=== PATIENT | male | born 1955 | race Caucasian/White ===

== ENCOUNTER → 2018-11-30 08:43 | Outpatient (CLI) | payer OTHER, SELFPAY ==
[2018-11-30 10:47] LABS: Microalbumin,Random Urine 15.8 mg/L (NO RANGE EST.); Microalbumin:Creatinine Ratio 7.7 mg/g CRE (<30 mg/g CRE)
[2018-11-30 10:59] LABS: AST(SGOT) 17 U/L (15-37); Alanine Aminotransfer ALT/SGPT 34 U/L (16-61); Albumin, Serum 3.9 g/dL (3.2-5.0); Alkaline Phosphatase 23 U/L (45-117); Anion Gap 11 (5-15); BUN 18 mg/dL (7-18); BUN/Creat Ratio 20.9 RATIO (10-20); Bilirubin, Direct 0.13 mg/dL (0.00-0.30); Calcium,Total 8.4 mg/dL (8.5-10.1); Chloride 104 mmol/L (98-107); Cholesterol 115 mg/dL (200); Creatinine, Serum 0.86 mg/dL (0.70-1.30); EST Glomerular Filtration Rate 96 mL/min (>60); Est Glom Filt Rate - Afr Amer 116 mL/min (>60); Globulin 3.3 g/dL (2.2-4.2); Glucose 136 mg/dL (74-106); High Density Lipoprotein 29 mg/dL; Potassium 3.9 mmol/L (3.5-5.1); Protein, Total 7.2 g/dL (6.4-8.2); Sodium Level 139 mmol/L (136-145); Triglycerides 150 mg/dL; Very Low Density Lipoprotein 30 mg/dL (5-40)
== END ==
PROVIDERS: Family Provider Family Medicine; PCP Family Medicine; Visit Provider Family Medicine
DX: E11.9 Type 2 diabetes mellitus without complications (principal)
CPT/HCPCS: 36415; 80048; 80061; 80076; 82043; 82570

== ENCOUNTER → 2018-12-28 09:17 | Outpatient (CLI) | payer OTHER, SELFPAY ==
--- NOTE | 2018-12-28 09:22 | RAD_ITS ---
STUDY: X-RAY - LEFT KNEE REASON FOR EXAM: Male, 63 years old. Pain TECHNIQUE: 4 view(s) of the knee. COMPARISON: None. FINDINGS: Normal visualized distal femur. Normal visualized proximal tibia and fibula. Normal proximal tibiofibular articulation. There is mild degenerative arthrosis of the medial femorotibial compartment. Normal lateral femorotibial compartment. Normal patellofemoral articulation. Arterial calcifications. RAD/Knee 4 or More Views IMPRESSION: Mild medial compartment osteoarthritis. Electronically Signed: Javon Reyes MD at 13:59 EDT Tel , Service support ,
--- NOTE | 2018-12-28 09:22 | RAD_ITS ---
STUDY: X-RAY - RIGHT KNEE REASON FOR EXAM: Male, 63 years old. Pain TECHNIQUE: 4 view(s) of the knee. COMPARISON: None. FINDINGS: An osteochondral defect is present along the articular aspect of the medial femoral condyle measuring 15 x 8 mm. Suprapatellar effusion. Arterial calcifications. Joint spaces are intact. RAD/Knee 4 or More Views IMPRESSION: An osteochondral defect is present along the articular aspect of the medial femoral condyle measuring 15 x 8 mm. Electronically Signed: Javon Reyes MD at 11:42 EDT Tel , Service support ,
== END ==
PROVIDERS: Family Provider Family Medicine; PCP Family Medicine; Referring Provider Nurse Practitioner Family; Visit Provider Nurse Practitioner Family
DX: M17.0 Bilateral primary osteoarthritis of knee (principal)
CPT/HCPCS: 73564

== ENCOUNTER → 2019-09-25 15:32 | Outpatient (CLI) | payer OTHER, SELFPAY ==
--- NOTE | 2019-09-25 15:45 | RAD_ITS ---
STUDY: X-RAY - LUMBAR SPINE REASON FOR EXAM: Male, 64 years old. Back pain. TECHNIQUE: 5 view(s) of the lumbar spine were obtained. COMPARISON: None FINDINGS: Normal lumbar lordosis. There is no substantial scoliosis. There is a normal alignment of the vertebrae. There is multilevel endplate spondylosis of the lumbar vertebrae. There is multi-level degenerative disc disease with multi-level disc space narrowing. This is more significant at L4-L5 and L5-S1. There is no demonstrated fracture. There is no demonstrated spondylolysis of the pars interarticulares. There is multilevel bilateral facet hypertrophy, more significant at L4-L5 and L5-S1. There is atherosclerotic calcification of the abdominal aorta without a demonstrated aneurysm. RAD/L/S Spine Min 4 Views IMPRESSION: Multilevel spondylosis/degenerative disease with no acute fracture, spondylolisthesis or pars defect. Electronically Signed: Vicky Parr MD at 21:29 EST , Service support ,
== END ==
PROVIDERS: Family Provider Family Medicine; PCP Family Medicine; Referring Provider Family Medicine; Visit Provider Family Medicine
DX: M47.816 Spondylosis without myelopathy or radiculopathy, lumbar region (principal); M51.37 Other intervertebral disc degeneration, lumbosacral region; M48.07 Spinal stenosis, lumbosacral region
CPT/HCPCS: 72110

== ENCOUNTER 2019-10-04 11:00 | Outpatient (RCR) | payer OTHER, SELFPAY ==
--- NOTE | 2019-09-27 13:18 | HP.PTEVAL ---
Patient's Visit Information LINDA SWAN is a 64 year old M referred to Physical Therapy by Thomas Shin MD with a diagnosis of back pain. Date of Evaluation: 09/27/19 Physical Therapist: CASSIA Baumann - Visit Plan Frequency: 2-3x /Week Duration: 4-6 Weeks Plan: 2-3X/ week for 4-6 weeks for slow centralization of symptoms, modalities for pain control, postural exercises and if able core stability exercises with HEP - Subjective Findings: Pt reports that a short time ago he started to have pain in his back and then in his R knee and down to his foot. He also has numbness in his R leg. He had to stop working cause he could not feel if his foot was on the brake or the gas pedel. He reports that he can sleep maybe and hour and then he wakes up with pain. He reports that he can not stand for a long time either and only has one particular chair that he can sit in. He is taking some meds from the Dr and they help some. He got an x-ray but has not heard the results. He has a R knee problems with something there but no one mentioned any kind of surgery. - Pain R back pain Pain Intensity (Out of 10): 8 R knee pain Pain Intensity (Out of 10): 6 - Objective Gait: walks with flexed trunk with WBOS with his R leg out to the side due to pain. Trunk AROM: flexion 75%, Ext 10% (increase pain), SB B 75% (with increase pain). Pt is able to walk on heels and toes. LE MMT: R hip flexion 3+/5 and L hip flexion 4/5, R knee ext 4-/5 and L 4+/5, R knee flex 4-/5 and L knee flex 4+/5, R hip abd 4-/5 and L hip abd 4/5. Attempted to have pt lay prone and he had severe pain in his back and down his R leg. Tried up to 3 pillows under his abdomin and he still had the pain in his leg. Go the pt into L sidelying and he could not get comfortable until he R hip flexion with greater than 90 degrees ( this is how he tries to sleep at night). - Goals Goal 1:: I HEP Goal Time Frame: 4-6 Weeks Goal 2:: Be able to centralize symotoms so that he is able to walk with his back in a neutral psostion Goal Time Frame: 4-6 Weeks Goal 3:: Decrease back and leg pain to 3/10 with ADL's, walking and sitting Goal Time Frame: 4-6 Weeks - Rehabilitation Potential Rehabilitation Potential: Fair - Anticipated Interventions Patient/Client Instruction: Educate patient on: Condition, Plan of Care For the Purpose of:: To decrease pain, To decrease swelling/inflammation, To increase ROM, To improve nutrient delivery to tissue, To improve muscle performance and motor function, To improve ability to perform ADL's, To increase tolerance to activity/condition/position, To improve performance and independence with ADL's, To decrease level of supervision to perform tasks, To decrease soft tissue restriction, To increase flexibility/ROM Therapeutic Exercise to Include: Strength training, Body mechanics, Postural training, Flexibilty training, Gait and locomotor training, Passive ROM, Active ROM, Dynamic Lumbar Stabilization, Scapular Strength/Stabilization For the Purpose of:: To decrease pain, To decrease swelling/inflammation, To increase ROM, To improve nutrient delivery to tissue, To improve ability to perform ADL's, To increase tolerance to activity/condition/position, To improve performance and independence with ADL's, To improve health of tissue, To decrease soft tissue restriction, To increase flexibility/ROM Manual Therapy Techniques to Include: Mobilization, Soft tissue mobilization For the Purpose of:: To decrease pain, To decrease swelling/inflammation, To increase ROM, To improve nutrient delivery to tissue IF ES: Yes Cryotherapy (ice pack, ice massage): Yes Thermo therapy (hot pack): Yes Ultrasound (thermal/non thermal): Yes For the Purpose of:: To decrease pain, To decrease swelling/inflammation, To increase ROM, To improve nutrient delivery to tissue Thank you for the opportunity to evaluate your patient. For Medicare and Medicare HMO plans, please review the plan of care and approve it. It will need to be FAXED BACK to us at [phone] for Medicare purposes. For Medicare only, by signing this I certify the plan of care. Please let me know if there are questions or concerns regarding this plan of care. Physician Signature: Date:
--- NOTE | 2020-01-08 16:09 | HP.PT.NRP ---
LINDA SWAN was seen in my office for initial evaluation on 09/27/19. The following Plan of Care was established for this patient: Initial Frequency: 2-3x /Week Initial Duration: 4-6 Weeks Patient/Client Instruction: Educate patient on: Condition, Plan of Care For the Purpose of:: To decrease pain, To decrease swelling/inflammation, To increase ROM, To improve nutrient delivery to tissue, To improve muscle performance and motor function, To improve ability to perform ADL's, To increase tolerance to activity/condition/position, To improve performance and independence with ADL's, To decrease level of supervision to perform tasks, To decrease soft tissue restriction, To increase flexibility/ROM Therapeutic Exercise to Include: Strength training, Body mechanics, Postural training, Flexibilty training, Gait and locomotor training, Passive ROM, Active ROM, Dynamic Lumbar Stabilization, Scapular Strength/Stabilization For the Purpose of:: To decrease pain, To decrease swelling/inflammation, To increase ROM, To improve nutrient delivery to tissue, To improve ability to perform ADL's, To increase tolerance to activity/condition/position, To improve performance and independence with ADL's, To improve health of tissue, To decrease soft tissue restriction, To increase flexibility/ROM Manual Therapy Techniques to Include: Mobilization, Soft tissue mobilization For the Purpose of:: To decrease pain, To decrease swelling/inflammation, To increase ROM, To improve nutrient delivery to tissue IF ES: Yes Cryotherapy (ice pack, ice massage): Yes Thermo therapy (hot pack): Yes Ultrasound (thermal/non thermal): Yes For the Purpose of:: To decrease pain, To decrease swelling/inflammation, To increase ROM, To improve nutrient delivery to tissue This patient was last seen in our office 10/04/19. Pertinent comments regarding their Physical therapy will appear below: [facility] PT At this point I will be discontinuing this patient from physical therapy. I would be happy to see this patient again in the future if found appropriate by the physician. Thank you! Ester Roman, MPT
== END 2019-10-04 19:00 | disposition home or self-care (01) ==
LOC: PT 11:00
PROVIDERS: Family Provider Family Medicine; PCP Family Medicine; Referring Provider Family Medicine; Visit Provider Family Medicine
DX: M54.9 Dorsalgia, unspecified (principal)
CPT/HCPCS: 97014; 97035; 97162; G0283

== ENCOUNTER → 2019-10-09 10:01 | Outpatient (CLI) | payer OTHER, SELFPAY ==
[2019-10-09 13:04] LABS: Absolute Lymphocyte Count 1.91 X10^3/uL (0.83-4.51); Absolute Neutrophil Count 5.9 X10^3/uL (2.0-7.7); Basophil# 0.07 X10^3/uL; Basophil% 0.8 % (0-1); Eosinophil# 0.25 X10^3/uL; Eosinophils% 2.9 % (0-5); Hematocrit 44.6 % (40-54); Hemoglobin 14.4 g/dL (13.0-16.5); Lymphocyte # 1.91 X10^3/ul (4.0); Mean Corp Hgb Conc 32.3 g/dL (32-36); Mean Corpuscular Hgb 29.9 pg (27.0-32.0); Mean Corpuscular Volume 92.5 fL (80-94); Mean Platelet Vol. 9.7 fl (6.2-12.0); Monocyte# 0.47 X10^3/uL; Monocyte% 5.4 % (0-10); NRBC Flagged by Analyzer 0 % (0-5); Neutrophil # 5.94 X10^3/uL (2.7-7.7); Neutrophil % 68.6 % (47-70); Platelet Count 254 K/mm3 (150-450); RBC Distribution Width CV 12.6 % (11.6-14.6); Red Blood Count 4.82 M/mm3 (4.6-6.2); White Blood Count 8.7 K/mm3 (4.4-11.0)
[2019-10-09 13:17] LABS: Anion Gap 7 (5-15); BUN 24 mg/dL (7-18); BUN/Creat Ratio 23.8 RATIO (10-20); Chloride 108 mmol/L (98-107); Creatinine, Serum 1.01 mg/dL (0.70-1.30); EST Glomerular Filtration Rate 79 mL/min (>60); Est Glom Filt Rate - Afr Amer 96 mL/min (>60); Glucose 178 mg/dL (74-106); Sodium Level 140 mmol/L (136-145)
== END ==
LOC: MFPLAB 10:02
PROVIDERS: Family Provider Family Medicine; PCP Family Medicine; Referring Provider Family Medicine; Visit Provider Family Medicine
DX: Z01.818 Encounter for other preprocedural examination (principal)
CPT/HCPCS: 36415; 80048; 85025

== ENCOUNTER → 2019-11-07 07:16 | Outpatient (CLI) | payer OTHER, SELFPAY ==
--- NOTE | 2019-11-07 07:23 | MRI_ITS ---
STUDY: MRI LUMBAR SPINE WITHOUT CONTRAST REASON FOR EXAM: Male, 64 years old. back pain, rt leg numbness TECHNIQUE: Standardized fat and water weighted pulse sequences were obtained in the sagittal and axial planes. COMPARISON: X-ray 09/25/2019 FINDINGS: T12-L1: Normal endplates. Normal disc height, hydration and morphology. Normal bilateral facet joints. Normal central canal and bilateral lateral recesses. Normal bilateral intervertebral neural foramina. Normal lumbar lordosis. There is no substantial scoliosis. Normal conus medullaris that terminates at the L1/L2. L1-2: Normal endplates. Normal disc height, hydration and morphology. Normal bilateral facet joints. Normal central canal and bilateral lateral recesses. Normal bilateral intervertebral neural foramina. L2-3: Normal endplates. Normal disc height, hydration and morphology. Normal bilateral facet joints. Normal central canal and bilateral lateral recesses. Normal bilateral intervertebral neural foramina. L3-4: Mild bilateral facet hypertrophy and ligament flavum hypertrophy. Mild broad disc protrusion produces mild spinal stenosis with a moderate sized right foraminal extrusion produces severe right neural foraminal stenosis with effacement of the right L3 nerve root in the neural yañez. L4-5: Mild bilateral facet hypertrophy and moderate ligament flavum hypertrophy. Moderate broad disc protrusion produces moderate spinal stenosis with moderate bilateral lateral recess stenosis with abutment of the L5 nerve roots bilaterally and moderate bilateral neural foraminal stenosis with abutment of the exiting L4 nerve roots bilaterally. L5-S1: Mild broad disc protrusion produces mild spinal stenosis with mild bilateral lateral recess stenosis and mild bilateral neural foraminal stenosis. Normal visualized sacral ala. Normal visualized paraspinous soft tissue structures. MRI/Spine Lumbar (Routine) IMPRESSION: Multilevel degenerative changes, as described above. Electronically Signed: Dustin Hickman MD at 8:06 EST Tel , Service support ,
== END ==
LOC: MRI 07:19
PROVIDERS: Family Provider Family Medicine; PCP Family Medicine; Referring Provider Family Medicine; Visit Provider Family Medicine
DX: M54.9 Dorsalgia, unspecified (principal)
CPT/HCPCS: 72148

== ENCOUNTER 2020-05-17 15:07 | Inpatient (IN) | payer OTHER, SELFPAY ==
[2020-05-17] VITALS (9 sets, daily range): BP systolic 118–138; BP diastolic 74–87; PULSE 62–74; RESP 12–19; TEMP 36.6–37.1; O2SAT 97–99; BMI 30.4; BMI 34.7; BMI 35.2; BMI 35.3
--- NOTE | 2020-05-17 15:21 | NURSING ---
NO OLD EKGS
--- NOTE | 2020-05-17 15:23 | CT_ITS ---
STUDY: CT BRAIN WITHOUT CONTRAST REASON FOR EXAM: Male, 65 years old. FALL, TRAUMA RADIATION DOSAGE (If Supplied By Facility): CTDIvol = ( 44.99 ) mGy, DLP = ( 863.60 ) mGycm TECHNIQUE: Transaxial CT imaging of the brain was performed without administration of intravenous contrast material. Individualized dose optimization techniques were used for this CT. COMPARISON: No relevant priors. FINDINGS: Normal soft tissue structures. Normal calvarium. Normal size ventricles and extra-axial spaces for the patient''s age. Normal white matter tracts of the cerebral hemispheres. Normal basal ganglia and thalami. Normal brainstem. Normal cerebellum. There is no intracranial hemorrhage. There are no findings of an acute ischemic infarction. Normal visualized paranasal sinuses. CT/Brain/Head without Contrast IMPRESSION: Normal unenhanced CT scan of the brain. Electronically Signed: Dustin Hickman MD at 16:09 EDT Tel , Service support ,
--- NOTE | 2020-05-17 15:24 | CT_ITS ---
STUDY: CTA HEAD AND NECK WITH CONTRAST REASON FOR EXAM: Male, 65 years old. SLURRED SPEECH, FALL RADIATION DOSAGE (If Supplied By Facility): CTDIvol = ( 19.98 ) mGy, DLP = ( 737.73 ) mGycm TECHNIQUE: CT angiography was performed with a multi-detector CT scanner. Data acquisition was obtained from the skull base through the vertex following intravenous administration of IV 100mL [id number]-[id number]. MIP images were reconstructed from the axial data set. Post-processing of the angiographic images was performed, with multiplanar reformation and 3D reconstruction. Individualized dose optimization techniques were used for this CT. COMPARISON: No relevant priors. FINDINGS: Normal bilateral petrous carotid arteries. There is calcified plaque formation of the right cavernous carotid artery, with a mild stenosis (less than 50%). There is calcified plaque formation of the left cavernous carotid artery, with a moderate stenosis (50-75%). Normal right A1 segments of the anterior cerebral artery. Normal left A1 segments of the anterior cerebral artery. Normal intact anterior communicating artery (ACOM). Normal bilateral A2 segments of the anterior cerebral arteries. Normal right M1 and M2 segments of the middle cerebral arteries, with a normal M1 bifurcation. Normal left M1 and M2 segments of the middle cerebral arteries, with a normal M1 bifurcation. Normal right posterior communicating artery (PCOM). Normal left posterior communicating artery (PCOM). Normal bilateral vertebral arteries. Normal basilar artery with a normal basilar bifurcation. The visualized bilateral superior cerebellar (SCA) arteries are normal. Normal bilateral P1, P2 and visualized P3 segments of the posterior cerebral arteries. There is no demonstrated aneurysm of the [place]. There is no demonstrated abnormality of the visualized brain. AORTIC ARCH: Normal visualized aortic arch. Normal origins of the brachiocephalic, left common carotid, and left subclavian arteries. RIGHT CAROTID ARTERIES: Normal right common carotid artery (CCA). There is extensive calcified atherosclerotic plaque formation with moderate narrowing of the right carotid bulb with a hemodynamically significant stenosis. There is severe atherosclerotic plaque formation of the origin of the right internal carotid artery with an estimated stenosis of 50-69% stenosis. There is atherosclerotic tortuous elongation of the cervical portion of the right internal carotid artery. Normal origin of the right external carotid artery (ECA). LEFT CAROTID ARTERIES: Normal left common carotid artery (CCA). There is moderate to severe atherosclerotic plaque formation with moderate narrowing of the carotid bulb. There is moderate atherosclerotic plaque formation of the origin of the left internal carotid artery with an estimated stenosis of 50-69% stenosis. There is atherosclerotic tortuous elongation of the cervical portion of the left internal carotid artery. Normal origin of the left external carotid artery (ECA). VERTEBRAL ARTERIES: Normal bilateral vertebral arteries. CT/CTA Head AND Neck W/ Contrast IMPRESSION: Moderate to severe bilateral calcified plaque of the carotid bulbs. Moderate grade, up to 69%, stenosis of the origins of both ICAs. Electronically Signed: Higinio Lauren MD at 16:54 EDT , Service support ,
--- NOTE | 2020-05-17 15:24 | RAD_ITS ---
STUDY: X-RAY CHEST REASON FOR EXAM: Male, 65 years old. SLURRED SPEECH, DIFFICULTY FINDING WORDS SINCE FALL 3 DAYS AGO TECHNIQUE: Single AP portable view of the chest. COMPARISON: None. FINDINGS: The lungs are clear and expanded. There is no demonstrated pleural abnormality. Normal size heart. Normal mediastinum and page. Normal visualized pulmonary arteries. Normal visualized aortic arch and descending thoracic aorta. Normal visualized thoracic spine. Normal visualized ribs, clavicles, and shoulders. There is no demonstrated abnormality of the visualized soft tissue structures of the upper abdomen. RAD/Chest 1 View (Portable) IMPRESSION: Normal x-ray examination of the chest. Electronically Signed: Dustin Hickman MD at 15:53 EDT Tel , Service support ,
--- NOTE | 2020-05-17 15:24 | EKG12_ITS ---
Test Reason : NEURO Blood Pressure : / mmHG Vent. Rate : 068 BPM Atrial Rate : 068 BPM P-R Int : 182 ms QRS Dur : 096 ms QT Int : 392 ms P-R-T Axes : 023 -24 013 degrees QTc Int : 416 ms Normal sinus rhythm Normal ECG Confirmed by DURAN MARTI MD ([id number]), communications editor DOMINIQUE MAGALLANES ([id number]) on 05/21/2020 9:28:55 AM Referred By: LEONA Confirmed By:DURAN MARTI MD
--- NOTE | 2020-05-17 15:26 | ED.VIS.GEN ---
History of Present Illness Chief Complaint: Neuro S/Sx Informant: Patient, Family Narrative: Patient is a 65-year-old male with a past medical history of diabetes, hypertension who presents to the emergency department for slurred speech. This has been present over the past 3 days. He states that he did fall and strike his head at that time. He is denying any headache, vision changes. No weakness or loss of sensation in extremity. He feels like his balance has been very off since then. He has been having frequent falls since then. He is not on any anticoagulation medications. He has never had this happen before in the past. No history of strokes. He denies any recent illnesses including any cough, cold, congestion. No fevers or chills. No neck pain. No back pain. No injury to extremities. He has not had any chest pain, shortness of breath or heart palpitations. Denies smoking, drinking or drug use. He does take a full-strength aspirin, the last time he took this was yesterday. Past Medical History - Allergies and Home Meds Allergies/Adverse Reactions: Allergies No Known Allergies Allergy (Verified 05/17/20 15:09) Prior records reviewed: Yes Past Medical History: - - Type 2 diabetes mellitus, hypertension Smoking Status: Never smoker Alcohol: None Drugs: None - Family History Maternal Family History: Reports: Cancer, Heart Disease, Hypertension, Stroke, - - Patient notes a maternal family history of hypertension and stroke as well as breast cancer. Paternal Family History: Reports: Heart Disease, Hypertension, Stroke, - - Patient notes paternal family history of hypertension and stroke. Review of Systems All systems negative except as indicated General: Denies: Chills, Fever Eyes: Denies: Visual changes - bilaterally ENT: Denies: Bilateral ear pain Cardiovascular: Denies: Chest pain, Palpitations Respiratory: Denies: Dyspnea, Cough Gastrointestinal: Denies: Abdominal pain, Nausea, Vomiting, Diarrhea, Constipation Genitourinary: Denies: Dysuria, Hematuria, Frequency Musculoskeletal: Denies: Neck pain, Back pain, Swelling, Extremity Pain Skin: Denies: Wounds Neurological: Reports: - - Speech issues, discoordination. Denies: Headache, Weakness, Parasthesia, Numbness Physical Exam Vital Signs/Narrative: Vital Signs Temp Pulse Resp BP Pulse Ox 05/17/20 15:19 74 19 H 138/79 H 98 05/17/20 15:09 98.5 F 73 16 125/80 H 97 Inital Vital Signs reviewed: Yes General: Well nourished, Well developed, No Acute Distress Head: Normocephalic, - - Old superficial abrasion to right sided forehead Eyes: Perrl, EOMI ENT: Moist mucous membranes Neck: Supple, Nontender Cardiovascular: Regular rate, Regular rhythm Respiratory: No distress, CTA bilaterally Abdomen: Soft, Nontender Neurological: Alert, Oriented x3, Normal Strength, Normal Sensation - Patient does have dysarthria. Mild aphasia. Normal [id number], normal [id number]., -. Negative for: Left side facial droop, Right side facial droop Diagnostic/Tx/Re-eval - EKG Initial EKG Interpretation: - - Rate of 60 bpm and normal sinus rhythm. Normal intervals. Normal axis. No ST elevations or depressions appreciated. No T wave abnormalities. - Medical Decision Making Patient presents to the emergency department for slurred speech. This did all start after striking his head after a fall. He has been off balance since and having issues with his speech. Upon arrival to emerge department vital signs within normal limits. Patient not a candidate for TPA given the fact that this has been going on for 3 days. Will obtain imaging and basic lab work. Lab work did not show any significant acute abnormality except for hyperglycemia. No evidence of DKA. EKG did not show any signs of ischemia or arrhythmia. CT scan of his head did not show any evidence of acute intracranial hemorrhage. Will bring into the hospital for stroke evaluation and management. Otherwise has been stable throughout ED stay. Will bring into the hospital for further evaluation and management. Patient has an NIH score of 2 given the aphasia and dysarthria. No other focal deficits. Patient given a dose of aspirin here in the emergency department. ED Disposition - Plan for ED Patient: Disposition: Acute Care Hospital [facility] Diagnosis: Dysarthria, Aphasia, Imbalance, Hyperglycemia
[2020-05-17 15:30] LABS: Bedside Glucose 293 mg/dL (70-110)
[2020-05-17 15:45] LABS: Absolute Lymphocyte Count 1.58 X10^3/uL (0.83-4.51); Absolute Neutrophil Count 3.9 X10^3/uL (2.0-7.7); Basophil# 0.04 X10^3/uL; Basophil% 0.6 % (0-1); Eosinophil# 0.15 X10^3/uL; Eosinophils% 2.4 % (0-5); Hematocrit 41.7 % (40-54); Hemoglobin 13.5 g/dL (13.0-16.5); Lymphocyte # 1.58 X10^3/ul (4.0); Lymphocyte % 25.4 % (19-41); Mean Corp Hgb Conc 32.4 g/dL (32-36); Mean Corpuscular Hgb 29.8 pg (27.0-32.0); Mean Corpuscular Volume 92.1 fL (80-94); Mean Platelet Vol. 9.9 fl (6.2-12.0); Monocyte# 0.54 X10^3/uL; Monocyte% 8.7 % (0-10); NRBC Flagged by Analyzer 0 % (0-5); Neutrophil # 3.89 X10^3/uL (2.7-7.7); Neutrophil % 62.4 % (47-70); Platelet Count 201 K/mm3 (150-450); RBC Distribution Width CV 13.2 % (11.6-14.6); RBC Distribution Width SD 44.6 fl (35.1-43.9); Red Blood Count 4.53 M/mm3 (4.6-6.2); White Blood Count 6.2 K/mm3 (4.4-11.0)
[2020-05-17 16:04] LABS: ALB/GLOB Ratio 0.9 RATIO (0.9-2.4); AST(SGOT) 13 U/L (15-37); Alanine Aminotransfer ALT/SGPT 35 U/L (16-61); Albumin, Serum 3.7 g/dL (3.2-5.0); Alkaline Phosphatase 30 U/L (45-117); Anion Gap 5 (5-15); BUN 16 mg/dL (7-18); BUN/Creat Ratio 16.4 RATIO (10-20); Calcium,Total 8.7 mg/dL (8.5-10.1); Chloride 104 mmol/L (98-107); Creatinine, Serum 0.98 mg/dL (0.70-1.30); EST Glomerular Filtration Rate 82 mL/min (>60); Est Glom Filt Rate - Afr Amer 100 mL/min (>60); Estimated Creatinine Clearance 74.64 ml/min; Globulin 4.1 g/dL (2.2-4.2); Glucose 291 mg/dL (74-106); Magnesium 1.9 mg/dL (1.6-2.6); Potassium 3.8 mmol/L (3.5-5.1); Protein, Total 7.8 g/dL (6.4-8.2); Sodium Level 139 mmol/L (136-145)
--- NOTE | 2020-05-17 16:40 | HP.PCM_ITS ---
History of Present Illness Date of Admission: 05/17/20 Chief Complaint: Fall, Slurred speech, aphasia Admission Diagnoses: 1. Recent frequent falls, slurred speech, aphasia, dysarthria secondary to Acute CVA 2. Diabetes mellitus type II 3. Hypertension 4. Hyperlipidemia 5. Obesity 6. Anxiety The patient is a 65 y/o M w/ PMHx: Obesity, Anxiety, Diabetes mellitus type II, HTN, HLD who presents to the [facility] ED on 05/17/20 with history of aphasia and slurred speech, dysarthria noted to have fallen 3 days prior and since having ongoing symptoms with increased falls, noted to have been off balance, noted to have hit his head with no LOC nor any ongoing headaches nor any neck pain resulting. Patient daughter present and she agrees that he has been very slow to respond having difficulty finding words as well as difficulty following any commands. Patient denies any specific fall to one side but notes even falls backwards. Work-up in the ED included T 98.5, rate 73, BP 125/80, respiratory rate 16, 97% on room air, CBC with WBC 6.2, hemoglobin 13.5, platelet 201 without market shift, CMP unremarkable aside glucose 291, magnesium 1.9, troponin less than 0.015, ethyl alcohol 3.0, CT brain with no acute intracranial findings, chest x- ray with no acute cardiopulmonary findings, CTA head and neck pending upon evaluation of patient, EKG with sinus rhythm with no acute evidence of ischemia. The ED patient administered aspirin 81 mg p.o. x1. Past Medical History Allergies No Known Allergies Allergy (Verified 05/17/20 15:09) Home Medications: Ambulatory Orders Medication Instructions Recorded Aspirin [Ecotrin] 325 mg PO DAILY 05/17/20 Atorvastatin Calcium 40 mg PO DAILY 05/17/20 Clonazepam [Klonopin] 0.5 mg PO DAILY PRN PRN 05/17/20 Glyburide 5 mg PO DAILY 05/17/20 Linagliptin/Metformin HCl 1 ea PO BID 05/17/20 [Jentadueto 2.5 mg-1000 mg Tab] Liraglutide [Victoza 3-Joselo] 1.8 mg SQ DAILY 05/17/20 Lisinopril [Zestril] 5 mg PO DAILY 05/17/20 Sildenafil Citrate [Viagra] 100 mg PO DAILY PRN PRN 05/17/20 Psychiatric History: Anxiety Lives: Alone Smoking Status: Never smoker Tobacco Use: Non-smoker Alcohol: Occasional Drugs: None - *Family History Maternal History Items: Cancer, Heart Disease, Hypertension, Stroke, - - Patient notes a maternal family history of hypertension and stroke as well as breast cancer. Paternal History Items: Heart Disease, Hypertension, Stroke, - - Patient notes paternal family history of hypertension and stroke. Review of Systems Constitutional: Reports: Malaise, Weakness, Fatigue. Denies: Anorexia, Chills, Fever, Weight Change HEENT: Denies: Head Aches, Nasal Congestion, Sinus Congestion, Sinus Drainage, Sore Throat, Visual Changes Cardiovascular: Denies: Chest Pain, Chest Pressure, Chest Tightness, Light Headedness, Orthopnea, Palpitations, Syncope Respiratory: Denies: Cough, Shortness of Breath, Shortness of breath at rest, Shortness of breath upon exertion, Sputum production Gastrointestinal: Denies: Abdominal Pain, Nausea, Vomiting Genitourinary: Denies: Dysuria Musculoskeletal: Reports: Back Pain, Joint Pain. Denies: Joint Tenderness Skin: Denies: Rash, Wounds Neurological: Reports: Balance problems, Change in Speech, Confusion, Incoordination. Denies: Focal weakness, Numbness, Tingling Psychiatric: Reports: Anxiety. Denies: Depression, Homicidal Ideations, Suicidal Ideations Hematologic/ Lymphatic: Reports: Easy Bruising, Easy Bleeding VTE Information - Inpt Only VTE Present on Admission: No VTE Mechan Device Prophylaxis: SCD's VTE Pharm Prophylaxis ordered?: Yes Patient Problems: Active and Suspected Problems Dysarthria (Acute) Aphasia (Acute) Imbalance (Acute) Hyperglycemia (Acute) Subjective: Seated upright in the ED bed, ongoing neurological symptoms, unchanged, aphasic, dysarthria, difficulty following commands. Objective: Physical Examination: General: awake, alert, oriented x 3/4, gave wrong month but currently it is 05/17/2020 and patient did state May, remains cooperative however having significant issues following commands, seated upright in the ED bed, no acute distress. Skin: normal color, turgor, no icterus, cyanosis except occasional healed abrasion. HEENT: AT/NC, EOMI, PERRLA, dry MM, + carotid bruits, no JVD noted. Lungs: CTA bilaterally, moderate effort, moderate decrease BL bases, no rales, ronchi or wheezing. Heart: Regular rate and rhythm; no gallop, rub audible. Abdomen: soft, obese, NTTP, ND, normal BS, no HSM. Extremities: no cyanosis, clubbing, or edema. Neurological: patient awake, alert, oriented as noted, decreased from his baseline but not market; cognitive function decreased from baseline intact per discussion with family and patient; pupils equally reactive to light and accomodation; cranial nerves II-XII grossly normal, moving all 4 extremities, no focal deficits, extremely slow to follow commands, remains dysarthric and aphasic, no obvious slurred speech but extremely slow and halting, strength preserved, difficulty following commands for [id number] and [id number] but primarily appears intact, equivocal Babinski bilaterally, denies any sensation alteration. Psychiatric: affect appears flat, no acute evidence of depressive or anxiety feelings. - Physical Exam Vitals/I&O's: Vital Signs Temp Pulse Resp BP Pulse Ox 98.5 F 64 12 138/79 H 98 05/17/20 15:09 05/17/20 16:12 05/17/20 16:12 05/17/20 15:19 05/17/20 16:12 Oxygen Delivery Method Room Air Weight: 228 lb 9.91 oz Body Mass Index (BMI) 34.7 Finger Stick Blood Glucose 293 Laboratory Results 05/17/20 15:25: WBC 6.2, RBC 4.53 L, Hgb 13.5, Hct 41.7, MCV 92.1, MCH 29.8, MCHC 32.4, RDW Std Deviation 44.6 H, RDW Coeff of [place] 13.2, Plt Count 201, MPV 9.9, Immature Gran % (Auto) 0.500, Neut % (Auto) 62.4, Lymph % (Auto) 25.4, Mckinley % (Auto) 8.7, Eos % (Auto) 2.4, Baso % (Auto) 0.6, Absolute Neuts (auto) 3.9, Absolute Lymphs (auto) 1.58, Nucleated RBC % 0 05/17/20 15:25: Sodium 139, Potassium 3.8, Chloride 104, Carbon Dioxide 30.0, Anion Gap 5, BUN 16, Creatinine 0.98, Estim Creat Clear Calc 74.64, Est GFR (MDRD) Af Amer 100, Est GFR (MDRD) Non-Af 82, BUN/Creatinine Ratio 16.4, Glucose 291 H, Calcium 8.7, Magnesium 1.9, Total Bilirubin 0.20, AST 13 L, ALT 35, Alkaline Phosphatase 30 L, Troponin I < 0.015, Total Protein 7.8, Albumin 3.7, Globulin 4.1, Albumin/Globulin Ratio 0.9 05/17/20 15:25: Ethyl Alcohol 3.0 05/17/20 15:25: POC Glucose 293 H Current Medications Iopamidol (Contrast Allergy Check) 0 ml IV X1 GERARDO Assessment/Plan All Active Problems Dysarthria (Acute) Aphasia (Acute) Imbalance (Acute) Hyperglycemia (Acute) The patient is a 65 y/o M w/ PMHx: Obesity, Anxiety, Diabetes mellitus type II, HTN, HLD who presents to the [facility] ED on 05/17/20 with history of aphasia and slurred speech, dysarthria noted to have fallen 3 days prior and since having ongoing symptoms with increased falls, noted to have been off balance, noted to have hit his head with no LOC nor any ongoing headaches nor any neck pain resulting. 1. Recent frequent falls, slurred speech, aphasia, dysarthria secondary to Acute CVA: Will admit to PCU, will obtain MRI Brain, awaiting CTA Head and Neck, will obtain ECHO, PT/OT/Speech/Nutrition evaluation per protocol. Will allow permissive HTN, maintain on asa, change to high dose statin w/ AM FLP, fall precautions. Magnesium level normal. Will obtain hemoglobin A1c, FLP, TSH. Following MRI brain would plan consultation with neurology if appropriate. Patient will likely need acute rehab following inpatient evaluation and treatment. 2. Diabetes mellitus type II: Hold oral home regimen, continue Victoza regimen, hemoglobin A1c requested, allow ADA diet if passes speech evaluation, accu checks w/ ISS, nutrition consulted for education and teaching. 3. Hypertension: Allowing permissive hypertension, temporarily holding oral regimen, resume once appropriate, PRN agents if needed. 4. Hyperlipidemia: We will change to high-dose statin from current moderate dose, plan FLP in AM. 5. Obesity: Weight loss and lifestyle changes encouraged. 6. Anxiety: We will continue patient home low-dose Klonopin as needed regimen. 7. DVT prophylaxis: SCDs, Lovenox. 8. CODE status: Patient HCPDYLAN is his daughter who is present in the room and living will is currently in place. Recommended they assure these have been updated and reviewed on a routine basis. Discussed CODE status at length including difference between FULL code, DNR-CCA and DNR-CC status. Following discussions about the differences in these status, requested full CODE STATUS. Advanced Care Planning Face to Face Time: 16 minutes. Inpatient E&M: 20191 Init Hosp L3 Procedures: 09550 Advncd Care Plan 30 Min
--- NOTE | 2020-05-17 16:52 | NURSING ---
PCU STROKE WHITE
[2020-05-17] MEDS: Aspirin 81 MG TAB.CHEW PO (16:53)
--- NOTE | 2020-05-17 18:40 | CDU_ITS ---
Reason For Study: CVA Rt. Velocities/BP Lt. Velocities/BP Prox CCA 96/24 cm/sec. Prox CCA 80/19 cm/sec. Mid CCA 73/20 cm/sec. Mid CCA 75/22 cm/sec. Dist CCA 58/18 cm/sec. Dist CCA 93/26 cm/sec. Prox ICA 45/14 cm/sec. Prox ICA 92/24 cm/sec. Mid ICA 81/23 cm/sec. Mid ICA 66/18 cm/sec. Dist ICA 79/33 cm/sec. Dist ICA 75/28 cm/sec. Rt. ICA/CCA = 1.1. Lt. ICA/CCA = 1.2. Prox ECA 86/13 cm/sec. Prox ECA 89/11 cm/sec. Rt. Vert. 33/11 cm/sec. Lt. Vert. 54/20 cm/sec. Right Extracranial There is heterogeneous, smooth atherosclerotic plaque noted in the right common carotid artery. There is heterogeneous, irregular atherosclerotic plaque noted in the right internal carotid artery. There is heterogeneous, irregular atherosclerotic plaque noted in the right external carotid artery. Antegrade flow is noted in the right vertebral artery. Left Extracranial There is heterogeneous, irregular atherosclerotic plaque noted in the left common carotid artery. There is heterogeneous, irregular atherosclerotic plaque noted in the left internal carotid artery. There is heterogeneous, smooth atherosclerotic plaque noted in the left external carotid artery. Antegrade flow is noted in the left vertebral artery. Interpretation Summary Irregular heterogenous plaque right internal carotid artery with less than 50% stenosis. <50% stenosis right external carotid Irregular calcific plaque within the left internal carotid artery with less than 50% stenosis <50% stenosis left external carotid Patent and antegrade vertebrals bilaterally Ordering Physician: Saba Albright Referring Physician: Thomas Shin Performed By: Mari Webster, EVELYN, RVT
--- NOTE | 2020-05-17 18:40 | MRI_ITS ---
STUDY: MRI BRAIN WITHOUT CONTRAST REASON FOR EXAM: Male, 65 years old. CVA TECHNIQUE: Standardized multiplanar fat and water weighted pulse sequences were obtained. COMPARISON: CT head without contrast 05/17/2020. FINDINGS: No restricted diffusion to suspect acute or subacute ischemic infarct. Normal size of the ventricles and extra-axial spaces for the patient''s age. Normal white matter tracts of the supratentorial brain. Normal bilateral basal ganglia. Normal thalami. There is no extra-axial fluid accumulation. Normal flow voids within the major intracranial circulation suggesting patency by spin echo criteria. Normal sella turcica, pituitary gland, infundibular stalk, optic chiasm and hypothalamus. Normal tectal plate and pineal gland. Normal midbrain, lauren and medulla. Normal cerebellum. Normal basal cisterns. Mucosal edema in the right temporal mastoid bone. Normal left temporal mastoid bone. Normal bilateral internal auditory canals. No demonstrated orbital abnormality, within the constraints of a routine brain study. Normal visualized paranasal sinuses. Normal calvarium and skull base. Normal visualized soft tissue structures. Normal visualized upper cervical spine. MRI/Brain without Contrast IMPRESSION: 1. Normal unenhanced MRI of the brain. 2. Mild mucosal edema of the right temporal mastoid bone. Electronically Signed: Addy Regalado MD at 12:30 EDT , Service support ,
--- NOTE | 2020-05-17 18:40 | ECHOD_ITS ---
Reason For Study: Arrhythmia Procedure This was a 2D Doppler, Color Flow transthoracic echocardiogram. Contrast injection was performed. Exam performed portable in patient room. Left Ventricle Normal LV size. The estimated ejection fraction is 60 %. No evidence for diastolic dysfunction. No regional wall motion abnormalities noted. Right Ventricle Normal RV size. Normal systolic function. Atria Normal left atrium. Normal right atrium. No doppler evidence for ASD. Mitral Valve There is no mitral valve stenosis. There is no mitral regurgitation noted. Tricuspid Valve There is no tricuspid stenosis. No tricuspid valve insufficiency. Unable to estimate RV systolic pressure due to inadequate jet, pulmonary artery pressure probably normal. Aortic Valve Trisinus/trileaflet aortic valve. Aortic sclerosis, no stenosis. There is no aortic stenosis. Trivial aortic valve insufficiency. Pulmonic Valve There is no pulmonic valvular stenosis. No pulmonic valve insufficiency. Great Vessels Normal aortic root. Pericardium/Pleural No pericardial effusion. Medication Performed a rapid injection of agitated mix of 9 cc saline and 1cc air to assess for atrial septal defect. MMode/2D Measurements & Calculations LVIDd: 4.5 cm IVSd: 1.2 cm Ao root diam: 3.5 cm LVIDs: 2.8 cm LVPWd: 1.1 cm LA dimension: 3.5 cm FS: 37.2 % LAV(MOD-sp4): 46.5 ml LA A4 area: 16.3 cm2 Time Measurements MV dec time: 0.27 sec Doppler Measurements & Calculations MV E max eyal: 81.2 cm/sec Lat Peak E' Eyal: 9.1 cm/sec Med Peak E' Eyal: 6.3 cm/sec MV A max eyal: 91.3 cm/sec E/E' lat: 8.9 E/E' med: 13.0 MV E/A: 0.89 MV V2 max: 89.6 cm/sec MV P1/2t max eyal: 89.6 cm/sec Ao V2 max: 168.5 cm/sec MV max P.2 mmHg MV P1/2t: 114.3 msec Ao max P.4 mmHg MV V2 mean: 56.8 cm/sec MV dec slope: 229.4 cm/sec2 Ao V2 mean: 119.0 cm/sec MV mean P.4 mmHg Ao mean P.3 mmHg MV V2 VTI: 34.5 cm MVA(P1/2t): 1.9 cm2 Ao V2 VTI: 39.7 cm AI max eyal: 328.7 cm/sec LV V1 max: 110.0 cm/sec PA V2 max: 79.0 cm/sec AI max P.2 mmHg LV V1 max P.8 mmHg AI dec slope: 85.7 cm/sec2 LV V1 mean P.5 mmHg AI P1/2t: 1124 msec LV V1 mean: 73.9 cm/sec LV V1 VTI: 26.7 cm Interpretation Summary The estimated ejection fraction is 60 %. No evidence for diastolic dysfunction. Trivial aortic valve insufficiency. Ordering Physician: Saba Albrihgt Referring Physician: Thomas Shin Performed By: Brodwolf, Jose, RCS
[2020-05-17 19:11] LABS: T4 Free Direct 0.72 ng/dL (0.76-1.46); Thyroid Stim Hormone (TSH) 2.82 uIU/mL (0.358-3.74)
[2020-05-17 19:14] LABS: Hemoglobin A1c 7.9 % (3.8-5.6)
[2020-05-17] MEDS: 0.9% Normal Saline 1,000 ML 100 ML IV (20:27)
[2020-05-17] MEDS: 0.9% Saline Lock 10 ML Syringe IV (20:27)
[2020-05-17] MEDS: Famotidine 20 MG Tablet PO (21:48)
[2020-05-17] MEDS: Atorvastatin Calcium 80 MG Tablet PO (21:48)
[2020-05-17] MEDS: MELATONIN 3 MG TABLET PO (21:52)
[2020-05-17] MEDS: Contrast Allergy Safety Check IV (22:08)
[2020-05-17 22:16] LABS: Bedside Glucose 331 mg/dL (70-110)
--- NOTE | 2020-05-17 22:43 | NURSING ---
Dr. Schuster notified of patient's blood glucose level and that there are no orders for sliding scale insulin. Dr. Schuster stated that she will enter orders.
[2020-05-17] MEDS: Insulin Lispro 100 UNIT/ML INSULN.PEN SC (23:36)
[2020-05-18] VITALS (13 sets, daily range): BP systolic 102–144; BP diastolic 62–92; PULSE 54–66; RESP 14–20; TEMP 36.7–37.1; O2SAT 94–99; BMI 35.2
--- NOTE | 2020-05-18 05:55 | EKG12_ITS ---
Test Reason : AM EKG Blood Pressure : / mmHG Vent. Rate : 055 BPM Atrial Rate : 055 BPM P-R Int : 190 ms QRS Dur : 092 ms QT Int : 434 ms P-R-T Axes : 034 -15 000 degrees QTc Int : 415 ms Sinus bradycardia Inferior infarct , age undetermined , cannot be excluded Abnormal ECG Confirmed by CHER CONTRERAS, JAKUB ([id number]), editor in chief newspaper CARLOS REMY ([id number]) on 05/23/2020 3:41:58 PM Referred By: DR MEDELLIN Confirmed By:JAKUB KWON MD
[2020-05-18 05:58] LABS: Absolute Lymphocyte Count 1.57 X10^3/uL (0.83-4.51); Absolute Neutrophil Count 2.3 X10^3/uL (2.0-7.7); Basophil# 0.05 X10^3/uL; Basophil% 1.1 % (0-1); Eosinophil# 0.19 X10^3/uL; Eosinophils% 4.2 % (0-5); Hemoglobin 12.1 g/dL (13.0-16.5); Lymphocyte # 1.57 X10^3/ul (4.0); Lymphocyte % 34.5 % (19-41); Mean Corp Hgb Conc 32.7 g/dL (32-36); Mean Corpuscular Volume 91.8 fL (80-94); Mean Platelet Vol. 9.7 fl (6.2-12.0); Monocyte# 0.43 X10^3/uL; Monocyte% 9.5 % (0-10); NRBC Flagged by Analyzer 0 % (0-5); Neutrophil % 50.5 % (47-70); Platelet Count 193 K/mm3 (150-450); RBC Distribution Width CV 13.2 % (11.6-14.6); RBC Distribution Width SD 44.8 fl (35.1-43.9); Red Blood Count 4.03 M/mm3 (4.6-6.2); White Blood Count 4.6 K/mm3 (4.4-11.0)
[2020-05-18] MEDS: Insulin Lispro 100 UNIT/ML INSULN.PEN SC ×4 (06:33→21:57)
[2020-05-18] MEDS: 0.9% Normal Saline 1,000 ML 100 ML IV ×2 (06:34→17:22)
[2020-05-18 06:38] LABS: ALB/GLOB Ratio 0.8 RATIO (0.9-2.4); AST(SGOT) 13 U/L (15-37); Alanine Aminotransfer ALT/SGPT 28 U/L (16-61); Alkaline Phosphatase 25 U/L (45-117); Anion Gap 5 (5-15); BUN 13 mg/dL (7-18); BUN/Creat Ratio 17.9 RATIO (10-20); Calcium,Total 7.8 mg/dL (8.5-10.1); Chloride 105 mmol/L (98-107); Cholesterol 232 mg/dL (200); Creatinine, Serum 0.72 mg/dL (0.70-1.30); EST Glomerular Filtration Rate 116 mL/min (>60); Est Glom Filt Rate - Afr Amer 141 mL/min (>60); Estimated Creatinine Clearance 98.18 ml/min; Globulin 3.6 g/dL (2.2-4.2); Glucose 198 mg/dL (74-106); High Density Lipoprotein 36 mg/dL; Potassium 3.6 mmol/L (3.5-5.1); Protein, Total 6.6 g/dL (6.4-8.2); Sodium Level 138 mmol/L (136-145); Triglycerides 480 mg/dL
[2020-05-18 06:45] LABS: Bedside Glucose 217 mg/dL (70-110)
[2020-05-18] MEDS: Famotidine 20 MG Tablet PO ×2 (10:27→21:57)
[2020-05-18] MEDS: Enoxaparin 40 MG/0.4 ML Syringe SC (10:27)
[2020-05-18] MEDS: Aspirin 81 MG TAB.CHEW PO (10:28)
[2020-05-18 12:41] LABS: Bedside Glucose 286 mg/dL (70-110)
--- NOTE | 2020-05-18 13:38 | TELEMED_ITS ---
[facility] has confirmed receipt of a request for visit. This document confirms receipt of the order initiating the consult. To find the results of the consultation, please view the patient's reports for the scanned Telemed Consult.
--- NOTE | 2020-05-18 13:41 | CASEMGMT ---
ERICK SIMS assessment: Face to Face with patient for initial transition planning/care coordination assessment. RN LEVI introduced self and role at [facility], pt voices understanding and consents to assessment at this time. Pt's daughter is at bedside during assessment. Pt is sitting up in bed in no distress at this time. Pt is A/Ox4 at this time and answers questions appropriately at this time but does have trouble finding words at times. Care providers, pharmacy, and demographics verified at this time. Presentation: Fall 3 days ago-per sister, pt fell after developed slurred speech and difficulty finding words. Admitting dx: Acute CVA PCP: [facility] Specialists: Pt states no current specialists. Preferred Pharmacy: [facility] [place]-daughter concerned about getting meds for pt at discharge d/t no coverage now. Insurance: Per daughter, pt's insurance was terminated 05/17/2020 at 12midnight, so pt currently has no coverage. 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 Prescription Benefit: Self pay Living Will/HPOA: Pt states has LW/HPOA and is aware that they are not on file at [facility] at this time. Pt states that his daughter, Romina Cardenas, is HPOA. LNOK: Romina Cardenas, daughter/HPOA; Anne Pierre, sister Living Arrangements: Pt states lives alone in a 1 story home with laundry in basement and states no concerns at home at this time. Pt states is normally independent with ADL's. Transportation: Pt states normally drives self and states no transportation concerns at this time. DME/HHC: Pt states no current DME at this time. CM to follow for any further needed DME. Daughter aware that it will be out of pocket for DME at this time. Pt states no hx of HHC or SNF in the past. Pt unsure of plan for discharge at this time d/t recent falls at home, PT/OT evals pending. Pt is currently unemployed. Pt states does not smoke cigarettes but does drink ETOH occasionally. Pt states no further concerns/needs at this time. CM to follow PT/OT/ST evals and for any further discharge planning/needs. Advised pt to ask for CM if any further questions/concerns/needs arise, voices understanding. Pt Goal: Home Plan: TBD, pending PT/OT evals/recommendations. Stas SUAREZ CM
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
[2020-05-18] MEDS: Clopidogrel Bisulfate 75 MG Tablet PO (16:30)
[2020-05-18 17:31] LABS: Bedside Glucose 334 mg/dL (70-110)
[2020-05-18] MEDS: Contrast Allergy Safety Check IV (17:44)
[2020-05-18] MEDS: Thiamine Hydrochloride 100 MG Tablet PO (18:47)
[2020-05-18 19:10] LABS: CRP 3.27 mg/L (0.0-3.0); GGTP 61 U/L (15-85)
[2020-05-18 19:16] LABS: Vista UDS pH Range 6
[2020-05-18 19:30] LABS: Amphetamine Urine VISTA NEGATIVE (<1000 ng/mL); Barbiturate Urine VISTA POSITIVE (< 200 ng/mL); Benzodiazepine Urine VISTA NEGATIVE (< 200 ng/mL); Cocaine Urine VISTA NEGATIVE (< 300 ng/mL); Ecstacy Urine VISTA NEGATIVE (< 500 ng/mL); Methadone Urine VISTA NEGATIVE (< 300 ng/mL); PCP Urine VISTA NEGATIVE (< 25 ng/mL); THC Urine VISTA NEGATIVE (< 50 ng/mL)
[2020-05-18] MEDS: Lactulose 20 GM/30 ML UDC PO (21:57)
[2020-05-18] MEDS: Atorvastatin Calcium 80 MG Tablet PO (21:57)
[2020-05-18 23:36] LABS: Bedside Glucose 180 mg/dL (70-110)
[2020-05-19] VITALS (10 sets, daily range): BP systolic 110–124; BP diastolic 65–75; PULSE 54–67; RESP 13–18; TEMP 36.7–36.9; O2SAT 96–97; BMI 35.2
[2020-05-19] MEDS: 0.9% Normal Saline 1,000 ML 100 ML IV ×2 (04:04→13:16)
[2020-05-19] MEDS: Insulin Lispro 100 UNIT/ML INSULN.PEN SC ×4 (07:00→22:00)
[2020-05-19 07:10] LABS: Bedside Glucose 215 mg/dL (70-110)
[2020-05-19 09:48] LABS: Bacteria 0 SEEN /hpf (None Seen); Mucous, Urine 0 SEEN /hpf (<or=2+); Red Blood Cells-Urine 0 SEEN /hpf (0-5); Squamous Epithelial Cells - UA 0 SEEN /hpf (0-5); White Blood Cells 0 SEEN /hpf (0-5)
[2020-05-19 09:59] LABS: Color, Urine Yellow (Yellow); Glucose, Dipstick 100 mg/dl (Normal); Ketone-Dipstick Negative (Negative); Leukocyte Esterase-Dipstick Negative /ul (Negative); Nitrite-Dipstick Negative (Negative); Occult Blood-Urine Negative /ul (Negative); Protein-Dipstick Negative (Negative); Specific Gravity, Urine 1.005 (1.002-1.030); Urine Bilirubin Dipstick Negative (Negative); Urine Clarity Clear (Clear); Urine Urobilinogen Normal (Normal)
[2020-05-19] MEDS: Clopidogrel Bisulfate 75 MG Tablet PO (10:49)
[2020-05-19] MEDS: Lactulose 20 GM/30 ML UDC PO ×2 (10:50→21:59)
[2020-05-19] MEDS: Famotidine 20 MG Tablet PO ×2 (10:50→21:59)
[2020-05-19] MEDS: Aspirin 81 MG TAB.CHEW PO (10:50)
[2020-05-19] MEDS: Thiamine Hydrochloride 100 MG Tablet PO (10:50)
[2020-05-19] MEDS: Enoxaparin 40 MG/0.4 ML Syringe SC (10:50)
[2020-05-19 12:16] LABS: Bedside Glucose 229 mg/dL (70-110)
--- NOTE | 2020-05-19 13:28 | PCM.PN.HOSP ---
Patient Problems: Active and Suspected Problems Dysarthria (Acute) Aphasia (Acute) Imbalance (Acute) Hyperglycemia (Acute) Reason for Visit: Follow-up for language deficit, exact etiology unclear Objective: Seen and examined. Patient has improvement on the speech although still slow. Blood pressure is controlled. PT, OT and speech to follow CRP elevated, ammonia 57 and started on lactulose yesterday. Patient also has chronic constipation moves bowels once in 3 days. Physical exam General: Alert, Oriented x3, Cooperative HEENT: Atraumatic, PERRLA, EOMI, Normocephalic Oral: No Gingival or Mucosal Lesions/ Ulcerations Neck: Supple, No JVD, Negative Carotid Bruits Lungs: Air entry diminished in bilateral lung bases. No crepitation/rhonchi Cardiovascular: Regular rate, Regular Rhythm, Normal S1, Normal S2, No murmurs Abdomen: Bowel Sounds Present, Soft, Non Tender, Non-Distended : No renal angle tenderness. No suprapubic tenderness. Extremities: No edema, Capillary Refill Less than 3 Seconds Skin: No rashes, No breakdown Musculoskeletal: No Tenderness to Palpation of Joints or Extremities Neurological: Left facial droop is improved. Mild language deficit, dysarthria and decreased fluency. Deep Tendon Reflexes 2+/4 and Symmetrical, Neuro grossly intact Psych/Mental Status: Normal Affect, Appropriate. Vitals/I&O's: Vital Signs Temp Pulse Resp BP Pulse Ox 98.0 F 60 16 110/65 96 05/19/20 08:48 05/19/20 08:48 05/19/20 08:48 05/19/20 08:48 05/19/20 08:48 Oxygen Delivery Method Room Air Weight: 225 lb 1.471 oz Body Mass Index (BMI) 35.2 Finger Stick Blood Glucose 293 Intake and Output for Last 24 Hours 05/17/20 05/18/20 05/19/20 23:59 23:59 23:59 Intake Total 2720 / 2720 2120 / 2120 Output Total 650 / 650 950 / 950 Balance 2069 / 2069 1170 / 1170 Laboratory Results 05/18/20 17:20: POC Glucose 334 H 05/18/20 18:30: GGT 61, C-React Prot Ext Range 3.27 H, Folate 18.30 05/18/20 18:30: Vitamin B12 Pending 05/18/20 18:30: Ammonia 57.0 H 05/18/20 18:54: Urine Opiates Screen NEGATIVE, Urine Methadone Screen NEGATIVE, Ur Barbiturates Screen POSITIVE H, Ur Phencyclidine Scrn NEGATIVE, Ur Amphetamines Screen NEGATIVE, U Methamphetamin-MDMA NEGATIVE, U Benzodiazepines Scrn NEGATIVE, Urine Cocaine Screen NEGATIVE, U Cannabinoids Screen NEGATIVE, Ur Drug Screen Comment 05/18/20 21:53: POC Glucose 180 H 05/19/20 06:58: POC Glucose 215 H 05/19/20 09:45: Urine Color Yellow, Urine Clarity Clear, Urine pH 7.0, Ur Specific [place] 1.005, Urine Protein Negative, Urine Glucose (UA) 100 H, Urine Ketones Negative, Urine Occult Blood Negative, Urine Nitrite Negative, Urine Bilirubin Negative, Urine Urobilinogen Normal, Ur Leukocyte Esterase Negative, Urine RBC 0 SEEN, Urine WBC 0 SEEN, Ur Squamous Epith Cells 0 SEEN, Urine Bacteria 0 SEEN, Urine Mucus 0 SEEN 05/19/20 10:52: POC Glucose 229 H Current Medications Acetaminophen (Tylenol) 650 mg PO Q6H PRN PRN PRN Reason: Pain Score 1-10/Temp > 100.7 F Al Hydroxide/Mg Hydroxide (Mylanta Ii) 30 ml PO Q6H PRN PRN PRN Reason: Gastric Burning Albuterol Sulfate (Ventolin Aerosols) 2.5 mg INHALATION Q2H PRN PRN PRN Reason: Dyspnea, wheezing Aspirin (Aspirin, Baby) 81 mg PO DAILY@0800 [facility] Last Admin: 05/19/20 10:50 Dose: 81 mg Documented by: Atorvastatin Calcium (Lipitor) 80 mg PO QHS [facility] Last Admin: 05/18/20 21:57 Dose: 80 mg Documented by: Clonazepam (Klonopin) 0.5 mg PO DAILY PRN PRN PRN Reason: ANXIETY Clopidogrel Bisulfate (Plavix) 75 mg PO DAILY [facility] Last Admin: 05/19/20 10:49 Dose: 75 mg Documented by: Dextrose (D50w Syringe) 0 gm IV X1 PRN; Protocol PRN Reason: Hypoglycemia Enoxaparin Sodium (Lovenox) 40 mg SC DAILY [facility] Last Admin: 05/19/20 10:50 Dose: 40 mg Documented by: Famotidine (Pepcid) 20 mg PO BID [facility] Last Admin: 05/19/20 10:50 Dose: 20 mg Documented by: Glucagon () 1 mg IM .X1 PRN PRN Reason: Hypoglycemia Guaifenesin (Robitussin) 20 ml PO Q4H PRN PRN PRN Reason: COUGH Hydralazine HCl (Apresoline Iv) 5 mg IV Q30M PRN PRN Reason: to maintain BP goals Sodium Chloride () 1,000 mls @ 100 mls/hr IV .Q10H [facility] Last Admin: 05/19/20 13:16 Dose: 100 mls/hr Documented by: Insulin Glargine (Lantus (Bk)) 10 units SC BID [facility] Last Admin: 05/19/20 10:54 Dose: 10 u Documented by: Insulin Human Lispro (Humalog Kwikpen ([facility])) 0 unit SC ACHS [facility]; Protocol Last Admin: 05/19/20 10:55 Dose: 4 u Documented by: Iopamidol (Contrast Allergy Check) 0 ml IV X1 [facility] Last Admin: 05/19/20 12:21 Dose: Not Given Documented by: Labetalol HCl (Trandate) 10 - 20 mg IV Q10M PRN PRN PRN Reason: to maintain BP goals Lactulose (Chronulac, Cephulac) 20 gm PO BID [facility] Last Admin: 05/19/20 10:50 Dose: 20 gm Documented by: Melatonin (Melatonin) 3 mg PO QHS PRN PRN PRN Reason: INSOMNIA Last Admin: 05/17/20 21:52 Dose: 3 mg Documented by: Morphine Sulfate () 2 mg IV Q3H PRN PRN PRN Reason: Pain Score 6-10/10 Nitroglycerin (Nitrostat) 0.4 mg SUBLINGUAL Q5M PRN PRN Reason: CARDIAC/CHEST PAIN Ondansetron HCl (Zofran) 4 mg IV Q8H PRN PRN PRN Reason: NAUSEA/VOMITING Oxycodone HCl (Oxyir) 5 mg PO Q4H PRN PRN PRN Reason: Pain Score 4-5/10 Prochlorperazine Edisylate (Compazine Iv) 5 mg IV Q4H PRN PRN PRN Reason: Breakthrough Nausea/Vomiting Psyllium Hydrophilic Mucilloid (Metamucil) 1 packet PO DAILY PRN PRN PRN Reason: Constipation Senna/Docusate Sodium (Senokot-S, Kady-Colace) 2 tablet PO BID PRN PRN PRN Reason: Constipation Sodium Chloride () 10 - 40 ml IV UD PRN PRN Reason: SALINE FLUSH Last Admin: 05/17/20 20:27 Dose: 10 ml Documented by: Thiamine HCl (Vitamin B1) 100 mg PO DAILYCM [facility] Last Admin: 05/19/20 10:50 Dose: 100 mg Documented by: Throat Lozenges (Cepacol Sore Throat Lozenge) 1 lozenge MUCOUS MEM Q2H PRN PRN PRN Reason: SORE THROAT Medical Necessity - Tobacco Use Smoking Status: Never smoker Tobacco Use: Non-smoker Assessment/Plan All Active Problems Dysarthria (Acute) Aphasia (Acute) Imbalance (Acute) Hyperglycemia (Acute) This 62-year-old patient with history of diabetes mellitus type 2, hypertension, dyslipidemia came to ED with language deficit, slurred speech, dysarthria, recurrent fall, gait incoordination/off balance without loss of consciousness 1. Language deficit/dysarthria, aphasia, exact etiology unclear possible concern of neurodegenerative disorder: MRI brain reported normal. Head and neck CTA shows moderate to severe bilateral calcified plaque of carotid bulbs up to 69% at origin of bilateral ICAs. Carotid Doppler ordered. Echo shows EF 60% with normal left atrium, no Doppler evidence for ASD. Fasting profile shows total cholesterol 232, triglyceride 480. Currently on aspirin and high intensity statin. BP and glucose control as per stroke protocol. A1c 7.9. Glucose 198. TSH 2.82. MRI brain does not show acute infarct and reported normal. Discussed with the neurologist. Plavix was added. MRI C-spine ordered as per recommendation. Recommended to add Plavix. MRI C-spine as patient gets sudden fall. MRI brain is normal. CRP 3.27, ammonia 57, GGT normal. Folate normal. U tox positive for barbiturates. UA is negative. Empirically on thiamine 100 mg daily. Patient denies chronic alcohol use and drinks about 4 times a year. Every time, he drinks 3-4 glasses of vodka. In absence of a stroke, possibility of neurodegenerative disorder is a consideration. Patient did not have history of fever, and I do not suspect meningitis or infectious cause. EEG ordered for tomorrow a.m. avoid unnecessary psychoactive medication. On lactulose. 2. Diabetes mellitus type II: Started on Lantus 10 units subcutaneous twice daily. A1c high 7.9 9. Accu-Chek before meals and cover with Humalog sliding scale. 3. Hypertension: Permissive hypertension range. 4. Hyperlipidemia: Atorvastatin 80 mg daily 5. Obesity: Weight loss and lifestyle changes encouraged. 6. Anxiety: on home low-dose Klonopin as needed regimen. 7. DVT prophylaxis: SCDs, Lovenox. 8. CODE status: Full code. Discharge plan: Follow-up EEG, ordered for tomorrow a.m. anticipate discharge in 1 to 2 days. Clinical Impression(s) from Imaging Studies Brain CT 05/17/20 15:23 IMPRESSION: Normal unenhanced CT scan of the brain. Chest X-Ray 05/17/20 15:24 IMPRESSION: Normal x-ray examination of the chest. Head/Neck CTA 05/17/20 15:24 IMPRESSION: Moderate to severe bilateral calcified plaque of the carotid bulbs. Moderate grade, up to 69%, stenosis of the origins of both ICAs. Brain MRI 05/17/20 18:40 IMPRESSION: 1. Normal unenhanced MRI of the brain. 2. Mild mucosal edema of the right temporal mastoid bone. Inpatient E&M: [id number] Subs Hosp L2
[2020-05-19 17:11] LABS: Bedside Glucose 215 mg/dL (70-110)
--- NOTE | 2020-05-19 20:16 | NURSING ---
This RN asked pt if he wants to shower; pt declines at this time. Pt offered hair wash shower caps at this time pt declines.
[2020-05-19] MEDS: Atorvastatin Calcium 80 MG Tablet PO (21:59)
[2020-05-19 22:26] LABS: Bedside Glucose 164 mg/dL (70-110)
[2020-05-20] VITALS (9 sets, daily range): BP systolic 95–117; BP diastolic 56–74; PULSE 50–65; RESP 9–16; TEMP 36.5–36.9; O2SAT 96–98
--- NOTE | 2020-05-20 06:00 | NURSING ---
Shampoo cap used on pt at this time in preparation for EEG.
[2020-05-20] MEDS: Insulin Lispro 100 UNIT/ML INSULN.PEN SC ×4 (06:47→21:11)
[2020-05-20 08:19] LABS: Vitamin B12 479 pg/mL (211-911)
--- NOTE | 2020-05-20 09:00 | MRI_ITS ---
STUDY: MRI CERVICAL SPINE WITHOUT CONTRAST REASON FOR EXAM: Male, 65 years old. fall, sudden speech problem TECHNIQUE: Standardized fat and water weighted pulse sequences were obtained in the sagittal and axial planes. COMPARISON: None FINDINGS: Please see dedicated brain MRI findings. Patient motion. Cervical straightening. No significant scoliosis. No acute fracture. No acute dislocation. No acute bone destruction. No abnormal cord signal. Symmetric vascular flow voids given technique. Mild paraspinal/ligamentous strain at the C5-6 levels posteriorly (sagittal image 8 series 4). Mild multilevel facet arthrosis. No spondylolisthesis. Normal foramen magnum. Normal craniovertebral junction. Normal anterior atlantoaxial articulation. Normal odontoid process. C2-3: Normal endplates. Mild disc desiccation. Normal central canal and intervertebral neural foramina. C3-4: Normal endplates. Disc/osteophyte complex. No significant central canal narrowing. Mild/moderate left and mild right neural foraminal narrowing. C4-5: Mild endplate spondylosis. Disc bulge/osteophyte complex. Mild central canal narrowing. Moderate left and mild right neural foraminal narrowing. C5-6: Mild/moderate endplate spondylosis. Disc/osteophyte complex. Mild/moderate central canal narrowing. Severe right and moderate/severe left neural foraminal narrowing. C6-7: Mild/moderate endplate spondylosis. Disc/osteophyte complex. No significant central canal narrowing. Mild/moderate bilateral neural foraminal narrowing. C7-T1: Normal endplates. Normal disc height, signal and morphology. Normal central canal and intervertebral neural foramina. Additional visualized shallow thoracic disc bulges (sagittal image 7 series 2). MRI/Spine Cervical (Routine) IMPRESSION: No abnormal cord signal Multilevel intervertebral disc disease with central canal narrowing most severe at the C5-6 level Multilevel neural foraminal narrowing most severe at the C4-5 and C5-6 levels Cervical straightening with osseous degenerative changes most severe at the C5-6 and C6-7 levels Mild acute paraspinal/ligamentous strain Electronically Signed: Pablo Doe DO at 11:26 EDT Tel , Service support ,
[2020-05-20 09:30] LABS: Bedside Glucose 164 mg/dL (70-110)
[2020-05-20] MEDS: Lactulose 20 GM/30 ML UDC PO ×2 (09:32→21:12)
[2020-05-20] MEDS: Famotidine 20 MG Tablet PO ×2 (09:32→21:10)
[2020-05-20] MEDS: Thiamine Hydrochloride 100 MG Tablet PO (09:32)
[2020-05-20] MEDS: Aspirin 81 MG TAB.CHEW PO (09:32)
[2020-05-20] MEDS: Clopidogrel Bisulfate 75 MG Tablet PO (09:32)
[2020-05-20] MEDS: Enoxaparin 40 MG/0.4 ML Syringe SC (09:33)
[2020-05-20 09:41] LABS: Bedside Glucose 116 mg/dL (70-110)
--- NOTE | 2020-05-20 09:54 | PCM.PROGNOTE ---
Patient Problems: Active and Suspected Problems Dysarthria (Acute) Aphasia (Acute) Imbalance (Acute) Subjective: Chief complaint: Follow-up after admission for aphasia/dysarthria/slurred speech/frequent falls. Patient seen and examined. No acute events overnight. Today, he is talking fluently and coherently but slow. He denied any focal weakness. He is alert and oriented x3. His vital signs are stable. - Physical Exam Vitals/I&O's: Vital Signs Temp Pulse Resp BP Pulse Ox 97.8 F 62 16 95/62 98 05/20/20 09:25 05/20/20 09:25 05/20/20 09:25 05/20/20 09:25 05/20/20 09:25 Oxygen Delivery Method Room Air Weight: 225 lb 1.471 oz Body Mass Index (BMI) 35.2 Finger Stick Blood Glucose 293 Intake and Output for Last 24 Hours 05/18/20 05/19/20 05/20/20 23:59 23:59 23:59 Intake Total 2720 / 2720 2870 / 2870 0 / 0 Output Total 650 / 650 950 / 950 225 / 225 Balance 2069 / 2069 1920 / 192 -225 / -225 General: Alert, Oriented x3, Cooperative, No apparent distress HEENT: Atraumatic, PERRLA, EOMI, Normocephalic Oral: Moist Mucosa, No Gingival or Mucosal Lesions/ Ulcerations Neck: Supple, No JVD, Negative Carotid Bruits, Trachea Midline, Thyroid Normal Size and Texture Lungs: Clear to auscultation, Normal air movement, No rhonchi, No wheeze, No rales Cardiovascular: Regular rate, Regular Rhythm, Normal S1, Normal S2, PMI Normal Abdomen: Bowel Sounds Present, Soft, Non Tender, Non-Distended, No Hepato-splenomegaly Extremities: No clubbing, No cyanosis, No edema Skin: No rashes, No breakdown Lymphatic: No Cervical, Supraclavicular, or Inguinal Adenopathy Neurological: Cranial nerves II-XII grossly intact, Motor Exam 5/5 strength throughout Psych/Mental Status: Normal Affect, Appropriate, Alert and oriented to time, place, person, mood and affect Laboratory Results 05/18/20 18:30: Vitamin B12 479 05/18/20 18:30: RPR Pending 05/19/20 09:45: Urine Color Yellow, Urine Clarity Clear, Urine pH 7.0, Ur Specific [place] 1.005, Urine Protein Negative, Urine Glucose (UA) 100 H, Urine Ketones Negative, Urine Occult Blood Negative, Urine Nitrite Negative, Urine Bilirubin Negative, Urine Urobilinogen Normal, Ur Leukocyte Esterase Negative, Urine RBC 0 SEEN, Urine WBC 0 SEEN, Ur Squamous Epith Cells 0 SEEN, Urine Bacteria 0 SEEN, Urine Mucus 0 SEEN 05/19/20 10:52: POC Glucose 229 H 05/19/20 16:57: POC Glucose 215 H 05/19/20 21:58: POC Glucose 164 H 05/20/20 06:42: POC Glucose 164 H 05/20/20 09:30: POC Glucose 116 H Clinical Impression(s) from Imaging Studies Brain CT 05/17/20 15:23 IMPRESSION: Normal unenhanced CT scan of the brain. Electronically Signed: Dustin Hickman MD at 16:09 EDT Tel , Service support , Chest X-Ray 05/17/20 15:24 IMPRESSION: Normal x-ray examination of the chest. Electronically Signed: Dustin Hickman MD at 15:53 EDT Tel , Service support , Head/Neck CTA 05/17/20 15:24 IMPRESSION: Moderate to severe bilateral calcified plaque of the carotid bulbs. Moderate grade, up to 69%, stenosis of the origins of both ICAs. Electronically Signed: Higinio Lauren MD at 16:54 EDT , Service support , Brain MRI 05/17/20 18:40 IMPRESSION: 1. Normal unenhanced MRI of the brain. 2. Mild mucosal edema of the right temporal mastoid bone. Electronically Signed: Addy Regalado MD at 12:30 EDT , Service support , Current Medications Acetaminophen (Tylenol) 650 mg PO Q6H PRN PRN PRN Reason: Pain Score 1-10/Temp > 100.7 F Al Hydroxide/Mg Hydroxide (Mylanta Ii) 30 ml PO Q6H PRN PRN PRN Reason: Gastric Burning Albuterol Sulfate (Ventolin Aerosols) 2.5 mg INHALATION Q2H PRN PRN PRN Reason: Dyspnea, wheezing Aspirin (Aspirin, Baby) 81 mg PO DAILY@0800 [facility] Last Admin: 05/20/20 09:32 Dose: 81 mg Documented by: Atorvastatin Calcium (Lipitor) 80 mg PO QHS [facility] Last Admin: 05/19/20 21:59 Dose: 80 mg Documented by: Clonazepam (Klonopin) 0.5 mg PO DAILY PRN PRN PRN Reason: ANXIETY Clopidogrel Bisulfate (Plavix) 75 mg PO DAILY [facility] Last Admin: 05/20/20 09:32 Dose: 75 mg Documented by: Dextrose (D50w Syringe) 0 gm IV X1 PRN; Protocol PRN Reason: Hypoglycemia Enoxaparin Sodium (Lovenox) 40 mg SC DAILY [facility] Last Admin: 05/20/20 09:33 Dose: 40 mg Documented by: Famotidine (Pepcid) 20 mg PO BID [facility] Last Admin: 05/20/20 09:32 Dose: 20 mg Documented by: Glucagon () 1 mg IM .X1 PRN PRN Reason: Hypoglycemia Guaifenesin (Robitussin) 20 ml PO Q4H PRN PRN PRN Reason: COUGH Hydralazine HCl (Apresoline Iv) 5 mg IV Q30M PRN PRN Reason: to maintain BP goals Insulin Glargine (Lantus (Bkc)) 10 units SC BID [facility] Last Admin: 05/20/20 09:32 Dose: 10 u Documented by: Insulin Human Lispro (Humalog Kwikpen (Bkc)) 0 unit SC ACHS [facility]; Protocol Last Admin: 05/20/20 06:47 Dose: 2 u Documented by: Labetalol HCl (Trandate) 10 - 20 mg IV Q10M PRN PRN PRN Reason: to maintain BP goals Lactulose (Chronulac, Cephulac) 20 gm PO BID [facility] Last Admin: 05/20/20 09:32 Dose: 20 gm Documented by: Melatonin (Melatonin) 3 mg PO QHS PRN PRN PRN Reason: INSOMNIA Last Admin: 05/17/20 21:52 Dose: 3 mg Documented by: Morphine Sulfate () 2 mg IV Q3H PRN PRN PRN Reason: Pain Score 6-10/10 Nitroglycerin (Nitrostat) 0.4 mg SUBLINGUAL Q5M PRN PRN Reason: CARDIAC/CHEST PAIN Ondansetron HCl (Zofran) 4 mg IV Q8H PRN PRN PRN Reason: NAUSEA/VOMITING Oxycodone HCl (Oxyir) 5 mg PO Q4H PRN PRN PRN Reason: Pain Score 4-5/10 Prochlorperazine Edisylate (Compazine Iv) 5 mg IV Q4H PRN PRN PRN Reason: Breakthrough Nausea/Vomiting Psyllium Hydrophilic Mucilloid (Metamucil) 1 packet PO DAILY PRN PRN PRN Reason: Constipation Senna/Docusate Sodium (Senokot-S, Kady-Colace) 2 tablet PO BID PRN PRN PRN Reason: Constipation Sodium Chloride () 10 - 40 ml IV UD PRN PRN Reason: SALINE FLUSH Last Admin: 05/17/20 20:27 Dose: 10 ml Documented by: Thiamine HCl (Vitamin B1) 100 mg PO DAILYCM GERARDO Last Admin: 05/20/20 09:32 Dose: 100 mg Documented by: Throat Lozenges (Cepacol Sore Throat Lozenge) 1 lozenge MUCOUS MEM Q2H PRN PRN PRN Reason: SORE THROAT Medical Necessity - Tobacco Use Smoking Status: Never smoker Tobacco Use: Non-smoker Assessment/Plan All Active Problems Dysarthria (Acute) Aphasia (Acute) Imbalance (Acute) This is a 65 years old male patient presented to the emergency room because of frequent falls, dysarthria, aphasia and slurred speech and was admitted for evaluation. #1 aphasia/dysarthria/frequent falls: Unclear etiology. MRI brain showed no acute infarct or hemorrhage. CTA of the head and neck revealed moderate 69% stenosis of the origins of the both internal carotid arteries. 2D echocardiogram revealed ejection fraction of 60%, no other significant findings. Patient is on aspirin, Plavix and statins. Vital signs are stable, blood pressure under control. Speech still slow but coherent and fluent. No other focal deficit. Urine drug screen was positive for barbiturates, otherwise negative. Blood alcohol level was 3. SOC tele-neurology recommendations reviewed. EEG done this morning, awaiting the report. Plan for MRI of cervical spine today. Patient will either need placement to prison facility or to be discharged home with home health. Will await for PT OT evaluation and treatment. #2 hypertension: Blood pressure stable, lisinopril on hold. #3 type 2 diabetes mellitus: He is on Lantus and insulin sliding scale. Hemoglobin A1c was 7.9%. Blood glucose has been in the range of 200s. #4 hyperlipidemia: Continue statins. #5 anxiety: Continue Klonopin. #6 DVT prophylaxis: Subcu Lovenox. This note was generated with [employer] dictation software. It may contain incorrect words, spelling, and punctuation that were not noted in checking the note before signing. Inpatient E&M: 44899 Subs Hosp L2
--- NOTE | 2020-05-20 11:30 | CASEMGMT ---
Addendum entered by Kenzie Mcclelland 05/20/20 15:13: Per Dr. Hernandez, [facility] denied transfer of pt at this time. José Miguel, PCU charge, is to update pt/family. This RN CM to follow for further discharge planning/needs. Estefania RN CM Addendum entered by Kenzie Mcclelland 05/20/20 14:48: Per Dr. Hernandez, pt/family would like pt to transfer to [facility] at this time. Pt/family made aware that [facility] may not accept d/t self-pay and pt request to transfer by Dr. Hernandez, voices understanding. Dr. Hernandez asks this RN CM to go to room to speak with pt/family. This RN CM to room to speak with pt, daughter, and pt sister(via speaker phone) at this time. This RN CM advised pt/family that [facility] can help with meds but unless pt can get Cobra started or qualifies for PABLO then any further therapy/DME will have to be paid out of pocket. Pt sister states 'then you will just send him home with nothing'? Advised sister that this RN CM can set up HHC or OP therapy or pt can go to rehab but at this point, it will all have to be paid out of pocket unless they can get COBRA set up. Pt/sister are insisting that pt needs to be transferred to a facility with neuro as per daughter 'Everything here has been negative and something is obviously wrong.' Dr. Hernandez is attempting to contact [facility] at this time per pt/family request. Pt states 'I just want to know what's wrong with me.' Dr. Hernandez updated at this time, voices understanding. Dr. Hernandez is awaiting call back from [facility] at this time. Estefania RN CM Original Note: Pt's daughter to desk and asking to speak with this RN CM at this time. Daughter states that they are unable to find pt's LW/HPOA at his home at this time and they have a call out to his seo associate but they would like to complete them at this time. Lew MUNOZ aware, voices understanding and into room to speak with pt. This RN CM also brought up that pt will need to pay out of pocket for any therapy at discharge as he is currrently self pay, daughter voices understanding. Daughter also states that they(daughter and pt sister) were considering transferring pt to a facility with in-person neuro. Estefania SUAREZ CM
--- NOTE | 2020-05-20 12:17 | CASEMGMT ---
SW completed a Healthcare Power of Product Trainer and a Healthcare Living Will with patient. Copies were made and given to patient along with originals. A copy of each was also placed in patient's chart. Rosana CHASE
[2020-05-20 12:20] LABS: Bedside Glucose 331 mg/dL (70-110)
[2020-05-20 17:10] LABS: Bedside Glucose 245 mg/dL (70-110)
[2020-05-20] MEDS: Atorvastatin Calcium 80 MG Tablet PO (21:10)
[2020-05-20 21:46] LABS: Bedside Glucose 204 mg/dL (70-110)
[2020-05-21 03:00] VITALS: PULSE 54
[2020-05-21 03:02] VITALS: BP 98/58; PULSE 59; RESP 16; TEMP 36.7; O2SAT 97
[2020-05-21] MEDS: Insulin Lispro 100 UNIT/ML INSULN.PEN SC (06:32)
[2020-05-21 06:40] LABS: Bedside Glucose 175 mg/dL (70-110)
[2020-05-21 06:55] VITALS: PULSE 53
[2020-05-21 08:36] VITALS: BP 106/88; PULSE 54; RESP 16; TEMP 36.6; O2SAT 97
[2020-05-21] MEDS: Aspirin 81 MG TAB.CHEW PO (08:39)
[2020-05-21] MEDS: Thiamine Hydrochloride 100 MG Tablet PO (08:39)
[2020-05-21] MEDS: Lactulose 20 GM/30 ML UDC PO (08:39)
[2020-05-21] MEDS: Enoxaparin 40 MG/0.4 ML Syringe SC (08:40)
[2020-05-21] MEDS: Clopidogrel Bisulfate 75 MG Tablet PO (08:40)
[2020-05-21] MEDS: Famotidine 20 MG Tablet PO (08:40)
--- NOTE | 2020-05-21 10:45 | CASEMGMT ---
Pt's daughter here and this RN CM to room to discuss discharge planning. Pt/daughter are aware that pt to be discharged home today. This RN CM had called [facility] and OP therapy to check on self-pay prices which are $249.09 and $125/95 respectively. Pt/daughter updated on this at this time, voice understanding. Pt states that he does have a friend that can come over and help him with therapy. This RN CM encouraged pt/daughter to call employer/insurance to try and get COBRA started, voice understanding. Pt/daughter aware to keep track of all receipts for DME/therapy as COBRA should reimburse pt once COBRA kicks in, voice understanding. Pt's new meds to be sent to [facility] retail pharmacy to see if [facility] Rx assist needs to be utilized. Pt states will not be homebound and agreeable for this RN CM to fax script for OP therapy at [facility]. Original to pt and copy faxed for OP therapy at this time. Pt does not feel that he needs a WW at this time but daughter does and states she will have pt's sister pick one up for pt to have at home. Pt plans to f/u with Dr. Kip CHACKO and get his opinion on neurologist to f/u with at that time. Pt was referred to Dr. Davenport at discharge at this time also. Pt/daughter voice no further questions/concerns/needs at this time. Estefania SUAREZ CM
--- NOTE | 2020-05-21 10:55 | DCINST_ITS ---
- Discharge Diagnoses Current Active Problems: Current Active and Chronic Problems Dysarthria (Acute) Aphasia (Acute) Imbalance (Acute) You will use the following diet at home:: Calorie/Carbohydrate Controlled (specify 1200, 1400, etc) - 2000 mohan., Cardiac Your food should be the consistency of: Regular Discharge Activity: Return to Normal Activity Weight Bearing Status: Weight bearing as tolerated Call your doctor if you observe: Fever of 101 or Higher, Numbness or Tingling, Shortness of breath, Dizziness, Fainting spells, Chest pain, Increased palpitations (irregular heartbeat), Uncontrolled pain Additional Instructions: 1- Take aspirin 81 mg daily Plavix for 3 weeks then just take Plavix and stop taking aspirin. 2-follow-up with neurology in 2 weeks. Allergies/Adverse Reactions: Allergies No Known Allergies Allergy (Verified 05/17/20 15:09) Medications to take at Discharge Clonazepam [Klonopin] 0.5 mg PO DAILY PRN PRN 05/17/20 Glyburide 5 mg PO DAILY 05/17/20 Linagliptin/Metformin HCl [Jentadueto 2.5 mg-1000 mg Tab] 1 ea PO BID 05/17/20 Liraglutide [Victoza 3-Joselo] 1.8 mg SQ DAILY 05/17/20 Lisinopril [Zestril] 5 mg PO DAILY 05/17/20 Sildenafil Citrate [Viagra] 100 mg PO DAILY PRN PRN 05/17/20 Aspirin [Aspirin, Baby] 81 mg PO DAILY@0800 #30 tab.chew 05/21/20 Atorvastatin Calcium [Lipitor] 80 mg PO QHS #90 tab 05/21/20 Clopidogrel Bisulfate [Plavix] 75 mg PO DAILY #90 tab 05/21/20 The following prescriptions were given: Aspirin [Aspirin, Baby] 81 mg PO DAILY@0800 #30 tab.chew Transmission Status: Pending to [facility] Atorvastatin Calcium [Lipitor] 80 mg PO QHS #90 tab Transmission Status: Pending to [facility] Clopidogrel Bisulfate [Plavix] 75 mg PO DAILY #90 tab Transmission Status: Pending to [facility] Primary Care Physician: Thomas Shin MD [Primary Care Provider] - Please follow up with your Primary Care Physician in: 1 week. Test Results: Test results from this visit will be discussed in further detail at your follow- up appointment, if applicable. Please Follow Up With: Thomas Castaneda Please Follow Up With: Tam Davenport MD When: 2 weeks.
--- NOTE | 2020-05-21 11:18 | CASEMGMT ---
ALEXANDER called [facility] and patient's prescriptions will come to $39.75 for a 90 day supply. Patient and his daughter said this is manageable. ALEXANDER called [facility] and let them know patient will be paying for his prescriptions. Rosana ROBISON MSW
--- NOTE | 2020-05-21 11:49 | PHA.DC.MC ---
Pharmacy Service has performed discharge medication reconciliation and counseling for this patient. 1. CLOPIDOGREL 75MG PO DAILY The patient's discharge medication list was reviewed for discrepancies and discrepancies were resolved. Home Medications Clonazepam [Klonopin] 0.5 mg PO DAILY PRN PRN 05/17/20 Glyburide 5 mg PO DAILY 05/17/20 Linagliptin/Metformin HCl [Jentadueto 2.5 mg-1000 mg Tab] 1 ea PO BID 05/17/20 Liraglutide [Victoza 3-Joselo] 1.8 mg SQ DAILY 05/17/20 Lisinopril [Zestril] 5 mg PO DAILY 05/17/20 Sildenafil Citrate [Viagra] 100 mg PO DAILY PRN PRN 05/17/20 Aspirin [Aspirin, Baby] 81 mg PO DAILY@0800 #30 tab.chew 05/21/20 Atorvastatin Calcium [Lipitor] 80 mg PO QHS #90 tab 05/21/20 Clopidogrel Bisulfate [Plavix] 75 mg PO DAILY #90 tab 05/21/20 The patient was counseled on the following discharge medications and changes in medications for homegoing were reviewed. The Reason for Use, instructions for use, and potential side effects were reviewed for all new medications. The patient's questions regarding all of their medications were answered. The patient was able to verbally demonstrate an understanding of their discharge medications.
--- NOTE | 2020-05-21 12:31 | PCM.DC.SUM ---
Discharge Date and Diagnosis - Problem List Patient Problems: Active and Suspected Problems Dysarthria (Acute) Aphasia (Acute) Imbalance (Acute) Date of Admission: 05/17/20 Date of Discharge: 05/21/20 - Primary Discharge Diagnosis Acute Problems: Active Problems #1 language deficit/dysarthria/aphasia, improved, acute stroke ruled out, unclear etiology. - Secondary Discharge Diagnosis Chronic Problems: Chronic Problems Anxiety (Chronic) Hyperlipidemia (Chronic) Type 2 diabetes mellitus (Chronic) Hypertension (Chronic) Hospital Course and Treatment Imaging Results: Clinical Impression(s) from Imaging Studies Brain CT 05/17/20 15:23 IMPRESSION: Normal unenhanced CT scan of the brain. Electronically Signed: Dustin Hickman MD at 16:09 EDT Tel , Service support , Chest X-Ray 05/17/20 15:24 IMPRESSION: Normal x-ray examination of the chest. Electronically Signed: Dustin Hickman MD at 15:53 EDT Tel , Service support , Head/Neck CTA 05/17/20 15:24 IMPRESSION: Moderate to severe bilateral calcified plaque of the carotid bulbs. Moderate grade, up to 69%, stenosis of the origins of both ICAs. Electronically Signed: Higinio Lauren MD at 16:54 EDT , Service support , Brain MRI 05/17/20 18:40 IMPRESSION: 1. Normal unenhanced MRI of the brain. 2. Mild mucosal edema of the right temporal mastoid bone. Electronically Signed: Addy Regalado MD at 12:30 EDT , Service support , Cervical Spine MRI 05/20/20 09:00 IMPRESSION: No abnormal cord signal Multilevel intervertebral disc disease with central canal narrowing most severe at the C5-6 level Multilevel neural foraminal narrowing most severe at the C4-5 and C5-6 levels Cervical straightening with osseous degenerative changes most severe at the C5-6 and C6-7 levels Mild acute paraspinal/ligamentous strain Electronically Signed: Pablo Doe DO at 11:26 EDT Tel , Service support , SOC tele-neurology consult. Procedures: 2-D Echocardiogram, Electroencephalogram, EKG Summary of Care Provided: Patient seen and examined on the day of discharge and appeared to be stable to be discharged home. Speech is getting better every day. Denied other complaints. He is feeling better overall. His vital signs are stable. The patient is a 65 year old M presented to the emergency room because of slurred speech, aphasia with sometimes dysarthria along with frequent falls and he was admitted for possible stroke. He had extensive work-up and acute stroke ruled out. Initial CT scan brain without contrast showed no evidence of acute infarct or hemorrhage. CTA of the head and neck revealed moderate bilateral calcified plaques with up to 69% stenosis of the origins of the both internal carotid arteries. Bilateral carotid duplex ultrasound performed and revealed less than 50% stenosis of the right and left external carotid arteries. MRI brain also done and showed no evidence of acute infarct or hemorrhage. His EKG revealed normal sinus rhythm without evidence of cardiac arrhythmias. SOC tele-neurology consulted and recommended to start patient on aspirin and Plavix as well as statins, recommended EEG and MRI cervical spine. MRI cervical spine revealed multilevel intervertebral disc disease most severe at C5-C6, C4-C5, C6-C7 and there was mild paraspinal/ligamentous strain. There was no evidence of acute spinal cord compression. EEG was done and demonstrated awake and drowsy state possibly due to chronic pain, there was no epileptiform discharges, seizure patterns or lateralizing signs. Patient was treated with aspirin, Plavix according to your recommendations as well as a statins. His routine blood work was unremarkable. LFT was unremarkable. Ammonia was elevated which is attributed to constipation. Lipid profile revealed triglycerides of 480, cholesterol of 232, HDL cholesterol was 36. Patient family requested transfer to [facility] to be evaluated by neurology in person not by telemedicine. I made a call to the transfer center of the [facility] and patient was declined for transfer because they stated that the appropriate work-up was done and patient can be seen by neurology as outpatient. Patient discharged home in a stable medical condition, discharged on Plavix and aspirin for 3 weeks and then instructed to keep taking Plavix and to stop aspirin after 3 weeks, discharged on Lipitor 80 mg p.o. daily, continue on his other previous home medications without any changes, highly recommended follow-up with neurology in 2 weeks, recommended follow-up with PCP in 1 week. Order for PT OT as outpatient was done. Patient Problems: Active and Suspected Problems Dysarthria (Acute) Aphasia (Acute) Imbalance (Acute) - Physical Exam Vitals/I&O's: Vital Signs Temp Pulse Resp BP Pulse Ox 97.9 F 54 L 16 106/88 H 97 05/21/20 08:36 05/21/20 08:36 05/21/20 08:36 05/21/20 08:36 05/21/20 08:36 Oxygen Delivery Method Room Air Weight: 225 lb 1.471 oz Body Mass Index (BMI) 35.2 Finger Stick Blood Glucose 293 Intake and Output for Last 24 Hours 05/19/20 05/20/20 05/21/20 23:59 23:59 23:59 Intake Total 2870 / 2870 880 / 880 240 / 240 Output Total 950 / 950 525 / 525 Balance 1920 / 1920 355 / 355 240 / 240 General: Alert, Oriented x3, Cooperative, No apparent distress HEENT: Atraumatic, PERRLA, EOMI, Normocephalic Oral: Moist Mucosa, No Gingival or Mucosal Lesions/ Ulcerations Neck: Supple, No JVD, Negative Carotid Bruits, Trachea Midline, Thyroid Normal Size and Texture Lungs: Clear to auscultation, Normal air movement, No rhonchi, No wheeze, No rales Cardiovascular: Regular rate, Regular Rhythm, Normal S1, Normal S2, PMI Normal Abdomen: Bowel Sounds Present, Soft, Non Tender, Non-Distended, No Hepato-splenomegaly Extremities: No clubbing, No cyanosis, No edema Skin: No rashes, No breakdown Lymphatic: No Cervical, Supraclavicular, or Inguinal Adenopathy Neurological: Cranial nerves II-XII grossly intact, Motor Exam 5/5 strength throughout Psych/Mental Status: Normal Affect, Appropriate Microbiology Past 72 Hours 05/19/20 09:45 Urine, Clean Catch Urine Culture - Final Culture exhibits no growth. Laboratory Results 05/20/20 17:00: POC Glucose 245 H 05/20/20 21:05: POC Glucose 204 H 05/21/20 06:31: POC Glucose 175 H Current Medications Acetaminophen (Tylenol) 650 mg PO Q6H PRN PRN PRN Reason: Pain Score 1-10/Temp > 100.7 F Al Hydroxide/Mg Hydroxide (Mylanta Ii) 30 ml PO Q6H PRN PRN PRN Reason: Gastric Burning Albuterol Sulfate (Ventolin Aerosols) 2.5 mg INHALATION Q2H PRN PRN PRN Reason: Dyspnea, wheezing Aspirin (Aspirin, Baby) 81 mg PO DAILY@0800 [facility] Last Admin: 05/21/20 08:39 Dose: 81 mg Documented by: Atorvastatin Calcium (Lipitor) 80 mg PO QHS [facility] Last Admin: 05/20/20 21:10 Dose: 80 mg Documented by: Clonazepam (Klonopin) 0.5 mg PO DAILY PRN PRN PRN Reason: ANXIETY Clopidogrel Bisulfate (Plavix) 75 mg PO DAILY [facility] Last Admin: 05/21/20 08:40 Dose: 75 mg Documented by: Dextrose (D50w Syringe) 0 gm IV X1 PRN; Protocol PRN Reason: Hypoglycemia Enoxaparin Sodium (Lovenox) 40 mg SC DAILY [facility] Last Admin: 05/21/20 08:40 Dose: 40 mg Documented by: Famotidine (Pepcid) 20 mg PO BID [facility] Last Admin: 05/21/20 08:40 Dose: 20 mg Documented by: Glucagon () 1 mg IM .X1 PRN PRN Reason: Hypoglycemia Guaifenesin (Robitussin) 20 ml PO Q4H PRN PRN PRN Reason: COUGH Insulin Glargine (Lantus (Bkc)) 10 units SC BID [facility] Last Admin: 05/21/20 08:39 Dose: 10 u Documented by: Insulin Human Lispro (Humalog Kwikpen (Bkc)) 0 unit SC ACHS [facility]; Protocol Last Admin: 05/21/20 06:32 Dose: 2 u Documented by: Labetalol HCl (Trandate) 10 - 20 mg IV Q10M PRN PRN PRN Reason: to maintain BP goals Lactulose (Chronulac, Cephulac) 20 gm PO BID [facility] Last Admin: 05/21/20 08:39 Dose: 20 gm Documented by: Melatonin (Melatonin) 3 mg PO QHS PRN PRN PRN Reason: INSOMNIA Last Admin: 05/17/20 21:52 Dose: 3 mg Documented by: Morphine Sulfate () 2 mg IV Q3H PRN PRN PRN Reason: Pain Score 6-10/10 Nitroglycerin (Nitrostat) 0.4 mg SUBLINGUAL Q5M PRN PRN Reason: CARDIAC/CHEST PAIN Ondansetron HCl (Zofran) 4 mg IV Q8H PRN PRN PRN Reason: NAUSEA/VOMITING Oxycodone HCl (Oxyir) 5 mg PO Q4H PRN PRN PRN Reason: Pain Score 4-5/10 Prochlorperazine Edisylate (Compazine Iv) 5 mg IV Q4H PRN PRN PRN Reason: Breakthrough Nausea/Vomiting Psyllium Hydrophilic Mucilloid (Metamucil) 1 packet PO DAILY PRN PRN PRN Reason: Constipation Senna/Docusate Sodium (Senokot-S, Kady-Colace) 2 tablet PO BID PRN PRN PRN Reason: Constipation Sodium Chloride () 10 - 40 ml IV UD PRN PRN Reason: SALINE FLUSH Last Admin: 05/17/20 20:27 Dose: 10 ml Documented by: Thiamine HCl (Vitamin B1) 100 mg PO DAILYCM [facility]ERARD[facility] Last Admin: 05/21/20 08:39 Dose: 100 mg Documented by: Throat Lozenges (Cepacol Sore Throat Lozenge) 1 lozenge MUCOUS MEM Q2H PRN PRN PRN Reason: SORE THROAT Discharge Activity: Return to Normal Activity Weight Bearing Status: Weight bearing as tolerated Call your doctor if you observe: Fever of 101 or Higher, Numbness or Tingling, Shortness of breath, Dizziness, Fainting spells, Chest pain, Increased palpitations (irregular heartbeat), Uncontrolled pain Home Medications: Medications to take at Discharge Clonazepam [Klonopin] 0.5 mg PO DAILY PRN PRN 05/17/20 Glyburide 5 mg PO DAILY 05/17/20 Linagliptin/Metformin HCl [Jentadueto 2.5 mg-1000 mg Tab] 1 ea PO BID 05/17/20 Liraglutide [Victoza 3-Joselo] 1.8 mg SQ DAILY 05/17/20 Lisinopril [Zestril] 5 mg PO DAILY 05/17/20 Sildenafil Citrate [Viagra] 100 mg PO DAILY PRN PRN 05/17/20 Aspirin [Aspirin, Baby] 81 mg PO DAILY@0800 #30 tab.chew 05/21/20 Atorvastatin Calcium [Lipitor] 80 mg PO QHS #90 tab 05/21/20 Clopidogrel Bisulfate [Plavix] 75 mg PO DAILY #90 tab 05/21/20 Following Prescriptions Were Given to Patient: Aspirin [Aspirin, Baby] 81 mg PO DAILY@0800 #30 tab.chew Transmission Status: Received by [facility] Atorvastatin Calcium [Lipitor] 80 mg PO QHS #90 tab Transmission Status: Received by [facility] Clopidogrel Bisulfate [Plavix] 75 mg PO DAILY #90 tab Transmission Status: Received by [facility] Primary Care Physician: Thomas Shin MD [Primary Care Provider] - Please follow up with your Primary Care Physician in: 1 week. Please Follow Up With: Thomas Castaneda Please Follow Up With: Tam Davenport MD When: 2 weeks. Disposition: Home Minutes spent on discharge:: 32 Medical Necessity - Tobacco Use Smoking Status: Never smoker Tobacco Use: Non-smoker Meaningful Use Info Meaningful Use Diagnoses (Choose all that apply): None applicable Inpatient E&M: 19867 Disch Hosp
--- NOTE | 2020-05-22 15:53 | CASEMGMT ---
ERICK SIMS Discharge Follow-up Phone Call: BERENICESonja: Hien Strata: 3 Call Date: 05/22/20 Discharge Date: 05/21/20 Time of Call: 1553 Duration: 3 min Admitting Diagnosis: acute CVA ERICK SIMS completed follow-up phone call after recent hospitalization. Patient states that he is sore but that is understandable. Patient had no questions regarding discharge instruction. Patient was able to fill meds without any issues. Patient called and scheduled follow-up appt with PCP for Wednesday. Patient also states he called his employer regarding [employer]. Patient had no further concerns at this time.
[2020-05-23 02:04] LABS: Rapid Plasmin Reagin (RPR) NONREACTIVE (NONREACTIVE)
== END 2020-05-21 12:43 | disposition home or self-care (01) | DRG 93 ==
LOC: ED 16:16 → PCU 17:10
PROVIDERS: Internal Medicine; Admitting Provider Family Medicine; Emergency Provider Emergency Medicine; PCP Family Medicine; Visit Provider Hospitalist
DX: R47.01 Aphasia (principal); R47.1 Dysarthria and anarthria; R47.81 Slurred speech; R26.89 Other abnormalities of gait and mobility; I65.23 Occlusion and stenosis of bilateral carotid arteries; I10 Essential (primary) hypertension; E78.5 Hyperlipidemia, unspecified; F41.9 Anxiety disorder, unspecified; R29.6 Repeated falls; E11.65 Type 2 diabetes mellitus with hyperglycemia; E66.9 Obesity, unspecified; Z68.35 Body mass index [BMI] 35.0-35.9, adult; Z79.84 Long term (current) use of oral hypoglycemic drugs; Z79.899 Other long term (current) drug therapy; Z82.3 Family history of stroke
CPT/HCPCS: 36415; 70450; 70496; 70498; 70551; 71045; 72141; 80053; 80061; 80307; 80320; 81001; 82140; 82607; 82746; 82962; 82977; 83036; 83735; 84439; 84443; 84484; 85025; 86140; 86592; 87086; 92507; 92523; 92526; 92610; 93005; 93306; 93880; 94762; 95819; 97116; 97161; 97166; 97530; 97535; 97802; 99251; 99284; J7030; Q9957; Q9967; A4216; G0463; G0480

== ENCOUNTER → 2020-05-24 11:49 | Outpatient (CLI) | payer OTHER, SELFPAY ==
[2020-05-19 00:28] VITALS: BMI 35.2
[2020-05-24 15:23] LABS: BUN 16 mg/dL (7-18); Creatinine, Serum 0.82 mg/dL (0.70-1.30); EST Glomerular Filtration Rate 101 mL/min (>60); Glucose 207 mg/dL (74-106)
[2020-05-24 15:24] LABS: ALB/GLOB Ratio 0.9 RATIO (0.9-2.4); AST(SGOT) 33 U/L (15-37); Alanine Aminotransfer ALT/SGPT 51 U/L (16-61); Albumin, Serum 3.8 g/dL (3.2-5.0); Alkaline Phosphatase 36 U/L (45-117); Anion Gap 7 (5-15); BUN/Creat Ratio 19.5 RATIO (10-20); Calcium,Total 8.9 mg/dL (8.5-10.1); Chloride 106 mmol/L (98-107); Est Glom Filt Rate - Afr Amer 122 mL/min (>60); Globulin 4.1 g/dL (2.2-4.2); Potassium 3.9 mmol/L (3.5-5.1); Protein, Total 7.9 g/dL (6.4-8.2); Sodium Level 139 mmol/L (136-145)
[2020-05-26 16:07] LABS: HEPATITIS B SURFACE AG Negative (Negative); Hepatitis A AB, Total Negative (Negative); Hepatitis A IgM Antibody Negative (Negative); Hepatitis B Core AB IgM Negative (Negative); Hepatitis B Core Ab Total Negative (Negative); Hepatitis C Ab <0.1 s/co ratio (0.0-0.9)
[2020-05-26 17:21] LABS: Hep B Surface Antibodies Non Reactive (.)
== END ==
PROVIDERS: PCP Family Medicine; Referring Provider Family Medicine; Visit Provider Family Medicine
DX: E72.20 Disorder of urea cycle metabolism, unspecified (principal)
CPT/HCPCS: 36415; 80053; 82140; 86704; 86705; 86706; 86708; 86709; 86803; 87340

== ENCOUNTER → 2020-07-03 15:13 | Outpatient (CLI) | payer OTHER, SELFPAY ==
[2020-05-19 00:28] VITALS: BMI 35.2
[2020-07-03 18:08] LABS: Prothrombin Time (Protime)PT. 12.2 SECONDS (11.7-14.9)
[2020-07-03 18:09] LABS: Partial Thromboplast Time 27.1 Seconds (24.1-36.2)
[2020-07-03 18:22] LABS: AST(SGOT) 15 U/L (15-37); Alanine Aminotransfer ALT/SGPT 36 U/L (16-61); Albumin, Serum 3.9 g/dL (3.2-5.0); Alkaline Phosphatase 25 U/L (45-117); Bilirubin, Direct 0.07 mg/dL (0.00-0.30); Globulin 3.7 g/dL (2.2-4.2); Protein, Total 7.6 g/dL (6.4-8.2)
[2020-07-03 18:34] LABS: Hemoglobin A1c 7.6 % (3.8-5.6)
[2020-07-04 10:20] LABS: Hepatitis B Surface Antigen Non-Reactive (Nonreactive); Hepatitis C Antibody Non-Reactive (Nonreactive)
== END ==
PROVIDERS: PCP Family Medicine; Referring Provider Internal Medicine Gastroenterology; Visit Provider Internal Medicine Gastroenterology
DX: K76.0 Fatty (change of) liver, not elsewhere classified (principal); E11.9 Type 2 diabetes mellitus without complications
CPT/HCPCS: 36415; 80076; 82140; 83036; 85610; 85730; 86803; 87340

== ENCOUNTER → 2020-07-12 07:36 | Outpatient (CLI) | payer OTHER, SELFPAY ==
[2020-05-19 00:28] VITALS: BMI 35.2
--- NOTE | 2020-07-12 07:38 | US_ITS ---
STUDY: ABDOMINAL ULTRASOUND - RIGHT UPPER QUADRANT REASON FOR VISIT: Male, 65 years old FATTY LIVER TECHNIQUE: Ultrasound evaluation of the right upper quadrant was performed with real-time and static ji-scale imaging. TECHNICAL QUALITY: Adequate. COMPARISON: None. FINDINGS: Liver: The liver measures 14.8 cm. There is increased echogenicity consistent with fatty infiltration. The bile ducts are within normal limits. There is hepatic color flow. The direction of portal flow is hepatopetal. There is no demonstrated mass lesion. Gallbladder: Normal distended gallbladder. The gallbladder wall measures 1.0 mm. There is a negative sonographic Lazo''s sign. There is no pericholecystic fluid. There are no gallstones. Common Bile Duct (C.B.D.): The common bile duct measures 3.0 mm. Pancreas: There is nonvisualization of the pancreas. Right Kidney: Normal size of the right kidney. The right kidney measures 11.6 cm x 6 cm x 7 cm. Normal renal cortex. The right cortex measures 1.8 cm. There is no demonstrated renal mass or cyst. There is no right hydronephrosis. US/Liver IMPRESSION: Fatty infiltration of the liver. Electronically Signed: Edinson Chambers, at 11:04 EDT , Service support ,
== END ==
PROVIDERS: PCP Family Medicine; Referring Provider Internal Medicine Gastroenterology; Visit Provider Internal Medicine Gastroenterology
DX: K76.0 Fatty (change of) liver, not elsewhere classified (principal)
CPT/HCPCS: 76705

== ENCOUNTER 2020-08-02 08:30 | Outpatient (RCR) | payer OTHER, SELFPAY ==
[2020-05-19 00:28] VITALS: BMI 35.2
--- NOTE | 2020-07-29 15:40 | HP.PTEVAL_ITS ---
Patient's Visit Information LINDA SWAN is a 65 year old M referred to Physical Therapy by Dr. Shelbi Hernandez MD with a diagnosis of Frequent Falls. Date of Evaluation: 07/29/20 Physical Therapist: Lashonda Mathis DPT - Visit Plan Frequency: 2-3x /Week Duration: 3 Weeks Plan: Focus on LE and core strength/stabilization and functional mobility and proprioception - Subjective Was passing out in April- sister took him to ED- he has been in/out of the hospital for tests- thinks it coming from his carotid arteries. He is going to see Dr. Elliott for his artery- and thinks that he will probably have surgery. He feels that he has lost a lot of his muscle mass- he still has dizzy spells the last one was this week but prior to that it had been awhile. He wants to get back into shape. He has cortisone injections in his knees so he can't get up/down and he has had injections in his back. Not currently working due to the spells. No lifting over #15 but really no other restrictions. Very active. No pain at this time. Last time he fell was in April. 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 - Objective Posture: FH, RS can correct but does not maintain. Gait: no deviation noted. Stairs:asc/desc8 recip with 1 HR. Balance: SLS: 10 sec each LE, Tandem stance: 30 sec without LOB, Tandem walkin feet no LOB but does have increased sway. Eyes closed narrow MICHAELA: no LOB for 30 sec. Head turns with ambulation makes him dizzy. ROM:WFL in all planes. Sit to Stand: no UE A required but reports discomfort in his knees. Strength: Core: fair, hip: 4+/5 Knee: 5/5 Ankle:5/5. Flex: HS: moderate, Gastroc: moderate - Goals Goal 1:: Patient will be I with HEP and progression Goal Time Frame: 4-6 Weeks Goal 2:: Patient will demo 5/5 strength in LE Goal Time Frame: 4-6 Weeks Goal 3:: Patient will maintain proper posture t/o tx session to demo increased core s/s. Goal Time Frame: 4-6 Weeks - Rehabilitation Potential Physical Therapy Diagnosis: Patient presents with hypmobility- he has decreased strength, flex and muscular endurance leading to decreased ability to perform ADL's. Rehabilitation Potential: Good - Anticipated Interventions Patient/Client Instruction: Educate patient on: Benefits of Fitness Program Therapeutic Exercise to Include: Strength training, Endurance training, Balance training, Agility training, Body mechanics, Postural training, Flexibilty training, Gait and locomotor training, Neuromotor development, Passive ROM, Active ROM, Dynamic Lumbar Stabilization, Scapular Strength/Stabilization For the Purpose of:: To improve muscle performance and motor function Thank you for the opportunity to evaluate your patient. For Medicare and Medicare HMO plans, please review the plan of care and approve it. It will need to be FAXED BACK to us at [phone] for Medicare purposes. For Medicare only, by signing this I certify the plan of care. Please let me know if there are questions or concerns regarding this plan of care. Physician Signature: Date:
--- NOTE | 2020-08-02 09:24 | HP.OTEVAL ---
Patient's Visit Information LINDA SWAN is a 65 year old M, referred to Occupational Therapy by Dr. Shelbi Hernandez MD, with a diagnosis of CVA, frequent falls, imbalance. Date of Evaluation: 08/02/20 Occupational Therapist: Adrianne Rowan, MELISSAR/Raffi, CHT - Subjective Was passing out in April- sister took him to ED- he has been in/out of the hospital for tests- thinks it coming from his carotid arteries. He is going to see Dr. Elliott for his artery- and thinks that he will probably have surgery. He feels that he has lost a lot of his muscle mass- he still has dizzy spells the last one was this week but prior to that it had been awhile. He wants to get back into shape feels he get tired and has no endurance to what he had prior to this change in medical status. He has cortisone injections in his knees so he can't get up/down and he has had injections in his back. Not currently working due to the spells. No lifting over #15 but really no other restrictions. 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 No pain at this time. Last time he fell was in April. 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 - ADLs Comments: Pt states he lives alone in a ranch home, laundry is in the basement. pt states he is IND. with bathing/ dressing. pt states no difficulty with cooking. 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 - ROM ROM Comments: pt demo BUE ROM WNL - Strength Shoulder: right 4/5 left 4+/5 Elbow: right 4/5 left 4+/5 Disability Liaison Officer: right 60# left 80# Lateral Pinch: right 28# left 24# Tripod Pinch: right 18# left 22# Strength Comments: pt demo with a decrease in right centrifuge separator tender/and UB strength - Sensation Sensation Comments: denies - Quick DASH-Disab of Arm,Shoulder& Hand Quick DASH Score: 36.6650 - Goals Goal:: pt will demo a increase in right centrifuge separator tender strength to 65# or greate to increase pt ind. with ADLs and IADLs. pt will demo a increase in right UB MMT to 4+/5 to increase pts ind. with ADls and IADLs by d/c - Rehabilitation General Assessment: pt demo with a decline in BUE MMT and a weak right centrifuge separator tender- this limits pt with ADLs and IADls. pt would benefit from skilled OT services 2-3x week for 6 weeks to return pt to PLOF. Today therapist ed. pt on PRE for HEP- pt demo understanding. Rehabilitation Potential: Good - Anticipated Interventions Strengthening, Ergonomic Education, Sensory Stimulation, Education re Diagnosis - Visit Plan Frequency: 2-3x /Week Duration: 6 Weeks TEXT: Thank you for the opportunity to evaluate your patient. For Medicare and Medicare HMO plans, please review the plan of care and approve it. It will need to be FAXED BACK to us at [phone] for Medicare purposes. Please let me know if there are questions or concerns regarding this plan of care. Physician Signature: Date:
--- NOTE | 2020-09-18 08:28 | HP.OT.NRP ---
LINDA SWAN was seen in my office for initial evaluation on 08/02/20. The following Plan of Care was established for this patient: Initial Frequency: 2-3x /Week Initial Duration: 6 Weeks Anticipated Interventions: Strengthening, Ergonomic Education, Sensory Stimulation, Education re Diagnosis This patient was last seen in our office 08/02/20. Pertinent comments regarding their Occupational therapy will appear below: pt attended OT eval only- cancelled two scheduled apts and no further apts scheduled. Due to time lapse in services pt d/c. At this point I will be discontinuing this patient from occupational therapy. I would be happy to see this patient again in the future if found appropriate by the physician. Thank you! Adrianne Rowan, OTR/L, CHT
--- NOTE | 2020-09-18 16:30 | HP.PT.NRP ---
LINDA SWAN was seen in my office for initial evaluation on 07/29/20. The following Plan of Care was established for this patient: Initial Frequency: 2-3x /Week Initial Duration: 3 Weeks Patient/Client Instruction: Educate patient on: Benefits of Fitness Program Therapeutic Exercise to Include: Strength training, Endurance training, Balance training, Agility training, Body mechanics, Postural training, Flexibilty training, Gait and locomotor training, Neuromotor development, Passive ROM, Active ROM, Dynamic Lumbar Stabilization, Scapular Strength/Stabilization For the Purpose of:: To improve muscle performance and motor function This patient was last seen in our office . Pertinent comments regarding their Physical therapy will appear below: Patient did not return after initial evauation- d/c at this time and return to MD for further evaluation At this point I will be discontinuing this patient from physical therapy. I would be happy to see this patient again in the future if found appropriate by the physician. Thank you! Lashonda Mathis DPT
== END 2020-08-02 19:00 | disposition home or self-care (01) ==
LOC: OT 08:30
PROVIDERS: PCP Family Medicine; Referring Provider Family Medicine; Visit Provider Family Medicine
DX: R26.89 Other abnormalities of gait and mobility (principal); R29.6 Repeated falls
CPT/HCPCS: 97110; 97161; 97166

== ENCOUNTER → 2020-08-26 12:25 | Outpatient (CLI) | payer OTHER, SELFPAY ==
[2020-08-22 10:07] VITALS: BMI 34.4
[2020-08-26 12:53] LABS: Hematocrit 37.8 % (40-54); Hemoglobin 12.1 g/dL (13.0-16.5); Mean Corpuscular Hgb 29.5 pg (27.0-32.0); Mean Corpuscular Volume 92.2 fL (80-94); Mean Platelet Vol. 9.6 fl (6.2-12.0); Platelet Count 283 K/mm3 (150-450); RBC Distribution Width CV 12.8 % (11.6-14.6); RBC Distribution Width SD 43.3 fl (35.1-43.9); White Blood Count 4.5 K/mm3 (4.4-11.0)
[2020-08-26 13:23] LABS: Vitamin B12 378 pg/mL (211-911)
[2020-08-26 14:05] LABS: ALB/GLOB Ratio 0.9 RATIO (0.9-2.4); AST(SGOT) 8 U/L (15-37); Alanine Aminotransfer ALT/SGPT 23 U/L (16-61); Albumin, Serum 3.6 g/dL (3.2-5.0); Alkaline Phosphatase 27 U/L (45-117); Anion Gap 6 (5-15); BUN 18 mg/dL (7-18); BUN/Creat Ratio 22.6 RATIO (10-20); Calcium,Total 9.2 mg/dL (8.5-10.1); Chloride 105 mmol/L (98-107); EST Glomerular Filtration Rate 104 mL/min (>60); Est Glom Filt Rate - Afr Amer 126 mL/min (>60); Globulin 3.8 g/dL (2.2-4.2); Glucose 216 mg/dL (74-106); Potassium 4.1 mmol/L (3.5-5.1); Protein, Total 7.4 g/dL (6.4-8.2); Sodium Level 139 mmol/L (136-145); Thyroid Stim Hormone (TSH) 2.27 uIU/mL (0.358-3.74)
[2020-08-31 12:07] LABS: Free Kappa Light Chains 31.6 mg/L (3.3-19.4); Free Lambda Light Chains 22.7 mg/L (5.7-26.3)
[2020-09-02 04:21] LABS: Vitamin B1, Thiamine 113.4 nmol/L (66.5-200.0)
== END ==
PROVIDERS: PCP Family Medicine; Referring Provider Psychiatry & Neurology Neurology; Visit Provider Psychiatry & Neurology Neurology
DX: E72.20 Disorder of urea cycle metabolism, unspecified (principal); G62.9 Polyneuropathy, unspecified; G31.84 Mild cognitive impairment of uncertain or unknown etiology
CPT/HCPCS: 36415; 80053; 82140; 82607; 82746; 83883; 84425; 84443; 85027

== ENCOUNTER → 2020-10-14 10:50 | Outpatient (CLI) | payer SELFPAY ==
[2020-08-22 10:07] VITALS: BMI 34.4
[2020-10-16 14:09] LABS: Albumin 3.5 g/dL (2.9-4.4); Alpha-1-Globulins 0.2 g/dL (0.0-0.4); Alpha-2-Globulins 0.8 g/dL (0.4-1.0); Immunoglobulin A 290 mg/dL (61-437); Immunoglobulin G 1072 mg/dL (603-1613); Immunoglobulin M 54 mg/dL (20-172); PROEL- TOTAL PROTEIN 6.7 g/dL (6.0-8.5)
== END ==
PROVIDERS: PCP Family Medicine; Referring Provider Psychiatry & Neurology Neurology; Visit Provider Psychiatry & Neurology Neurology
DX: G62.9 Polyneuropathy, unspecified (principal)
CPT/HCPCS: 36415; 82784; 84165; 86334; 86335

== ENCOUNTER → 2020-10-23 12:22 | Outpatient (CLI) | payer OTHER, SELFPAY ==
[2020-08-22 10:07] VITALS: BMI 34.4
== END ==
PROVIDERS: PCP Family Medicine; Referring Provider Psychiatry & Neurology Neurology; Visit Provider Psychiatry & Neurology Neurology
DX: R69 Illness, unspecified (principal)

== ENCOUNTER → 2021-05-19 11:56 | Outpatient (CLI) | payer MEDICAID, SELFPAY ==
[2021-05-19 12:36] LABS: Absolute Lymphocyte Count 1.34 X10^3/uL (0.83-4.51); Absolute Neutrophil Count 4.4 X10^3/uL (2.0-7.7); Basophil# 0.02 X10^3/uL; Basophil% 0.3 % (0-1); Eosinophil# 0.12 X10^3/uL; Eosinophils% 1.9 % (0-5); Hematocrit 40.2 % (40-54); Hemoglobin 13.6 g/dL (13.0-16.5); Lymphocyte # 1.34 X10^3/ul (0.83-4.51); Lymphocyte % 21.3 % (19-41); Mean Corp Hgb Conc 33.8 g/dL (32-36); Mean Corpuscular Hgb 30.3 pg (27.0-32.0); Mean Corpuscular Volume 89.5 fL (80-94); Mean Platelet Vol. 9.9 fl (6.2-12.0); Monocyte# 0.42 X10^3/uL; Monocyte% 6.7 % (0-10); NRBC Flagged by Analyzer 0 % (0-5); Neutrophil # 4.36 X10^3/uL (2.7-7.7); Neutrophil % 69.2 % (47-70); Platelet Count 248 K/mm3 (150-450); RBC Distribution Width CV 12.5 % (11.6-14.6); RBC Distribution Width SD 40.9 fl (35.1-43.9); Red Blood Count 4.49 M/mm3 (4.6-6.2); White Blood Count 6.3 K/mm3 (4.4-11.0)
[2021-05-19 13:25] LABS: ALB/GLOB Ratio 0.9 RATIO (0.9-2.4); AST(SGOT) 13 U/L (15-37); Alanine Aminotransfer ALT/SGPT 27 U/L (16-61); Albumin, Serum 3.7 g/dL (3.2-5.0); Alkaline Phosphatase 25 U/L (45-117); Anion Gap 6 (5-15); BUN 17 mg/dL (7-18); BUN/Creat Ratio 18.4 RATIO (10-20); Calcium,Total 8.8 mg/dL (8.5-10.1); Chloride 101 mmol/L (98-107); Cholesterol 129 mg/dL (200); Creatinine, Serum 0.92 mg/dL (0.70-1.30); EST Glomerular Filtration Rate 88 mL/min (>60); Est Glom Filt Rate - Afr Amer 106 mL/min (>60); Globulin 4.1 g/dL (2.2-4.2); Glucose 332 mg/dL (74-106); High Density Lipoprotein 36 mg/dL; Potassium 4.2 mmol/L (3.5-5.1); Protein, Total 7.8 g/dL (6.4-8.2); Sodium Level 133 mmol/L (136-145); Triglycerides 201 mg/dL; Very Low Density Lipoprotein 40 mg/dL (5-40)
[2021-05-22 13:02] LABS: PSA,Total - Annual Screen 0.46 ng/mL (0.00-4.00); Thyroid Stim Hormone (TSH) 1.95 uIU/mL (0.358-3.74)
== END ==
DX: E11.21 Type 2 diabetes mellitus with diabetic nephropathy (principal); I10 Essential (primary) hypertension; E78.5 Hyperlipidemia, unspecified
CPT/HCPCS: 36415; 80053; 80061; 84153; 84443; 85025; G0103

== ENCOUNTER → 2021-05-26 11:17 | Outpatient (CLI) | payer MEDICAID, SELFPAY ==
--- NOTE | 2021-05-26 11:20 | US_ITS ---
STUDY: SUPERFICIAL ULTRASOUND - CHEST. REASON FOR EXAM: Male, 66 years old. Lipoma. Palpable mass over the sternum TECHNIQUE: A superficial ultrasound was performed with real-time and static ji-scale imaging. COMPARISON: None. FINDINGS: Time sonographic imaging demonstrates a well circumscribed 5 mixed hypo and echogenic mass in the subcutaneous soft tissues over the sternum. This measures 4.3 x 3.9 x 1.9 cm. There is minimal internal vascularity. The findings are most suggestive of lipoma. Less likely possibility is a larger lymph node. US/Chest IMPRESSION: Probable lipoma versus large lymph node in the soft tissues anterior to the lower sternum. Electronically Signed: Freddy Mckeon DO at 23:56 EDT Tel [phone], Service support ,
== END ==
PROVIDERS: Referring Provider Nurse Practitioner Adult Health; Visit Provider Nurse Practitioner Adult Health
DX: D17.9 Benign lipomatous neoplasm, unspecified (principal)
CPT/HCPCS: 76604

== ENCOUNTER → 2021-05-28 09:00 | Outpatient (CLI) | payer MEDICAID, SELFPAY ==
[2021-05-28 10:00] LABS: Erythrocyte Sedimentation Rate 19 mm/hr (0-20)
== END ==
PROVIDERS: Visit Provider Nurse Practitioner Adult Health
DX: Z12.5 Encounter for screening for malignant neoplasm of prostate (principal); E11.21 Type 2 diabetes mellitus with diabetic nephropathy; F41.9 Anxiety disorder, unspecified; R51.9 Headache, unspecified
CPT/HCPCS: 36415; 85652

== ENCOUNTER 2021-06-24 08:33 | Day surgery (SDC) | payer MEDICAID, SELFPAY ==
[2021-06-24 08:54] VITALS: BP 105/72; PULSE 72; RESP 16; TEMP 36.1; O2SAT 98; BMI 32.7
[2021-06-24] MEDS: Lactated Ringers 1,000 ML 100 ML IV (09:06)
[2021-06-24 09:10] LABS: Bedside Glucose 158 mg/dL (70-110)
--- NOTE | 2021-06-24 09:30 | HP.PCM_ITS ---
History and Physical Date of Admission: 06/24/21 Intake Vital Signs 06/16/21 08:33 Weight: 221 lb 8 oz BP 132/83 H Blood Pressure Location Rt brachial Position Sitting Respiration 20 H Pulse 71 Pulse Source NIBP Temp 97.4 F L Temp Source Temporal Pulse Oximetry (%) 96 Oxygen Delivery Method room air Intake Visit Reasons: Upper lower Scope Diarrhea/Swallowing issues Chief Complaint: dysphagia/ diarrhea and dark stools Sales Agent Protective Service Required: No Is patient in pain?: No Allergies No Known Allergies Allergy (Verified 06/16/21 08:35) Medications lisinopril 5 mg PO DAILY 05/17/20 [History Confirmed 06/16/21] atorvastatin 80 mg PO QHS #90 tab 05/21/20 [Rx Confirmed 06/16/21] aspirin 81 mg tablet,delayed release 81 mg PO DAILY 06/16/21 [History Confirmed 06/16/21] empagliflozin 10 mg tablet 10 mg PO DAILY 06/16/21 [History Confirmed 06/16/21] insulin detemir U-100 100 unit/mL (3 mL) subcutaneous pen 15 unit SUBCUT QHS 06/16/21 [History Confirmed 06/16/21] metformin 750 mg tablet,extended release 24 hr 750 mg PO DAILY 06/16/21 [History Confirmed 06/16/21] omeprazole 40 mg capsule,delayed release 40 mg PO DAILY #60 cap 06/16/21 [Rx Confirmed 06/16/21] PFSH Medical History (Updated 06/16/21 @ 09:[address] Ángel Drake MD) Anxiety Aphasia Cardiac murmur Dysarthria GERD (gastroesophageal reflux disease) Hyperlipidemia Hypertension Imbalance Type 2 diabetes mellitus Surgical History (Updated 06/16/21 @ 08:33 by Jonelle Gatica) History of excision of mass (~05/2021) Family History Mother Breast cancer Diabetes Father Colon cancer Social History Smoking Status: Never smoker Electronic Cigarette Use: not used second hand exposure: No alcohol intake: current alcohol intake frequency: holidays/special occasions only substance use type: does not use HPI HPI HPI: LINDA SWAN, is a 66 M who presents to the office today for dysphagia and diarrhea. Patient reports has been having dysphagia. He has had GERD occasionally. Patient is not on any PPI. Patient reports food sticking especially in his lower esophagus. He has never had an EGD or need for food disimpaction. Patient also reports he has been having diarrhea for over a month which is unexplained and he has been having very dark foul-smelling stools. Patient does not report any abdominal pain or nausea or vomiting. ROS General General: Yes fatigue; No weight change, appetite, colon cancer, breast cancer or weakness HEENT HEENT: Yes difficulty swallowing; No eye injury, eye surgery, swollen glands or hoarseness Endo Endocrine: Yes diabetes mellitus; No thyroid disease, thyroid cancer, Hair loss, heat intolerance or cold intolerance Cardio Cardiovascular: Yes murmur and high blood pressure; No pacemaker, heart disease, atrial fibrillation, heart attack, heart stent, palpitations, shortness of breat with exertion or chest pain Psych Psychiatric: Yes anxiety; No depression or hearing voices Resp Respiratory: No shortness of breath, No sleep apnea, No cough, No COPD, No asthma, No emphysema and No wheezing Gastro Gastrointestinal: No abdominal pain, No nausea or vomiting, Yes diarrhea, No constipation, No blood in stool, Yes acid reflux, No hemorrhoids, No ulcers, No gallbladder problem and Yes black,tarry stools Nima Hematologic: Yes blood thinners, No blood disorders, No bleeding, No anemia and No blood clots Neuro Neurologic: No weakness Exam Const General: cooperative Orientation: alert and oriented x3 HENMT Head: normal to inspection Neck Neck: normal visual inspection and full ROM Chest Chest palpation & inspection: normal inspection of the chest Resp Effort & Inspection: normal respiratory effort Auscultation: clear to auscultation bilaterally Cardio Rate: regular rate Rhythm: regular rhythm GI Inspection: non-distended Palpation: soft and nontender Skin General: no rashes or lesions noted Neuro General: patient alert and patient oriented x3 Extrem General: full ROM Psych Appearance: grossly normal Mental Status: mental status grossly normal Assessment and Plan Assessment and Plan (1) GERD (gastroesophageal reflux disease): Status: Acute Qualifiers: Esophagitis presence: esophagitis presence not specified Qualified Code(s): K21.9 - Gastro-esophageal reflux disease without esophagitis (2) Dysphagia: Status: Acute Qualifiers: Dysphagia type: esophageal phase Qualified Code(s): R13.19 - Other dysphagia (3) Diarrhea: Status: Acute Qualifiers: Diarrhea type: unspecified type Qualified Code(s): R19.7 - Diarrhea, unspecified Orders: Orders: EGD Today K21.9 Colonoscopy Today R19.7 Plan - Dr. Ángel Drake MD: The patient has been having dysphagia and GERD. I prescribed the patient a PPI. I would also like to perform an EGD with possible dilation. I discussed this with him in detail as well as the increased risk of dilation. Patient has never had a colonoscopy in the past and he is having diarrhea and he is over age 50. Patient is having diarrhea and dark stools as well. Patient a lso has a family history of colon cancer in his father in his 70s. I explained endoscopy in detail to the patient. I explained the risks including but not limited to stroke or heart attack with anesthesia, perforation of the GI tract, bleeding, infection. I explained that any of these could necessitate further emergency surgery. The patient understands and all questions were answered sufficiently. The patient wishes to proceed with procedure. Ángel Drake MD Pager: [facility] [address] [place] [address], [address] [place] [address] Office: I have re-examined the patient. There are no clinical changes since date of exam.
--- NOTE | 2021-06-24 10:06 | OP.EGD_ITS ---
Patient Name: Jett Dc Procedure Date: 06/24/2021 9:37 AM Date of : 1955 Age: 66 Procedure: Upper GI endoscopy Indications: Dysphagia Providers: Ángel Drake MD Medicines: Monitored Anesthesia Care Patient Profile: This is a 66 year old male. Refer to note in patient chart for documentation of history and physical. Complications: No immediate complications. Procedure: Pre-Anesthesia Assessment: - Prior to the procedure, a History and Physical was performed, and patient medications and allergies were reviewed. The patient's tolerance of previous anesthesia was also reviewed. The risks and benefits of the procedure and the sedation options and risks were discussed with the patient. All questions were answered, and informed consent was obtained. Prior Anticoagulants: The patient has taken no previous anticoagulant or antiplatelet agents. After reviewing the risks and benefits, the patient was deemed in satisfactory condition to undergo the procedure. After obtaining informed consent, the endoscope was passed under direct vision. Throughout the procedure, the patient's blood pressure, pulse, and oxygen saturations were monitored continuously. The gastroscope was introduced through the mouth, and advanced to the second part of duodenum. The upper GI endoscopy was accomplished without difficulty. The patient tolerated the procedure well. Scope In: 9:43:06 AM Scope Out: 9:44:33 AM Total Procedure Duration Time 0 hours 1 minute 27 seconds Findings: The esophagus was normal. Scattered mild inflammation with hemorrhage characterized by adherent blood was found in the entire examined stomach. The examined duodenum was normal. Impression: - Normal esophagus. - Gastritis with hemorrhage. - Normal examined duodenum. - No specimens collected. Recommendation: - Discharge patient to home. - Resume previous diet. - Continue present medications. Procedure Code(s): --- Professional --- 02515, Esophagogastroduodenoscopy, flexible, transoral; diagnostic, including collection of specimen(s) by brushing or washing, when performed (separate procedure) Diagnosis Code(s): --- Professional --- K29.71, Gastritis, unspecified, with bleeding R13.10, Dysphagia, unspecified CPT copyright 2017 [employer] [place] [employer]. All rights reserved. The codes documented in this report are preliminary and upon composition mixer review may be revised to meet current compliance requirements. Ángel Drake MD 06/24/2021 10:06:31 AM This report has been signed electronically. Number of Addenda: 0 Note Initiated On: 06/24/2021 9:37 AM
--- NOTE | 2021-06-24 10:07 | OP.CCLET_ITS ---
06/24/2021 [place] [facility] Re : Upper GI endoscopy procedure for Jett Silva [facility] This procedure was performed on Thursday, June 24, 2021. My impressions and recommendations are as follows: Impressions : - Normal esophagus. - Gastritis with hemorrhage. - Normal examined duodenum. - No specimens collected. Recommendations : - Discharge patient to home. - Resume previous diet. - Continue present medications. My findings are described in the full procedure note, which is enclosed. If I can be of further assistance, please feel free to contact me at Doctor phone number(s): , Work: . Sincerely, Ángel Drake MD 06/24/2021 10:06:31 AM This report has been signed electronically.
[2021-06-24 10:10] VITALS: BP 105/72; BP 70/48; PULSE 67; RESP 14; TEMP 36.5; O2SAT 95
--- NOTE | 2021-06-24 10:10 | OP.COLON_ITS ---
Patient Name: Jett Dc Procedure Date: 06/24/2021 9:45 AM Date of : 1955 Age: 66 Procedure: Colonoscopy Indications: Chronic diarrhea Providers: Ángel Drake MD Medicines: Monitored Anesthesia Care Patient Profile: This is a 66 year old male. Refer to note in patient chart for documentation of history and physical. Last Colonoscopy: none. The patient's first colonoscopy is today. Complications: No immediate complications. Procedure: Pre-Anesthesia Assessment: - Prior to the procedure, a History and Physical was performed, and patient medications and allergies were reviewed. The patient's tolerance of previous anesthesia was also reviewed. The risks and benefits of the procedure and the sedation options and risks were discussed with the patient. All questions were answered, and informed consent was obtained. Prior Anticoagulants: The patient has taken no previous anticoagulant or antiplatelet agents. After reviewing the risks and benefits, the patient was deemed in satisfactory condition to undergo the procedure. After I obtained informed consent, the scope was passed under direct vision. Throughout the procedure, the patient's blood pressure, pulse, and oxygen saturations were monitored continuously. The colonoscope was introduced through the anus with the intention of advancing to the cecum. The scope was advanced to the ascending colon before the procedure was aborted. Medications were not given. The colonoscopy was technically difficult and complex due to inadequate bowel prep and a tortuous colon. The patient tolerated the procedure well. The quality of the bowel preparation was poor. Scope In: 9:47:00 AM Scope Out: 10:03:36 AM Total Procedure Duration Time 0 hours 16 minutes 36 seconds Findings: Impression: - Preparation of the colon was poor. - No specimens collected. Recommendation: - Discharge patient to home. - Resume previous diet. - Continue present medications. - Repeat colonoscopy in 1 month because the bowel preparation was poor. Procedure Code(s): --- Professional --- 71432, 53, Colonoscopy, flexible; diagnostic, including collection of specimen(s) by brushing or washing, when performed (separate procedure) Diagnosis Code(s): --- Professional --- K52.9, Noninfective gastroenteritis and colitis, unspecified CPT copyright 2017 [place] [employer]. All rights reserved. The codes documented in this report are preliminary and upon baseball sewer hand review may be revised to meet current compliance requirements. Ángel Drake MD 06/24/2021 10:10:32 AM This report has been signed electronically. Number of Addenda: 0 Note Initiated On: 06/24/2021 9:45 AM
--- NOTE | 2021-06-24 10:11 | OP.CCLET_ITS ---
06/24/2021 [place] [facility] Re : Colonoscopy procedure for Jett Silva [facility] This procedure was performed on Thursday, June 24, 2021. My impressions and recommendations are as follows: Impressions : - Preparation of the colon was poor. - No specimens collected. Recommendations : - Discharge patient to home. - Resume previous diet. - Continue present medications. - Repeat colonoscopy in 1 month because the bowel preparation was poor. My findings are described in the full procedure note, which is enclosed. If I can be of further assistance, please feel free to contact me at Doctor phone number(s): , Work: . Sincerely, Ángel Drake MD 06/24/2021 10:10:32 AM This report has been signed electronically.
[2021-06-24 10:15] VITALS: BP 105/72; BP 79/55; PULSE 69; RESP 16; O2SAT 95
[2021-06-24 10:20] VITALS: BP 105/72; BP 90/60; PULSE 61; RESP 16; O2SAT 97
[2021-06-24 10:27] VITALS: BP 105/72; BP 98/70; PULSE 62; RESP 16; TEMP 36.8; O2SAT 95
[2021-06-24 10:44] VITALS: BP 105/72
== END 2021-06-24 10:46 | disposition home or self-care (01) ==
LOC: EN 08:34 → AC 08:35
PROVIDERS: Visit Provider Surgery
PROC: 0DJD8ZZ Inspection of Lower Intestinal Tract, Via Natural or Artificial Opening Endoscopic (ICD-10-PCS; CPT 45378; principal; 2021-06-24 09:25)
DX: K29.71 Gastritis, unspecified, with bleeding (principal); R13.19 Other dysphagia; K52.9 Noninfective gastroenteritis and colitis, unspecified; I10 Essential (primary) hypertension; E11.9 Type 2 diabetes mellitus without complications; E78.00 Pure hypercholesterolemia, unspecified; K21.9 Gastro-esophageal reflux disease without esophagitis; Z79.82 Long term (current) use of aspirin; Z79.4 Long term (current) use of insulin; Z79.899 Other long term (current) drug therapy; Z80.0 Family history of malignant neoplasm of digestive organs
CPT/HCPCS: 43235; 45378; 82962; J7120; J2405

== ENCOUNTER → 2021-06-26 10:57 | Outpatient (CLI) | payer MEDICAID, SELFPAY ==
[2021-06-26 11:34] LABS: Anion Gap 9 (5-15); BUN 14 mg/dL (7-18); BUN/Creat Ratio 17.8 RATIO (10-20); Calcium,Total 8.6 mg/dL (8.5-10.1); Chloride 105 mmol/L (98-107); Creatinine, Serum 0.78 mg/dL (0.70-1.30); EST Glomerular Filtration Rate 106 mL/min (>60); Est Glom Filt Rate - Afr Amer 128 mL/min (>60); Glucose 188 mg/dL (74-106); Sodium Level 138 mmol/L (136-145)
== END ==
PROVIDERS: Referring Provider Nurse Practitioner Adult Health; Visit Provider Nurse Practitioner Adult Health
DX: E87.1 Hypo-osmolality and hyponatremia (principal)
CPT/HCPCS: 36415; 80048

== ENCOUNTER → 2021-07-04 16:19 | Outpatient (CLI) | payer MEDICAID, SELFPAY ==
--- NOTE | 2021-07-04 16:22 | MRI_ITS ---
STUDY: MRI BRAIN WITH AND WITHOUT CONTRAST REASON FOR EXAM: Male, 66 years old. HEADACHE TECHNIQUE: Standardized multiplanar fat and water weighted pulse sequences were obtained. IV 19 mL Dotarem was administered for the contrast portion of the examination. COMPARISON: 19 April 2020, report from 18 May 2020 no images available FINDINGS: Normal size of the ventricles and extra-axial spaces for the patient''s age. Normal white matter tracts of the supratentorial brain. Normal bilateral basal ganglia. Normal thalami. There is no extra-axial fluid accumulation. Normal flow voids within the major intracranial circulation suggesting patency by spin echo criteria. Normal venous enhancement. There is no enhancing intra-axial or extra-axial abnormality. Normal sella turcica, pituitary gland, infundibular stalk, optic chiasm and hypothalamus. Normal tectal plate and pineal gland. Normal midbrain, lauren and medulla. Normal cerebellum. Normal basal cisterns. Normal bilateral temporal bones. Normal bilateral internal auditory canals. There are bilateral simple mastoid effusions with clear nasopharynx. MRI/Brain W/WO Contrast IMPRESSION: Normal unenhanced and enhanced MRI of the brain. Electronically Signed: Parveen Blas MD at 21:15 EDT Tel , Service support ,
== END ==
PROVIDERS: Visit Provider Nurse Practitioner Adult Health
DX: R51.9 Headache, unspecified (principal)
CPT/HCPCS: 70553; A9575

== ENCOUNTER 2021-07-22 08:47 | Day surgery (SDC) | payer MEDICAID, SELFPAY ==
[2021-07-22] VITALS (8 sets, daily range): BP systolic 92–105; BP diastolic 68–73; PULSE 54–74; RESP 16–18; TEMP 36.1–36.6; O2SAT 95–98; BMI 33.1
[2021-07-22 09:31] LABS: Bedside Glucose 125 mg/dL (70-110)
[2021-07-22] MEDS: Lactated Ringers 1,000 ML 100 ML IV (09:33)
--- NOTE | 2021-07-22 09:45 | COLBX_PTH ---
PATIENT: LINDA SWAN LOC: EN U#:[id number] AGE/SX: 66/M ROOM: RE07/22/[address]: Dr. Ángel Drake MD : 1955 BED: DIS: 07/22/2021 SPEC #: [id number] RECD: 07/22/21 11:42 STATUS: CHEPE ISABEL #: [id number] CYNTHIA: 07/22/21 09:[address]: Ángel Drake DEPT: SURGICAL PATHOLOGY RECD BY: Desi Trinidad ENTERED: 07/22/21 13:20 SP TYPE: COLON BX OTHR DR: Cecilia Anthony, CLINICAL PROGRAM CONSULTANT-C [facility] Tissues: A - Sigmoid colon biopsy B - COLON BIOPSY Procedures: Surgery Specimen Level IV HEADER OPERATION: Colonoscopy (MAC) PRE-OP DIAGNOSIS: Diarrhea TISSUE SUBMITTED: A ? Sigmoid polyp, B ? Random colonic polyps MICROSCOPIC DIAGNOSIS A. Sigmoid colon polyp, biopsy: Tubular adenoma. B. Colon, random biopsy: No pathologic change. See comment. AM:megan 07/23/2021 COMMENT B. Neither hyperplastic nor adenomatous change is identified. Clinical correlation is suggested. MICROSCOPIC DESCRIPTION Slides are reviewed. GROSS DESCRIPTION A - Received in fixative is one container labeled with the patient's name and designated sigmoid polyp. The specimen consists of multiple irregular fragments of light faria soft tissue that in aggregate measure 1.5 x 0.3 x 0.1 cm. The specimen is totally submitted in one cassette. B - Received in fixative is one container labeled with the patient's name and designated random colonic biopsy. The specimen consists of multiple irregular fragments of light faria soft tissue that in aggregate measure 1.5 x 1 x 0.1 cm. The specimen is totally submitted in one cassette. / SUE:megan 07/22/21 TC:5 CPT: 77302 x2
--- NOTE | 2021-07-22 10:24 | H&P.OPEN ---
HPI - General HPI Narrative LINDA SWAN, is a 66 M who presents for repeat colonoscopy. Patient had poor prep during his last colonoscopy and it was unable to be completed. [facility] Medical History (Updated 07/18/21 @ 16:28 by Park Barnes) Anxiety Aphasia Back pain Cardiac murmur Cardiology follow-up encounter Diabetes Dysarthria Gastric reflux GERD (gastroesophageal reflux disease) High cholesterol History of echocardiogram Hyperlipidemia Hypertension Imbalance Insulin dependent diabetes mellitus Migraine headache Shortness of breath on exertion Type 2 diabetes mellitus Wears glasses Wears partial dentures Home Medications lisinopril 5 mg PO DAILY 05/17/20 [History Last Taken 07/22/21 08:00] atorvastatin 80 mg PO QHS #90 tab 05/21/20 [Rx Last Taken Unknown] aspirin 81 mg tablet,delayed release 81 mg PO DAILY 06/16/21 [History Last Taken Unknown] empagliflozin 10 mg tablet 10 mg PO DAILY 06/16/21 [History Last Taken Unknown] insulin detemir U-100 100 unit/mL (3 mL) subcutaneous pen 15 unit SUBCUT QHS 06/16/21 [History Last Taken Unknown] metformin 750 mg tablet,extended release 24 hr 750 mg PO DAILY 06/16/21 [History Last Taken Unknown] omeprazole 40 mg capsule,delayed release 40 mg PO DAILY #60 cap 06/16/21 [Rx Last Taken Unknown] Allergy/AdvReac Type Severity Reaction Status Date / Time No Known Allergies Allergy Verified 07/22/21 09:12 Family History Mother Breast cancer Diabetes Father Colon cancer Surgical History (Updated 06/19/21 @ 08:49 by Aga Gutierres) History of excision of mass (~05/2021) Social History Smoking Status: Never smoker Electronic Cigarette Use: not used second hand exposure: No alcohol intake: current alcohol intake frequency: holidays/special occasions only substance use type: does not use Past Medical/Surgical History Planned Operation Planned Operative Procedure/s: EGD,colonoscopy Previous Hospitalizations/Surgeries HX Hospitalizations: No Any Problems With Anesthesia: No You/Your Family Experience Fever (Hyperthermia) With Anes: No Cholinesterase deficiency: No Cardiovascular Hx Chest Pain within Last 2 months: No Hx of Irregular Heartbeat and/or Afib: No Hx Heart Attack: No Hx Hypertension: Yes (CONTROLLED ON MED) Hx Cardiac Surgery/Stents/Etc.: No Hx Pain in Legs when Walking/Leg Cramps: No Respiratory Hx Chronic Obstructive Pulmonary Disease (COPD): No Hx Emphysema: No Hx Sleep Apnea: No CPAP: No Hx Respiratory Tract Infection/Cold (presently): No Do You Snore Loudly (louder than talking or can be heard): No Do You Often Feel Tired/ Fatigued/ Sleepy Dring Daytime?: No Has Anyone Observed You Stop Breathing During Sleep?: No Result (for STOP score): Negative Hx Smoking: No Smoking Status: Never smoker Gastrointestinal Hx Gastrointestinal Bleed: No Hx Ulcer: No Difficulty Chewing/Swallowing: No Hx Unplanned Weight Loss of 20#: No Neurological Hx Seizures: No Hx Transient Ischemic Attacks (TIA): No Hx Multiple Sclerosis: No Hx Parkinson's Disease: No Does patient have nerve stimulator: No Blood Disorder Hx Deep Vein Thrombosis: No Hx Hepatitis: No Hx Cirrhosis: No Hx Anemia: No Hx Blood Disorders: No Genitourinary Hx Renal Disease: No Hx Dialysis: No Musculoskeletal Hx Arthritis: No Hx Rheumatoid Arthritis: No Endocrine Hx Diabetes: Yes Thyroid Disease: No Psycho/Social Hx Substance Use: No Hx Alcohol Use: Yes (once a month) Hx Anxiety: No Hx Depression: No Hx Dementia: No Miscellaneous Hx Cancer: No Recent Exposure to Contagious Disease: No Allergies No Known Allergies Allergy (Verified 07/22/21 09:12) Maternal: Family History Mother Breast cancer Diabetes Father Colon cancer Cancer, Heart Disease, Hypertension, Stroke and - (Patient notes a maternal family history of hypertension and stroke as well as breast cancer.) Paternal: Family History Mother Breast cancer Diabetes Father Colon cancer Heart Disease, Hypertension, Stroke and - (Patient notes paternal family history of hypertension and stroke.) Discharge Is Pt Admitted From a [facility], or a Prison: No After D/C, Where Do you Plan to Go: Return Home From the PAT History Number of Risk Factors: 2 Vital Signs Vital Signs Vital Signs: 07/22/21 09:14 Temperature 97.8 F Temperature Source Temporal Pulse Rate 71 Respiratory Rate 16 Respiratory Pattern Normal Blood Pressure 105/70 Blood Pressure Mean 81 Blood Pressure Source Monitor Blood Pressure Position Sitting Blood Pressure Location Left Arm Pulse Ox 98 Oxygen Delivery Method Room Air Weight Weight: 217 lb 13.067 oz Body Mass Index (BMI) 33.1 Physical Exam Const alert and oriented x3 Resp normal respiratory effort and normal air movement Cardio regular rate and regular rhythm GI soft to palpation, non-tender and non-distended Assessment & Plan Assessment/Plan (1) Diarrhea: QUALIFIERS: Diarrhea type: unspecified type Qualified Code(s): R19.7 - Diarrhea, unspecified PLAN: Patient has been having chronic diarrhea and he has been having black stools as well. Patient has never had a screening colonoscopy. Patient had poor prep so a new prep was selected and the patient underwent a 3-day bowel prep for today's procedure. I explained endoscopy in detail to the patient. I explained the risks including but not limited to stroke or heart attack with anesthesia, perforation of the GI tract, bleeding, infection. I explained that any of these could necessitate further emergency surgery. The patient understands and all questions were answered sufficiently. The patient wishes to proceed with procedure. Ángel Drake MD Pager: [facility] [address] [place] [address], [address] [place] [address] Office: Surgery Risks - Colonoscopy Risks Include but are not Limited To: Risks include but are not limited to: Bleeding, perforation requiring further surgery, inability to complete colonoscopy requiring barium enema.
--- NOTE | 2021-07-22 10:54 | OP.CCLET_ITS ---
07/22/2021 [place] [facility] Re : Colonoscopy procedure for Jett Silva [facility] This procedure was performed on Thursday, July 22, 2021. My impressions and recommendations are as follows: Impressions : - One small polyp in the sigmoid colon, removed with a hot snare. Resected and retrieved. - The entire examined colon is normal on direct and retroflexion views. - Biopsies were taken with a cold forceps from the entire colon for evaluation of microscopic colitis. Recommendations : - Discharge patient to home. - Resume previous diet. - Continue present medications. - Await pathology results. - Repeat colonoscopy date to be determined after pending pathology results are reviewed for surveillance based on pathology results. My findings are described in the full procedure note, which is enclosed. If I can be of further assistance, please feel free to contact me at Doctor phone number(s): , Work: . Sincerely, Ángel Drake MD 07/22/2021 10:53:48 AM This report has been signed electronically.
--- NOTE | 2021-07-22 10:54 | OP.COLON_ITS ---
Patient Name: Jett Dc Procedure Date: 07/22/2021 10:23 AM Date of : 1955 Age: 66 Procedure: Colonoscopy Indications: Chronic diarrhea Providers: Ángel Drake MD Referring MD: Coni Ely [facility] Medicines: Monitored Anesthesia Care Patient Profile: This is a 66 year old male. Refer to note in patient chart for documentation of history and physical. Last Colonoscopy: none. The patient's first colonoscopy is today. Complications: No immediate complications. Procedure: Pre-Anesthesia Assessment: - Prior to the procedure, a History and Physical was performed, and patient medications and allergies were reviewed. The patient's tolerance of previous anesthesia was also reviewed. The risks and benefits of the procedure and the sedation options and risks were discussed with the patient. All questions were answered, and informed consent was obtained. Prior Anticoagulants: The patient has taken no previous anticoagulant or antiplatelet agents. After reviewing the risks and benefits, the patient was deemed in satisfactory condition to undergo the procedure. After I obtained informed consent, the scope was passed under direct vision. Throughout the procedure, the patient's blood pressure, pulse, and oxygen saturations were monitored continuously. The adult colonoscope was introduced through the anus and advanced to the cecum, identified by appendiceal orifice and ileocecal valve. The colonoscopy was performed without difficulty. The patient tolerated the procedure well. The quality of the bowel preparation was good. Scope In: 10:28:24 AM Scope Withdrawal Time 0 hours 12 minutes 23 seconds Scope Out: 10:50:29 AM Total Procedure Duration Time 0 hours 22 minutes 5 seconds Findings: A small polyp was found in the sigmoid colon. The polyp was removed with a hot snare. Resection and retrieval were complete. Biopsies for histology were taken with a cold forceps from the entire colon for evaluation of microscopic colitis. The entire examined colon appeared normal on direct and retroflexion views. Impression: - One small polyp in the sigmoid colon, removed with a hot snare. Resected and retrieved. - The entire examined colon is normal on direct and retroflexion views. - Biopsies were taken with a cold forceps from the entire colon for evaluation of microscopic colitis. Recommendation: - Discharge patient to home. - Resume previous diet. - Continue present medications. - Await pathology results. - Repeat colonoscopy date to be determined after pending pathology results are reviewed for surveillance based on pathology results. Procedure Code(s): --- Professional --- 68296, Colonoscopy, flexible; with removal of tumor(s), polyp(s), or other lesion(s) by snare technique 14944, 59, Colonoscopy, flexible; with biopsy, single or multiple Diagnosis Code(s): --- Professional --- D12.5, Benign neoplasm of sigmoid colon K52.9, Noninfective gastroenteritis and colitis, unspecified CPT copyright 2017 [employer]. All rights reserved. The codes documented in this report are preliminary and upon revenue agent review may be revised to meet current compliance requirements. Ángel Drake MD 07/22/2021 10:53:48 AM This report has been signed electronically. Number of Addenda: 0 Note Initiated On: 07/22/2021 10:23 AM
== END 2021-07-22 11:51 ==
LOC: EN 08:47 → AC 08:48
PROVIDERS: Visit Provider Surgery
PROC: 0DJD8ZZ Inspection of Lower Intestinal Tract, Via Natural or Artificial Opening Endoscopic (ICD-10-PCS; CPT 45378; principal; 2021-07-22 09:40)
DX: K52.9 Noninfective gastroenteritis and colitis, unspecified (principal); D12.5 Benign neoplasm of sigmoid colon; K21.9 Gastro-esophageal reflux disease without esophagitis; R13.10 Dysphagia, unspecified; E11.9 Type 2 diabetes mellitus without complications; I10 Essential (primary) hypertension; E78.5 Hyperlipidemia, unspecified; F41.9 Anxiety disorder, unspecified; Z79.82 Long term (current) use of aspirin; Z79.4 Long term (current) use of insulin; Z79.899 Other long term (current) drug therapy
CPT/HCPCS: 45380; 45385; 82962; 88305; J7120; J2405

== ENCOUNTER → 2021-08-13 09:45 | Outpatient (CLI) | payer MEDICAID, SELFPAY ==
--- NOTE | 2021-08-13 09:47 | CDU_ITS ---
Reason For Study: Carotid stenosis Rt. Velocities/BP Lt. Velocities/BP Prox CCA 102.1/19.9 cm/sec. Prox CCA 89.3/23.4 cm/sec. Mid CCA 94.3/22.6 cm/sec. Mid CCA 81.6/17.9 cm/sec. Dist CCA 72.1/22.6 cm/sec. Dist CCA 87.1/24.5 cm/sec. Prox ICA 116.4/33 cm/sec. Prox ICA 78.4/22.3 cm/sec. Mid ICA 78.6/27.8 cm/sec. Mid ICA 79.5/35.5 cm/sec. Dist ICA 81.2/31.7 cm/sec. Dist ICA 88.8/39.7 cm/sec. Rt. ICA/CCA = 1.23. Lt. ICA/CCA = 1.02. Prox ECA 112.5/9.5 cm/sec. Prox ECA 78.3/8 cm/sec. Rt. Vert. 35.5/14.6 cm/sec. Lt. Vert. 47/18.8 cm/sec. Right Extracranial There is homogeneous, smooth atherosclerotic plaque noted in the right common carotid artery. There is heterogeneous, irregular atherosclerotic plaque noted in the right internal carotid artery. There is heterogeneous, irregular atherosclerotic plaque noted in the right external carotid artery. Antegrade flow is noted in the right vertebral artery. Left Extracranial There is heterogeneous, irregular atherosclerotic plaque noted in the left common carotid artery. There is heterogeneous, irregular atherosclerotic plaque noted in the left internal carotid artery. The atherosclerotic plaque causes acoustic shadowing. There is homogeneous, smooth atherosclerotic plaque noted in the left external carotid artery. Antegrade flow is noted in the left vertebral artery. Procedure Carotid Duplex 05331. This is a Carotid Duplex examination using B-mode, color flow and specral Doppler. Exam performed in department. VL/Carotid Duplex Ultrasound Interpretation Summary Calcific plaque with shadowing at the proximal right internal carotid artery wi th less than 50% stenosis Less than 50% stenosis right external carotid artery Calcific plaque with shadowing at the proximal left internal carotid artery wit h less than 50% stenosis Less than 50% stenosis left external carotid artery Patent antegrade vertebral arteries bilaterally No change from the previous examination of May 20, 2020 Ordering Physician: Tam Davenport Referring Physician: [facility] Performed By: Knezie Ruelas RVT
[2021-08-14 16:09] LABS: Free Kappa Light Chains 38.4 mg/L (3.3-19.4); Free Lambda Light Chains 30.7 mg/L (5.7-26.3)
== END ==
PROVIDERS: Referring Provider Psychiatry & Neurology Neurology; Visit Provider Psychiatry & Neurology Neurology
DX: I65.23 Occlusion and stenosis of bilateral carotid arteries (principal); E72.20 Disorder of urea cycle metabolism, unspecified; G62.9 Polyneuropathy, unspecified
CPT/HCPCS: 36415; 82140; 83883; 93880

== ENCOUNTER → 2021-09-17 08:52 | Outpatient (CLI) | payer MEDICAID, SELFPAY ==
--- NOTE | 2021-09-17 15:47 | NEURO ---
NCS and/or EMG Patient Report Ordering Doctor: Tam Davenport DATE OF SERVICE: 09/17/21 Jett presents for electrodiagnostic testing of the lower limbs. He reports altered sensation and numbness in both feet. He has a history of diabetes. Electrodiagnostic findings: Peroneal motor nerve demonstrates normal distal latency and amplitude bilaterally with reduced conduction velocity on the right side and borderline reduced on the left side. There is reduced left tibial conduction velocity with normal amplitude and latency. Right tibial motor response is within normal limits. Prolonged right tibial F wave. H reflex prolonged bilaterally. Prolonged superficial peroneal latency is noted bilaterally. Borderline prolonged sural latencies. Plantar responses are within normal limits. On needle EMG, all muscles tested in the lower limbs showed no evidence of denervation with normal motor unit action potentials. Electrodiagnostic impression: This is an abnormal study in the lower limbs 1. Electrodiagnostic findings suggestive of a mild peripheral polyneuropathy, with motor and sensory nerve involvement. This may be secondary to diabetes. 2. No electrodiagnostic evidence is noted for lumbosacral radiculopathy.
== END ==
PROVIDERS: Referring Provider Psychiatry & Neurology Neurology; Visit Provider Psychiatry & Neurology Neurology
DX: G62.9 Polyneuropathy, unspecified (principal)
CPT/HCPCS: 95886; 95913

== ENCOUNTER 2021-11-10 10:56 | Outpatient (CLI) | payer MEDICAID, SELFPAY ==
--- NOTE | 2021-11-10 11:01 | ART_ITS ---
Reason For Study: PVD Procedure A bilateral lower extremity continuous wave Doppler with analog waveform analysis and ankle brachial indexes. Left Segmental Pressures Left brachial= 121mmHg. Left posterior tibial artery = >254mmHg. Left dorsalis pedis artery = 158mmHg. Left digit = 104 mmHg. The left dorsalis pedis waveforms are triphasic. The left posterior tibial artery waveforms are triphasic. Right Segmental Pressures Right brachial= 122mmHg. Right posterior tibial artery = >254mmHg. Right dorsalis pedis artery = 124mmHg. Right digit = 91 mmHg. The right dorsalis pedis waveforms are triphasic. The right posterior tibial artery waveforms are triphasic. Indices The right ankle brachial index by the dorsalis pedis is 1.02. The right ankle brachial index by the posterior tibial artery is NC. The right digital-brachial index is 0.75. The left ankle brachial index by the dorsalis pedis is 1.30. The left ankle brachial index by the posterior tibial artery is NC. The left digital-brachial index is 0.85. VL/Ankle Brachial Index Interpretation Summary The right PT ankle-brachial indices at rest is not calculable due to artificial ly elevated systolic pressure. The right DP index is 1.02. The right posterior tibial dorsalis pedis Doppler waveforms are triphasic at rest. Findings would suggest mild disease Left lower extremity again demonstrates that the posterior tibial ankle-brachia l index cannot be determined due to artificially elevated systolic pressure. The left DP ankle-br achial index is normal at 1.3. Left posterior tibial and dorsalis pedis Doppler waveforms are t riphasic. Right digital brachial index is 0.75 borderline normal. The left digital brachi al index is 0.85 which is normal Ordering Physician: Tam Davenport Referring Physician: [facility] Performed By: Willinger, Kenzie, RVT
== END 2021-11-10 23:59 | disposition short-term general hospital (02) ==
LOC: CVS 10:59
PROVIDERS: Referring Provider Psychiatry & Neurology Neurology; Visit Provider Psychiatry & Neurology Neurology
DX: I73.9 Peripheral vascular disease, unspecified (principal)
CPT/HCPCS: 93922

== ENCOUNTER 2021-11-25 21:56 | Outpatient (CLI) | payer MEDICAID, SELFPAY | END 2021-11-25 23:59 | disposition home or self-care (01) | PROVIDERS: Visit Provider Psychiatry & Neurology Neurology | DX: G47.30 Sleep apnea, unspecified (principal); R53.83 Other fatigue | CPT/HCPCS: 95810 ==

== ENCOUNTER 2021-12-23 08:42 | Outpatient (CLI) | payer MEDICAID, SELFPAY ==
[2021-12-23 09:22] LABS: Hematocrit 39.7 % (40-54); Hemoglobin 12.3 g/dL (13.0-16.5); Mean Corpuscular Hgb 27.7 pg (27.0-32.0); Mean Corpuscular Volume 89.4 fL (80-94); Platelet Count 239 K/mm3 (150-450); RBC Distribution Width CV 14.3 % (11.6-14.6); Red Blood Count 4.44 M/mm3 (4.6-6.2); White Blood Count 6.3 K/mm3 (4.4-11.0)
[2021-12-23 09:41] LABS: Anion Gap 4 (5-15); BUN 18 mg/dL (7-18); BUN/Creat Ratio 21.9 RATIO (10-20); Calcium,Total 9.4 mg/dL (8.5-10.1); Chloride 105 mmol/L (98-107); Creatinine, Serum 0.82 mg/dL (0.70-1.30); EST Glomerular Filtration Rate 100 mL/min (>60); Est Glom Filt Rate - Afr Amer 121 mL/min (>60); Glucose 152 mg/dL (74-106); Sodium Level 139 mmol/L (136-145)
--- NOTE | 2021-12-24 17:07 | PCM.TILTTABL ---
Summary Pre Test Resting HR: 76 Pre Test Resting BP: 122/81 Minimum Test HR: 59 Maximum Test HR: 111 Minimum Test BP: 0/0 Maximum Test BP: 124/79 Physician Tilt Table Report Patient's Physicians Primary Care Physician: [facility],Coni Ely Indications/Diagnosis: Recurrent syncope Procedure Comments: The patient was brought to the noninvasive lab in the postabsorptive nonsedated state. Informed consent was obtained. Initial EKG was performed which demonstrated normal sinus rhythm with a rate of 75 bpm. Initial blood pressure was 122/81 mmHg. The patient was then placed in the 70 degree head upright tilt position. Continuous EKG monitoring was performed. The patient maintained sinus rhythm throughout the recording with normal blood pressures. Minimal symptomatology was noted. The patient was then placed in the recumbent position and then giving 0.4 mg of sublingual nitroglycerin. He was then placed back in the 70 degree head upright tilt position. His heart rate went from 80 to 111 bpm with his blood pressure at 102/66 mmHg. Approximately 2 minutes later patient started complaining of being hot clammy and diaphoretic and subsequently passed out. Heart rate dropped to 59 bpm. The patient was then placed back in the supine position given intravenous fluids with improvement in the heart rate as well as the blood pressure. Summary: The above response is suggestive of vasodepressor syncope.
[2021-12-24 17:15] VITALS: BP 0/0; BP 122/81; BP 124/79
[2021-12-25 14:10] LABS: Albumin 3.7 g/dL (2.9-4.4); Alpha-1-Globulins 0.2 g/dL (0.0-0.4); Alpha-2-Globulins 0.9 g/dL (0.4-1.0); Gamma Globulin 1.1 g/dL (0.4-1.8); Immunoglobulin A 342 mg/dL (61-437); Immunoglobulin G 1072 mg/dL (603-1613); Immunoglobulin M 57 mg/dL (20-172); PROEL- TOTAL PROTEIN 7.1 g/dL (6.0-8.5)
== END 2021-12-23 23:59 | disposition home or self-care (01) ==
LOC: CVS 08:44
PROVIDERS: Nurse Practitioner Family; Referring Provider Psychiatry & Neurology Neurology; Visit Provider Psychiatry & Neurology Neurology
DX: R42 Dizziness and giddiness (principal); R53.83 Other fatigue; G62.9 Polyneuropathy, unspecified; R55 Syncope and collapse
CPT/HCPCS: 36415; 80048; 82784; 84165; 85027; 86334; 86335; 93660; J7040; A4216

== ENCOUNTER 2022-01-26 15:15 | Outpatient (CLI) | payer MEDICAID, SELFPAY ==
--- NOTE | 2022-01-26 15:25 | RAD_ITS ---
STUDY: X-RAY - RIGHT KNEE REASON FOR EXAM: Male, 66 years old. Right knee pain. TECHNIQUE: 4 view(s) of the knee. COMPARISON: 12/28/2018. FINDINGS: Osteopenia. Progression of medial compartment arthrosis with small osteophytes. Mild lateral compartmental arthrosis, relatively unchanged. Mild arthrosis of the patellofemoral compartment unchanged. Vascular calcification with small joint effusion. RAD/Knee 3 Views IMPRESSION: Osteopenia with progression of medial compartmental arthrosis since the prior study. No acute abnormality, evidence of erosive changes or fusion. Electronically Signed: Avery Hernandez MD at 10:33 EDT ,
[2022-01-26 18:20] LABS: Hemoglobin A1c 7.4 % (3.8-5.6)
[2022-01-26 18:25] LABS: Vitamin B12 > 2000 pg/mL (211-911)
[2022-01-26 18:36] LABS: Ferritin 9 ng/mL (26-388); Iron 25 ug/dL (65-175)
== END 2022-01-26 23:59 | disposition home or self-care (01) ==
LOC: MTLAB 15:17
PROVIDERS: Referring Provider Nurse Practitioner Family; Visit Provider Nurse Practitioner Family
DX: D64.9 Anemia, unspecified (principal); E11.9 Type 2 diabetes mellitus without complications; M25.561 Pain in right knee
CPT/HCPCS: 36415; 73562; 82607; 82728; 82746; 83036; 83540

== ENCOUNTER 2022-02-04 07:43 | Outpatient (CLI) | payer MEDICAID, SELFPAY ==
--- NOTE | 2022-02-04 07:53 | VDLE_ITS ---
Reason For Study: Right posterior knee/calf pain RIGHT GSV is normal. CFV is compressible, spontaneous, phasic, competent and demonstrates normal augmentation. FV is compressible, spontaneous, phasic, competent and demonstrates normal augmentation. POP V is compressible, spontaneous, phasic, competent and demonstrates normal augmentation. T/P Trunk is compressible. PTV is compressible. RT PerV is compressible. Procedure This is a venous duplex using B-mode, color flow and spectral Doppler. Exam performed in department. A preliminary report was called and/or faxed to [facility]. VL/Venous Duplex US, Unilateral Interpretation Summary There is no evidence of right lower extremity deep vein thrombosis. Right great saphenous vein appears patent and compressible segmentally. Ordering Physician: Tam Davenport Referring Physician: [facility] Performed By: Kenzie Ruelas RVT
== END 2022-02-04 23:59 | disposition home or self-care (01) ==
LOC: CVS 07:43
PROVIDERS: Referring Provider Psychiatry & Neurology Neurology; Visit Provider Psychiatry & Neurology Neurology
DX: M25.561 Pain in right knee (principal)
CPT/HCPCS: 93971

== ENCOUNTER → 2022-04-30 | Outpatient (CLI) | payer MEDICARE, MEDICAID, SELFPAY | END | disposition home or self-care (01) | PROVIDERS: Referring Provider Nurse Practitioner Acute Care; Visit Provider Nurse Practitioner Acute Care | DX: G47.30 Sleep apnea, unspecified (principal) ==

== ENCOUNTER → 2022-05-27 | Outpatient (CLI) | payer MEDICARE, MEDICAID, SELFPAY ==
--- NOTE | 2022-05-27 17:03 | CT_ITS ---
INDICATION: HERNIA EXAMINATION: CT Abdomen And Pelvis W/ Contrast Injection TECHNIQUE: Helically acquired images were obtained of the abdomen and pelvis after IV contrast. A radiation dose optimization technique was used for this scan. IV Contrast dosage and agent: Oral and amp; IV Readi-CAT and amp; 100mL Isovue-300 Oral contrast: None. COMPARISON: None. FINDINGS: Visualized lung bases: Unremarkable Liver: Scattered subcentimeter hypodensities are too small to characterize but most likely cysts. Gallbladder: Unremarkable Spleen: Unremarkable Pancreas: Unremarkable Adrenal Glands: Unremarkable Kidneys: Scattered too small to characterize subcentimeter hypodensities bilaterally. Vasculature: Moderate aortoiliac atherosclerotic disease. GI Tract: Scattered diverticula throughout the colon without evidence of inflammation. Lymphadenopathy: None Peritoneum: No ascites. Bladder: Unremarkable Reproductive organs: The prostate is mildly enlarged. Bones/Soft tissues: There are diffuse degenerative changes of the spine. Small fat-containing periumbilical hernia. Small fat-containing left inguinal hernia. CT/Abdomen/Pelvis WITH Contrast IMPRESSION: No acute abnormalities in the abdomen or pelvis. Small fat-containing periumbilical hernia. Small fat-containing left inguinal hernia. Mild prostatomegaly. Correlate with PSA levels. Diverticulosis. Electronically Signed: Alejandro Quinteros MD at 18:28 EDT ,
[2022-05-27 17:35] LABS: CREATININE FINGERSTICK < 0.9 mg/dL (0.70-1.30); EGFR FINGERSTICK > 60.0000 mL/min (>60)
== END | disposition home or self-care (01) ==
LOC: CT 17:00
PROVIDERS: Visit Provider Nurse Practitioner Adult Health
DX: K42.9 Umbilical hernia without obstruction or gangrene (principal); K40.90 Unilateral inguinal hernia, without obstruction or gangrene, not specified as recurrent
CPT/HCPCS: 74177; Q9967

== ENCOUNTER → 2022-06-01 | Outpatient (CLI) | payer MEDICARE, MEDICAID, SELFPAY ==
[2022-06-01 10:41] LABS: Absolute Lymphocyte Count 1.52 X10^3/uL (0.83-4.51); Absolute Neutrophil Count 3.7 X10^3/uL (2.0-7.7); Basophil# 0.03 X10^3/uL; Basophil% 0.5 % (0-1); Eosinophil# 0.08 X10^3/uL; Eosinophils% 1.4 % (0-5); Hematocrit 45.9 % (40-54); Hemoglobin 14.7 g/dL (13.0-16.5); Lymphocyte # 1.52 X10^3/ul (0.83-4.51); Lymphocyte % 27.1 % (19-41); Mean Corpuscular Hgb 29.5 pg (27.0-32.0); Mean Corpuscular Volume 92.2 fL (80-94); Mean Platelet Vol. 10.1 fl (6.2-12.0); Monocyte# 0.29 X10^3/uL; Monocyte% 5.2 % (0-10); NRBC Flagged by Analyzer 0 % (0-5); Neutrophil # 3.67 X10^3/uL (2.7-7.7); Neutrophil % 65.4 % (47-70); Platelet Count 196 K/mm3 (150-450); RBC Distribution Width CV 14.8 % (11.6-14.6); RBC Distribution Width SD 49.6 fl (35.1-43.9); Red Blood Count 4.98 M/mm3 (4.6-6.2); White Blood Count 5.6 K/mm3 (4.4-11.0)
[2022-06-01 11:17] LABS: ALB/GLOB Ratio 0.9 RATIO (0.9-2.4); AST(SGOT) 15 U/L (15-37); Alanine Aminotransfer ALT/SGPT 31 U/L (16-61); Albumin, Serum 3.8 g/dL (3.2-5.0); Alkaline Phosphatase 29 U/L (45-117); Anion Gap 9 (5-15); BUN 15 mg/dL (7-18); BUN/Creat Ratio 17.5 RATIO (10-20); Calcium,Total 8.8 mg/dL (8.5-10.1); Chloride 105 mmol/L (98-107); Cholesterol 168 mg/dL (200); Creatinine, Serum 0.86 mg/dL (0.70-1.30); EST Glomerular Filtration Rate 95 mL/min (>60); Est Glom Filt Rate - Afr Amer 116 mL/min (>60); Globulin 4.4 g/dL (2.2-4.2); Glucose 182 mg/dL (74-106); High Density Lipoprotein 43 mg/dL; Iron 91 ug/dL (65-175); Iron Binding Capacity,Total 408 ug/dL (250-450); PSA,Total - Annual Screen 0.57 ng/mL (0.00-4.00); Potassium 3.8 mmol/L (3.5-5.1); Protein, Total 8.2 g/dL (6.4-8.2); Sodium Level 140 mmol/L (136-145); Triglycerides 180 mg/dL; Very Low Density Lipoprotein 36 mg/dL (5-40)
== END | disposition home or self-care (01) ==
DX: Z12.5 Encounter for screening for malignant neoplasm of prostate (principal); E11.8 Type 2 diabetes mellitus with unspecified complications; E61.1 Iron deficiency
CPT/HCPCS: 36415; 80053; 80061; 83540; 83550; 84153; 85025; G0103

== ENCOUNTER → 2022-06-30 | Outpatient (CLI) | payer MEDICARE, MEDICAID, SELFPAY ==
--- NOTE | 2022-06-30 14:15 | EKG12_ITS ---
Test Reason : PRE OP Blood Pressure : / mmHG Vent. Rate : 066 BPM Atrial Rate : 066 BPM P-R Int : 192 ms QRS Dur : 094 ms QT Int : 406 ms P-R-T Axes : 021 -21 011 degrees QTc Int : 425 ms Normal sinus rhythm Poor R wave progression Confirmed by CHER CONTRERAS, JAKUB ([id number]), news editor DOMINIQUE MAGALLANES ([id number]) on 07/01/2022 8:41:25 AM Referred By: Ángel Drake Confirmed By:JAKUB KWON MD
[2022-06-30 14:39] LABS: Hematocrit 44.6 % (40-54); Hemoglobin 14.5 g/dL (13.0-16.5); Mean Corp Hgb Conc 32.5 g/dL (32-36); Mean Corpuscular Hgb 31.3 pg (27.0-32.0); Mean Corpuscular Volume 96.1 fL (80-94); Mean Platelet Vol. 10.5 fl (6.2-12.0); Platelet Count 198 K/mm3 (150-450); RBC Distribution Width CV 13.6 % (11.6-14.6); RBC Distribution Width SD 48.3 fl (35.1-43.9); Red Blood Count 4.64 M/mm3 (4.6-6.2); White Blood Count 5.9 K/mm3 (4.4-11.0)
[2022-06-30 15:07] LABS: Anion Gap 6 (5-15); BUN 15 mg/dL (7-18); BUN/Creat Ratio 16.2 RATIO (10-20); Calcium,Total 9.1 mg/dL (8.5-10.1); Chloride 107 mmol/L (98-107); Creatinine, Serum 0.92 mg/dL (0.70-1.30); EST Glomerular Filtration Rate 87 mL/min (>60); Est Glom Filt Rate - Afr Amer 105 mL/min (>60); Glucose 155 mg/dL (74-106); Potassium 3.7 mmol/L (3.5-5.1); Sodium Level 142 mmol/L (136-145)
[2022-06-30 15:14] LABS: Hemoglobin A1c 9.2 % (3.8-5.6)
== END | disposition home or self-care (01) ==
LOC: PAT 07-23 09:45
PROVIDERS: Anesthesiology; Referring Provider Surgery; Visit Provider Surgery
DX: Z01.812 Encounter for preprocedural laboratory examination (principal)
CPT/HCPCS: 36415; 80048; 83036; 85027; 93005

== ENCOUNTER → 2022-09-01 | Outpatient (CLI) | payer MEDICARE, MEDICAID, SELFPAY ==
[2022-09-01 09:56] LABS: Hematocrit 45.9 % (40-54); Hemoglobin 14.8 g/dL (13.0-16.5); Mean Corp Hgb Conc 32.2 g/dL (32-36); Mean Corpuscular Hgb 30.3 pg (27.0-32.0); Mean Corpuscular Volume 94.1 fL (80-94); Mean Platelet Vol. 10.2 fl (6.2-12.0); Platelet Count 199 K/mm3 (150-450); RBC Distribution Width CV 13.4 % (11.6-14.6); RBC Distribution Width SD 45.9 fl (35.1-43.9); Red Blood Count 4.88 M/mm3 (4.6-6.2); White Blood Count 8.2 K/mm3 (4.4-11.0)
[2022-09-01 10:10] LABS: Hemoglobin A1c 6.9 % (3.8-5.6)
[2022-09-01 10:30] LABS: ALB/GLOB Ratio 0.9 RATIO (0.9-2.4); AST(SGOT) 21 U/L (15-37); Alanine Aminotransfer ALT/SGPT 46 U/L (16-61); Albumin, Serum 3.9 g/dL (3.2-5.0); Alkaline Phosphatase 25 U/L (45-117); Anion Gap 9 (5-15); BUN 16 mg/dL (7-18); BUN/Creat Ratio 20.3 RATIO (10-20); Calcium,Total 9.4 mg/dL (8.5-10.1); Chloride 107 mmol/L (98-107); Creatinine, Serum 0.79 mg/dL (0.70-1.30); EST Glomerular Filtration Rate 105 mL/min (>60); Est Glom Filt Rate - Afr Amer 126 mL/min (>60); Globulin 4.3 g/dL (2.2-4.2); Glucose 111 mg/dL (74-106); Potassium 3.7 mmol/L (3.5-5.1); Protein, Total 8.2 g/dL (6.4-8.2); Sodium Level 141 mmol/L (136-145)
== END | disposition home or self-care (01) ==
LOC: LAB 08:48
PROVIDERS: Visit Provider Nurse Practitioner Family
DX: E11.8 Type 2 diabetes mellitus with unspecified complications (principal)
CPT/HCPCS: 36415; 80053; 83036; 85027

== ENCOUNTER 2022-10-01 07:53 | Day surgery (SDC) | payer MEDICARE, MEDICAID, SELFPAY ==
[2022-10-01] VITALS (10 sets, daily range): BP systolic 111–133; BP diastolic 71–80; PULSE 57–76; RESP 16–18; TEMP 36–37; O2SAT 94–100; BMI 30.9
[2022-10-01] MEDS: Lactated Ringers 1,000 ML 15 ML IV (08:50)
--- NOTE | 2022-10-01 09:09 | PCM.HP.STD ---
HPI - General HPI Narrative LINDA SWAN, is a 67 M who presents for umbilical hernia repair. This was discussed with him during his previous visit. He was last seen in May and he has had no changes since then. [facility] Medical History (Updated 10/01/22 @ 09:[address] Ángel Drake MD) Anemia Anxiety Aphasia Arthritis Back pain Cardiac murmur Cardiology follow-up encounter Chronic vomiting CPAP (continuous positive airway pressure) dependence Diabetes Dysarthria GERD (gastroesophageal reflux disease) High cholesterol History of echocardiogram Hyperlipidemia Hypertension Imbalance Insulin dependent diabetes mellitus Lightheadedness Low iron Non-smoker Osteoarthritis of right knee Type 2 diabetes mellitus Wears glasses Wears partial dentures Home Medications atorvastatin 80 mg tablet 80 mg PO QHS #90 tabs 05/21/20 [Rx Last Taken Unknown] aspirin 81 mg tablet,delayed release 81 mg PO QHS heart 06/16/21 [History Last Taken Unknown] empagliflozin 10 mg tablet (Jardiance) 10 mg PO DAILY 06/16/21 [History Last Taken Unknown] insulin detemir U-100 100 unit/mL (3 mL) subcutaneous pen (Levemir FlexTouch U-100 Insulin) 40 unit subcut QHS 06/02/22 [History Last Taken Unknown] omeprazole 40 mg capsule,delayed release 40 mg PO DAILY 09/11/22 [History Last Taken Unknown] dulaglutide 3 mg/0.5 mL subcutaneous pen injector (Trulicity) 3 mg subcut QWEEK 09/21/22 [History Last Taken Unknown] Allergy/AdvReac Type Severity Reaction Status Date / Time No Known Allergies Allergy Verified 09/21/22 10:42 Family History Mother Breast cancer Diabetes Father Colon cancer Surgical History (Updated 09/21/22 @ 14:18 by America Franklin) History of colonoscopy with polypectomy History of excision of mass (~05/2021) History of selective injection of anesthetic agent around lumbar nerve root History of tonsillectomy Social History Smoking Status: Never smoker Electronic Cigarette Use: not used second hand exposure: No alcohol intake: current alcohol intake frequency: holidays/special occasions only substance use type: does not use ROS Constitutional Constitutional: Denies anorexia, fatigue or fever(s) Eyes Eyes: Denies blurry vision ENT HEENT: Denies abnormal hearing Cardiovascular Cardiovascular: Denies chest pain Respiratory/Chest Respiratory/Chest: Denies cough or dyspnea Gastrointestinal Gastrointestinal: Denies abdominal pain, melena, nausea or vomiting Musculoskeletal Musculoskeletal: Denies abnormal gait Integumentary Integumentary: Denies jaundice Vital Signs Vital Signs Vital Signs: 10/01/22 08:38 10/01/22 08:38 Temperature 98.6 F Temperature Source Temporal Pulse Rate 76 Respiratory Rate 18 Respiratory Pattern Normal Blood Pressure 133/75 H Blood Pressure Mean 94 Blood Pressure Source Monitor Blood Pressure Position Sitting Blood Pressure Location Right Arm Pulse Ox 97 Oxygen Delivery Method Room Air Weight Weight: 209 lb 7.026 oz Body Mass Index (BMI) 30.9 Physical Exam Const alert and oriented x3 HEENT normocephalic Eyes PERRL Resp normal respiratory effort and normal air movement Cardio regular rate and regular rhythm GI soft to palpation, non-tender and non-distended GI Narrative: Umbilical hernia Extremity normal to inspection Assessment & Plan Assessment/Plan (1) Umbilical hernia: QUALIFIERS: Obstruction and gangrene presence: without obstruction or gangrene Qualified Code(s): K42.9 - Umbilical hernia without obstruction or gangrene PLAN: Patient has an umbilical hernia which is reducible. Patient was seen in May and decided to have surgery but had to reschedule several times. I discussed this with him once more and reviewed the procedure as well as the risks. I discussed robotic assisted laparoscopic umbilical hernia repair with mesh and the patient understands all the risks and is willing to proceed. Ángel Drake MD Pager: [facility] [address] [place] [address], [address] [place] [address] Office:
[2022-10-01] MEDS: Cefazolin 2 GM in 0.9% Normal Saline 100 ML IV (09:30)
[2022-10-01] MEDS: Bupivacaine Mpf 0.5% 30 ML VIAL (10:42)
--- NOTE | 2022-10-01 10:52 | PCM.OPRPT ---
Report of Operation Date of Procedure: 10/01/22 Pre-Operative Diagnosis: Umbilical hernia Post-Operative Diagnosis: Same Surgery/Procedure Performed:: Robotic assisted laparoscopic umbilical hernia repair with mesh Description of Surgical Findings:: 2 cm umbilical hernia Description of Procedure: Patient was brought back to the operating room and general anesthesia was induced. The abdomen was prepped and draped in usual sterile fashion. An incision was made in the left upper quadrant. Veress needle was placed into the abdomen and a drop test was performed. The abdomen was then insufflated 15 mmHg and the Veress needle was removed. Camera port was placed into this incision and the camera was placed in to the abdomen and it was inspected and there were no injuries from entry. Under direct visualization a left lateral 8 mm port and an epigastric 8 mm port were placed. The robot was then docked. An incision in the peritoneum was made in the falciform ligament and the incision was carried inferiorly. Next using electrocautery scissor dissection the peritoneum was dissected free from the posterior sheath of the rectus muscles surrounding the hernia. The hernia sac and its contents were then reduced into the abdomen. Next the hernia defect was closed using a running #1 strata fix suture. Next ProGrip mesh was trimmed and placed over the hernia defect with over 3 cm of overlap on either side of the hernia. After this was unfolded the peritoneum was reapproximated using a running 3 OV lock suture. There was one small defect in the peritoneum which was closed with a single 3-0 Vicryl suture. Next the robot was undocked and the instruments and ports were removed. The abdomen was allowed to desufflate and then the incisions were injected with local anesthetic and closed with interrupted 4-0 Monocryl. Steri-Strips and bandages were applied. Patient was awoken and taken to PACU in stable condition tolerated procedure well. Grafts/Implants Used: ProGrip mesh in the preperitoneal space Admit VTE Documentation VTE Mechan Device Prophylaxis: SCD's
--- NOTE | 2022-10-01 10:58 | EX.PCM.DISCH ---
Discharge Instructions Procedure Hernia Diet Discharge Diet: Light diet - advance as tolerated Activity Discharge Activity: May Not Drive (for 2-3 days or while taking narcotic pain meds.) and May Shower (with the bandage in place 1-2 days after surgery.) Lifting Restrictions: 20 pounds for 4 weeks. Additional Activity Instructions:: Climbing stairs is fine, walking is encouraged. Sitting in bed may be uncomfortable. Sitting up using your lateral muscles (sitting up sideways) is usually more comfortable. Do not drive, work heavy equipment of sign legal documents for 24 hours. Pain medications may cause nausea, you should typically eat light foods as you take your pain medications. Pain medications may also cause constipation. If you have difficulty with this, discuss with your doctor. Dressing / Incision Call your doctor if your incision/area has: Continuous Slow Oozing, Sudden Increased Bleeding, Increased Pain/ Swelling, Increased Redness and Foul Smelling Discharge Call your doctor if you observe: Fever of 101 or Higher Suture Line Care: Avoid Pulling/Pushing and Avoid Pinching/Bending Remove Dressing in: 2 days (Remove clear bandages in 2 days, remove Steri-Strips in 7 to 10 days.) Cleanse incision/area with: Soap & Water Follow Up Care Please Follow Up With: Ángel Drake MD When: Please call to schedule 2 week follow up appointment. [phone] Test Results: Test results from this visit will be discussed in further detail at your follow-up appointment, if applicable. Discharge Plan Admission Attending Provider: Ángel Drake [facility] Additional Instructions / Restrictions: Ibuprofen and Tylenol alternating for pain. Oxycodone for breakthrough pain. Remove the large bandage with a cotton balls in 3 days. Okay to shower over the bandages. Discharge Orders/Prescriptions Prescriptions: New oxycodone 5 mg tablet 5 - 10 mg PO Q6H PRN (Reason: pain) 5 Days Qty: 30 0RF Continued Jardiance 10 mg tablet 10 mg PO DAILY aspirin 81 mg tablet,delayed release (DR/EC) 81 mg PO QHS Levemir FlexTouch U-100 Insuln 100 unit/mL (3 mL) insulin pen 40 unit subcut QHS omeprazole 40 mg capsule,delayed release(DR/EC) 40 mg PO DAILY atorvastatin 80 MG tablet 80 mg PO QHS Qty: 90 0RF Trulicity 3 mg/0.5 mL pen injector 3 mg SUBCUT QWEEK [facility]: [facility]i E[facility] [Primary Care Provider] - Disposition Disposition (needs filled in before D/C Order can be placed): Home, Self Care
[2022-10-01 11:25] LABS: Bedside Glucose 87 mg/dL (74-106)
[2022-10-01] MEDS: oxyCODONE 5 MG Tablet PO (12:54)
== END 2022-10-01 13:44 | disposition home or self-care (01) ==
LOC: SDC 07:56 → AC 07:57
PROVIDERS: Referring Provider Surgery; Visit Provider Surgery
PROC: (CPT 49652; principal; 2022-10-01 09:15)
DX: K42.9 Umbilical hernia without obstruction or gangrene (principal); E11.42 Type 2 diabetes mellitus with diabetic polyneuropathy; Z79.4 Long term (current) use of insulin; I10 Essential (primary) hypertension; E78.00 Pure hypercholesterolemia, unspecified; Z79.85 Long-term (current) use of injectable non-insulin antidiabetic drugs; Z79.82 Long term (current) use of aspirin; Z79.899 Other long term (current) drug therapy
CPT/HCPCS: 49652; S2900; 00790; 82962; J7120; J2405

== ENCOUNTER → 2022-10-14 | Outpatient (CLI) | payer MEDICARE, MEDICAID, SELFPAY ==
--- NOTE | 2022-10-14 16:40 | MRI_ITS ---
EXAM: MR RIGHT LOWER EXTREMITY WITHOUT INTRAVENOUS CONTRAST, KNEE CLINICAL INDICATION: rule out meniscus tear, mild to mod OA, effusion TECHNIQUE: Multiplanar and multisequence MR images of the right knee without intravenous contrast. This report was created using [address] report [employer] technology. COMPARISON: None. FINDINGS: BONES/JOINTS: 1.5 x 1.1 focal osteochondral defect/lesion involving the weightbearing portion of the medial femoral condyle with minimal subchondral marrow signal alteration. No other remarkable marrow signal alterations. Small amount of suprapatellar joint fluid with no definite intra-articular ossific bodies or any significant synovitis. Small peripheral marginal osteophytes are identified involving the medial and lateral femoral-tibial compartments. EXTENSOR MECHANISM: Unremarkable. MEDIAL MENISCUS: Unremarkable. LATERAL MENISCUS: Unremarkable. MEDIAL CAPSULE/SUPPORTING STRUCTURES: Unremarkable. Intact. LATERAL CAPSULE/SUPPORTING STRUCTURES: Unremarkable. Lateral collateral ligamentous complex, inclusive of the popliteal tendon, are intact. ANTERIOR CRUCIATE LIGAMENT: Unremarkable. Intact. POSTERIOR CRUCIATE LIGAMENT: Unremarkable. Intact. MUSCLES: Unremarkable. CARTILAGE: Heterogeneous marrow signal alteration is identified on the opposing medial tibial plateau with overlying focal full-thickness chondral loss. High-grade full thickness chondral fissure at the medial patellar facet without subchondral marrow signal alteration. FLUID: No Siegel''s cyst. No joint effusion. MRI/Lower Ext Joint Only (Routine) IMPRESSION: 1. 1.5 x 1.1 focal osteochondral defect/lesion involving the weightbearing portion of the medial femoral condyle with minimal subchondral marrow signal alteration. 2. Heterogeneous marrow signal alteration is identified on the opposing medial tibial plateau with overlying focal full-thickness chondral loss. 3. High-grade full thickness chondral fissure at the medial patellar facet without subchondral marrow signal alteration. Electronically Signed: Humphrey Lucas MD at 1:59 EST ,
== END | disposition home or self-care (01) ==
LOC: MRI 16:40
PROVIDERS: Visit Provider Orthopaedic Surgery Sports Medicine
DX: M17.0 Bilateral primary osteoarthritis of knee (principal)
CPT/HCPCS: 73721

== ENCOUNTER → 2022-10-26 | Outpatient (CLI) | payer MEDICARE, MEDICAID, SELFPAY ==
--- NOTE | 2022-10-26 14:56 | CT_ITS ---
EXAM: CT RIGHT LOWER EXTREMITY WITHOUT INTRAVENOUS CONTRAST CLINICAL INDICATION: plan for TKA, MARK planning TECHNIQUE: Helically acquired images were obtained of the right lower extremity without intravenous contrast. 2-D reformats were performed by the technologist. CTDIvol = ( 27.97 ) mGy, DLP = ( 3130.96 ) mGycm This CT exam was performed using one or more of the following dose reduction techniques: automated exposure control, adjustment of the mA and/or kV according to patient size, and/or use of iterative reconstruction technique. This report was created using [employer] report [employer] technology. COMPARISON: None. FINDINGS: BONES/JOINTS: Up to moderate degenerative changes involving the right hip. Moderate tricompartmental osteoarthrosis involving the knee. 1.1 cm x 1.9 cm osteochondral defect/lesion at the middle weightbearing portion of the medial femoral condyle. Moderate suprapatellar joint effusion. Chronic osteochondral lesion at the lateral talar dome measuring 1.3 cm medial to lateral x 1.5 cm cranial to caudal. No acute fracture. No subluxation. Normal alignment. SOFT TISSUES: Unremarkable. No soft tissue swelling or gas. No radiopaque foreign body. VASCULATURE: Peripheral vascular calcifications throughout the exam.. CT/Extremity Lower without Contra IMPRESSION: 1. Preoperative planning study oratory arthroplasty. 2. 1.1 cm x 1.9 cm osteochondral defect/lesion at the middle weightbearing portion of the medial femoral condyle. Moderate suprapatellar joint effusion. 3. No acute osseous abnormalities. 4. Chronic and ancillary findings as above. Electronically Signed: Humphrey Lucas MD at 22:30 EST ,
== END | disposition home or self-care (01) ==
LOC: CT 14:53
PROVIDERS: Visit Provider Orthopaedic Surgery Sports Medicine
DX: M17.11 Unilateral primary osteoarthritis, right knee (principal)
CPT/HCPCS: 73700

== ENCOUNTER → 2022-11-25 | Outpatient (CLI) | payer MEDICARE, MEDICAID, SELFPAY ==
--- NOTE | 2022-11-25 11:01 | CDU_ITS ---
Reason For Study: Carotid stenosis Rt. Velocities/BP Lt. Velocities/BP Prox CCA 81.7/17.9 cm/sec. Prox CCA 93.8/21.2 cm/sec. Mid CCA 59.7/13.5 cm/sec. Mid CCA 68.5/16.8 cm/sec. Dist CCA 68.5/22.3 cm/sec. Dist CCA 57.5/16.8 cm/sec. Prox ICA 63.3/21 cm/sec. Prox ICA 106/28.6 cm/sec. Mid ICA 61.8/24.9 cm/sec. Mid ICA 93.7/29.8 cm/sec. Dist ICA 77.7/33.5 cm/sec. Dist ICA 83.9/31.1 cm/sec. Rt. ICA/CCA = 1.13. Lt. ICA/CCA = 1.55. Prox ECA 76.2/8 cm/sec. Prox ECA 87.2/14.6 cm/sec. Rt. Vert. 35.2/15.4 cm/sec. Lt. Vert. 39.7/15.1 cm/sec. Right Extracranial There is homogeneous, smooth atherosclerotic plaque noted in the right common carotid artery. There is heterogeneous, irregular atherosclerotic plaque noted in the right internal carotid artery. The right internal carotid artery is very tortuous. The atherosclerotic plaque causes acoustic shadowing. There is heterogeneous, irregular atherosclerotic plaque noted in the right external carotid artery. Antegrade flow is noted in the right vertebral artery. Left Extracranial There is heterogeneous, irregular atherosclerotic plaque noted in the left common carotid artery. There is heterogeneous, irregular atherosclerotic plaque noted in the left internal carotid artery. The left internal carotid artery is very tortuous. The atherosclerotic plaque causes acoustic shadowing. There is heterogeneous, irregular atherosclerotic plaque noted in the left external carotid artery. Antegrade flow is noted in the left vertebral artery. Procedure Carotid Duplex 77873. This is a Carotid Duplex examination using B-mode, color flow and specral Doppler. Exam performed in department. VL/Carotid Duplex Ultrasound Interpretation Summary Irregular calcific plaque of the proximal right internal carotid artery with le ss than 50% stenosis Less than 50% stenosis right external carotid artery Irregular calcific plaque with dense shadowing at the proximal left internal ca rotid artery with less than 50% stenosis Less than 50% stenosis left external carotid artery Patent and antegrade vertebral arteries bilaterally No change from August 13, 2021 Ordering Physician: Tam Davenport Referring Physician: Svetlana Noyola Performed By: Kenzie Ruelas RVT
== END | disposition home or self-care (01) ==
LOC: CVS 11:00
PROVIDERS: PCP Nurse Practitioner Family; Referring Provider Psychiatry & Neurology Neurology; Visit Provider Psychiatry & Neurology Neurology
DX: I65.23 Occlusion and stenosis of bilateral carotid arteries (principal); R47.1 Dysarthria and anarthria
CPT/HCPCS: 93880

== ENCOUNTER → 2022-12-07 | Outpatient (CLI) | payer MEDICARE, MEDICAID, SELFPAY ==
--- NOTE | 2022-12-07 10:19 | NM_ITS ---
CLINICAL: 67-year-old type II diabetic male with history of chronic nausea. SEMI-SOLID PHASE 99m Tc SULFUR COLLOID GASTRIC EMPTYING STUDY COMPARISON: None available FINDINGS: The patient was administered 1.1 mCi of 99m Tc sulfur colloid mixed with oatmeal and consumed per os. Image acquisitions in the anterior-posterior projections were obtained for 60 minutes. There is prompt visualization of the stomach. There is no gastroesophageal reflux identified. First order kinetics are maintained throughout the duration of the acquisitions. The T ? linear fit was calculated to be 140.47 minutes, (Normal: 12-56 minutes). There is 21% emptying at 59.5 minutes. NM/Gastric Emptying Study IMPRESSION: 1. ABNORMAL 99m Tc sulfur colloid semi-solid phase (oatmeal) gastric emptying imaging examination. A. There is delayed semi-solid phase gastric emptying compared to normal controls with maintained first order kinetics throughout all components of the examination. (Nalini godfrey al, J Nucl Med Tech 38: 186, 2010). Electronically Signed: Dustin Bettencourt, at 20:22 EST ,
== END | disposition home or self-care (01) ==
LOC: NM 10:17
PROVIDERS: PCP Nurse Practitioner Family; Referring Provider Nurse Practitioner Adult Health; Visit Provider Nurse Practitioner Adult Health
DX: K31.84 Gastroparesis (principal); R11.2 Nausea with vomiting, unspecified
CPT/HCPCS: 78264; A9541

== ENCOUNTER 2022-12-30 05:06 | Day surgery (SDC) | payer MEDICARE, MEDICAID, SELFPAY ==
[2022-12-30] MEDS: Lactated Ringers 1,000 ML 15 ML IV (05:50)
[2022-12-30 05:51] VITALS: BP 107/74; PULSE 68; RESP 18; TEMP 36.7; O2SAT 98; BMI 31.7
--- NOTE | 2022-12-30 06:30 | IMM_PTH ---
PATIENT: LINDA SWAN LOC: EN U#:[id number] AGE/SX: 67/M ROOM: RE12/30/[address]: Dr. Jayson Zuñiga DO : 1955 BED: DIS: 12/30/2022 SPEC #: [id number] RECD: 12/30/22 14:10 STATUS: CHEPE RERobson #: [id number] CYNTHIA: 12/30/22 06:[address]: Jayson Zuñiga DEPT: IMMUNOHISTOCHEMISTRY RECD BY: Shahla Cronin ENTERED: 12/30/22 14:13 SP TYPE: IMMUNO OTHR DR: Coni [facility] Tissues: Pylorus Procedures: H Pylori (initial) PHYSICIAN & INSTITUTION [place] [id number] SPECIMEN INFORMATION: Tissue Source: Pylorus biopsy Clinical Info: Nausea, vomiting, GERD Specimen Number: [id number] CPT code: 98178 METHODOLOGY: Deparaffinized sections of prefer/formalin-fixed tissue or PAP/DQ stained slides are incubated with monoclonal/polyclonal antibodies/oligonucleotide probes. Localization is made via biotin free immunoperoxidase method. Appropriate controls are performed and reacted as expected. Results on target cell population are indicated in the following table: RESULTS: ANTIBODY / CLONE RESULT H Pylori (polyclonal) negative These tests were developed and their performance characteristics determined by [facility]. They may not have been cleared or approved by the U.S. Food and Drug Administration. The FDA has determined that such clearance or approval is not necessary. The above immunohistochemical/dualISH markers are ordered and reviewed by the Pathologist. INTERPRETATION: Pylorus biopsy: Negative for Helicobacter pylori organisms. SJ:megan 12/31/2022
--- NOTE | 2022-12-30 06:30 | EGD_PTH ---
PATIENT: LINDA SWAN LOC: EN U#:[id number] AGE/SX: 67/M ROOM: RE12/30/[address]: Dr. Jayson Zuñiga DO : 1955 BED: DIS: 12/30/2022 SPEC #: [id number] RECD: 12/30/22 10:27 STATUS: CHEPE ISABEL #: [id number] CYNTHIA: 12/30/22 06:[address]: Jayson Zuñiga DEPT: SURGICAL PATHOLOGY RECD BY: Ailyn Fonseca ENTERED: 12/30/22 11:07 SP TYPE: EGD BIOPSY OTHR DR: Coni [facility] Tissues: Pylorus Procedures: Surgery Specimen Level IV HEADER OPERATION: EGD ([facility] [place]) with Botox and biopsy PRE-OP DIAGNOSIS: Nausea, vomiting, GERD TISSUE SUBMITTED: Pylorus biopsy MICROSCOPIC DIAGNOSIS Pylorus, biopsy: Mild to moderate gastritis. See microscopic description and comment. SJ:megan 12/31/2022 COMMENT The results of immunohistochemistry for Helicobacter pylori will be reported separately ([id number]). MICROSCOPIC DESCRIPTION Slides are reviewed. The specimen shows fragments of gastric mucosa with chronic inflammatory cell infiltrates in the lamina propria consisting of lymphocytes and plasma cells, consistent with mild to moderate chronic gastritis. GROSS DESCRIPTION Received in fixative is one container labeled with the patient's name and designated pylorus biopsy. The specimen consists of one irregular fragment of light faria soft tissue that measures 0.6 x 0.3 x 0.1 cm. The specimen is totally submitted in one cassette. / SUE:megan 12/30/2022 TC:3 CPT: 64117
--- NOTE | 2022-12-30 06:37 | HP.PCM_ITS ---
History and Physical Date of Admission: 12/30/22 67 M who presents to the office today to establish with GI for intermittent random episodes of nausea, sometimes then vomits. Started about a year ago. Occurs 0-3x per week. Can't determine any cause, not related to eating. Denies abdominal pain. His heartburn is controlled with omeprazole. Occas feels like food sticks in upper esophagus, this started many years ago, had EGD for that in 2020 which didn't reveal any strictures. Bowels are typically normal, usually has BM once a day. But he has had some diarrhea this week, was associated with nausea. No melena or hematochezia. Normal appetite, denies early satiety. He intentionally eats smaller, more frequent meals since he is diabetic. DM better controlled since having a continuous glucose monitor. Takes naproxen 1-2 pills daily for knee pain, has decreased to one per day. Will be getting a right knee replacement in 12/2021. Got some teeth pulled this week in anticipation of TKR. 08/2022 labs: Hemoglobin A1c 6.9, creatinine 0.79, albumin 3.9, AST 21, ALT 46, alk phos 5, bilirubin 0.5, CBC unremarkable 06/2021 EGD -- gastritis 07/2021 Colonoscopy -- one tubular adenoma, negative random colon biopsies ROS Const Constitutional: Positive for fatigue ENT ENT: No difficulty swallowing Gastro GI: No abdominal pain, belching, bloating, change in bowel habits, change in stool character, coffee ground emesis, constipation, cramping, diarrhea, heartburn, difficulty swallowing, feeling full early, excessive flatus, incontinent of stools, Vomiting blood/hematemesis, Blood in stool, loose stools, Black,tarry stools, nausea/dyspepsia, pain with swallowing, vomiting or other Musc Musculoskeletal: Positive for joint pain, back pain, muscle weakness, Arthritis and restless legs Skin Skin: No yellowing of the eye or itchy eyes Neuro Neurology: Positive for restless legs Psych Psychiatric: Positive for anxiety and No depression Endo Endocrine: Positive for fatigue Aller/Imm Allergy/Immunologic: No itchy eyes Nima/Lymp Hematologic/Lymphatic: No easy bleeding or easy bruising Exam Const General: cooperative, healthy appearing and no acute distress Nutritional Appearance: overweight Orientation: alert, awake and oriented x3 Eyes Sclera: sclerae normal Resp Effort & Inspection: normal respiratory effort GI Inspection: normal to inspection Palpation: soft, no hepatosplenomegaly, no masses and nontender Quality Reporting Tobacco Screening ([facility] 138) Smoking Status: Never smoker Assessment and Plan Assessment and Plan (1) Nausea and vomiting: ?Status:?Chronic ?Plan: 67 yo male with chronic intermittent nausea and vomiting, GERD, long hx DM Gastric emptying study to eval for gastroparesis EGD to evaluate for esophagitis, gastritis, H pylori, PUD f/u 2 wks after EGD to review bx results (2) GERD (gastroesophageal reflux disease): ?Status:?Chronic ?Qualifiers: ?Esophagitis presence:?esophagitis presence not specified? Qualified Code(s):?K21.9 - Gastro-esophageal reflux disease without esophagitis ?Plan: Continue omeprazole 40 mg daily ? ? ? Orders: Orders Gastric Emptying Study Today K31.84 - Gastroparesis, R11.2 - Nausea with vomiting, unspecified ? I have examined the patient and the H&P has been reviewed. There are no clinical changes since date of exam.
[2022-12-30] MEDS: 0.9% Saline Lock 10 ML Syringe IV ×2 (06:50→06:58)
[2022-12-30] MEDS: Botulinum Toxin A 100 Units Vial IJ (06:55)
[2022-12-30 07:04] VITALS: BP 107/74; BP 108/76; PULSE 76; RESP 12; TEMP 36.3; O2SAT 95
[2022-12-30 07:05] VITALS: BP 107/74; BP 99/70; PULSE 78; RESP 12; O2SAT 97
--- NOTE | 2022-12-30 07:08 | OP.EGD_ITS ---
Patient Name: Jett Dc Procedure Date: 12/30/2022 6:15 AM Date of : 1955 Age: 67 Procedure: Upper GI endoscopy Indications: Dyspepsia, Indigestion, Heartburn, Failure to respond to medical treatment Providers: Jayson Zuñiga DO Medicines: Monitored Anesthesia Care Patient Profile: This is a 67 year old male. Refer to note in patient chart for documentation of history and physical. Patient has symptoms of chronic epigastric abdominal pain, chronic dyspepsia and chronic nausea. Complications: No immediate complications. Procedure: Pre-Anesthesia Assessment: - Prior to the procedure, a History and Physical was performed, and patient medications and allergies were reviewed. The risks and benefits of the procedure and the sedation options and risks were discussed with the patient. All questions were answered and informed consent was obtained. Patient identification and proposed procedure were verified by the physician in the pre-procedure area. Mental Status Examination: alert and oriented. Airway Examination: normal oropharyngeal airway and neck mobility. Respiratory Examination: clear to auscultation. CV Examination: normal. Prophylactic Antibiotics: The patient does not require prophylactic antibiotics. Prior Anticoagulants: The patient has taken no previous anticoagulant or antiplatelet agents. ASA Grade Assessment: II - A patient with mild systemic disease. After reviewing the risks and benefits, the patient was deemed in satisfactory condition to undergo the procedure. The anesthesia plan was to use monitored anesthesia care (MAC). Immediately prior to administration of medications, the patient was re-assessed for adequacy to receive sedatives. The heart rate, respiratory rate, oxygen saturations, blood pressure, adequacy of pulmonary ventilation, and response to care were monitored throughout the procedure. The physical status of the patient was re-assessed after the procedure. After obtaining informed consent, the endoscope was passed under direct vision. Throughout the procedure, the patient's blood pressure, pulse, and oxygen saturations were monitored continuously. The gastroscope was introduced through the mouth, and advanced to the second part of duodenum. The upper GI endoscopy was accomplished without difficulty. The patient tolerated the procedure well. Scope In: 6:47:44 AM Scope Out: 6:57:00 AM Total Procedure Duration Time 0 hours 9 minutes 16 seconds Findings: Abnormal motility was noted in the esophagus. The cricopharyngeus was abnormal. There is spasticity of the esophageal body. The distal esophagus/lower esophageal sphincter is patulous. Tertiary peristaltic waves are noted. Food (residue) was found in the gastric fundus, in the gastric body and in the gastric antrum. Area was successfully injected with 100 units botulinum toxin. No gross lesions were noted in the first portion of the duodenum. Localized mild inflammation characterized by congestion (edema) was found in the prepyloric region of the stomach. Biopsies were taken with a cold forceps for histology. Verification of patient identification for the specimen was done. Estimated blood loss was minimal. Impression: - Abnormal esophageal motility, suspicious for esophageal spasm. - Food (residue) in the stomach. Injected with botulinum toxin. - No gross lesions in the first portion of the duodenum. - Chronic gastritis. Biopsied. Recommendation: - Discharge patient to home. - Resume previous diet. - Continue present medications. - Await pathology results. Procedure Code(s): --- Professional --- 79964, 59, Esophagogastroduodenoscopy, flexible, transoral; with directed submucosal injection(s), any substance 89064, 51, Esophagogastroduodenoscopy, flexible, transoral; with biopsy, single or multiple CPT copyright 2017 [employer]. All rights reserved. The codes documented in this report are preliminary and upon dehydrator review may be revised to meet current compliance requirements. Jayson Zuñiga DO 12/30/2022 7:07:03 AM This report has been signed electronically. Number of Addenda: 0 Note Initiated On: 12/30/2022 6:15 AM
--- NOTE | 2022-12-30 07:08 | OP.CCLET_ITS ---
12/30/2022 Svetlana Noyola, KATELYN [id number] [id number] Re : Upper GI endoscopy procedure for Jett Dc Dear Ms. Noyola This procedure was performed on Friday, December 30, 2022. My impressions and recommendations are as follows: Impressions : - Abnormal esophageal motility, suspicious for esophageal spasm. - Food (residue) in the stomach. Injected with botulinum toxin. - No gross lesions in the first portion of the duodenum. - Chronic gastritis. Biopsied. Recommendations : - Discharge patient to home. - Resume previous diet. - Continue present medications. - Await pathology results. My findings are described in the full procedure note, which is enclosed. If I can be of further assistance, please feel free to contact me at . Sincerely, Jayson Zuñiga, 12/30/2022 7:07:03 AM This report has been signed electronically.
[2022-12-30 07:10] VITALS: BP 107/74; BP 99/70; PULSE 64; RESP 18; O2SAT 97
[2022-12-30 07:15] VITALS: BP 107/74; BP 98/70; PULSE 71; RESP 18; TEMP 36.6; O2SAT 97
[2022-12-30 07:30] VITALS: BP 107/74
== END 2022-12-30 07:33 | disposition home or self-care (01) ==
LOC: EN 05:06 → AC 05:12
PROVIDERS: Visit Provider Internal Medicine Gastroenterology
PROC: 0DJ08ZZ Inspection of Upper Intestinal Tract, Via Natural or Artificial Opening Endoscopic (ICD-10-PCS; CPT 43235; principal; 2022-12-30 06:25)
DX: K22.4 Dyskinesia of esophagus (principal); E11.9 Type 2 diabetes mellitus without complications; K31.89 Other diseases of stomach and duodenum; K29.50 Unspecified chronic gastritis without bleeding; K21.9 Gastro-esophageal reflux disease without esophagitis; K31.84 Gastroparesis; K30 Functional dyspepsia; M17.11 Unilateral primary osteoarthritis, right knee; Z79.899 Other long term (current) drug therapy; Z79.82 Long term (current) use of aspirin; Z79.01 Long term (current) use of anticoagulants
CPT/HCPCS: 43239; 43236; 88305; 88342; J7120; A4216; J0585; J2405; J3490

== ENCOUNTER 2023-01-12 10:11 | Observation (INO) | payer MEDICARE, MEDICAID, SELFPAY ==
--- NOTE | 2022-12-30 08:06 | EKG12_ITS ---
Test Reason : PRE-OP Blood Pressure : / mmHG Vent. Rate : 057 BPM Atrial Rate : 057 BPM P-R Int : 194 ms QRS Dur : 098 ms QT Int : 432 ms P-R-T Axes : 015 -24 006 degrees QTc Int : 420 ms Sinus bradycardia with sinus arrhythmia Otherwise normal ECG Confirmed by CHER CONTRERAS, JAKUB ([id number]), commercial production editor DOMINIQUE MAGALLANES ([id number]) on 12/31/2022 9:21:45 AM Referred By: Blade Holland Confirmed By:JAKUB KWON MD
[2022-12-30 08:44] LABS: Absolute Lymphocyte Count 1.55 X10^3/uL (0.83-4.51); Absolute Neutrophil Count 5.6 X10^3/uL (2.0-7.7); Basophil# 0.03 X10^3/uL; Basophil% 0.4 % (0-1); Eosinophil# 0.08 X10^3/uL; Hematocrit 41.8 % (40-54); Hemoglobin 13.2 g/dL (13.0-16.5); Lymphocyte # 1.55 X10^3/ul (0.83-4.51); Lymphocyte % 20.3 % (19-41); Mean Corp Hgb Conc 31.6 g/dL (32-36); Mean Platelet Vol. 9.6 fl (6.2-12.0); Monocyte# 0.37 X10^3/uL; Monocyte% 4.8 % (0-10); NRBC Flagged by Analyzer 0 % (0-5); Neutrophil # 5.58 X10^3/uL (2.7-7.7); Neutrophil % 73.1 % (47-70); Platelet Count 226 K/mm3 (150-450); RBC Distribution Width CV 14.1 % (11.6-14.6); RBC Distribution Width SD 49.2 fl (35.1-43.9); White Blood Count 7.6 K/mm3 (4.4-11.0)
[2022-12-30 08:58] LABS: Prothrombin Time (Protime)PT. 12.9 SECONDS (11.7-14.9)
[2022-12-30 09:10] LABS: ALB/GLOB Ratio 0.9 RATIO (0.9-2.4); AST(SGOT) 23 U/L (15-37); Alanine Aminotransfer ALT/SGPT 54 U/L (16-61); Albumin, Serum 3.5 g/dL (3.2-5.0); Alkaline Phosphatase 34 U/L (45-117); Anion Gap 7 (5-15); BUN 22 mg/dL (7-18); BUN/Creat Ratio 26.9 RATIO (10-20); Calcium,Total 8.9 mg/dL (8.5-10.1); Chloride 107 mmol/L (98-107); Creatinine, Serum 0.82 mg/dL (0.70-1.30); EST Glomerular Filtration Rate 100 mL/min (>60); Est Glom Filt Rate - Afr Amer 122 mL/min (>60); Glucose 127 mg/dL (74-106); Potassium 3.9 mmol/L (3.5-5.1); Protein, Total 7.5 g/dL (6.4-8.2); Sodium Level 143 mmol/L (136-145)
[2022-12-30 09:20] LABS: Hemoglobin A1c 6.2 % (3.8-5.6)
[2022-12-31 15:35] LABS: Fructosamine 252 umol/L (0-285)
[2023-01-12] VITALS (12 sets, daily range): BP systolic 93–120; BP diastolic 54–70; PULSE 50–72; RESP 11–18; TEMP 17.7–36.8; O2SAT 94–100; BMI 33.2
[2023-01-12] MEDS: Magnesium 1 GM over 15 mins IV (06:36)
[2023-01-12] MEDS: Lactated Ringers 1,000 ML 125 ML IV ×2 (06:36→10:28)
[2023-01-12] MEDS: Celecoxib 200 MG Capsule 400 MG PO (06:38)
[2023-01-12] MEDS: Gabapentin 600 MG Tablet PO (06:39)
[2023-01-12] MEDS: Acetaminophen 500 MG Tablet 1000 MG PO ×3 (06:39→22:00)
[2023-01-12] MEDS: Scopolamine 1mg/72hr Patch 1 PATCH TD (06:42)
--- NOTE | 2023-01-12 07:09 | PCM.HP.BLA ---
History and Physical Date of Admission: 01/12/23 [facility] [address] [place] [address] OFFICE VISIT Date of Service:? 01/01/23 MR#: [id number] Acct: [id number] Name:LINDA MIXON Rep #: [id number] : 1955 ? ? Provider: Dr. Blade Holland DO Age/Sex:? 67/M ? ? Location: [facility]EL[facility] Status: Signed Intake Vital Signs ? 11/19/2313:34 12/30/2304:51 Height 5 ft 9 in 5 ft 9 in Intake Visit Reasons:?right knee Chief Complaint:? nausea and vomiting Allergies No Known Allergies Allergy (Verified 12/30/22 05:48) PFSH Medical History?(Updated 01/01/23 @ 11:[address] Blade Holland, DO) Anemia Anxiety Anxiety Aphasia Arthritis Back pain Cardiac murmur Cardiology follow-up encounter CPAP (continuous positive airway pressure) dependence Dietary restriction Dysarthria GERD (gastroesophageal reflux disease) High cholesterol History of echocardiogram History of pain when walking Hx of tilt table evaluation Hyperlipidemia Hypertension Hypertension Imbalance Insulin dependent diabetes mellitus Lightheadedness Low iron Nausea Non-smoker Osteoarthritis of right knee Syncope Type 2 diabetes mellitus Wears glasses Wears partial dentures Surgical History?(Updated 12/29/22 @ 11:01 by Michelle Landry) History of colonoscopy with polypectomy History of esophagogastroduodenoscopy (EGD) History of excision of mass (~05/2021) History of selective injection of anesthetic agent around lumbar nerve root History of tonsillectomy History of umbilical hernia repair Family History? Mother Breast cancer DiabetesFather Colon cancer Social History? Smoking Status:? Never smoker Electronic Cigarette Use:? not used second hand exposure:? No alcohol intake:? current alcohol intake frequency: holidays/special occasions only details:? occasionally substance use type:? does not use what type of physical activity do you participate in:? none john/jain:? None seatbelt use:? never HPI right knee Details: Parts of this documentation were recorded by a scribe, this documentation accurately reflects the service provided and the decisions made by me, Dr. Blade Holland, DO 01/01/23 [id number]. LINDA SWAN is a 67 year old M here today for iovera of his right knee Ortho Exam General General: Yes no acute distress Neurologic: Yes alert and Yes oriented x3 Psychologic: Yes reasonable and appropriate Right Knee Skin/Wound: Yes CDI, No erythema, No ecchymosis and No swelling Homans Sign: No Knee ROM: No ROM-Extension -20 to 0 (lacking 5) and No ROM-Flexion 0-140 (125) Examination: Yes Med jt line tenderness, Yes Lat jt line tenderness, Yes Crepitus, Yes Pain with flexion and No Zeynep's Test Quad Atrophy: No Stability: NML: Anterior Drawer, NML: Posterior Drawer and NML: Varus 30 and 1+: Valgus 30 (3mm medial gapping d/t joint space narrowing) Patella Grind: Yes KNEE: no joint effusion intact sensation to light touch no concerning skin lesions or edema around the knee Head: Normocephalic Atraumatic Chest: symmetrical rise, non-labored breathing, no audible wheeze Abdomen: no guarding, non-rigid Office Procedures Iovera Procedure Details:: Preoperative diagnosis :right knee pain Postoperative diagnosis: Same Procedure: Cryotherapy with Iovera device to anterior femoral cutaneous nerve and 2 branches of the infrapatellar saphenous nerve III nerves in total Description of procedure: Patient was brought back to the procedure room the operative extremity was identified by both patient and physician.? The PIP flexion crease was measured to the midpoint of the patella and this distance was divided in 3 resulting in 10 cm location proximal to the midpoint of the patella.? This line was extended medial and lateral to the extent of the edges of the patella.? This was our treatment line for the anterior femoral cutaneous nerve.? A second treatment line was made 5 cm medial to the inferior pole of the patella and 5 cm distally.? The leg was prepped with alcohol and Betadine.? Lidocaine with epi was used along the treatment lines.? Using the Iovera device treatment lines were treated with 1 minute cycles.? Reproduction of paresthesias was monitored in the area of nerve distribution.? Once all 3 nerves were treated across the 2 treatment lines patient was cleaned and a light dressing with 4 x 4 and Jean Pierre wrap was applied.? Patient tolerated the procedure without complication. Supplemental Info 10/26/2022 CT right knee:1.1 cm x 1.9 cm osteochondral defect/lesion at the middle weightbearing portion of the medial femoral condyle. Moderate suprapatellar joint? effusion. Chronic? ?osteochondral lesion at the lateral talar dome measuring 1.3 cm medial to ? lateral x 1.5 cm cranial to caudal 10/14/2022 MRI right knee: 1.? 1.5 x 1.1 focal osteochondral defect/lesion involving the weightbearing? portion of the medial femoral condyle with minimal subchondral marrow? signal alteration. 2.? Heterogeneous marrow signal alteration is identified on the opposing? medial tibial plateau with overlying focal full-thickness chondral loss.? 3.? High-grade full thickness chondral fissure at the medial patellar facet? without subchondral marrow signal alteration.? Coding Level of Care Code Attention Booker Diagnoses Knee pain, right? M25.561 Assessment and Plan Assessment and Plan (1) Knee pain, right: ?Status:?Acute Plan Patient underwent iovera procedure today in the usual sterile fashion he tolerated well with no complaints he will proceed with right total knee arthroplasty as scheduled.? Walker dispensed all questions answered. 01/01/23 1121 <Electronically signed by Blade Holland DO> Date Blade Holland DO Cosigner Signature: Date (if applicable) ? CC: ? ~ I have examined the patient and the H&P has been reviewed. There are no clinical changes since date of exam.
[2023-01-12 07:11] LABS: Bedside Glucose 198 mg/dL (74-106)
[2023-01-12] MEDS: Cefazolin 2 GM in 0.9% Normal Saline 100 ML IV (07:30)
--- NOTE | 2023-01-12 07:30 | KNEE_PTH ---
PATIENT: LINDA SWAN LOC: MS3 U#:[id number] AGE/SX: 67/M ROOM: MO324 RE01/12/[address]: Dr. Blade Holland DO : 1955 BED: 1 DIS: 01/13/2023 SPEC #: [id number] RECD: 01/12/23 11:31 STATUS: CHEPE ISABEL #: [id number] CYNTHIA: 01/12/23 07:[address]: Blade Holland DEPT: SURGICAL PATHOLOGY RECD BY: Desi Trinidad ENTERED: 01/12/23 12:21 SP TYPE: TOTAL KNEE OTHR DR: Svetlana Noyola, KATELYN-C [facility] Tissues: Knee, NOS Procedures: Decalcification bone/plaque Surgery Specimen Level IV HEADER OPERATION: ERAS, total knee replacement robotic arm assist PRE-OP DIAGNOSIS: Right knee pain TISSUE SUBMITTED: Right knee bone and tissue MICROSCOPIC DIAGNOSIS Bone and tissue of right knee, total knee resection: Degenerative joint disease. AM:megan 01/15/2023 MICROSCOPIC DESCRIPTION Slides are reviewed. GROSS DESCRIPTION Received is one container designated bone and soft tissue right knee. The specimen consists of multiple fragments of faria-yellow bone measuring in aggregate 10.0 x 9.5 x 3.0 cm. Also in the specimen container are multiple fragments of yellow-white soft tissue measuring in aggregate 9.0 x 7.0 x 3.0 cm. A number of bony fragments contain articular surfaces consistent with tibial plateau and femoral condyle and displaying prominent osteophyte formation, eburnation and bone erosion. Industrial Electrician Journeyman sections are submitted in two cassettes as follows: 1 - soft tissue, 2 & 3 - bone after decalcification. / SJ:megan 01/12/2023 TC:5 [facility]: [id number], [id number]
[2023-01-12] MEDS: TXA 1000mg in NS100 100ml (IVPB at Closure) 660 MG IV (07:40)
[2023-01-12 07:50] LABS: Bedside Glucose 142 mg/dL (74-106)
[2023-01-12] MEDS: Bupivacaine 0.25% 30 ML Vial (08:49)
[2023-01-12] MEDS: 0.9% Normal Saline (Pres. free 10 ML Vial (08:49)
[2023-01-12] MEDS: Epinephrine (1 mg/ml) 1 MG/ML VIAL (08:49)
[2023-01-12] MEDS: TXA 1000mg in NS100 100ml (IVPB at Incision) 660 MG IV (09:48)
--- NOTE | 2023-01-12 10:11 | PCM.OP.BLANK ---
Operative Report Date of Procedure: 01/12/23 Preoperative diagnosis: Right knee DJD Postoperative diagnosis: Same Procedure: Right total knee arthroplasty CT guided Robotic Assisted Implant: Laura triathlon press fit, femoral component size5, tibial baseplate size 5, asymmetric patella size 35, polyethylene X3 size 9 CS Anesthesia: Spinal with adductor canal block Tourniquet time: 12 minutes at 300 mmHg Complications: None Condition: Stable to PACU Estimated blood loss: 200 cc Indication for procedure: This is a 67-year-old male with long standing degenerative joint disease of the knee who has failed conservative treatment and wished to proceed with elective total knee arthroplasty. Risk benefits and alternatives were reviewed including; risk of bleeding, infection, nerve artery and tissue damage, continued pain, postoperative stiffness, venous thromboembolism, need for postoperative rehabilitation, mechanical feel to the knee, and expected postoperative course. The pre- operative CT and templating was performed with component sizing. Procedure: The patient was met in the preoperative holding area. The operative extremity was identified by both patient and physician and was marked. Patient was met by anesthesia. An adductor canal block was placed by anesthesia preoperatively the patient was brought back to the operating room on a wheeled cart and transferred to the operating table in the supine position. Anesthesia was started. A well-padded tourniquet was placed on the operative extremity. The patient was prepped and draped in the usual sterile fashion. A timeout was called to ensure the proper patient procedure and extremity were being contemplated. An esmarch was used to exsanguinate the extremity. The tourniquet was inflated. A 10 blade scalpel was used to make a midline incision down through the skin and subcutaneous tissue. Skin retractors placed. Bovie and Aquamantis were used to perform meticulous hemostasis. full-thickness flaps were elevated medial and lateral along the joint capsule. A deep blade scalpel was used to perform a medial parapatellar arthrotomy. The knee was brought to full extension. A bovie was used to release the soft tissues off the most proximal aspect of the medial tibial plateau, a three-quarter inch curved osteotome was also used in this process. The infrapatellar fat pad was excised. The suprapatellar fat pad was excised partially anteriorolateraly and portion the anterioromedial pad was elevated from the femur. At this point our intra-articular femoral array was placed at a 45 degree angle proximal and posterior to the medial epicondyle. femoral checkpoint was placed at this time. Our tibial array was placed greater than 1 hands breath below the incision at a 20 degree angle stab incisions were made with a 15 blade scalpel and pins were placed and attached to the tibial array , tibial checkpoint was placed in the proximal tibial metaphysis. Tourniquet was let down. At this point registration gonzalez were taken throughout the knee . Once the knee was registered we then tensioned the medial and lateral ligaments in extension and 90 degrees of flexion. We then used these numbers to adjust our components within parameters to balance the knee in both flexion and extension once this was done on our monitor we then proceeded with using the robotic arm to make our tibial plateau cut, anterior and posterior chamfer and distal femur cuts. we removed the cut fragments with the use of a bovie and Amarjit, we did use a lamina quality assurance coordinator to insure we visualized and removed all posterior osteophytes and at this time also used the Aquamantis on the posterior joint capsule. we then trialed and achieved the desired plan with a well-balanced knee. we used the green probe to sean the corresponding tibial rotation based on our CT template. Lug holes were drilled in the femur the tibia preparation was completed with the appropriate sized base plate pinned based on previous rotation sean. An appropriate sized fin punch was used on the tibia and 4 corner drill was used for the press fit component and the patella was prepared by first using a caliper to ensure sufficient bone stock and a patellar reamer to remove the desired amount of bone. lug holes drilled for an asymmetric poly. We then brought the knee through range of motion with excellent patellar tracking. We thoroughly irrigated the knee. Trial components were removed a posterior capsular injection was preformed with our standard cocktail. In addition the aqua Mantis was also used to aid in hemostasis. Betadine rinse was allowed to sit and washed out completely. Components were press-fit into place. Aricept rinse was then used followed by several more liters of irrigation after it was allowed to sit. The joint capsule was closed with #1 Ethibond [id number] followed by Vicryl in the subcutaneous tissues with katie in the skin. Arrays and checkpoints were removed prior to closure all counts were correct stab incisions were closed with a staple standard dressing in the form of Mepilex AG for the main incision and a small Mepilex over the pin holes. Thigh-high SANDI hose applied over top of dressing. Patient tolerated the procedure well and was directed to PACU in stable condition . There were no intraoperative complications.
--- NOTE | 2023-01-12 10:30 | RAD_ITS ---
EXAM: XR RIGHT KNEE, 1 OR 2 VIEWS CLINICAL INDICATION: post op -- AP and Lateral xray of operative knee in PACU TECHNIQUE: Frontal and/or lateral views of the right knee. This report was created using [employer] report generation technology. COMPARISON: None. FINDINGS: BONES/JOINTS: Total right knee prosthesis in place in satisfactory position. SOFT TISSUES: Anterior soft tissue gas related to recent surgery. Midline skin katie in place anteriorly. No radiopaque foreign body. RAD/Knee 1 or 2 Views IMPRESSION: Satisfactory postop changes. Electronically Signed: Graeme Cruz MD at 11:31 EDT ,
[2023-01-12] MEDS: Cefazolin 1 GM/50 ML BAG IV ×2 (10:44→21:58)
[2023-01-12 10:56] LABS: Bedside Glucose 192 mg/dL (74-106)
[2023-01-12] MEDS: Insulin Lispro 100 UNIT/ML INSULN.PEN SC (11:05)
[2023-01-12] MEDS: oxyCODONE 5 MG Tablet PO ×3 (11:54→21:56)
[2023-01-12] MEDS: Ketorolac 15 MG/ML Vial IV (11:54)
[2023-01-12 15:45] LABS: Bedside Glucose 108 mg/dL (74-106)
[2023-01-12] MEDS: 0.9% Normal Saline 1,000 ML 125 ML IV (16:59)
--- NOTE | 2023-01-12 20:54 | NURSING ---
pt's blood sugar is 151 per pt's katelynn 2-pt's own device
[2023-01-12] MEDS: Atorvastatin Calcium 80 MG Tablet PO (21:05)
[2023-01-12] MEDS: Senna/Docusate Sodium 1 Tablet 2 TABLET PO (21:05)
[2023-01-13 03:15] VITALS: BP 109/64; PULSE 65; RESP 18; TEMP 36.7; O2SAT 95
[2023-01-13] MEDS: oxyCODONE 5 MG Tablet PO ×2 (03:18→09:56)
[2023-01-13 05:47] VITALS: BP 98/67; PULSE 73; RESP 16; TEMP 36.4; O2SAT 96
[2023-01-13] MEDS: Cefazolin 1 GM/50 ML BAG IV (06:12)
[2023-01-13 06:42] LABS: Hematocrit 31.3 % (40-54); Hemoglobin 10.1 g/dL (13.0-16.5); Mean Corp Hgb Conc 32.3 g/dL (32-36); Mean Corpuscular Hgb 29.7 pg (27.0-32.0); Mean Corpuscular Volume 92.1 fL (80-94); Mean Platelet Vol. 9.7 fl (6.2-12.0); Platelet Count 165 K/mm3 (150-450); RBC Distribution Width CV 14.1 % (11.6-14.6); RBC Distribution Width SD 47.7 fl (35.1-43.9); White Blood Count 6.5 K/mm3 (4.4-11.0)
[2023-01-13] MEDS: APIXABAN 2.5 MG TABLET (WCH) PO (07:01)
[2023-01-13] MEDS: Acetaminophen 500 MG Tablet 1000 MG PO (07:01)
--- NOTE | 2023-01-13 07:07 | NURSING ---
pt's blood sugar is 136 via pt's own device.
[2023-01-13 07:08] LABS: Anion Gap 3 (5-15); BUN 16 mg/dL (7-18); BUN/Creat Ratio 22.8 RATIO (10-20); Chloride 108 mmol/L (98-107); EST Glomerular Filtration Rate 119 mL/min (>60); Est Glom Filt Rate - Afr Amer 145 mL/min (>60); Estimated Creatinine Clearance 101.79 ml/min; Glucose 135 mg/dL (74-106); Potassium 3.9 mmol/L (3.5-5.1); Sodium Level 138 mmol/L (136-145)
--- NOTE | 2023-01-13 07:30 | PCM.PN.ORT ---
Subjective Subjective Patient seen and examined, did have some difficulty with pain over the night had trouble sleeping, no chest pain shortness of breath fevers or chills. Denies any dizziness with standing. Has been up and walk minimally with physical therapy Objective Data Objective Data Vital Signs: Vital Signs Temp Pulse Resp BP Pulse Ox O2 Del Method O2 Flow Rate 97.6 F L 73 16 98/67 96 Room Air 4 01/13/23 05:47 01/13/23 05:47 01/13/23 05:47 01/13/23 05:47 01/13/23 05:47 01/13/23 05:47 01/12/23 11:16 Oxygen Flow Rate (L/min) 4 Oxygen Delivery Method Room Air Weight: 218 lb 9.6 oz Body Mass Index (BMI) 33.2 Intake & Output: Intake and Output for Last 24 Hours 01/11/23 01/12/23 01/13/23 23:59 23:59 23:59 Intake Total 4004.92 / 4882.00 1220.58 / 1220.58 Output Total 700 / 700 600 / 600 Balance 3304.92 / 4182.00 620.58 / 620.58 Lab / Micro Data Result Diagrams: 01/13/23 06:32 01/13/23 06:32 Labs: Laboratory Results - last 24 hr 01/12/23 07:31: POC Glucose 142 H 01/12/23 10:36: POC Glucose 192 H 01/12/23 15:24: POC Glucose 108 H 01/13/23 06:32: WBC 6.5, RBC 3.40 L, Hgb 10.1 L, Hct 31.3 L, MCV 92.1, MCH 29.7, MCHC 32.3, RDW Std Deviation 47.7 H, RDW Coeff of [place] 14.1, Plt Count 165, MPV 9.7 01/13/23 06:32: Sodium 138, Potassium 3.9, Chloride 108 H, Carbon Dioxide 27.0, Anion Gap 3 L, BUN 16, Creatinine 0.70, Estim Creat Clear Calc 101.79, Est GFR (MDRD) Af Amer 145, Est GFR (MDRD) Non-Af 119, BUN/Creatinine Ratio 22.8 H, Glucose 135 H, Calcium 8.0 L Micro: Microbiology 12/30/22 07:47 Swab (Method) Nasal Screen MRSA/MSSA - Final Radiography Diagnostic Testing: Radiology Impression Knee X-Ray 01/12/23 10:30 IMPRESSION: Satisfactory postop changes. Electronically Signed: Graeme Cruz MD at 11:31 EDT , Physical Exam Const alert, oriented x3 and no apparent distress Extremity Extremity Narrative: Dressing clean dry and intact compartment soft neurovascular intact EHL tibialis anterior gastrocsoleus intact sensation light touch palpable pedal pulse Assessment & Plan Assessment/Plan (1) Status post knee replacement: PLAN: Plan Postop day #1 right total knee arthroplasty PT OT weightbearing as tolerated needs to practice stairs prior to her discharge and demonstrate safety as he requires stairs to get into his house DC planning after physical therapy Outpatient physical therapy to begin immediately DVT prophylaxis Follow-up in the office 2 weeks
--- NOTE | 2023-01-13 07:33 | DCINST_ITS ---
Discharge Instructions Dressing / Incision Call your doctor if you observe: Shortness of breath and Chest pain Additional Dressing/Incision Instructions:: Ice and elevate lower extremities 2 weeks while not ambulating. Ambulation is encouraged. Weight bearing as tolerated. Use assistive devise for stability. Encourage FULL knee extension and flexion 1 time EVERY time you get up and down and MULTIPLE times per day. No showering 72 hours after surgery. Begin showering postop day #3. Remove the dressing prior to shower and gently wash with warm water and antibacterial soap then pat dry and place abdominal pad (or plain gauze) and SANDI hose over top. This is to be done daily. Do not submerge for 3 weeks. If not showering daily after the initial 72 hours then you must clean incision and change dressing daily. Do not allow animals near the incision area. Keep clean. Follow anti-coagulation recommendations as prescribed. Do not take any NSAIDs while on blood thinner. Do not take any additional narcotic pain medication other than what was prescribed on your surgery day without discussing with physician. Narcotic medication can be addictive. Do not drink alcohol while taking narcotics. Supplement narcotic prescription with acetaminophen 1000 mg 4 times a day. Start physical therapy. If you are not currently scheduled for physical therapy or you are unsure of appointment time please call office [facility] to arrange. Call Dr. Holland with any concerns. Follow Up Care Please Follow Up With: Blade Holland DO When: 2 weeks Test Results: Test results from this visit will be discussed in further detail at your follow- up appointment, if applicable. Discharge Plan Admission Admit Date/Time: 01/12/23 10:11 Primary Reason for Your Visit: Right total knee arthroplasty Attending Provider: Blade Holland Primary Care Provider: [facility] Coni Bryan Consulting Providers: Svetlana Noyola NP Discharge Orders/Prescriptions Prescriptions: New acetaminophen 500 mg Tablet 1,000 mg PO Q6H Qty: 100 0RF Eliquis 2.5 mg tablet 2.5 mg PO BID Qty: 28 0RF oxycodone 5 mg tablet 5 mg PO Q4H PRN (Reason: pain) 7 Days Qty: 60 0RF Continued Jardiance 10 mg tablet 10 mg PO DAILY aspirin 81 mg tablet,delayed release (DR/EC) 81 mg PO QHS Levemir FlexTouch U-100 Insuln 100 unit/mL (3 mL) insulin pen 50 unit subcut DAILY Label Comments: PT SPLITS DOSE DURING DAY omeprazole 40 mg capsule,delayed release(DR/EC) 40 mg PO DAILY atorvastatin 80 MG tablet 80 mg PO QHS Qty: 90 0RF Trulicity 3 mg/0.5 mL pen injector 3 mg SUBCUT TH Discontinued naproxen 500 mg tablet 500 mg PO PRN PRN (Reason: Pain) Label Comments: TAKE 1 TABLET BY MOUTH TWICE DAILY NEEDED FOR PAIN Referrals / Follow Up: [facility],Coni Ely [Primary Care Provider] - Disposition Disposition (needs filled in before D/C Order can be placed): Home, Self Care
--- NOTE | 2023-01-13 09:20 | CASEMGMT ---
Addendum entered by Pattie Mariscal 01/13/23 13:03: ERICK SIMS noted pt dc'd. Pharmacy was called prior to dc and [employer] savings card was applied. Noted pt had a WW at home and has OP therapy set up at [facility] on 01/14. Original Note: ERICK SIMS into pt room for assessment, pt at therapy. ERICK SIMS to check back.
[2023-01-13 09:21] VITALS: BP 100/68; PULSE 71; RESP 16; TEMP 37.2; O2SAT 95
[2023-01-13 10:25] VITALS: O2SAT 95
--- NOTE | 2023-01-13 10:58 | PHA.DC.MC ---
Pharmacy Service has performed discharge medication reconciliation and counseling for this patient. 1. ACETAMINOPHEN 1000MG PO Q6 2. APIXABAN 2.5MG PO BID X 14 DAYS 3. OXYCODONE 5MG PO Q4H PRN PAIN X 7 DAYS The patient's discharge medication list was reviewed for discrepancies and discrepancies were resolved. Home Medications atorvastatin 80 mg tablet 80 mg PO QHS #90 tabs 05/21/20 aspirin 81 mg tablet,delayed release 81 mg PO QHS heart 06/16/21 empagliflozin 10 mg tablet (Jardiance) 10 mg PO DAILY 06/16/21 insulin detemir U-100 100 unit/mL (3 mL) subcutaneous pen (Levemir FlexTouch U-100 Insulin) 50 unit subcut DAILY 06/02/22 dulaglutide 3 mg/0.5 mL subcutaneous pen injector (Trulicity) 3 mg subcut TH 09/21/22 omeprazole 40 mg capsule,delayed release 40 mg PO DAILY 11/25/22 acetaminophen 500 mg tablet 1,000 mg PO Q6H #100 tabs 01/13/23 apixaban 2.5 mg tablet (Eliquis) 2.5 mg PO BID #28 tabs 01/13/23 oxycodone 5 mg tablet 5 mg PO Q4H PRN pain 7 days #60 tabs 01/13/23 The patient was counseled on the following discharge medications and changes in medications for homegoing were reviewed. The Reason for Use, instructions for use, and potential side effects were reviewed for all new medications. The patient's questions regarding all of their medications were answered. The patient was able to verbally demonstrate an understanding of their discharge medications.
== END 2023-01-13 12:32 | disposition home or self-care (01) ==
LOC: SDC 11:57 → MS3 11:57
PROVIDERS: Anesthesiology; Admitting Provider Orthopaedic Surgery; Referring Provider Orthopaedic Surgery; Visit Provider Orthopaedic Surgery
PROC: 0SRC0JZ Replacement of Right Knee Joint with Synthetic Substitute, Open Approach (ICD-10-PCS; CPT 27447; principal; 2023-01-12 07:00)
DX: M17.11 Unilateral primary osteoarthritis, right knee (principal); E11.9 Type 2 diabetes mellitus without complications; Z79.4 Long term (current) use of insulin; K21.9 Gastro-esophageal reflux disease without esophagitis; E78.00 Pure hypercholesterolemia, unspecified; I10 Essential (primary) hypertension; Z79.899 Other long term (current) drug therapy; Z79.82 Long term (current) use of aspirin; R00.1 Bradycardia, unspecified; Z86.2 Personal history of diseases of the blood and blood-forming organs and certain disorders involving the immune mechanism
CPT/HCPCS: 27447; S2900; 01402; 64450; 36415; 73560; 80048; 80053; 82962; 82985; 83036; 83735; 85025; 85027; 85610; 85730; 86850; 86900; 86901; 87081; 88305; 88311; 93005; 94668; 96361; 96365; 96366; 97162; 97166; 99221; 99252; C1776; J7030; J7120; G0378; G0463; J3475; J3490

== ENCOUNTER 2023-02-26 09:17 | Day surgery (SDC) | payer MEDICARE, MEDICAID, SELFPAY ==
[2023-02-26] VITALS (9 sets, daily range): BP systolic 105–134; BP diastolic 73–94; PULSE 53–66; RESP 16; TEMP 36.1–36.8; O2SAT 92–99; BMI 30.2
[2023-02-26] MEDS: Lactated Ringers 1,000 ML 15 ML IV (09:46)
--- NOTE | 2023-02-26 10:03 | PCM.HP.BLA ---
History and Physical Date of Admission: 02/26/23 [facility] [address] [place] [address] OFFICE VISIT Date of Service:? 02/22/23 MR#: [id number] Acct: [id number] Name:LINDA MIXON Rep #: [id number] : 1955 ? ? Provider: Dr. Blade Holland, DO Age/Sex:? 67/M ? ? Location: [facility].MICHAELA Status: Signed Intake Vital Signs ? 01/12/2313:49 Height 5 ft 8 in Intake Visit Reasons:?RIGHT KNEE Chief Complaint: right knee Accompanied by: Self Is patient in pain?: Yes Pain scale (1-10): 4 Allergies No Known Allergies Allergy (Verified 01/12/23 06:14) Medications atorvastatin 80 mg tablet 80 mg PO QHS #90 tabs 05/21/20 [Rx Confirmed 02/22/23] aspirin 81 mg tablet,delayed release 81 mg PO QHS heart 06/16/21 [History Confirmed 02/22/23] empagliflozin 10 mg tablet (Jardiance) 10 mg PO DAILY 06/16/21 [History Confirmed 02/22/23] insulin detemir U-100 100 unit/mL (3 mL) subcutaneous pen (Levemir FlexTouch U-100 Insulin) 50 unit subcut DAILY 06/02/22 [History Confirmed 02/22/23] dulaglutide 3 mg/0.5 mL subcutaneous pen injector (Trulicity) 3 mg subcut TH 09/21/22 [History Confirmed 02/22/23] omeprazole 40 mg capsule,delayed release 40 mg PO DAILY 11/25/22 [History Confirmed 02/22/23] acetaminophen 500 mg tablet 1,000 mg PO Q6H #100 tabs 01/13/23 [Rx Confirmed 02/22/23] PFSH Medical History? Anemia Anxiety Anxiety Aphasia Arthritis Back pain Cardiac murmur Cardiology follow-up encounter CPAP (continuous positive airway pressure) dependence Dietary restriction Dysarthria GERD (gastroesophageal reflux disease) High cholesterol History of echocardiogram History of pain when walking Hx of tilt table evaluation Hyperlipidemia Hypertension Hypertension Imbalance Insulin dependent diabetes mellitus Lightheadedness Low iron Nausea Non-smoker Osteoarthritis of right knee Syncope Type 2 diabetes mellitus Wears glasses Wears partial dentures Surgical History? History of colonoscopy with polypectomy History of esophagogastroduodenoscopy (EGD) History of excision of mass (~05/2021) History of selective injection of anesthetic agent around lumbar nerve root History of tonsillectomy History of umbilical hernia repair Family History? Mother Breast cancer DiabetesFather Colon cancer Social History? Smoking Status:? Never smoker Electronic Cigarette Use:? not used second hand exposure:? No alcohol intake:? current alcohol intake frequency: holidays/special occasions only details:? occasionally substance use type:? does not use what type of physical activity do you participate in:? none john/orthodox:? None seatbelt use:? never HPI RIGHT KNEE Details: Parts of this documentation were recorded by a scribe, this documentation accurately reflects the service provided and the decisions made by me, Dr. Blade Holland, DO 02/22/23 4611. LINDA SWAN is a 67 year old M here today for 6 week post op from right TKA. He is lacking from full extension and he is only to 105 flexion. He is still in PT at this time. He wishes to gain additional knee ROM. He states that he has increased pain after therapy but typically the pain is about a 4/10. he is still having trouble sleeping d/t the pain. He is only taking Aleve and Tylenol for his pain at this time. Ortho Exam General General: Yes no acute distress Neurologic: Yes alert and Yes oriented x3 Psychologic: Yes reasonable and appropriate Right Knee Skin/Wound: Yes healed, No erythema, No ecchymosis and No swelling Homans Sign: No Knee ROM: No ROM-Extension -20 to 0 (5) and No ROM-Flexion 0-140 (105) Stability: NML: Anterior Drawer, NML: Posterior Drawer, NML: Valgus 0, NML: Valgus 30, NML: Varus 0 and NML: Varus 30 KNEE: no joint effusion mild soft tissue swelling Head: Normocephalic Atraumatic Chest: symmetrical rise, non-labored breathing, no audible wheeze Abdomen: no guarding, non-rigid Supplemental Info 02/22/2023 x-ray right knee: Status post press-fit total knee arthroplasty with good implant positioning and interfaces 10/26/2022 CT right knee:1.1 cm x 1.9 cm osteochondral defect/lesion at the middle weightbearing portion of the medial femoral condyle. Moderate suprapatellar joint? effusion. Chronic? ?osteochondral lesion at the lateral talar dome measuring 1.3 cm medial to ? lateral x 1.5 cm cranial to caudal 10/14/2022 MRI right knee: 1.? 1.5 x 1.1 focal osteochondral defect/lesion involving the weightbearing? portion of the medial femoral condyle with minimal subchondral marrow? signal alteration. 2.? Heterogeneous marrow signal alteration is identified on the opposing? medial tibial plateau with overlying focal full-thickness chondral loss.? 3.? High-grade full thickness chondral fissure at the medial patellar facet? without subchondral marrow signal alteration.? Coding Level of Care Code Global Post Op Diagnoses Orthopedic aftercare? Z47.89 Assessment and Plan Assessment and Plan (1) Orthopedic aftercare: ?Status:?Acute ? ? ? Orders: Orders Knee 3 Views Today Z47.89 - Encounter for other orthopedic aftercare, Z96.651 - Presence of right artificial knee joint ? Plan Patient educated that he has progressed with his ROM but it is recommended that he has an DIMITRY on the right knee to break up the scar tissue so he can gain increased ROM. He wishes to proceed with DIMITRY. Follow up 4 weeks post DIMITRY or sooner if pain, swelling, numbness or associated symptoms, or concerns develop.? All questions answered. Patient in agreement of plan. 02/22/23 1528 <Electronically signed by Blade Holland DO> Date Blade Holland DO Cosigner Signature: Date (if applicable) ?I have examined the patient and the H&P has been reviewed. There are no clinical changes since date of exam.
[2023-02-26] MEDS: Cefazolin 2 GM in 0.9% Normal Saline 100 ML IV (10:47)
--- NOTE | 2023-02-26 10:47 | DCINST_ITS ---
Discharge Instructions Diet Discharge Diet: No restrictions Activity Keep extremity elevated above heart level: Operative Extremity Dressing / Incision Call your doctor if you observe: Shortness of breath and Chest pain Additional Dressing/Incision Instructions:: Encourage full knee flexion and extension regularly. Start physical therapy immediately. May shower and return to activities as normal. Keep pain controlled with medications as discussed with Dr. Holland in order to keep full range of motion. Okay to supplement narcotic with 1000 mg of Tylenol 4 times a day and 600 mg of ibuprofen 3 times a day, ice and elevate next 72 hours. Follow-up with Dr. Holland and call with any questions or concerns. Follow Up Care Please Follow Up With: Blade Holland DO When: 2 weeks Test Results: Test results from this visit will be discussed in further detail at your follow- up appointment, if applicable. Discharge Plan Admission Primary Reason for Your Visit: Manipulation under anesthesia right total knee Attending Provider: Blade Holland [facility] Orders/Prescriptions Prescriptions: New oxycodone 5 mg tablet 5 - 10 mg PO Q4H PRN (Reason: pain) 5 Days Qty: 30 0RF Continued Jardiance 10 mg tablet 10 mg PO DAILY aspirin 81 mg tablet,delayed release (DR/EC) 81 mg PO QHS Levemir FlexTouch U100 Insulin 100 unit/mL (3 mL) insulin pen 30 unit subcut QHS Label Comments: PT SPLITS DOSE DURING DAY omeprazole 40 mg capsule,delayed release(DR/EC) 40 mg PO DAILY atorvastatin 80 MG tablet 80 mg PO QHS Qty: 90 0RF Trulicity 3 mg/0.5 mL pen injector 3 mg SUBCUT TH acetaminophen 500 mg Tablet 1,000 mg PO Q6H Qty: 100 0RF [facility] - Disposition Disposition (needs filled in before D/C Order can be placed): Home, Self Care
--- NOTE | 2023-02-26 10:55 | PCM.OP.BLANK ---
Operative Report Date of Procedure: 02/26/23 Preoperative diagnosis: Arthrofibrosis right knee Postoperative diagnosis: Same Procedure: Manipulation under anesthesia Anesthesia: General EBL: None Complications: None Condition: Able to PACU Indication for procedure: This is a 67-year-old male who underwent total knee arthroplasty approximately 6 weeks ago who is failed to gain her range of motion wish to undergo an elective manipulation under anesthesia to increase range of motion. risk benefits and alternatives were reviewed including risk of bleeding infection nerve, artery, bone, tissue damage, blood clot need for further surgery and continued pain. Procedure: Patient was met in the preoperative holding area once again the operative extremity was identified by both patient and physician and was marked. Patient was brought back to the operating room anesthesia was started. A timeout was called into the proper patient procedure and extremity were being contemplated. The pre-operative range of motion was lacking 5 degrees of extension and achieving 105 degrees flexion. After patient was adequately anesthetized extension manipulation was performed followed by patellar mobilization followed by gradual flexion scar tissue was palpated being released with no concerning signs for tendon rupture or fracture. Postoperative range of motion was much improved with near full extension and 130 degrees of flexion.
[2023-02-26 11:20] LABS: Bedside Glucose 76 mg/dL (74-106)
== END 2023-02-26 12:23 | disposition home or self-care (01) ==
LOC: SDC 09:24 → AC 09:24
PROVIDERS: Referring Provider Orthopaedic Surgery; Visit Provider Orthopaedic Surgery
PROC: (CPT 27570; principal; 2023-02-26 10:55)
DX: M24.661 Ankylosis, right knee (principal); Z79.4 Long term (current) use of insulin; E11.9 Type 2 diabetes mellitus without complications; K21.9 Gastro-esophageal reflux disease without esophagitis; G47.30 Sleep apnea, unspecified; E78.00 Pure hypercholesterolemia, unspecified; Z79.84 Long term (current) use of oral hypoglycemic drugs; Z79.899 Other long term (current) drug therapy; Z96.651 Presence of right artificial knee joint
CPT/HCPCS: 27570; 82962; J7120; J2405

== ENCOUNTER 2023-05-11 13:07 | Emergency (ER) | payer MEDICARE, SELFPAY ==
[2023-05-11 13:09] VITALS: BP 159/116; PULSE 110; RESP 18; TEMP 36.6; O2SAT 98; BMI 28.0
--- NOTE | 2023-05-11 13:34 | EX.ED.GENINJ ---
HPI History of Present Illness Chief Complaint: Nausea/Vomiting PFSH PFSH Medical History Anemia Anxiety Anxiety Aphasia Arthritis Back pain Cardiac murmur CPAP (continuous positive airway pressure) dependence Decreased range of knee movement Dietary restriction Dysarthria GERD (gastroesophageal reflux disease) High cholesterol History of echocardiogram History of pain when walking Hx of tilt table evaluation Hyperlipidemia Hypertension Hypertension Imbalance Insulin dependent diabetes mellitus Lightheadedness Low iron Nausea Non-smoker Osteoarthritis of right knee Syncope Type 2 diabetes mellitus Wears glasses Wears partial dentures Home Medications atorvastatin 80 mg tablet 80 mg PO QHS #90 tabs 05/21/20 [Rx Last Taken 01/11/23] aspirin 81 mg tablet,delayed release 81 mg PO QHS heart 06/16/21 [History Last Taken 01/11/23] empagliflozin 10 mg tablet (Jardiance) 10 mg PO DAILY 06/16/21 [History Last Taken 01/11/23] dulaglutide 3 mg/0.5 mL subcutaneous pen injector (Trulicity) 3 mg subcut TH 09/21/22 [History Last Taken 01/11/23] omeprazole 40 mg capsule,delayed release 40 mg PO DAILY 11/25/22 [History Last Taken 02/26/23] acetaminophen 500 mg tablet 1,000 mg (2 x 500 mg) PO Q6H #100 tabs 01/13/23 [Rx Last Taken Unknown] baclofen 10 mg tablet 10 mg PO TID PRN /muscle pain/spasm #90 tabs 03/24/23 [Rx Last Taken Unknown] linaclotide 145 mcg capsule (Linzess) 145 mcg PO DAILY #30 caps 04/22/23 [Rx Last Taken Unknown] scopolamine base 1 mg over 3 days transdermal patch 1 patch transdermal Q3D PRN nausea and vomiting #10 ea 04/22/23 [Rx Last Taken Unknown] metoclopramide HCl 5 mg tablet (Reglan) 5 mg PO Q8H PRN PRN nausea and vomiting 7 days #20 tabs 05/11/23 [Rx Last Taken Unknown] Allergy/AdvReac Type Severity Reaction Status Date / Time No Known Allergies Allergy Verified 05/11/23 13:09 Family History Mother Breast cancer Diabetes Father Colon cancer Surgical History History of colonoscopy with polypectomy History of esophagogastroduodenoscopy (EGD) History of excision of mass (~05/2021) History of selective injection of anesthetic agent around lumbar nerve root History of tonsillectomy History of umbilical hernia repair Hx of total knee arthroplasty Social History Smoking Status: Never smoker Electronic Cigarette Use: not used second hand exposure: No alcohol intake: current alcohol intake frequency: holidays/special occasions only details: occasionally substance use type: does not use what type of physical activity do you participate in: none john/hoahaoism: None seatbelt use: never EXAM Physical Exam Const Vital Signs: 05/11/23 13:09 Temperature 97.9 F Temperature Source Temporal Pulse Rate 110 H Respiratory Rate 18 Blood Pressure 159/116 H Blood Pressure Mean 130 Pulse Ox 98 Oxygen Delivery Method Room Air MDM MDM MDM Narrative Medical decision making narrative: HISTORY OF PRESENT ILLNESS: 62-year-old male here with nausea vomiting past 10 days. Unable to eat and drink. States he woke up on the floor no matter what happened. Denies abdominal pain. Denies any chest pain palpitations syncope focal weakness. REVIEW OF SYSTEMS: Pertinent positives: Nausea vomiting abdominal pain syncope Pertinent negatives: Headache, focal loss of sensation. PHYSICAL EXAM: Nursing triage notes reviewed, Vital signs reviewed Constitutional: please see mdm HENT: MMM Eyes: Pupils equal round and reactive to light, Extraocular muscles intact Neck: No stridor, no JVD, full neck ROM Lungs: Clear to auscultation, No wheezing or rales. No increased work of breathing, no conversational dyspnea, no accessory muscle use, no nasal flaring. No respiratory distress noted Heart: Regular rate and rhythm, No murmurs, No rubs and No gallops, 2+ distal pulses (radial, femoral, posterior tibial) in all extremities Abdomen: Soft, there is no tenderness, rigidity, rebound or guarding, no obvious peritoneal signs, no palpable pulsatile abdominal masses, no auscultated abdominal bruit : No CVAT Extremities: No edema Neuro: Alert and oriented x3, neuro exam at baseline, cranial nerves II through XII are intact. No pain with extraocular muscle movement. There is negative test of skew. Normal speech. 5 of 5 strength in upper and lower extremities in flexion extension. Intact sensation to light touch in upper and lower extremity dermatomes. No truncal or extremity ataxia. No dysdiadochokinesia. 2+ reflexes. No meningeal signs. Negative Babinski. NIH of 0 Skin: No rash or lesions noted MEDICAL DECISION MAKING: Chief Complaint: Nausea vomiting abdominal pain syncope External records reviewed: CT scan from 2021 shows no acute abnormalities. Last GI visit on 04/22/2023 shows severe gastroparesis secondary to diabetes. Patient treated with Botox. Factors affecting care: gastroparesis, type 2 diabetes Social determinants of health: Current alcohol intake History obtained from others: none Consults: none ALL IMAGES (IF OBTAINED) HAVE BEEN PERSONALLY REVIEWED AND INTERPRETED BY MYSELF. EKG with normal sinus rhythm, normal axis, no intervals, no STEMI MDM Narrative: Patient was hemodynamically stable, afebrile, nontoxic-appearing. Abdominal exam was benign. Patient a nonfocal neurologic exam. I considered the following differential diagnosis: AAA, small bowel obstruction, abdominal perforation, appendicitis, pancreatitis, hepatobiliary pathology (acute cholecystitis), mesenteric ischemia, pyelonephritis, arrhythmia, focal intracranial normality. Time exam is benign not consistent with acute pathology such as obstruction or perforation. Given the patient's report of syncope I did obtain an EKG, chest x-ray and troponin. There is no evidence of myocardial ischemia, significant arrhythmia or cardiopulmonary abnormality. Patient's labs were unremarkable for significant dehydration, systemic inflammation, endorgan hypoperfusion, pancreatitis. CT scan of the head showed no evidence of acute intracranial n abnormality. No clear life-limiting etiology to be ascertained to repeat abdominal centimeter benign. Patient said he felt better was able tolerate p.o. he was discharged with Reglan and close GI follow-up. The patient and/or family, caregivers express understanding. The patient and/or family, caregivers agrees with the plan. Shared decision making: I will have a discussion with the patient and or visitors regarding risk/benefits of further testing or admission. They will be made aware of of the risk/benefits inherent in this decision they will be given the opportunity to voice understanding. Total critical care time today provided was at least 0 minutes. This excludes separately billable procedures. Critical care time (if documented) is secondary to the patient having high probability of clinically significant/life threatening deterioration in the patient's condition which required my urgent intervention. Lab Data Attestation: I reviewed the patient's lab results. Lab results narrative: CBC without leukocytosis, severe anemia, no thrombocytopenia. BMP without evidence of significant electrolyte abnormalities, no anion gap, no acute kidney injury. Lipase is wnl indicating no pancreatic inflammation. Troponin is negative, no evidence of myocardial ischemia Labs: Laboratory Results - last 24 hr 05/11/23 13:35 WBC 5.4 RBC 5.33 Hgb 15.7 Hct 47.8 MCV 89.7 MCH 29.5 MCHC 32.8 RDW Std Deviation 46.9 H RDW Coeff of [place] 14.2 Plt Count 217 MPV 10.2 Immature Gran % (Auto) 0.200 Neut % (Auto) 57.7 Lymph % (Auto) 33.3 [place] % (Auto) 8.0 Eos % (Auto) 0.4 Baso % (Auto) 0.4 Absolute Neuts (auto) 3.1 Absolute Lymphs (auto) 1.79 Nucleated RBC % 0 Sodium 138 Potassium 3.6 Chloride 101 Carbon Dioxide 26.0 Anion Gap 11 BUN 15 Creatinine 0.95 Estim Creat Clear Calc 76.49 Est GFR (MDRD) Af Amer 102 Est GFR (MDRD) Non-Af 84 BUN/Creatinine Ratio 15.7 Glucose 132 H Calcium 10.0 Troponin I High Sens 6 Lipase 73 Radiography Diagnostic Testing: Clinical Impression(s) from Imaging Studies Chest X-Ray 05/11/23 14:20 IMPRESSION: No acute abnormality is seen. Electronically Signed: Edinson Chambers MD at 14:30 EDT , Brain CT 05/11/23 14:25 IMPRESSION: Normal unenhanced CT scan of the brain. Electronically Signed: Edinson Chambers MD at 14:39 EDT , I have personally reviewed the patient's chest x-ray. Chest x-ray is unremarkable for pulmonary edema, pneumothorax, pneumonia or focal cardiopulmonary abnormality. Discharge Plan Triage Chief Complaint: Nausea/Vomiting Other Complaint: Abd Pain ED Provider: Dallas Caceres Dx/Rx/DC Orders Clinical Impression: Nausea & vomiting, Diabetic gastroparesis Instructions: Gastroparesis Prescriptions: New metoclopramide HCl [Reglan] 5 mg tablet 5 mg PO Q8H PRN PRN (Reason: nausea and vomiting) 7 Days Qty: 20 0RF No Action Jardiance 10 mg tablet 10 mg PO DAILY aspirin 81 mg tablet,delayed release (DR/EC) 81 mg PO QHS omeprazole 40 mg capsule,delayed release(DR/EC) 40 mg PO DAILY baclofen 10 mg tablet 10 mg PO TID PRN (Reason: /muscle pain/spasm) Qty: 90 5RF scopolamine base 1 mg over 3 days patch 3 day 1 patch transdermal Q3D PRN (Reason: nausea and vomiting) Qty: 10 3RF Linzess 145 mcg capsule 145 mcg PO DAILY Qty: 30 3RF atorvastatin 80 MG tablet 80 mg PO QHS Qty: 90 0RF Trulicity 3 mg/0.5 mL pen injector 3 mg SUBCUT TH acetaminophen 500 mg Tablet 1,000 mg PO Q6H Qty: 100 0RF [facility] Referrals: Friend,Jayson, [Med Staff - Active Staff] - Activity Restrictions/Additional Instructions: Thank you for trusting us with your care today! Please take Tylenol (2 pills, 650 mg), ibuprofen (2 pills, 400 mg) every 6 hours as needed for pain and fever control. Please take Reglan as needed for nausea and vomiting. Please return to the emergency department if your symptoms change or worsen. Specifically cannot tolerate food or medicine by mouth. Please follow with your Gastroenterology for further outpatient evaluation and management. Disposition Disposition: Home, Self Care
--- NOTE | 2023-05-11 13:59 | CM.ED ---
Social Work SW performed chart review, patient has LW and HCPOA documents on file as of 2019. Patient's HCPOAs are his daughter, Romina Roberts and alternate is his sister Anne BooAndrae CHASE, RICKI
[2023-05-11] MEDS: Metoclopramide 10 MG/2 ML Vial IV (14:00)
[2023-05-11] MEDS: 0.9% Normal Saline 1,000 ML 1000 ML IV (14:00)
[2023-05-11 14:12] LABS: Absolute Lymphocyte Count 1.79 X10^3/uL (0.83-4.51); Absolute Neutrophil Count 3.1 X10^3/uL (2.0-7.7); Basophil# 0.02 X10^3/uL; Basophil% 0.4 % (0-1); Eosinophil# 0.02 X10^3/uL; Eosinophils% 0.4 % (0-5); Hematocrit 47.8 % (40-54); Hemoglobin 15.7 g/dL (13.0-16.5); Lymphocyte # 1.79 X10^3/ul (0.83-4.51); Lymphocyte % 33.3 % (19-41); Mean Corp Hgb Conc 32.8 g/dL (32-36); Mean Corpuscular Hgb 29.5 pg (27.0-32.0); Mean Corpuscular Volume 89.7 fL (80-94); Mean Platelet Vol. 10.2 fl (6.2-12.0); Monocyte# 0.43 X10^3/uL; NRBC Flagged by Analyzer 0 % (0-5); Neutrophil # 3.11 X10^3/uL (2.7-7.7); Neutrophil % 57.7 % (47-70); Platelet Count 217 K/mm3 (150-450); RBC Distribution Width CV 14.2 % (11.6-14.6); RBC Distribution Width SD 46.9 fl (35.1-43.9); Red Blood Count 5.33 M/mm3 (4.6-6.2); White Blood Count 5.4 K/mm3 (4.4-11.0)
[2023-05-11] MEDS: Famotidine 200 MG/20 ML MDV 20 MG in 0.9% Normal Saline (Pres. free 8 ML 300 MG IV (14:15)
--- NOTE | 2023-05-11 14:20 | RAD_ITS ---
STUDY: X-RAY CHEST REASON FOR EXAM: Male, 68 years old. Syncope TECHNIQUE: Single AP portable view of the chest. COMPARISON: Comparison is made with prior study dated May 17, 2020. FINDINGS: EKG electrodes are seen. Stable mild elevation of the right hemidiaphragm. The lungs are clear. There is no demonstrated pleural abnormality. Normal size heart. Normal mediastinum and page. Normal visualized pulmonary arteries. There is atherosclerotic calcification of the aortic arch with tortuosity. There are diffuse degenerative changes of the visualized thoracic spine. Normal visualized ribs, clavicles, and shoulders. There is no demonstrated abnormality of the visualized soft tissue structures of the upper abdomen. RAD/Chest 1 View (Portable) IMPRESSION: No acute abnormality is seen. Electronically Signed: Edinson Chambers MD at 14:30 EDT ,
--- NOTE | 2023-05-11 14:25 | CT_ITS ---
STUDY: CT BRAIN WITHOUT CONTRAST REASON FOR EXAM: Male, 68 years old. Syncope, head trauma RADIATION DOSAGE (If Supplied By Facility): CTDIvol = ( 47.06 ) mGy, DLP = ( 925.62 ) mGycm TECHNIQUE: Transaxial CT imaging of the brain was performed without administration of intravenous contrast material. Individualized dose optimization techniques were used for this CT. COMPARISON: Comparison is made with prior study dated May 17, 2020. FINDINGS: Normal soft tissue structures. Normal calvarium. Normal size ventricles and extra-axial spaces for the patient''s age. Normal white matter tracts of the cerebral hemispheres. Normal basal ganglia and thalami. Normal brainstem. Normal cerebellum. There is no intracranial hemorrhage. There are no findings of an acute ischemic infarction. Normal visualized paranasal sinuses. CT/Brain/Head without Contrast IMPRESSION: Normal unenhanced CT scan of the brain. Electronically Signed: Edinson Chambers MD at 14:39 EDT ,
[2023-05-11 14:31] LABS: Anion Gap 11 (5-15); BUN 15 mg/dL (7-18); BUN/Creat Ratio 15.7 RATIO (10-20); Chloride 101 mmol/L (98-107); Creatinine, Serum 0.95 mg/dL (0.70-1.30); EST Glomerular Filtration Rate 84 mL/min (>60); Est Glom Filt Rate - Afr Amer 102 mL/min (>60); Estimated Creatinine Clearance 76.49 ml/min; Glucose 132 mg/dL (74-106); Lipase 73 U/L (13-75); Potassium 3.6 mmol/L (3.5-5.1); Sodium Level 138 mmol/L (136-145); Troponin-I HS 6 pg/mL (3.0-78.0)
[2023-05-11 15:32] VITALS: BP 123/85; PULSE 73; RESP 20
== END 2023-05-11 16:02 | disposition home or self-care (01) ==
PROVIDERS: Emergency Provider Emergency Medicine; Visit Provider Emergency Medicine
DX: R11.2 Nausea with vomiting, unspecified (principal); E11.43 Type 2 diabetes mellitus with diabetic autonomic (poly)neuropathy; K31.84 Gastroparesis
CPT/HCPCS: 70450; 71045; 80048; 83690; 84484; 85025; 96361; 96374; 96375; 99283; J7030; A4216; J3490

== ENCOUNTER 2023-06-16 09:10 | Day surgery (SDC) | payer MEDICARE, MEDICAID, SELFPAY ==
--- NOTE | 2023-06-16 09:20 | PCM.HP.BLA ---
History and Physical Date of Admission: 06/16/23 Add?Addendum [facility] [address] [place] [address] OFFICE VISIT Date of Service: 04/22/23 MR#: [id number] Acct: [id number] Name: LINDA SWAN Rep #: [id number] : 1955 Provider: Jayson Zuñiga DO Age/Sex: 68/M Location: [facility] [place] Status: Signed Intake Vital Signs 03/23/2314:33 04/22/2308:24 Height 5 ft 8 in 5 ft 8 in Weight: 208 lb 13 oz BMI 31.7 BP 100/70 Blood Pressure Location Lt brachial Position Sitting Respiration 17 Pulse 71 Pulse Source Monitor Temp 98.9 F Temp Source Temporal Pulse Oximetry (%) 98 Oxygen Delivery Method room air Intake Visit Reasons: THROWING UP AGAIN Allergies No Known Allergies Allergy (Verified 04/19/23 14:36) PFSH Medical History Anemia Anxiety Anxiety Aphasia Arthritis Back pain Cardiac murmur CPAP (continuous positive airway pressure) dependence Decreased range of knee movement Dietary restriction Dysarthria GERD (gastroesophageal reflux disease) High cholesterol History of echocardiogram History of pain when walking Hx of tilt table evaluation Hyperlipidemia Hypertension Hypertension Imbalance Insulin dependent diabetes mellitus Lightheadedness Low iron Nausea Non-smoker Osteoarthritis of right knee Syncope Type 2 diabetes mellitus Wears glasses Wears partial dentures Surgical History History of colonoscopy with polypectomy History of esophagogastroduodenoscopy (EGD) History of excision of mass (~05/2021) History of selective injection of anesthetic agent around lumbar nerve root History of tonsillectomy History of umbilical hernia repair Hx of total knee arthroplasty Family History Mother Breast cancer DiabetesFather Colon cancer Social History Smoking Status: Never smoker Electronic Cigarette Use: not used second hand exposure: No alcohol intake: current alcohol intake frequency: holidays/special occasions only details: occasionally substance use type: does not use what type of physical activity do you participate in: none john/anabaptism: None seatbelt use: never HPI HPI Details: *BGI established 11.25.22 with intermittent nausea with periods of emesis; onset approximately a year prior and occurring up to three times a week. Heartburn history, controlled with omeprazole. ? Gastric emptying study 12.07.22 140.47min. ? EGD 12.30.22 esophageal spasm; food in the stomach, Botox; gastritis. OV 7.04.09 he has had a return of nausea and vomiting. He was doing well with this following EGD. With this he is now having a difficulty with constipation, BM small amounts occurring Q3D. LINDA SWAN, is a 68 M who presents to the office today for ROS Const Constitutional: Positive for fatigue ENT ENT: No difficulty swallowing Gastro GI: No abdominal pain, belching, bloating, change in bowel habits, change in stool character, coffee ground emesis, constipation, cramping, diarrhea, heartburn, difficulty swallowing, feeling full early, excessive flatus, incontinent of stools, Vomiting blood/hematemesis, Blood in stool, loose stools, Black,tarry stools, nausea/dyspepsia, pain with swallowing, vomiting or other Musc Musculoskeletal: Positive for joint pain, back pain, muscle weakness, Arthritis and restless legs Skin Skin: No yellowing of the eye or itchy eyes Neuro Neurology: Positive for restless legs Psych Psychiatric: Positive for anxiety and No depression Endo Endocrine: Positive for fatigue Aller/Imm Allergy/Immunologic: No itchy eyes Nima/Lymp Hematologic/Lymphatic: No easy bleeding or easy bruising Exam Const General: cooperative, healthy appearing and no acute distress Nutritional Appearance: overweight Orientation: alert, awake and oriented x3 Eyes Sclera: sclerae normal Resp Effort & Inspection: normal respiratory effort GI Inspection: normal to inspection Palpation: soft, no hepatosplenomegaly, no masses and nontender Quality Reporting Tobacco Screening (CMS 138) Smoking Status: Never smoker Assessment and Plan Assessment and Plan (1) Gastroparesis: Status: Chronic Plan: Severe gastroparesis secondary to diabetes. His hemoglobin A1c is improved to 6.1. He lost approximately 30 pounds. He is still having nausea and bloating. We discussed the risk and benefits of medical therapy for gastroparesis. I think at this time he will be safe for him to try Linzess 145 mcg a day to indirectly empty out the stomach. If this does not help then he may need another treatment with Botox versus pyloroplasty with vagotomy. (2) Nausea and vomiting: Status: Chronic Plan: Intermittent nausea thought to be secondary to gastroparesis. Scopolamine patch 1.5 mg every 72 hours. (3) GERD (gastroesophageal reflux disease): Status: Chronic Qualifiers: I have examined the patient and the H&P has been reviewed. There are no clinical changes since date of exam.
[2023-06-16 09:35] VITALS: BP 122/72; PULSE 68; RESP 18; TEMP 36.1; O2SAT 100; BMI 28.3
[2023-06-16] MEDS: Lactated Ringers 1,000 ML 15 ML IV (09:45)
[2023-06-16] MEDS: 0.9% Normal Saline (Pres. free 10 ML Vial (10:10)
[2023-06-16] MEDS: Botulinum Toxin A 100 Units Vial IJ (10:19)
[2023-06-16] MEDS: 0.9% Saline Lock 10 ML Syringe IV (10:19)
[2023-06-16 10:21] LABS: Bedside Glucose 85 mg/dL (74-106)
[2023-06-16 10:30] VITALS: BP 122/72; BP 90/68; PULSE 83; RESP 16; TEMP 36.3; O2SAT 98
--- NOTE | 2023-06-16 10:30 | IMM_PTH ---
PATIENT: LINDA SWAN LOC: EN U#:[id number] AGE/SX: 68/M ROOM: RE06/16/[address]: Dr. Jayson Zuñiga DO : 1955 BED: DIS: 06/16/2023 SPEC #: [id number] RECD: 06/16/23 13:59 STATUS: CHEPE REQ #: [id number] CYNTHIA: 06/16/23 10:[address]: Jayson Zuñiga DEPT: IMMUNOHISTOCHEMISTRY RECD BY: Shahla Cronin ENTERED: 06/16/23 13:59 SP TYPE: IMMUNO OTHR DR: [facility] Tissues: B - Stomach, NOS Procedures: H Pylori (initial) PHYSICIAN & INSTITUTION [place] [id number] SPECIMEN INFORMATION: Tissue Source: B - Gastric body Clinical Info: Dysphagia Specimen Number: [id number] CPT code: 48804 METHODOLOGY: Deparaffinized sections of prefer/formalin-fixed tissue or PAP/DQ stained slides are incubated with monoclonal/polyclonal antibodies/oligonucleotide probes. Localization is made via biotin free immunoperoxidase method. Appropriate controls are performed and reacted as expected. Results on target cell population are indicated in the following table: RESULTS: ANTIBODY / CLONE RESULT Block B H Pylori (polyclonal) negative These tests were developed and their performance characteristics determined by [facility]. They may not have been cleared or approved by the U.S. Food and Drug Administration. The FDA has determined that such clearance or approval is not necessary. The above immunohistochemical/dualISH markers are ordered and reviewed by the Pathologist. INTERPRETATION: B. Gastric body, biopsy: Negative for Helicobacter pylori organisms. SUE:megan 06/17/2023
--- NOTE | 2023-06-16 10:30 | EGD_PTH ---
PATIENT: LINDA SWAN LOC: EN U#:[id number] AGE/SX: 68/M ROOM: RE06/16/[address]: Dr. Jayson Zuñiga DO : 1955 BED: DIS: 06/16/2023 SPEC #: [id number] RECD: 06/16/23 11:45 STATUS: CHEPE ISABEL #: [id number] CYNTHIA: 06/16/23 10:[address]: Jayson Zuñiga DEPT: SURGICAL PATHOLOGY RECD BY: Desi Trinidad ENTERED: 06/16/23 12:53 SP TYPE: EGD BIOPSY OT DR: Coni [facility] Tissues: A - Duodenum, NOS B - Gastric mucous membrane Procedures: Surgery Specimen Level IV HEADER OPERATION: EGD with Botox injection PRE-OP DIAGNOSIS: Dysphagia TISSUE SUBMITTED: A - Duodenum biopsy, B - Gastric body biopsy MICROSCOPIC DIAGNOSIS A. Duodenum, biopsy: Fragments of duodenal mucosa, no pathologic diagnosis. B. Gastric body, biopsy: Mild gastritis. See microscopic description and comment. SUE:megan 06/17/2023 COMMENT B. The results of immunohistochemistry for Helicobacter pylori will be reported separately ([id number]). MICROSCOPIC DESCRIPTION Slides are reviewed. B. The specimen shows fragments of gastric mucosa with chronic inflammatory cell infiltrates in the lamina propria consisting of lymphocytes and plasma cells, consistent with mild chronic gastritis. GROSS DESCRIPTION A - Received in fixative is one container labeled with the patient's name and designated duodenum biopsy. The specimen consists of two irregular fragments of light faria soft tissue that in aggregate measure 0.6 x 0.3 x 0.1 cm. The specimen is totally submitted in one cassette. B - Received in fixative is one container labeled with the patient's name and designated gastric body biopsy. The specimen consists of one irregular fragment of light faria soft tissue that measures 0.6 x 0.3 x 0.1 cm. The specimen is totally submitted in one cassette. / SUE:megan 06/16/2023 TC:3 CPT: 45200 x3
--- NOTE | 2023-06-16 10:33 | OP.EGD_ITS ---
Patient Name: Jett Dc Procedure Date: 06/16/2023 10:06 AM Date of : 1955 Age: 68 Procedure: Upper GI endoscopy Indications: Persistent vomiting of unknown cause, Dyspepsia Providers: Jayson Zuñiga DO Medicines: Monitored Anesthesia Care Patient Profile: This is a 68 year old male. Refer to note in patient chart for documentation of history and physical. Patient has symptoms of chronic nausea and chronic vomiting. Patient has symptoms. Complications: No immediate complications. Procedure: Pre-Anesthesia Assessment: - Prior to the procedure, a History and Physical was performed, and patient medications and allergies were reviewed. The risks and benefits of the procedure and the sedation options and risks were discussed with the patient. All questions were answered and informed consent was obtained. Patient identification and proposed procedure were verified by the physician in the pre-procedure area. Mental Status Examination: alert and oriented. Airway Examination: normal oropharyngeal airway and neck mobility. Respiratory Examination: clear to auscultation. CV Examination: normal. Prophylactic Antibiotics: The patient does not require prophylactic antibiotics. Prior Anticoagulants: The patient has taken no anticoagulant or antiplatelet agents. ASA Grade Assessment: II - A patient with mild systemic disease. After reviewing the risks and benefits, the patient was deemed in satisfactory condition to undergo the procedure. The anesthesia plan was to use monitored anesthesia care (MAC). Immediately prior to administration of medications, the patient was re-assessed for adequacy to receive sedatives. The heart rate, respiratory rate, oxygen saturations, blood pressure, adequacy of pulmonary ventilation, and response to care were monitored throughout the procedure. The physical status of the patient was re-assessed after the procedure. After obtaining informed consent, the endoscope was passed under direct vision. Throughout the procedure, the patient's blood pressure, pulse, and oxygen saturations were monitored continuously. The Endoscope was introduced through the mouth, and advanced to the second part of duodenum. The upper GI endoscopy was accomplished without difficulty. The patient tolerated the procedure well. Scope In: 10:16:33 AM Scope Out: 10:24:13 AM Total Procedure Duration Time 0 hours 7 minutes 40 seconds Findings: The examined esophagus was normal. A few localized 5 mm erosions with stigmata of recent bleeding were found in the gastric body and in the gastric antrum. Biopsies were taken with a cold forceps for histology. Verification of patient identification for the specimen was done. Estimated blood loss was minimal. A benign-appearing, intrinsic moderate stenosis was found in the prepyloric region of the stomach. This was traversed. Area was successfully injected with 100 units botulinum toxin. No gross lesions were noted in the second portion of the duodenum. Biopsies were taken with a cold forceps for histology. Verification of patient identification for the specimen was done. Estimated blood loss was minimal. Impression: - Normal esophagus. - Erosive gastropathy with stigmata of recent bleeding. Biopsied. - Gastric stenosis was found in the prepyloric region of the stomach. Injected with botulinum toxin. - No gross lesions in the second portion of the duodenum. Biopsied. Recommendation: - Discharge patient to home. - Resume previous diet. - Continue present medications. - Await pathology results. - Repeat upper endoscopy today for surveillance. Procedure Code(s): --- Professional --- 64825, Esophagogastroduodenoscopy, flexible, transoral; with biopsy, single or multiple 39047, 59,51, Esophagogastroduodenoscopy, flexible, transoral; with directed submucosal injection(s), any substance CPT copyright 2021 [employer]. All rights reserved. The codes documented in this report are preliminary and upon technology training associate review may be revised to meet current compliance requirements. Jayson Zuñiga DO 06/16/2023 10:32:18 AM This report has been signed electronically. Number of Addenda: 0 Note Initiated On: 06/16/2023 10:06 AM
--- NOTE | 2023-06-16 10:33 | OP.CCLET_ITS ---
06/16/2023 [facility] Re : Upper GI endoscopy procedure for Jett [facility] This procedure was performed on Friday, June 16, 2023. My impressions and recommendations are as follows: Impressions : - Normal esophagus. - Erosive gastropathy with stigmata of recent bleeding. Biopsied. - Gastric stenosis was found in the prepyloric region of the stomach. Injected with botulinum toxin. - No gross lesions in the second portion of the duodenum. Biopsied. Recommendations : - Discharge patient to home. - Resume previous diet. - Continue present medications. - Await pathology results. - Repeat upper endoscopy today for surveillance. My findings are described in the full procedure note, which is enclosed. If I can be of further assistance, please feel free to contact me at . Sincerely, Jayson Zuñiga, 06/16/2023 10:32:18 AM This report has been signed electronically.
[2023-06-16 10:35] VITALS: BP 122/72; BP 94/66; PULSE 73; RESP 16; O2SAT 97
[2023-06-16 10:40] VITALS: BP 122/72; BP 92/63; PULSE 72; RESP 16; O2SAT 98
[2023-06-16 10:45] VITALS: BP 122/72; BP 99/68; PULSE 78; RESP 16; TEMP 36.2; O2SAT 98
[2023-06-16 11:09] VITALS: BP 122/72
== END 2023-06-16 11:16 | disposition home or self-care (01) ==
LOC: EN 09:13 → AC 09:14
PROVIDERS: Visit Provider Internal Medicine Gastroenterology
PROC: 0DJ08ZZ Inspection of Upper Intestinal Tract, Via Natural or Artificial Opening Endoscopic (ICD-10-PCS; CPT 43235; principal; 2023-06-16 10:25)
DX: K29.61 Other gastritis with bleeding (principal); E11.43 Type 2 diabetes mellitus with diabetic autonomic (poly)neuropathy; Z79.4 Long term (current) use of insulin; K31.89 Other diseases of stomach and duodenum; K21.9 Gastro-esophageal reflux disease without esophagitis; K31.84 Gastroparesis; I10 Essential (primary) hypertension; E78.00 Pure hypercholesterolemia, unspecified; R11.15 Cyclical vomiting syndrome unrelated to migraine; Z79.899 Other long term (current) drug therapy; Z80.0 Family history of malignant neoplasm of digestive organs
CPT/HCPCS: 43239; 43236; 82962; 88305; 88342; J7120; A4216; J0585; J2405; J3490

== ENCOUNTER 2023-07-08 11:30 | Outpatient (RCR) | payer MEDICARE, MEDICAID, SELFPAY | END 2023-07-08 12:40 | disposition home or self-care (01) | LOC: PT 11:30 | PROVIDERS: Visit Provider Psychiatry & Neurology Neurology | DX: M54.12 Radiculopathy, cervical region (principal); M17.11 Unilateral primary osteoarthritis, right knee; Z96.651 Presence of right artificial knee joint ==

== ENCOUNTER → 2023-07-31 | Outpatient (CLI) | payer MEDICARE, SELFPAY ==
--- NOTE | 2023-07-31 09:01 | MRI_ITS ---
INDICATION: Neck pain. Right C5/C6 radiculopathy EXAMINATION: MRI - MR Spine Cervical W/O Contrast TECHNIQUE: Multiplanar and multisequence MR images of the cervical spine were performed. IV Contrast Dosage and Agent: None. COMPARISON: None. FINDINGS: VERTEBRAE: Normal vertebral bodies and posterior elements. VERTEBRAL ALIGNMENT: Normal, including the craniocervical junction and cervicothoracic junction. No spondylolisthesis. Straightening of cervical lordosis likely due to degenerative disc disease detailed below. Superimposed spasm cannot be excluded. CERVICAL SPINAL CORD: Following the cord anteriorly at C4-5, moderate flattening the cord anteriorly at C5-6 and mild flattening the cord anteriorly at C6-7 due to pathology detailed below. Normal cord signal intensity. C2/C3: Moderate disc desiccation. C3/C4: Moderate disc desiccation, mild disc bulging, bilateral facet arthropathy and uncovertebral joint disease with moderate bilateral neural foraminal encroachment. C4/C5: Disc desiccation and loss of disc space height, mild disc osteophyte, mild central stenosis, moderate facet arthropathy and uncovertebral joint disease with moderate bilateral neural foraminal encroachment. C5/C6: Moderate disc desiccation, severe loss of disc space height, moderate disc osteophyte, moderate central stenosis, bilateral facet arthropathy and uncovertebral joint disease with severe bilateral neural foraminal encroachment. C6/C7: Moderate disc desiccation and loss of disc space height, mild disc osteophyte, bilateral facet arthropathy and uncovertebral joint disease with severe bilateral neural foraminal encroachment. C7/T1: Normal disc height and morphology. Normal spinal canal and neuroforamina. NECK SOFT TISSUES: No prevertebral soft tissue swelling. There is no cervical adenopathy. MRI/Spine Cervical (Routine) IMPRESSION: C5-6 moderate disc osteophyte. C3-4 mild disc bulging. C4-5 and C6-7 mild disc osteophyte. Multilevel degenerative disc disease, central stenosis, flattening the cord anteriorly, uncovertebral joint disease, facet arthropathy and neural foraminal encroachment as above. Electronically Signed: Addi Kaufman MD at 15:06 EDT ,
== END | disposition home or self-care (01) ==
PROVIDERS: Visit Provider Psychiatry & Neurology Neurology
DX: M54.12 Radiculopathy, cervical region (principal)
CPT/HCPCS: 72141

== ENCOUNTER 2023-08-12 12:30 | Outpatient (RCR) | payer MEDICARE, MEDICAID, SELFPAY ==
--- NOTE | 2023-01-14 12:34 | HP.PTEVAL ---
Patient's Visit Information LINDA SWAN is a 67 year old M referred to Physical Therapy by Dr. Blade Holland DO with a diagnosis of R TKA 01/12/23. Date of Evaluation: 01/14/23 Physical Therapist: Luis Eduardo Pierre, PT, ATC - Visit Plan Frequency: 2-3x /Week Duration: 4-6 Weeks Plan: R knee PROM/mobs, stretching and strengthening, core stab, balance and proprio, nustep, and HEP - Subjective DOS: 01/12/23. Pt notes he had a R TKA performed at that time. Pt reports he had a chronic R knee pain for several years. 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 Pt notes he is in a lot of pain today. Pt reports he has been performing his HEP, but is not able to put much weight on his R LE until now. Pt reports no tingling or numbness in his R LE this date. Pt reports he has 3 stairs into his house which he is able to negotiate one step at a time. Pt reports his greatest complaint at this time is not being able to sleep secondary to pain. Pt reports golfing and camping are two things he is really looking forward to getting back to. R knee pain is ranging from 5-10 at this time. - Pain R knee pain Pain Intensity (Out of 10): 5 Pain Intensity Range: 10 - Objective Neuro: B LE sensation is WNL to light touch. Girth at joint line: R knee 43 cm, L knee 38 cm. ROM: L knee 0-120 degrees, R knee 0-17-90 degrees. MMT: L knee flex= 39, ext= 41 #F; R knee flex= 11, ext= 3.8 #F. Tu.9 - Balance/Special Test Scores Lower Extremity Functional Score: 13 - Goals Goal 1:: Decrease R knee pain x 50% to aid with sleep Goal Time Frame: 4-6 Weeks Goal 2:: Increase R knee strength x 15#F to aid with stair negotiation Goal Time Frame: 4-6 Weeks Goal 3:: Increase R knee ROM x 30 degrees to aid with restoring a more normalized gait pattern Goal Time Frame: 4-6 Weeks Goal 4:: I with HEP Goal Time Frame: 4-6 Weeks - Rehabilitation Potential Physical Therapy Diagnosis: Pt has R knee pain, weakness, and limited ROM secondary to R TKA Rehabilitation Potential: Good - Anticipated Interventions Patient/Client Instruction: Educate patient on: Condition, Plan of Care For the Purpose of:: To improve self management Therapeutic Exercise to Include: Strength training, Endurance training, Balance training, Flexibilty training, Gait and locomotor training, Passive ROM, Active ROM, Dynamic Lumbar Stabilization For the Purpose of:: To decrease pain, To increase ROM, To improve muscle performance and motor function Cryotherapy (ice pack, ice massage): Yes For the Purpose of:: To decrease pain Thank you for the opportunity to evaluate your patient. For Medicare and Medicare HMO plans, please review the plan of care and approve it. It will need to be FAXED BACK to us at [phone] for Medicare purposes. For Medicare only, by signing this I certify the plan of care. Please let me know if there are questions or concerns regarding this plan of care. Physician Signature: Date:
--- NOTE | 2023-02-10 15:39 | HP.PTREVAL_ITS ---
Dr. Blade Holland, DO, It has been my pleasure to treat LINDA SWAN over the last 12 visits for R TKA 01/12/23. Please see the progress note below for an update on the physical therapy plan of care! Subjective: R knee pain is minimal Objective/Function: R knee pain ranges from 2-7/10. R knee flex= 31, ext= 51 #F. R knee ROM: 0-10-105 degrees. Pt is progressing well but still lacks functional mobility and sleep Plan Plan: R knee PROM/mobs, stretching and strengthening, core stab, balance and proprio, nustep, and HEP Balance/Gait/Functional tests - Balance/Special Test Scores Lower Extremity Functional Score: 27 Goals Goal 1:: Decrease R knee pain x 50% to aid with sleep Goal Time Frame: 4-6 Weeks Goal 2:: Increase R knee strength x 15#F to aid with stair negotiation Goal Time Frame: 4-6 Weeks Goal 3:: Increase R knee ROM x 30 degrees to aid with restoring a more normal ized gait pattern Goal Time Frame: 4-6 Weeks Goal 4:: I with HEP Goal Time Frame: 4-6 Weeks Anticipated Interventions Patient/Client Instruction: Educate patient on: Condition, Plan of Care For the Purpose of:: To improve self management Therapeutic Exercise to Include: Strength training, Endurance training, Balance training, Flexibilty training, Gait and locomotor training, Passive ROM, Active ROM, Dynamic Lumbar Stabilization For the Purpose of:: To decrease pain, To increase ROM, To improve muscle performance and motor function Cryotherapy (ice pack, ice massage): Yes For the Purpose of:: To decrease pain Please do not hesitate to contact me at [phone] by phone or if you have questions or concerns regarding this new plan of care! Sincerely, Luis Eduardo Pierre, PT, ATC
--- NOTE | 2023-04-08 18:13 | HP.PTEVAL2_ITS ---
Patient's Visit Information LINDA SWAN is a 68 year old M referred to Physical Therapy by Dr. Blade Holland DO with a diagnosis of Neck pain. Date of Evaluation: 04/08/23 Physical Therapist: Luis Eduardo Pierre, PT, ATC - Visit Plan Frequency: 2-3x /Week Duration: 4-6 Weeks Plan: Assess benenfit of C Tx next visit. add DTR next visit. Add scap stab ex's and R rot cuff strengthening when tolerated. - Subjective Subjective: Pt reports he has had neck pain since September of 2022. Pt reports he has had xrays and an MRI which revealed degenerative changes in the C4-5 region. Pt reports he used to have intermittent pain that extends down his R UE all the way to his thumb, but now the radiculopthy is constant. Pt reports sleep difficulty at this time secondary to neck pain. Pt reports he has pain with a lot of his IADL's, but he is able to endure his pain and perform most activities. Pt is R hand dominant. Pt notes his neck pain is 4/10 while sitting here at rest, but notes his pain will elevate to a 7/10 at worst. - Pain neck pain Intensity: 4 Pain Intensity Range: 7 - Objective Objective: Neuro: B UE sensation is WNL to light touch. B bicipital reflex= 1/3. MMT: R shoulder ER and flex are 4/5. All other B UE MMT 5/5 throughout. UE ROM: B UE's are WFL when compared bilaterally. C/S ROM: Pt is moderately limited with extension, retraction, R Sb and R rot. Repeated movements: All movements increase pain. Special tests: Pos empty can, pos apley compression and distraction tests for c/s - Goals Goal 1:: Decrease neck pain x 50% to aid with sleep Goal Time Frame: 2-4 Weeks Goal 2:: Decrease the frequency and intensity of R UE radiculopathy x 50% to aid with ADL's Goal Time Frame: 4-6 Weeks Goal 3:: Increase R UE strength x 1 grade to aid with IADL's Goal Time Frame: 4-6 Weeks Goal 4:: I with HEP Goal Time Frame: 4-6 Weeks - Rehabilitation Potential Physical Therapy Diagnosis: Pt has neck pain, R UE weakness, and c/s ROM limitations secondary to deg changes in the C/S Rehabilitation Potential: Good - Anticipated Interventions Patient/Client Instruction: Educate patient on: Condition, Plan of Care For the Purpose of:: To improve self management Therapeutic Exercise to Include: Strength training, Endurance training, Postural training, Flexibilty training, Active ROM, Scapular Strength/Stabilization For the Purpose of:: To decrease pain, To improve muscle performance and motor function, To increase tolerance to activity/condition/position Cryotherapy (ice pack, ice massage): Yes Intermittent cervical traction: Yes For the Purpose of:: To decrease pain Thank you for the opportunity to evaluate your patient. For Medicare and Medicare HMO plans, please review the plan of care and approve it. It will need to be FAXED BACK to us at [phone] for Medicare purposes. For Medicare only, by signing this I certify the plan of care. Please let me know if there are questions or concerns regarding this plan of care. Physician Signature: Date:
--- NOTE | 2023-05-03 09:32 | HP.PTREVAL ---
Re-Evaluation Intro: Dr. Blade Holland, DO, It has been my pleasure to treat LINDA SWAN over the last 40 visits for R TKA 01/12/23. Please see the progress note below for an update on the physical therapy plan of care! Subjective Subjective: My knee is getting better Objective Objective/Function: R knee pain is 3/10 today R knee ROM: 0-10-100 degrees R knee MMT: flex= 25, ext= 50 #F Pt continues to progress, still lacks functional strength and ROM Plan Plan Plan: Continue to focus on R LE strengthening and ROM Balance/Gait/Functional tests Balance/Special Test Scores Oswestry Neck Score: 10 Lower Extremity Functional Score: 27 WOMAC Total Score: 37 WOMAC Percentage: 61.4600 Goals Goals Goal 1:: Decrease R knee pain x 50% to aid with sleep Goal Time Frame: 4-6 Weeks Goal Progress: Progressing Goal 2:: Increase R knee strength x 15#F to aid with stair negotiation Goal Time Frame: 4-6 Weeks Goal Progress: Goal Met Goal 3:: Increase R knee flexion ROM x 15 degrees to aid with squatting activity Goal Time Frame: 2-4 Weeks Goal Progress: New goal Goal 4:: I with HEP Goal Time Frame: 4-6 Weeks Goal Progress: Progressing Goal 5:: Pt will negotiate 10 stairs without UE's Goal Time Frame: 2-4 Weeks Goal Progress: New goal Goal 6:: Increase R knee strength to within 90# of L knee Goal Time Frame: 2-4 Weeks Goal Progress: New goal Anticipated Interventions Anticipated Interventions Patient/Client Instruction: Educate patient on: Condition and Plan of Care For the Purpose of:: To improve self management Therapeutic Exercise to Include: Strength training, Endurance training, Balance training, Flexibilty training, Gait and locomotor training, Passive ROM, Active ROM and Dynamic Lumbar Stabilization For the Purpose of:: To decrease pain, To increase ROM and To improve muscle performance and motor function Cryotherapy (ice pack, ice massage): Yes For the Purpose of:: To decrease pain Re-Evaluation Ending Re-evaluation ending: Please do not hesitate to contact me at [phone] by phone or if you have questions or concerns regarding this new plan of care! Sincerely, Luis Eduardo Pierre, PT, ATC
--- NOTE | 2023-05-14 10:51 | HP.PTREVAL ---
Re-Evaluation Intro: Dr. Blade Holland, DO, It has been my pleasure to treat LINDA SWAN over the last 43 visits for R TKA 01/12/23. Please see the progress note below for an update on the physical therapy plan of care! Subjective Subjective: Pt reports his knee is doing well Objective Objective/Function: L knee pain ranges from 1-7/10 L knee ROM: 0-5-115 L knee MMT: flex= 35, ext= 57 #F Plan Plan Plan: Continue to focus on R LE strengthening and ROM Balance/Gait/Functional tests Balance/Special Test Scores Oswestry Neck Score: 10 Lower Extremity Functional Score: 34 WOMAC Total Score: 37 WOMAC Percentage: 61.4600 Goals Goals Goal 1:: Decrease R knee pain x 50% to aid with sleep Goal Time Frame: 4-6 Weeks Goal Progress: Progressing Goal 2:: Increase R knee strength x 15#F to aid with stair negotiation Goal Time Frame: 4-6 Weeks Goal Progress: Goal Met Goal 3:: Increase R knee flexion ROM x 15 degrees to aid with squatting activity Goal Time Frame: 2-4 Weeks Goal Progress: Progressing Goal 4:: I with HEP Goal Time Frame: 4-6 Weeks Goal Progress: Progressing Goal 5:: Pt will negotiate 10 stairs without UE's Goal Time Frame: 2-4 Weeks Goal Progress: Progressing Goal 6:: Increase R knee strength to within 90# of L knee Goal Time Frame: 2-4 Weeks Goal Progress: Progressing Anticipated Interventions Anticipated Interventions Patient/Client Instruction: Educate patient on: Condition and Plan of Care For the Purpose of:: To improve self management Therapeutic Exercise to Include: Strength training, Endurance training, Balance training, Flexibilty training, Gait and locomotor training, Passive ROM, Active ROM and Dynamic Lumbar Stabilization For the Purpose of:: To decrease pain, To increase ROM and To improve muscle performance and motor function Cryotherapy (ice pack, ice massage): Yes For the Purpose of:: To decrease pain Re-Evaluation Ending Re-evaluation ending: Please do not hesitate to contact me at [phone] by phone or if you have questions or concerns regarding this new plan of care! Sincerely, Luis Eduardo Pierre, PT, ATC
--- NOTE | 2023-06-18 08:31 | HP.PTDCSUM ---
Discharge Summary D/C summary: It has been my pleasure to treat LINDA SWAN referred by Dr. Blade Holland DO, with the diagnosis of R TKA 01/12/23 for a total of 6 visit(s). Discharge Date: Please see the following information for a summary of their discharge status. Subjective Subjective: Pt reports R knee is still a little stiff Pain R knee pain: Pain Intensity (Out of 10): 2 Overall Improvement % Improvement: 75 Objective Objective/Function: R knee pain ranges from 2-4/10 R Knee MMT: Flexion: 29 #F, Extension: 50 #F R Knee ROM: Flexion: 113, Extension: -5 I with HEP Goals Goal 1:: Decrease R knee pain x 50% to aid with sleep Goal Progress: Goal Met Goal 2:: Increase R knee strength x 15#F to aid with stair negotiation Goal Progress: Goal Met Goal 3:: Increase R knee flexion ROM x 15 degrees to aid with squatting activity Goal Progress: Goal Met Goal 4:: I with HEP Goal Progress: Goal Met Goal 5:: Pt will negotiate 10 stairs without UE's Goal Progress: Goal Met Goal 6:: Increase R knee strength to within 90% of L knee Goal Progress: Goal Met Plan Plan: Discharge to HEP D/C Information d/c sentence: If there are questions or concerns regarding this patient's physical therapy, please feel free to call me at [phone]. Thank you for the referral of this patient. Sincerely, Luis Eduardo Pierre, PT, ATC Balance/Gait/Functional tests Balance/Special Test Scores Oswestry Neck Score: 10 Lower Extremity Functional Score: 62 WOMAC Total Score: 37 WOMAC Percentage: 61.4600 Improvement % Improvement: 75
--- NOTE | 2023-07-15 11:22 | HP.PTREVAL ---
Re-Evaluation Intro: Dr. Blade Holland, DO, It has been my pleasure to treat LINDA SWAN over the last 6 visits for R TKA 01/12/23. Please see the progress note below for an update on the physical therapy plan of care! Subjective Subjective: Pt reports R knee is still a little stiff Objective Objective/Function: R knee pain ranges from 2-4/10 R Knee MMT: Flexion: 29 #F, Extension: 50 #F R Knee ROM: Flexion: 113, Extension: -5 I with HEP Plan Plan Plan: Discharge to [facility] Balance/Gait/Functional tests Balance/Special Test Scores Oswestry Neck Score: 16 Lower Extremity Functional Score: 62 WOMAC Total Score: 37 WOMAC Percentage: 61.4600 Goals Goals Goal 1:: Decrease R knee pain x 50% to aid with sleep Goal Time Frame: 4-6 Weeks Goal Progress: Goal Met Goal 2:: Increase R knee strength x 15#F to aid with stair negotiation Goal Time Frame: 4-6 Weeks Goal Progress: Goal Met Goal 3:: Increase R knee flexion ROM x 15 degrees to aid with squatting activity Goal Time Frame: 2-4 Weeks Goal Progress: Goal Met Goal 4:: I with HEP Goal Time Frame: 4-6 Weeks Goal Progress: Goal Met Goal 5:: Pt will negotiate 10 stairs without UE's Goal Time Frame: 2-4 Weeks Goal Progress: Goal Met Goal 6:: Increase R knee strength to within 90% of L knee Goal Time Frame: 2-4 Weeks Goal Progress: Goal Met Anticipated Interventions Anticipated Interventions Patient/Client Instruction: Educate patient on: Condition and Plan of Care For the Purpose of:: To improve self management Therapeutic Exercise to Include: Strength training, Endurance training, Balance training, Flexibilty training, Gait and locomotor training, Passive ROM, Active ROM and Dynamic Lumbar Stabilization For the Purpose of:: To decrease pain, To increase ROM and To improve muscle performance and motor function Cryotherapy (ice pack, ice massage): Yes For the Purpose of:: To decrease pain Re-Evaluation Ending Re-evaluation ending: Please do not hesitate to contact me at [phone] by phone or if you have questions or concerns regarding this new plan of care! Sincerely, Luis Eduardo Pierre, PT, ATC
--- NOTE | 2023-07-21 09:08 | HP.PTREVAL ---
Re-Evaluation Intro: Dr. Blade Holland, DO, It has been my pleasure to treat LINDA SWAN over the last 6 visits for R TKA 01/12/23. Please see the progress note below for an update on the physical therapy plan of care! Subjective Subjective: Pt reports R knee is still a little stiff Objective Objective/Function: R knee pain ranges from 2-4/10 R Knee MMT: Flexion: 29 #F, Extension: 50 #F R Knee ROM: Flexion: 113, Extension: -5 I with HEP Plan Plan Plan: Discharge to [facility] Balance/Gait/Functional tests Balance/Special Test Scores Oswestry Neck Score: 16 Lower Extremity Functional Score: 62 WOMAC Total Score: 37 WOMAC Percentage: 61.4600 Goals Goals Goal 1:: Decrease R knee pain x 50% to aid with sleep Goal Time Frame: 4-6 Weeks Goal Progress: Goal Met Goal 2:: Increase R knee strength x 15#F to aid with stair negotiation Goal Time Frame: 4-6 Weeks Goal Progress: Goal Met Goal 3:: Increase R knee flexion ROM x 15 degrees to aid with squatting activity Goal Time Frame: 2-4 Weeks Goal Progress: Goal Met Goal 4:: I with HEP Goal Time Frame: 4-6 Weeks Goal Progress: Goal Met Goal 5:: Pt will negotiate 10 stairs without UE's Goal Time Frame: 2-4 Weeks Goal Progress: Goal Met Goal 6:: Increase R knee strength to within 90% of L knee Goal Time Frame: 2-4 Weeks Goal Progress: Goal Met Anticipated Interventions Anticipated Interventions Patient/Client Instruction: Educate patient on: Condition and Plan of Care For the Purpose of:: To improve self management Therapeutic Exercise to Include: Strength training, Endurance training, Balance training, Flexibilty training, Gait and locomotor training, Passive ROM, Active ROM and Dynamic Lumbar Stabilization For the Purpose of:: To decrease pain, To increase ROM and To improve muscle performance and motor function Cryotherapy (ice pack, ice massage): Yes For the Purpose of:: To decrease pain Re-Evaluation Ending Re-evaluation ending: Please do not hesitate to contact me at [phone] by phone or if you have questions or concerns regarding this new plan of care! Sincerely, Luis Eduardo Pierre, PT, ATC
== END 2023-08-12 19:00 | disposition home or self-care (01) ==
LOC: PT 12:30
PROVIDERS: Referring Provider Orthopaedic Surgery; Visit Provider Orthopaedic Surgery
DX: Z47.1 Aftercare following joint replacement surgery (principal); Z96.651 Presence of right artificial knee joint; M17.11 Unilateral primary osteoarthritis, right knee
CPT/HCPCS: 97012; 97110; 97140; 97161; 97164

== ENCOUNTER 2023-09-22 05:11 | Day surgery (SDC) | payer MEDICARE, SELFPAY ==
[2023-09-22 05:39] VITALS: BP 129/83; PULSE 73; RESP 18; TEMP 36.7; O2SAT 98; BMI 29.2
[2023-09-22] MEDS: Lactated Ringers 1,000 ML 15 ML IV (05:45)
[2023-09-22 06:03] LABS: Bedside Glucose 98 mg/dL (74-106)
--- NOTE | 2023-09-22 06:25 | HP.PCM_ITS ---
History and Physical Date of Admission: 09/22/23 [facility] established 2.8.23 with intermittent nausea with periods of emesis; onset approximately a year prior and occurring up to three times a week. Heartburn history, controlled with omeprazole. ? Gastric emptying study 12.07.22 140.47min. ? EGD 12.30.22 esophageal spasm; food in the stomach, Botox; gastritis. OV 7.6.23 he has had a return of nausea and vomiting. He was doing well with this following EGD. With this he is now having a difficulty with constipation, BM small amounts occurring Q3D. LINDA SWAN, is a 68 M who presents to the office today for ROS Const Constitutional: Positive for fatigue ENT ENT: No difficulty swallowing Gastro GI: No abdominal pain, belching, bloating, change in bowel habits, change in stool character, coffee ground emesis, constipation, cramping, diarrhea, heartburn, difficulty swallowing, feeling full early, excessive flatus, incontinent of stools, Vomiting blood/hematemesis, Blood in stool, loose stools, Black,tarry stools, nausea/dyspepsia, pain with swallowing, vomiting or other Musc Musculoskeletal: Positive for joint pain, back pain, muscle weakness, Arthritis and restless legs Skin Skin: No yellowing of the eye or itchy eyes Neuro Neurology: Positive for restless legs Psych Psychiatric: Positive for anxiety and No depression Endo Endocrine: Positive for fatigue Aller/Imm Allergy/Immunologic: No itchy eyes Nima/Lymp Hematologic/Lymphatic: No easy bleeding or easy bruising Exam Const General: cooperative, healthy appearing and no acute distress Nutritional Appearance: overweight Orientation: alert, awake and oriented x3 Eyes Sclera: sclerae normal Resp Effort & Inspection: normal respiratory effort GI Inspection: normal to inspection Palpation: soft, no hepatosplenomegaly, no masses and nontender Quality Reporting Tobacco Screening (CMS 138) Smoking Status: Never smoker Assessment and Plan Assessment and Plan (1) Gastroparesis: Status: Chronic Plan: Severe gastroparesis secondary to diabetes. His hemoglobin A1c is improved to 6.1. He lost approximately 30 pounds. He is still having nausea and bloating. We discussed the risk and benefits of medical therapy for gastroparesis. I think at this time he will be safe for him to try Linzess 145 mcg a day to indirectly empty out the stomach. If this does not help then he may need another treatment with Botox versus pyloroplasty with vagotomy. (2) Nausea and vomiting: Status: Chronic Plan: Intermittent nausea thought to be secondary to gastroparesis. Scopolamine patch 1.5 mg every 72 hours. (3) GERD (gastroesophageal reflux disease): Status: Chronic Qualifiers: I have examined the patient and the H&P has been reviewed. There are no clinical changes since date of exam.
[2023-09-22] MEDS: Botulinum Toxin A 100 Units Vial IJ (06:52)
[2023-09-22] MEDS: 0.9% Normal Saline (Pres. free 10 ML Vial (06:52)
[2023-09-22] MEDS: 0.9% Saline Lock 10 ML Syringe IV (06:53)
[2023-09-22 07:05] VITALS: BP 108/91; BP 129/83; PULSE 91; RESP 16; TEMP 36.4; O2SAT 95
--- NOTE | 2023-09-22 07:05 | OP.EGD_ITS ---
Patient Name: Jett Dc Procedure Date: 09/22/2023 6:34 AM Date of : 1955 Age: 68 Procedure: Upper GI endoscopy Indications: Persistent vomiting of unknown cause, Epigastric abdominal pain, Functional Dyspepsia Providers: Jayson Zuñiga DO Referring MD: Jayson Zuñiga DO Medicines: Monitored Anesthesia Care Patient Profile: This is a 68 year old male. Refer to note in patient chart for documentation of history and physical. Patient has symptoms of chronic abdominal distention, chronic epigastric abdominal pain and chronic dyspepsia. Complications: No immediate complications. Procedure: Pre-Anesthesia Assessment: - Prior to the procedure, a History and Physical was performed, and patient medications and allergies were reviewed. The risks and benefits of the procedure and the sedation options and risks were discussed with the patient. All questions were answered and informed consent was obtained. Patient identification and proposed procedure were verified by the physician. Mental Status Examination: alert and oriented. Airway Examination: normal oropharyngeal airway and neck mobility. Respiratory Examination: clear to auscultation. CV Examination: normal. Prophylactic Antibiotics: The patient does not require prophylactic antibiotics. Prior Anticoagulants: The patient has taken no anticoagulant or antiplatelet agents. ASA Grade Assessment: II - A patient with mild systemic disease. After reviewing the risks and benefits, the patient was deemed in satisfactory condition to undergo the procedure. The anesthesia plan was to use monitored anesthesia care (MAC). Immediately prior to administration of medications, the patient was re-assessed for adequacy to receive sedatives. The heart rate, respiratory rate, oxygen saturations, blood pressure, adequacy of pulmonary ventilation, and response to care were monitored throughout the procedure. The physical status of the patient was re-assessed after the procedure. After obtaining informed consent, the endoscope was passed under direct vision. Throughout the procedure, the patient's blood pressure, pulse, and oxygen saturations were monitored continuously. The Endoscope was introduced through the mouth, and advanced to the second part of duodenum. The upper GI endoscopy was accomplished without difficulty. The patient tolerated the procedure well. Scope In: 6:48:38 AM Scope Out: 6:56:56 AM Total Procedure Duration Time 0 hours 8 minutes 18 seconds Findings: The examined esophagus was normal. Suspect gastroparesis due to absence of peristalsis, patient symptoms and retained gastric contents. Biopsies were taken with a cold forceps for histology. Area was successfully injected with 100 units botulinum toxin. No gross lesions were noted in the second portion of the duodenum. Impression: - Normal esophagus. - Gastroparesis, secondary to diabetes mellitus type I. Biopsied. Injected with botulinum toxin. - No gross lesions in the second portion of the duodenum. Recommendation: - Discharge patient to home. - Resume previous diet. - Continue present medications. Procedure Code(s): --- Professional --- 57233, Esophagogastroduodenoscopy, flexible, transoral; with biopsy, single or multiple 88700, 59,51, Esophagogastroduodenoscopy, flexible, transoral; with directed submucosal injection(s), any substance CPT copyright 2021 [employer]. All rights reserved. The codes documented in this report are preliminary and upon engagement director review may be revised to meet current compliance requirements. Jayson Zuñiga DO 09/22/2023 7:03:56 AM This report has been signed electronically. Number of Addenda: 0 Note Initiated On: 09/22/2023 6:34 AM
--- NOTE | 2023-09-22 07:05 | OP.CCLET_ITS ---
09/22/2023 [facility] Re : Upper GI endoscopy procedure for Jett Silva [facility] This procedure was performed on Friday, September 22, 2023. My impressions and recommendations are as follows: Impressions : - Normal esophagus. - Gastroparesis, secondary to diabetes mellitus type I. Biopsied. Injected with botulinum toxin. - No gross lesions in the second portion of the duodenum. Recommendations : - Discharge patient to home. - Resume previous diet. - Continue present medications. My findings are described in the full procedure note, which is enclosed. If I can be of further assistance, please feel free to contact me at . Sincerely, Jayson Zuñiga, 09/22/2023 7:03:56 AM This report has been signed electronically.
[2023-09-22 07:15] VITALS: BP 110/78; BP 129/83; BP 133/85; PULSE 77; PULSE 78; RESP 16; TEMP 36.2; O2SAT 95; O2SAT 98
[2023-09-22 07:36] VITALS: BP 129/83
== END 2023-09-22 07:48 | disposition home or self-care (01) ==
LOC: EN 05:12 → AC 05:18
PROVIDERS: Visit Provider Internal Medicine Gastroenterology
PROC: 0DJ08ZZ Inspection of Upper Intestinal Tract, Via Natural or Artificial Opening Endoscopic (ICD-10-PCS; CPT 43235; principal; 2023-09-22 06:25)
DX: K31.84 Gastroparesis (principal); E10.40 Type 1 diabetes mellitus with diabetic neuropathy, unspecified; Z79.4 Long term (current) use of insulin; R10.13 Epigastric pain; K21.9 Gastro-esophageal reflux disease without esophagitis; E78.00 Pure hypercholesterolemia, unspecified; G47.30 Sleep apnea, unspecified; Z79.82 Long term (current) use of aspirin; Z79.899 Other long term (current) drug therapy
CPT/HCPCS: 43239; 43236; 82962; J7120; A4216; J0585; J3490

== ENCOUNTER → 2023-10-07 | Outpatient (CLI) | payer MEDICARE, SELFPAY ==
--- NOTE | 2023-10-07 14:01 | NEURO_ITS ---
NCS and/or EMG Patient Report Ordering Doctor: Darius Sutton DATE OF SERVICE: 10/07/23 Clinical Summary: This is a 68 year old male presenting with symptoms of right upper extremity numbness, tingling, and pain along with numbness in both hands. This EMG/NCS was performed to evaluate for right cervical radiculopathy and right/left carpal tunnel syndrome. Nerve Conduction Studies Summary: The median-D2 SNAP distal latency was prolonged bilaterally. The right median- APB CMAP distal latency was prolonged. All other performed nerve conductions were within normal ranges. Needle Examination Summary: Needle examination demonstrated increased insertional activity and spontaneous activity (positive sharp waves and fibrillation potentials) in the right deltoid, right biceps, and right triceps muscles. There was a higher proportion of motor unit action potentials with reduced recruitment, increased amplitude, increased duration, and polyphasia in the right deltoid, right biceps, and right triceps muscles. Impression: This is an abnormal study. There is electrodiagnostic evidence of the following - 1) Subacute to chronic, right C6 radiculopathy, with active denervation 2) Moderate, right median mononeuropathy at the wrist (carpal tunnel syndrome), with motor fiber demyelination 3) Mild, left median mononeuropathy at the wrist (carpal tunnel syndrome), with sensory fiber demyelination Comment: Neurogenic changes and active denervation seen in the right biceps and triceps muscles are also suggestive (but not definitively diagnostic by itself) of a radicular process also affecting the right C5 and/or C7 nerve roots. Multi Select Codes Neurology Neurology Interp Codes: 80648-38 Musc test done w/n test comp (interp) (2) and 35801-39 Nrv cndj test 11-12 studies (interp)
== END | disposition home or self-care (01) ==
LOC: PSN 12:12
PROVIDERS: Referring Provider Orthopaedic Surgery Orthopaedic Surgery of the Spine; Visit Provider Orthopaedic Surgery Orthopaedic Surgery of the Spine
DX: M54.12 Radiculopathy, cervical region (principal); E11.40 Type 2 diabetes mellitus with diabetic neuropathy, unspecified
CPT/HCPCS: 95886; 95912

== ENCOUNTER 2023-11-10 11:01 | Observation (INO) | payer MEDICARE, SELFPAY ==
[2023-10-27 15:34] LABS: Absolute Lymphocyte Count 1.65 X10^3/uL (0.83-4.51); Absolute Neutrophil Count 3.1 X10^3/uL (2.0-7.7); Basophil# 0.03 X10^3/uL; Basophil% 0.6 % (0-1); Eosinophil# 0.03 X10^3/uL; Eosinophils% 0.6 % (0-5); Hematocrit 40.4 % (40-54); Hemoglobin 13.2 g/dL (13.0-16.5); Lymphocyte # 1.65 X10^3/ul (0.83-4.51); Mean Corp Hgb Conc 32.7 g/dL (32-36); Mean Corpuscular Hgb 30.3 pg (27.0-32.0); Mean Corpuscular Volume 92.7 fL (80-94); Mean Platelet Vol. 9.8 fl (6.2-12.0); Monocyte# 0.31 X10^3/uL; NRBC Flagged by Analyzer 0 % (0-5); Neutrophil # 3.09 X10^3/uL (2.7-7.7); Neutrophil % 59.8 % (47-70); Platelet Count 212 K/mm3 (150-450); RBC Distribution Width CV 13.5 % (11.6-14.6); RBC Distribution Width SD 45.2 fl (35.1-43.9); Red Blood Count 4.36 M/mm3 (4.6-6.2); White Blood Count 5.2 K/mm3 (4.4-11.0)
[2023-10-27 15:46] LABS: International Normalized Ratio 0.9; Prothrombin Time (Protime)PT. 12.2 SECONDS (11.7-14.9)
[2023-10-27 16:16] LABS: Hemoglobin A1c 6.7 % (3.8-5.6)
[2023-10-27 16:38] LABS: HIV - WCH Non-Reactive (Nonreactive); Hepatitis B Surface Antibody Non-Reactive; Hepatitis C Antibody Non-Reactive (Nonreactive)
[2023-10-27 20:22] LABS: ALB/GLOB Ratio 0.9 RATIO (0.9-2.4); AST(SGOT) 27 U/L (15-37); Alanine Aminotransfer ALT/SGPT 35 U/L (16-61); Albumin, Serum 3.6 g/dL (3.2-5.0); Alkaline Phosphatase 25 U/L (45-117); Anion Gap 8 (5-15); BUN 18 mg/dL (7-18); BUN/Creat Ratio 20.9 RATIO (10-20); Calcium,Total 8.7 mg/dL (8.5-10.1); Chloride 104 mmol/L (98-107); Creatinine, Serum 0.86 mg/dL (0.70-1.30); EST Glomerular Filtration Rate 94 mL/min (>60); Est Glom Filt Rate - Afr Amer 114 mL/min (>60); Globulin 3.8 g/dL (2.2-4.2); Glucose 107 mg/dL (74-106); Potassium 3.4 mmol/L (3.5-5.1); Protein, Total 7.4 g/dL (6.4-8.2); Sodium Level 141 mmol/L (136-145)
--- NOTE | 2023-10-28 10:44 | EKG12_ITS ---
Test Reason : PRE OP Blood Pressure : / mmHG Vent. Rate : 058 BPM Atrial Rate : 058 BPM P-R Int : 176 ms QRS Dur : 076 ms QT Int : 410 ms P-R-T Axes : 045 004 036 degrees QTc Int : 402 ms Sinus bradycardia Otherwise normal ECG Confirmed by FIGUEROA CONTRERAS, DURAN ([id number]), greeting card editor DOMINIQUE MAGALLANES ([id number]) on 10/29/2023 7:21:43 AM Referred By: Darius Sutton Confirmed By:DURAN MARTI MD
[2023-10-29 05:07] LABS: Hepatitis A AB, Total Negative (Negative)
[2023-11-10] VITALS (16 sets, daily range): BP systolic 125–165; BP diastolic 79–104; PULSE 65–94; RESP 14–18; TEMP 36.2–37.2; O2SAT 95–100; BMI 29.9
--- OUTSIDE RECORDS SUMMARY | 2023-11-10 05:26 | XMS RPT_ITS | CCD ---
Author Name Unknown Address [facility] [place] [id number] Organization [facility] Results Test Name Value Interpretation Reference Range Facil itkaylin Progress note 06-20-2021 Note Date & Type Note Facility 06-20-2021 Note HNO ID: [id number] Author: Denice Marsh PA-C Service: ? Author Type: Physician Infantry Assaultman Type: Progress Notes Filed: 06/20/2021 1:34 PM Note Text: FOLLOW UP VISIT - SKIN LESION NAME: Linda Crespo CLINIC NO.: [id number] DATE OF SERVICE: 06/20/2021 : 1955 REFERRING PHYSICIAN: No primary care provider on file. Linda is a patient I am following for a large sebaceous cyst on his chest. I performed an excision of this cyst on 06/04/21. The patient notes no complaints since the procedure. The patient returns today for wound check and suture removal. VITALS: There were no vitals taken for this visit. On examination, the skin incision is healing well with no signs of infection or inflammation. The sutures were removed and Steri-Strips were applied. Assessment IMPRESSION: Status post excision of sebaceous cyst on chest PLAN: If the patient notes any problems or signs of wound infections, the patient should contact me immediately. Diagnoses: (L72.3) Sebaceous cyst (primary encounter diagnosis) Return to Clinic: The patient is instructed to follow-up with me as needed. Denice Marsh PA-C [facility] Progress note 06-13-2021 Note Date & Type Note Facility 06-13-2021 Note HNO ID: [id number] Author: Denice Marsh PA-C Service: ? Author Type: Physician Infantry Assaultman Type: Progress Notes Filed: 06/13/2021 9:39 AM Note Text: FOLLOW UP VISIT - FOR EXCISION OF LESION TODAY NAME: Linda Crespo [facility] NO.: [id number] DATE OF SERVICE: 06/12/2021 : 1955 REFERRING PHYSICIAN: No primary care provider on file. Linda is a patient I am following for a mass on his upper chest. Patient notes this has been present for 20+ years and gradually enlarging. Previous ultrasound at [facility] showed a probable lipoma in this area. Patient desires excision. Linda returns today for the procedure. Linda has not taken aspirin or aspirin products for the past 5 days. VITALS: There were no vitals taken for this visit. On examination, +5 cm rubbery mobile mass noted on mid chest overlying base of breast bone without erythema, warmth or tenderness PROCEDURE: EXCISION OF MASS ON CHEST - The risks, benefits and anticipated outcomes of the procedure, the risks and benefits of the alternatives to the procedure, and the roles and tasks of the personnel to be involved, were discussed with the patient, and the patient consents to the procedure and agrees to proceed. I verify that I personally obtained the patient's consent. The patient`s skin was prepped and draped in the usual fashion. A combination of Lidocaine and Marcaine was injected into the skin. A linear incision was made over the mass. Once incision was made it became apparent that this was actually a very large sebaceous cyst and not a lipoma. An extensive amount of ruptured sebaceous cyst material was removed from the cavity. The cyst wall was adherent to the surrounding tissue and required extensive dissection to free it from its surrounding attachments. This was not sent to pathology. The subcutaneous layer was closed with interrupted 3-0 Vicryl sutures, and the skin was then closed with interrupted 3-0 nylon sutures. The patient tolerated the procedure well. Assessment IMPRESSION: s/p excision of very large ruptured sebaceous cyst on upper chest PLAN: If the patient notes any problems or signs of wound infections, the patient should contact me immediately. The patient is to follow up in approximately 7 days for suture removal. Diagnoses: (L72.3) Sebaceous cyst (primary encounter diagnosis) Return to Clinic: The patient is instructed to follow-up with me in one week. Denice Marsh PA-C [facility] Progress note 06-12-2021 Note Date & Type Note Facility 06-12-2021 Note HNO ID: [id number] Author: Cassy Dye LPN Service: ? Author Type: ? Type: Progress Notes Filed: 06/13/2021 9:39 AM Note Text: UNIVERSAL PROTOCOL / SAFETY CHECKLIST Procedure to be Performed: Excision of mass on Chest Sign In: A Moment of CARE was completed. Personnel directly involved with the procedure wore the appropriate PPE (Personal Protective Equipment). Patient/Surrogate Stated/Verified: PATIENT VERIFIED(optional for EMERGENT procedures): Patient name, Date of , Relevant allergies and The intended procedure Time Out Communication: Intended patient and procedure match the source documents. Consent documented and matches the intended procedure. Sign Out: Cassy Dye LPN [facility] Progress note 06-04-2021 Note Date & Type Note Facility 06-04-2021 Note HNO ID: [id number] Author: Denice Marsh PA-C Service: ? Author Type: Physician Infantry Assaultman Type: Progress Notes Filed: 06/05/2021 10:53 AM Note Text: HISTORY AND PHYSICAL Linda Alejandra Cherie 1955 REFERRING PHYSICIAN: Self CHIEF COMPLAINT: Lump on chest HPI: The patient is a 66 year old male who presents for evaluation of lump on chest. Patient states he first noticed this about 10 years ago and it is now increasing in size. He was previously evaluated by Cecilia Anthony CNP at [facility]. He had an ultrasound of the lesion ordered which was completed at [facility] on 05/26/21, that report is reviewed. Findings showed mass measuring 4.3 x 3.9 x 1.9 cm most consistent with lipoma vs possible lymph node. Patient is referred to general surgery for excision of this lesion. SIGNIFICANT MEDICAL PROBLEMS: PAST MEDICAL HISTORY Diagnosis Date - Coronary artery disease - Depression - Diabetes (HCC) - Hypertension - Impaired gait - Syncope and collapse OPERATIONS: PAST SURGICAL HISTORY Procedure Laterality Date - PAST SURGICAL HISTORY OF 2020 Lumbar injections? CURRENT MEDICATIONS: Current Outpatient Medications Medication Sig Dispense Refill - aspirin, enteric coated (ASPIRIN, ENTERIC COATED) 81 mg EC tablet Take 81 mg by mouth once daily. - VICTOZA 3-LEYLA 0.6 mg/0.1 mL (18 mg/3 mL) Inject 1.8 mg subcutaneously once daily. - JARDIANCE 10 mg tablet - lisinopril (ZESTRIL, PRINIVIL) 5 mg tablet Take 5 mg by mouth once daily. - atorvastatin (LIPITOR) 80 mg tablet Take 80 mg by mouth once daily. - metFORMIN (GLUCOPHAGE) 1,000 mg tablet - LEVEMIR FLEXTOUCH U-100 INSULIN 100 unit/mL (3 mL) injection pen No current facility-administered medications for this visit. ALLERGIES: Patient has no known allergies. PERSONAL HISTORY: Social History Tobacco Use - Smoking status: Not on file Substance Use Topics - Alcohol use: Not on file - Drug use: Not on file FAMILY HISTORY: No family history on file. REVIEW OF SYMPTOMS: The review of systems data was entered by the nurse and reviewed by me REVIEW OF SYSTEMS GENERAL: No weight loss, malaise or fevers HEENT: Negative for frequent or significant headaches, No nasal bleeding, congestion or rhinorrhea NECK: Negative for lumps, goiter, pain and significant neck swelling SKIN: See HPI PHYSICAL EXAMINATION: General: The patient is 66 year old male, well nourished, well hydrated in no acute distress. The patient is oriented to time, place, and person. VITALS: Pulse 91, temperature 36.8 ?C (98.3 ?F), height 172.7 cm (5' 8 ), weight 98.2 kg (216 lb 6.4 oz), SpO2 97 %. Body mass index is 32.9 kg/m?. HEENT: Normal cephalic, ataumatic, pupils are equally round, sclera are anicteric, mucous membranes are moist, oropharynx is clear. Neck has no masses, asymmetry or lymphadenopathy. Abdominal exam: Soft, nontender, with no palpable masses. No hepatosplenomegaly. No palpable hernias. Extremities: no clubbing, cyanosis or edema. No adenopathy. Other: Upper chest overlying inferior aspect of breastbone +4 cm rubbery lesion without tenderness, warmth or erythema LABORATORY VALUES: As Noted RADIOLOGIC STUDIES: As Noted Assessment IMPRESSION: subcutaneous mass mid chest PLAN: Linda will return for excision of the subcutaneous lesion at a later date. Reviewed case with Dr. Jeong, who advised to have patient hold his low-dose aspirin for 5 days prior due to size of lesion. These instructions were relayed to the patient, who verbalized understanding and agreed with the plan. Diagnoses: (R22.9) Subcutaneous mass (primary encounter diagnosis) Return to Clinic: The patient is instructed to follow-up with next week for office excision of subcutaneous mass Denice Marsh PA-C [facility] Progress note 06-04-2021 Note Date & Type Note Facility 06-04-2021 Note HNO ID: [id number] Author: Blade Mcdonald LPN Service: ? Author Type: ? Type: Progress Notes Filed: 06/05/2021 10:53 AM Note Text: REVIEW OF SYSTEMS: General: The patient NOTES fatigue, denies weight loss, denies weight gain, denies feeling hot, and denies feelings of cold. Eyes: The patient denies glaucoma, denies eye injury/surgery, wears glasses or contacts. Ear/Nose/Throat: The patient denies allergies, denies hayfever, denies ear infections, and denies bloody noses. Cardiovascular: The patient denies chest pain, denies heart disease, NOTES high blood pressure,denies cardiac stent, denies prior heart attack, denies irregular heart beat, NOTES high cholesterol, denies poor circulation, denies heart failure, other cardiac issues, denies claudication, denies cold feet, denies peripheral arterial stent. Respiratory: The patient denies tuberculosis, denies pneumonia, denies frequent cough, denies pulmonary embolism, denies shortness of breath, and denies coughing up blood. Gastrointestinal: The patient denies difficulty swallowing, NOTES acid reflux, denies ulcers, denies vomiting, denies jaundice/hepatitis, denies gallbladder problems, denies black or tarry stools, denies hemorrhoids, denies bleeding from rectum, denies diverticulitis, denies constipation, denies diarrhea, denies loss of stool control, and NOTES hernias. Kidney/Bladder: The patient denies kidney stones, denies urine infections, and denies bloody urine. Skin: The patient denies a history of skin cancer, denies bleeding/changing moles, and denies a history of skin rash. Neurologic: The patient denies a history of epilepsy/convulsions, NOTES headaches, denies head/spinal injuries, and denies stroke/TIA. Psychiatric: The patient denies psychiatric medications, denies depression, and denies voices, denies substance abuse. Endocrine: The patient denies thyroid disorders, NOTES diabetes, and denies hormonal problems. Hematologic: The patient denies a history of bruising, denies bleeding, and denies anemia, denies blood clots. Infections: The patient denies a history of measles and mumps, denies rheumatic fever, and denies sexually transmitted diseases. Musculoskeletal: The patient denies back pain/injury, denies back problems, denies sciatica, NOTES knee/foot trouble, denies arthritis, or denies gout. When was patient's last Mammogram screening? N/A Last Colonoscopy: N/A Blade Mcdonald PROBATION OFFICER [facility] Summary Purpose Family History No Family History Records Found Advance Directives No Advanced Directives Records Found Additional Source Comments (unrecognized sect ion and content) No Status Records Found INFORMATION SOURCE (unrecogn ized section and content) FOR RECORDS PERTAINING TO PATIENTS WHO ARE OR HAVE BEEN ENROLLED IN A CHEMICAL DEPENDENCY/SUBSTANCEABUSE PROGRAM, SOME INFORMATION MAY BE OMITTED. This clinical summary was aggregated from multiple sources. Caution should be exercised in using it in the provision of clinical care. This summary normalizes information from multiple sources, and as a consequence, information in this document may materially change the coding, format and clinical context of patient data. In addition, data may be omitted in some cases. CLINICAL DECISIONS SHOULD BE BASED ON THE PRIMARY CLINICAL RECORDS. [facility] [employer] [facility]. provides no warranty or guarantee of the accuracy or completeness of information in this document.
[2023-11-10 06:25] LABS: Bedside Glucose 109 mg/dL (74-106)
[2023-11-10] MEDS: Acetaminophen 500 MG Tablet 1000 MG PO ×3 (06:27→20:04)
[2023-11-10] MEDS: Magnesium 1 GM over 15 mins IV (06:28)
[2023-11-10] MEDS: Lactated Ringers 1,000 ML 15 ML IV (06:28)
[2023-11-10] MEDS: dexAMETHasone 10 MG/ML Vial 8 MG IV (06:28)
--- NOTE | 2023-11-10 06:30 | RAD_ITS ---
INDICATION: ANTERIOR FUSION C4-7 EXAMINATION/TECHNIQUE: X-RAY - XR Spine Cervical 2 or 3 Views COMPARISON: August 17, 2023 FINDINGS: 12 intraoperative fluoroscopic images of the cervical spine were provided. Images were provided for an anterior C4-C7 fusion. The anterior fusion is visualized on the third through 12th images. The alignment is anatomic. No suspicious bony lesions are seen. The visualized lung apices are clear. Please refer to the intraoperative report for further discussion. RAD/Cerv Spine 2 or 3 Views IMPRESSION: Status post anterior C4 C7 fusion, gross anatomic alignment. Electronically Signed: Lata Sepulveda MD at 13:49 EST ,
--- NOTE | 2023-11-10 07:31 | HP.PCM_ITS ---
History and Physical Date of Admission: 11/10/23 MR#: [id number] Acct: [id number] Name: LINDA SWAN Rep #: [id number] : 1955 Provider: Dr. Darius Sutton MD Age/Sex: 68/M Location: [facility].[email or web address] Status: Signed Intake Vital Signs 09/22/2305:39 Height 5 ft 9 in Intake Visit Reasons: cervical spine Chief Complaint: EMG review Accompanied by: Self Allergies No Known Allergies Allergy (Verified 11/03/23 09:05) Medications atorvastatin 80 mg tablet 80 mg PO QHS #90 tabs 05/21/20 [Rx Confirmed 11/03/23] aspirin 81 mg tablet,delayed release 81 mg PO DAILY heart 06/16/21 [History Confirmed 11/03/23] empagliflozin 10 mg tablet (Jardiance) 10 mg PO DAILY 06/16/21 [History Confirmed 11/03/23] diclofenac sodium 1 % topical gel 4 g topical .QID PRN Musculoskeletal pain #100 grams 05/27/23 [Rx Confirmed 11/03/23] tirzepatide 5 mg/0.5 mL subcutaneous pen injector (Mounjaro) 8.5 mg subcut SA 08/17/23 [History Confirmed 11/03/23] gabapentin 300 mg capsule 300 mg PO TID PRN NEUROPATHY 09/21/23 [History Confirmed 11/03/23] insulin detemir U-100 100 unit/mL (3 mL) subcutaneous pen (Levemir FlexPen) 30 unit subcut PRN PRN DIABETES 09/21/23 [History Confirmed 11/03/23] metolazone 5 mg tablet 5 mg PO Q6H 7 days #28 tabs 09/22/23 [Rx Confirmed 11/03/23] ondansetron HCl 8 mg tablet 8 mg PO Q8H #90 tabs 09/22/23 [Rx Confirmed 11/03/23] linaclotide 290 mcg capsule (Linzess) 290 mcg PO DAILY PRN cramps #30 caps 09/27/23 [Rx Confirmed 11/03/23] metoclopramide HCl 15 mg/spray nasal spray with pump (Gimoti) 1 spray intranasal TID 10/27/23 [History Confirmed 11/03/23] PFSH Medical History Anemia Anxiety Aphasia Arthritis Back pain Cardiac murmur CPAP (continuous positive airway pressure) dependence Decreased range of knee movement Dietary restriction Dysarthria GERD (gastroesophageal reflux disease) High cholesterol History of echocardiogram History of pain when walking Hx of tilt table evaluation Hyperlipidemia Hypertension Hypertension Imbalance Lightheadedness Low iron Nausea Non-smoker Osteoarthritis of right knee Pinched nerve in shoulder Syncope Type 2 diabetes mellitus Wears glasses Wears partial dentures Surgical History History of colonoscopy with polypectomy History of esophagogastroduodenoscopy (EGD) History of excision of mass (~05/2021) History of selective injection of anesthetic agent around lumbar nerve root History of tonsillectomy History of umbilical hernia repair Hx of total knee arthroplasty Family History Mother Breast cancer DiabetesFather Colon cancer Social History Smoking Status: Never smoker Electronic Cigarette Use: not used second hand exposure: No alcohol intake: current alcohol intake frequency: holidays/special occasions only details: occasionally substance use type: does not use what type of physical activity do you participate in: none john/yazidism: None seatbelt use: never HPI cervical spine Details: This documentation accurately reflects the service provided and the decisions made by me, Dr. Darius Sutton MD 11/03/23 [id number]. Part of today?s visit was documented by Falguni RAMEY, acting as scribe. LINDA SWAN is a 68 year old M here today for preop, cervical spine, dos 11/10/23. He continues to have neck pain radiating to right upper extremity causing numbness and weakness. He says that his most recent A1c was 6.7. To review, following his his previous history. 10/13/23: Linda is back to follow-up after EMG. He was unable to get the EMG done until just a few days ago because of gastric issues for which he is undergoing treatment with Dr. Zuñiga. He continues to have neck pain and headaches, right upper extremity radiating pain and numbness going into the first webspace of the hand. He has also noticed significant weakness in his elbow flexion lifting objects. He also drops things from his hand because of weakness in his hand. He has also noticed new symptoms going along the left trapezius up to the shoulder. He denies any worsening balance or falls recently. He was last seen by me in July with the following history. To review, he has had pain for 8-9 months. He denies any known injury. Patient notes that he has a radiating pain from his cervical spine into his right shoulder. He complains of numbness from his cervical spine into his right arm, down into his fingers. He states that he is losing strength in his bilateral arms, right worse than left. He notes that he isnt able to lift a gallon of milk and has dropped a crockpot. Patient completed 30 sessions of physical therapy which isnt helpful, in fact the therapy causes more stiffness. Patient denies any injections. He had an MRI on 07/31/23. He denies any xrays. Patient takes aleve, gabapentin and a muscle spasm. Linda has been noticing worsening of his radicular symptoms in the right upper extremity which includes pain and numbness. He also has weakness states that he feels that he is noticing wasting of his muscles more so on the right than left upper extremity. He is a known diabetic for many years. He mentions that his A1c lately have been in the sixes. He has had prior evaluation for carotid stenosis and possibly small vessel ischemia in the brain. He denies any strokes. He has some early dexterity issues but these are likely related to his inability to flex his elbow to reach his mouth while eating. He notices some balance difficulties which are associate with dizziness on occasion. He is on baby aspirin. Ortho Exam General General: Yes no acute distress Neurologic: Yes alert and Yes oriented x3 Spine SPINE TESTING CERVICAL THORACIC LUMBAR Musculoskeletal Strength 0=absent - 5=normal Details: Examination of the neck shows no tenderness. Neurologic evaluation of upper extremity shows grade 4 power in right wrist extension elbow extension and flexion and 4+ shoulder abduction. Paulo's negative bilaterally. Romberg's is positive. Tandem gait shows mild imbalance. There is no hyperreflexia in lower extremities. Examination of both hands shows negative carpal tunnel compression test, negative Tinel sign, positive Phalen test. Coding Level of Care Code Off vis,new,level 3 Diagnoses Cervical radiculopathy M54.12 Time Spent (min) 35 Assessment and Plan Assessment and Plan (1) Cervical radiculopathy: Status: Acute Plan I again went over patient's x-rays and MRIs of the cervical spine done recently. I shared these images with him. He has disc height loss at C5-6 and C6-7. He has C4-7 mild central stenosis and severe right worse than left C5-6 foraminal stenosis. No cord signal changes seen. There is PLL thickening on MRI. A 2020 CT scan was reviewed which shows mild ossification of PLL. No dynamic instability on x-rays. EMG done recently suggests right C6 radiculopathy, moderate right carpal tunnel syndrome, mild left carpal tunnel syndrome. I explained to him his imaging and EMG findings in detail. While he does have moderate right carpal tunnel syndrome on EMG, he does not seem to have any palmar numbness symptoms in his right hand. His numbness symptoms are predominantly in the dorsal first webspace. This is more suggestive of a C6 radiculopathy. While he may have symptoms of carpal tunnel syndrome in the future, at this point has right upper extremity radicular symptoms and numbness not entirely related to his radiculopathy. Patient has had numerous sessions of physical therapy recently without much relief. He is severely debilitated with this pain. He wishes to proceed with surgical intervention. Surgical options were discussed in detail. I recommended C4-7 ACDF in hopes of reducing his radicular symptoms and potentially improving his weakness. I explained to him that it cannot be guaranteed that all of his weakness and numbness will go away, but any ongoing compression of the nerve will be relieved and it should leave good portion of his radicular symptoms. All risk benefits alternatives were discussed in detail. The risks include but are not limited to infection, bleeding, injury to nerves and vessels, spinal cord injury, nerve root injury, pseudoarthrosis, hardware failure, need for further surgeries, adjacent segment degeneration, persistent dysphagia, dysphonia, need for immobilization, DVT, pulmonary embolism, pneumonia, atelectasis, cardiopulmonary event. Patient understands and agrees to proceed with surgery. Consent was signed.
[2023-11-10] MEDS: Cefazolin 2 GM in 0.9% Normal Saline (100mL Bag) 100 ML IV (07:40)
--- NOTE | 2023-11-10 10:55 | OP.PCM_ITS ---
Report of Operation Date of Procedure: 11/10/23 Description of Surgical Findings:: Preoperative diagnosis: C4-7 disc degeneration with stenosis Postoperative diagnosis: C4-7 disc degeneration with stenosis Name of procedure: C4-7 anterior cervical discectomy and fusion with plate instrumentation - Anterior cervical fusion C4-5, CPT code 91974 - Anterior plate instrumentation C4-7, CPT code 21636/59 - Anterior cervical fusion C5-6, CPT code 01106/51 - Anterior cervical fusion C6-7, CPT code 46409/51 - Structural allograft bone with DBX, CPT code 20460 Attending surgeon: Darius Sutton M.D. Anesthesia: Gen. endotracheal Estimated blood loss: 50 mL Complications: None Instrumentation used: Medtronic [place] Elite plate, LASR corticocancellous block Indications: The patient is a pleasant 68-year-old gentleman who presented with neck pain radiating to right upper extremity along with weakness and numbness. Imaging showed C4-5 spondylolisthesis, C4-7 disc degeneration with mild central and severe foraminal stenosis. After failing a prolonged course of nonsurgical treatment, the patient requested surgical treatment. All risks and benefits of the procedure were explained to the patient. The risks include but are not limited to infection, bleeding, injury to nerves and vessels, vertebral artery injury, spinal cord injury, paralysis, vocal cord paralysis, injury to esophagus, pseudoarthrosis, need for further procedures, adjacent segment degeneration. Procedure: The patient was identified in the preoperative suite using unique patient identifiers. Skin was marked consent was taken and all questions were answered. The patient was then brought back to the operative room and a timeout was performed. General endotracheal anesthesia was given. Intraoperative neuro monitoring leads were applied. The patient was carefully positioned supine on a regular OR table. A lateral view with a C-arm was done to identify the level and to define the incision. The anterior neck was then prepped and draped in the usual fashion. A final timeout was then performed. A transverse skin incision was taken to the left of midline. Subcutaneous tissue was then divided with Bovie. Platysma was identified and cut along the incision with scissors. The fascial interval between the sternocleidomastoid and the larynx was developed. Omohyoid was identified and retracted. The esophagus with the larynx was retracted medially to reach the prevertebral fascia. Marker x-ray was performed with bent spinal needle and disc space and levels were confirmed. Longus coli muscle was elevated on both sides at and above and below C4-7 discs. Self-retaining retractors were then placed. A long handle knife was then used to perform annulotomy at C4-5. Disc fragments were removed with the pituitary. [place] pins were placed in C4 and C5 for disc distraction. Curettes and bur was utilized to remove cartilage from the endplates. Discectomy was performed laterally up to the uncovertebral joints. Posterior osteophytes were thinned down with the bur and adequate decompression in the central and foraminal areas were performed and PLL was thinned out. Once the disc space was prepared, trials of various sizes were utilized. Thorough irrigation was given. 7 mm LASR cortical cancellous allograft bone large footprint was then fashioned in such a way that concavities were burred out inferiorly and superiorly and half cc of DBX (demineralized bone matrix) was squeezed into the cancellous portion. The graft was then inserted into the C4-5 disc space. The retractors were then repositioned and the procedure was repeated for C5-6 and C6-7 discs with complete discectomy and endplate preparation. Graft sizes were 6 mm at with large footprint at both C5-6 and C6- 7. The grafts were found to be in good apposition with good pullout strength. A 60 mm Medtronic [place] Elite plate was then fixed to C4-7 with 16 mm screws. A lateral x-ray was then taken to check the length of the screws. Both AP and lateral x-rays showed good positioning of plate and screws. The locking mechanism over the screw heads was then turned. Thorough irrigation was again given. Hemostasis was achieved. A [place] drain was then inserted. Closure was done with 3-0 Vicryl for the platysma and subcutaneous tissue layers and 4-0 Monocryl for the skin. Closure was done around the drain. Steri-Strips were applied and dressing was done with 4 x 4 gauze and Tegaderm. A cervical collar was then applied. The patient was then woken up from anesthesia extubated and taken to PACU in stable condition. From here, the patient will be transitioned to the floor. Intraoperative neuro monitoring was performed throughout this procedure. Motor evoked potentials were run periodically. All potentials remained at baseline throughout the procedure. I was present for the entire surgery and performed the surgery myself. Drains: [place] Admit VTE Documentation VTE Mechan Device Prophylaxis: SCD's Procedures Musculoskeletal [id number]-29xxx: Other Procedure See Report
[2023-11-10 11:45] LABS: Bedside Glucose 115 mg/dL (74-106)
--- OUTSIDE RECORDS SUMMARY | 2023-11-10 11:48 | XMS RPT_ITS | CCD ---
Author Name Unknown Address [facility] [place] [id number] Organization [facility] Results Test Name Value Interpretation Reference Range Facil itkaylin Progress note 06-20-2021 Note Date & Type Note Facility 06-20-2021 Note HNO ID: [id number] Author: Denice Marsh PA-C Service: ? Author Type: Physician Waste Transportation Technician Type: Progress Notes Filed: 06/20/2021 1:34 PM Note Text: FOLLOW UP VISIT - SKIN LESION NAME: Linda Crespo [facility]IN[facility] NO.: [id number] DATE OF SERVICE: 06/20/2021 : 1955 REFERRING [...] with me as needed. Denice Marsh PA-C [facility] Progress note 06-13-2021 Note Date & Type Note Facility 06-13-2021 Note HNO ID: [id number] Author: Denice Marsh PA-C Service: ? Author Type: Physician Waste Transportation Technician Type: Progress Notes Filed: 06/13/2021 9:39 AM Note Text: FOLLOW UP VISIT - FOR EXCISION OF LESION TODAY NAME: Linda Crespo [facility] NO.: [id number] DATE OF SERVICE: 06/12/2021 : 1955 REFERRING PHYSICIAN: No primary care provider on file. Linda is a patient I am following for a mass on his upper chest. Patient notes this has been present for 20+ years and gradually enlarging. Previous ultrasound at [facility] showed a probable lipoma in this area. [...] me in one week. Denice Marsh PA-C [facility] Progress note 06-12-2021 Note Date & Type Note Facility 06-12-2021 Note HNO ID: [id number] Author: Cassy Dye LPN Service: ? Author [...] intended procedure. Sign Out: Cassy Dye LPN [facility] Progress note 06-04-2021 Note Date & Type Note Facility 06-04-2021 Note HNO ID: [id number] Author: Denice Marsh PA-C Service: ? Author Type: Physician Waste Transportation Technician Type: Progress Notes Filed: 06/05/2021 10:53 AM [...] previously evaluated by Cecilia Anthony CNP at [facility]. He had an ultrasound of the lesion ordered which was completed at [facility] on 05/26/21, that report is reviewed. Findings [...] excision of subcutaneous mass Denice Marsh PA-C [facility] Progress note 06-04-2021 Note Date & Type Note Facility 06-04-2021 Note HNO ID: [id number] Author: Blade Mcdonald LPN Service: ? Author [...] screening? N/A Last Colonoscopy: N/A Blade Mcdonald MEAT STUFFER [facility] Summary Purpose Family History No Family [...] BE BASED ON THE PRIMARY CLINICAL RECORDS. [facility]. provides no warranty or guarantee of the accuracy or completeness of information in this document.
[2023-11-10] MEDS: Lactated Ringers 1,000 ML 100 ML IV (12:21)
[2023-11-10] MEDS: Ensure Surgery 237 ML LIQUID PO ×2 (13:49→17:11)
[2023-11-10] MEDS: dexAMETHasone 4 MG/ML Vial IV ×2 (13:51→18:46)
[2023-11-10] MEDS: Methocarbamol 500 MG Tablet 1000 MG PO ×3 (13:51→20:04)
[2023-11-10] MEDS: Cefazolin 1 GM/50 ML BAG IV (15:38)
[2023-11-10] MEDS: Ketorolac 15 MG/ML Vial IV (15:41)
[2023-11-10 16:11] LABS: Bedside Glucose 229 mg/dL (74-106)
[2023-11-10] MEDS: Insulin Lispro 100 UNIT/ML INSULN.PEN SC ×2 (16:26→19:58)
--- NOTE | 2023-11-10 16:52 | PCM.CONS.GEN ---
Assessment & Plan Assessment/Plan (1) Cervical spinal stenosis: PLAN: Plan Patient is a 68-year-old male who presented to [facility] on 11/10/2023 for planned cervical spine fusion procedure. Medicine consulted postoperatively for medical management. 1. C4-7 disc degeneration with stenosis ? S/p C4-7 anterior cervical discectomy and fusion with Dr. Sutton. Patient tolerated procedure well. PT/OT/case management consulted. Further management per orthopedics. 2. Type 2 diabetes mellitus with history of gastroparesis and neuropathy ? Home regimen of insulin detemir 25 units twice daily, empagliflozin 10 mg daily, tirzepatide 8.5 mg weekly. A1c 6.7% on 10/27/2023. No postoperative blood glucose value available at this time. Will start Lantus 15 units twice daily with sliding scale insulin with meals, adjust as needed. Continue home gabapentin. Continue outpatient follow-up with Dr. Zuñiga for gastroparesis. 3. History of peripheral artery disease, history of TIA, hyperlipidemia ? Continue home statin. Will hold home aspirin for 48 to 72 hours postoperatively. Chronic medical conditions: ? Obesity: BMI 30 on admit. Complicates hospital course, care and prognosis. ? History of bilateral osteoarthritis of knees s/p right knee replacement DVT prophylaxis: SCDs. Per orthopedics, hold on any chemoprophylaxis for 48 to 72 hours postoperatively. Encouraged ambulation. Total clinical time spent by myself addressing the patient's medical issues, reviewing all the data, and collaborating with patient's care team: 35 minutes. HPI Consult Data Date of Consult: 11/10/23 HPI Narrative Reason for Consultation: Postoperative medical management HPI Narrative: LINDA SWAN, is a 68 M who presented to [facility] on 11/10/2023 for planned cervical spine fusion procedure with Dr. Sutton. Medicine consulted postoperatively for medical management. Patient seen at bedside on the floor about 1 to 2 hours after returning from the PACU. Patient was sitting up comfortably in bedside chair, in no acute distress. Patient had neck brace in place. Patient was alert and conversing normally. Patient reported very mild lower neck pain at this time. He was very excited that he could use his right hand for dexterity related things like gripping a water bottle handle and lifting the water bottle, which she had been unable to do for 5 to 6 months prior to this procedure. He denied any fevers or chills. Denied any other pain or discomfort. Had just eaten dinner prior to my arrival and tolerated this without issue. Patient lives at home with his girlfriend who works full-time. He is hoping to go home on discharge but knows that she will not be able to help him much at home during the week. Patient denies any other acute concerns at this time. [facility] Medical History Anemia Anxiety Aphasia Arthritis Back pain Cardiac murmur CPAP (continuous positive airway pressure) dependence Decreased range of knee movement Dietary restriction Dysarthria GERD (gastroesophageal reflux disease) High cholesterol History of echocardiogram History of pain when walking Hx of tilt table evaluation Hyperlipidemia Hypertension Hypertension Imbalance Lightheadedness Low iron Nausea Non-smoker Osteoarthritis of right knee Pinched nerve in shoulder Syncope Type 2 diabetes mellitus Wears glasses Wears partial dentures Home Medications atorvastatin 80 mg tablet 80 mg PO QHS #90 tabs 05/21/20 [Rx Last Taken 01/11/23] aspirin 81 mg tablet,delayed release 81 mg PO DAILY heart 06/16/21 [History Last Taken 09/16/23] empagliflozin 10 mg tablet (Jardiance) 10 mg PO DAILY 06/16/21 [History Last Taken 01/11/23] diclofenac sodium 1 % topical gel 4 g topical .QID PRN Musculoskeletal pain #100 grams 05/27/23 [Rx Last Taken Unknown] tirzepatide 5 mg/0.5 mL subcutaneous pen injector (Mounjaro) 8.5 mg subcut SA 08/17/23 [History Last Taken Unknown] gabapentin 300 mg capsule 300 mg PO TID PRN NEUROPATHY 09/21/23 [History Last Taken Unknown] insulin detemir U-100 100 unit/mL (3 mL) subcutaneous pen (Levemir FlexPen) 25 unit subcut BID DIABETES 09/21/23 [History Last Taken Unknown] metolazone 5 mg tablet 5 mg PO Q6H 7 days #28 tabs 09/22/23 [Rx Last Taken Unknown] ondansetron HCl 8 mg tablet 8 mg PO Q8H #90 tabs 09/22/23 [Rx Last Taken Unknown] linaclotide 290 mcg capsule (Linzess) 290 mcg PO DAILY PRN cramps #30 caps 09/27/23 [Rx Last Taken Unknown] metoclopramide HCl 15 mg/spray nasal spray with pump (Gimoti) 1 spray intranasal TID 10/27/23 [History Last Taken Unknown] Allergy/AdvReac Type Severity Reaction Status Date / Time No Known Allergies Allergy Verified 11/10/23 06:03 Family History Mother Breast cancer Diabetes Father Colon cancer Surgical History History of colonoscopy with polypectomy History of esophagogastroduodenoscopy (EGD) History of excision of mass (~05/2021) History of selective injection of anesthetic agent around lumbar nerve root History of tonsillectomy History of umbilical hernia repair Hx of total knee arthroplasty Social History Smoking Status: Never smoker Electronic Cigarette Use: not used second hand exposure: No alcohol intake: current alcohol intake frequency: holidays/special occasions only details: occasionally substance use type: does not use what type of physical activity do you participate in: none john/yazdanism: None seatbelt use: never ROS Constitutional Constitutional: Denies chills, fatigue, fever(s) or weakness Eyes Eyes: Denies change in vision Cardiovascular Cardiovascular: Denies chest pain or lightheadedness Respiratory/Chest Respiratory/Chest: Denies cough Gastrointestinal Gastrointestinal: Denies abdominal pain Musculoskeletal Musculoskeletal: Reports neck pain; Denies arthralgias, back pain or joint pain Neurologic Neurologic: Denies disequilibrium, dizziness, focal weakness, headache(s), numbness, paresthesias or tingling Physical Exam Const alert, oriented x3, no apparent distress and average body habitus Constitutional Narrative: Pleasant elderly male, sitting comfortably in bedside chair, conversing normally, no acute distress. General Appearance: cooperative and comfortable HEENT normocephalic, head/scalp atraumatic, hearing grossly normal bilaterally, nasal mucous membranes and turbinates normal and moist oral mucous membranes Eyes PERRL, EOMs intact bilaterally and conjunctivae normal Neck Neck Narrative: Neck brace in place. Lymph Lymphatic: no lymphadenopathy noted Chest inspection of chest normal Resp normal respiratory effort, normal air movement, no use of accessory muscles and clear to auscultation bilaterally Cardio regular rate, regular rhythm, no murmurs and peripheral pulses 2+ throughout GI normal to inspection, nondistended, normoactive bowel sounds, soft to palpation, non-tender and non-distended Back/Spine normal ROM Extremity normal to inspection, full ROM and no pedal edema Skin no rashes or lesions noted Neuro moves all extremities, no focal motor deficits and no sensory deficits noted Speech: speech normal Psych mental status grossly normal Lab / Micro Data 10/27/23 14:12 10/27/23 14:12 Labs: Laboratory Results - last 24 hr 11/10/23 06:02: POC Glucose 109 H 11/10/23 11:27: POC Glucose 115 H 11/10/23 15:37: POC Glucose 229 H Charges/Coding Visit Charges Inpatient E&M: 12201 Subs Hosp L2
[2023-11-10] MEDS: [UNRECOGNIZED DRUG - OTHER] NASAL (17:10)
[2023-11-10] MEDS: Insulin Glargine-YFGN 100 UNIT/ML Pen 15 UNIT SC (19:57)
--- NOTE | 2023-11-10 20:00 | NURSING ---
BG from pts dexacom is 336. pt requesting insulin be given early. see MAR
[2023-11-10] MEDS: Senna/Docusate Sodium 1 Tablet 2 TABLET PO (20:04)
[2023-11-10] MEDS: oxyCODONE 5 MG Tablet PO (20:04)
[2023-11-10] MEDS: Atorvastatin Calcium 80 MG Tablet PO (20:04)
--- NOTE | 2023-11-10 21:50 | NURSING ---
BG from pts dexacom is 250 at this time
[2023-11-11] MEDS: dexAMETHasone 4 MG/ML Vial 2 MG IV ×2 (00:40→06:42)
[2023-11-11] MEDS: Cefazolin 1 GM/50 ML BAG IV (00:40)
[2023-11-11] MEDS: oxyCODONE 5 MG Tablet PO ×3 (00:43→10:57)
[2023-11-11 00:44] VITALS: BP 132/94; PULSE 61; RESP 18; TEMP 36.6; O2SAT 97
[2023-11-11 04:45] VITALS: BP 134/86; PULSE 62; RESP 18; TEMP 36.4; O2SAT 95
[2023-11-11] MEDS: Acetaminophen 500 MG Tablet 1000 MG PO ×2 (04:53→13:09)
--- NOTE | 2023-11-11 06:40 | NURSING ---
BG this AM is 157 per pts dexacom
[2023-11-11] MEDS: Insulin Lispro 100 UNIT/ML INSULN.PEN SC ×2 (06:42→10:53)
[2023-11-11 06:52] LABS: Absolute Lymphocyte Count 0.93 X10^3/uL (0.83-4.51); Basophil# 0.01 X10^3/uL; Basophil% 0.1 % (0-1); Hematocrit 41.8 % (40-54); Hemoglobin 13.7 g/dL (13.0-16.5); Lymphocyte # 0.93 X10^3/ul (0.83-4.51); Lymphocyte % 10.9 % (19-41); Mean Corp Hgb Conc 32.8 g/dL (32-36); Mean Corpuscular Volume 91.7 fL (80-94); Mean Platelet Vol. 9.7 fl (6.2-12.0); Monocyte# 0.42 X10^3/uL; Monocyte% 4.9 % (0-10); NRBC Flagged by Analyzer 0 % (0-5); Neutrophil # 7.04 X10^3/uL (2.7-7.7); Neutrophil % 82.8 % (47-70); Platelet Count 211 K/mm3 (150-450); RBC Distribution Width CV 13.8 % (11.6-14.6); RBC Distribution Width SD 46.5 fl (35.1-43.9); Red Blood Count 4.56 M/mm3 (4.6-6.2); White Blood Count 8.5 K/mm3 (4.4-11.0)
[2023-11-11 07:12] LABS: Anion Gap 4 (5-15); BUN 22 mg/dL (7-18); BUN/Creat Ratio 28.8 RATIO (10-20); Chloride 105 mmol/L (98-107); Creatinine, Serum 0.76 mg/dL (0.70-1.30); EST Glomerular Filtration Rate 108 mL/min (>60); Est Glom Filt Rate - Afr Amer 131 mL/min (>60); Estimated Creatinine Clearance 101.78 ml/min; Glucose 157 mg/dL (74-106); Potassium 3.8 mmol/L (3.5-5.1); Sodium Level 135 mmol/L (136-145)
[2023-11-11] MEDS: [UNRECOGNIZED DRUG - OTHER] NASAL ×2 (08:45→11:02)
[2023-11-11] MEDS: Meloxicam 15 MG Tablet PO (08:46)
[2023-11-11] MEDS: Methocarbamol 500 MG Tablet 1000 MG PO ×2 (08:46→13:10)
[2023-11-11] MEDS: Senna/Docusate Sodium 1 Tablet 2 TABLET PO (08:46)
[2023-11-11] MEDS: Insulin Glargine-YFGN 100 UNIT/ML Pen 15 UNIT SC ×2 (08:47→08:51)
--- NOTE | 2023-11-11 08:47 | PCM.PN.ORT ---
Subjective Subjective Postop day 1 status post C4-7 ACDF. Pain in lower neck upper back junction. Denies dysphagia. Was up all night and could not sleep. Says that his right upper extremity radicular symptoms have improved. Objective Data Objective Data Vital Signs: Vital Signs Temp Pulse Resp BP Pulse Ox O2 Del Method O2 Flow Rate 97.6 F L 62 18 134/86 H 95 Room Air 2 11/11/23 04:45 11/11/23 04:45 11/11/23 04:45 11/11/23 04:45 11/11/23 04:45 11/11/23 04:45 11/10/23 13:36 Oxygen Flow Rate (L/min) 2 Oxygen Delivery Method Room Air Weight: 202 lb 13.204 oz Body Mass Index (BMI) 29.9 Intake & Output: Intake and Output for Last 24 Hours 11/09/23 11/10/23 11/11/23 23:59 23:59 23:59 Intake Total 3633.67 / 3633.67 50 / 50 Output Total 400 / 400 500 / 500 Balance 3233.67 / 3233.67 -450 / -450 Lab / Micro Data 11/11/23 06:30 11/11/23 06:30 Labs: Laboratory Results - last 24 hr 11/10/23 11:27: POC Glucose 115 H 11/10/23 15:37: POC Glucose 229 H 11/11/23 06:30: WBC 8.5, RBC 4.56 L, Hgb 13.7, Hct 41.8, MCV 91.7, MCH 30.0, MCHC 32.8, RDW Std Deviation 46.5 H, RDW Coeff of [place] 13.8, Plt Count 211, MPV 9.7, Immature Gran % (Auto) 1.300 H, Neut % (Auto) 82.8 H, Lymph % (Auto) 10.9 L, [place] % (Auto) 4.9, Eos % (Auto) 0.0, Baso % (Auto) 0.1, Absolute Neuts (auto) 7.0, Absolute Lymphs (auto) 0.93, Nucleated RBC % 0, Sodium 135 L, Potassium 3.8, Chloride 105, Carbon Dioxide 26.0, Anion Gap 4 L, BUN 22 H, Creatinine 0.76, Estim Creat Clear Calc 101.78, Est GFR (MDRD) Af Amer 131, Est GFR (MDRD) Non-Af 108, BUN/Creatinine Ratio 28.8 H, Glucose 157 H, Calcium 9.0 Micro: Microbiology 10/27/23 14:12 Swab (Method) Nasal Screen MRSA/MSSA - Final Physical Exam Narrative Dressing removed. [place] drain removed. New dressing applied. Neurologically stable. Assessment & Plan Assessment/Plan (1) S/P cervical spinal fusion: PLAN: Plan Explained the posterior neck pain is expected with anterior neck surgery due to stretch out ligaments and muscles. Well-fitting snug collar would help with the pain. Drain removed this morning. Will obtain upright x-rays and work with PT this morning. Discharge home this afternoon.
[2023-11-11] MEDS: Ensure Surgery 237 ML LIQUID PO ×2 (08:51→11:04)
[2023-11-11] MEDS: Gabapentin 300 MG Capsule PO (08:51)
[2023-11-11 09:19] VITALS: BP 120/86; PULSE 68; RESP 16; TEMP 36.8; O2SAT 97
--- NOTE | 2023-11-11 09:55 | RAD_ITS ---
INDICATION: s/p acdf -- Please do upright AP lateral EXAMINATION/TECHNIQUE: X-RAY - XR Spine Cervical 4 or 5 Views COMPARISON: Prior study dated: 08/17/2023 FINDINGS: VERTEBRAE: Preserved vertebral body height. No fracture. No spondylolisthesis. Preservation of the normal cervical lordosis. DISCS: Anterior fusion of C4, C5 C5, C6 and C7 disc implants at the levels of C4-C5, C5-C6 and C6-C7 new since previous exam. No visualized complications. NECK SOFT TISSUES: Prevertebral soft tissue swelling consistent with recent surgery. Skin katie in the lower neck. LUNG APICES: Clear. RAD/Cerv Spine 2 or 3 Views IMPRESSION: Status post anterior fusion of the lower cervical spine with disc implants.. Electronically Signed: Qasim Spivey MD at 12:21 EST ,
[2023-11-11 11:13] VITALS: BP 115/85; PULSE 69; RESP 16; TEMP 36.6; O2SAT 97
--- NOTE | 2023-11-11 11:16 | NURSING ---
blood sugar 272
--- NOTE | 2023-11-11 11:50 | CASEMGMT ---
RN?CM?DESIGN DRAFTER?CM?to room to meet with patient for initial transition planning/care coordination?assessment.?RN?CM?introduced self and role at [facility].? Pt voices understanding and consents to?assessment?at this time.? Pt sitting up in chair w/C-collar in place in no distress at this time. Pt is A/O at this time and answers all questions appropriately.?? Care providers, pharmacy, and demographics verified/updated at this time. PCP: Coni Nick Specialists:Dr Sutton-ortho, Dr Zuñiga-GI, Dr Tian-neuro, Dr Pemberton-ortho. Pt also sees a GI surgeon but does not remember his name. Preferred Pharmacy: [facility] Retail Insurance: MCR A/B Prescription Benefit:?yes, [employer] Living Will/HPOA:?Has both LW and HCPOA, who is his daughter, Romina. Both documents are on file @ [facility]. LNOK: daughter, Romina (Talya). sister, Anne. Living Arrangements: Pt lives w/significant other, Lizbeth, in one-story home w/no steps thru front entrance and 2 steps thru back entrance. Pt states he is independent w/ADL's. Transportation:?Pt states drives self and states no transportation concerns at this time.?Lizbeth also drives. DME: States has the following DME:?walker, BIPAP, Dexcom CGM w/supplies. ?Pt states no need for further DME at this time.? HHC/SNF: No hx of either. No needs identified. Pt has been to OP therapy @ [facility] in the past. Pt wishes to return home and states has no concerns with going home at time of discharge.? CM?to follow for any discharge planning/needs.? Pt voices no concerns/needs at this time.? Advised pt to ask for?CM?if any questions/concerns/needs arise.? Voices understanding. PLAN:??Home. Pt aware to f/u with Dr Sutton in 2 weeks. Davis BSN?RN?CM
--- NOTE | 2023-11-11 11:53 | CASEMGMT ---
Met with?patient to complete HUANG form. HUANG form explained to patient who voiced understanding and signed form. Original form placed in pt?s chart and copy provided to?patient. Cecilia Melvin, Discharge Planning Asst
--- NOTE | 2023-11-11 14:16 | PN_ITS ---
Subjective Subjective Patient seen and examined. He had no complaints. Pain was fairly well controlled. Review of systems is otherwise negative. He has remained hemodynamically stable. Objective Data Objective Data Vital Signs: Vital Signs Temp Pulse Resp BP Pulse Ox O2 Del Method O2 Flow Rate 97.8 F 69 16 115/85 H 97 Room Air 2 11/11/23 11:13 11/11/23 11:13 11/11/23 11:13 11/11/23 11:13 11/11/23 11:13 11/11/23 11:13 11/10/23 13:36 Oxygen Flow Rate (L/min) 2 Oxygen Delivery Method Room Air Weight: 202 lb 13.204 oz Body Mass Index (BMI) 29.9 Intake & Output: Intake and Output for Last 24 Hours 11/09/23 11/10/23 11/11/23 23:59 23:59 23:59 Intake Total 3633.67 / 3633.67 600 / 600 Output Total 400 / 400 650 / 650 Balance 3233.67 / 3233.67 -50 / -50 Lab / Micro Data 11/11/23 06:30 11/11/23 06:30 Labs: Laboratory Results - last 24 hr 11/10/23 15:37: POC Glucose 229 H 11/11/23 06:30: WBC 8.5, RBC 4.56 L, Hgb 13.7, Hct 41.8, MCV 91.7, MCH 30.0, MCHC 32.8, RDW Std Deviation 46.5 H, RDW Coeff of [place] 13.8, Plt Count 211, MPV 9.7, Immature Gran % (Auto) 1.300 H, Neut % (Auto) 82.8 H, Lymph % (Auto) 10.9 L , [place] % (Auto) 4.9, Eos % (Auto) 0.0, Baso % (Auto) 0.1, Absolute Neuts (auto) 7.0, Absolute Lymphs (auto) 0.93, Nucleated RBC % 0, Sodium 135 L, Potassium 3.8, Chloride 105, Carbon Dioxide 26.0, Anion Gap 4 L, BUN 22 H, Creatinine 0.76, Estim Creat Clear Calc 101.78, Est GFR (MDRD) Af Amer 131, Est GFR (MDRD) Non-Af 108, BUN/Creatinine Ratio 28.8 H, Glucose 157 H, Calcium 9.0 Micro: Microbiology 10/27/23 14:12 Swab (Method) Nasal Screen MRSA/MSSA - Final Radiography Diagnostic Testing: Radiology Impression Cervical Spine X-Ray 11/10/23 06:30 IMPRESSION: Status post anterior C4 C7 fusion, gross anatomic alignment. Electronically Signed: Lata Sepulveda MD at 13:49 EST , Cervical Spine X-Ray 11/11/23 09:55 IMPRESSION: Status post anterior fusion of the lower cervical spine with disc implants.. Electronically Signed: Qasim Spivey MD at 12:21 EST , Physical Exam Const alert, oriented x3 and no apparent distress General Appearance: cooperative and well developed HEENT normocephalic, head/scalp atraumatic, moist oral mucous membranes and oropharynx normal HEENT Narrative: in neck brace Eyes PERRL and EOMs intact bilaterally Neck no lymphadenopathy, supple and no JVD Lymph Lymphatic: no lymphadenopathy noted and no lymphedema noted Resp normal respiratory effort, normal air movement and clear to auscultation bilaterally Cardio regular rate, regular rhythm, S1 normal heart sound, S2 normal heart sound and no murmurs GI normal to inspection, nondistended, normoactive bowel sounds, soft to palpation, non-tender and non-distended Extremity normal capillary refill, no clubbing, cyanosis or edema and no calf tenderness General Extremity: no tenderness to palpation of joints or extremities Skin General Skin Exam: no breakdown Neuro CN's II-XII intact bilaterally, no focal motor deficits, no sensory deficits noted and deep tendon reflexes 2+ bilaterally Motor Exam: strength 5/5 throughout Psych thought process normal and cooperative Appearance: appropriate Assessment & Plan Assessment/Plan (1) S/P cervical spinal fusion: PLAN: Plan #Cervical stenosis s/p C4-7 anterior cervical discectomy and fusion * today is POD 1 * management as per orthopedic spine surgery * PT/OT on board. 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 * Last A1C was 8.5 * on gabapentin. Lantus was cut down to 15 units. * ISS. Accuchecks ACHS * follows up with GI on outpatient basis for gastroparesis. * #Hyperlipidemia: on statin History of TIA: on statin. Aspirin held due to surgery. #History of osteoarthritis of the knees: s/p right knee replacement. DVT prophylaxis: as per primary service spine surgery. SCDs Charges/Coding Visit Charges Inpatient E&M: 62378 Subs Hosp L2
--- NOTE | 2023-11-11 15:10 | PHA.DC.MR.R ---
Pharmacy [place] Med Reconciliation Pharmacy Service has performed discharge medication reconciliation for this patient. Medication education papers prepared, patient discharged when counseling was attempted. The patient's discharge medication list was reviewed for discrepancies and discrepancies were resolved. Medications at Discharge Home Medications atorvastatin 80 mg tablet 80 mg PO QHS #90 tabs 05/21/20 aspirin 81 mg tablet,delayed release 81 mg PO DAILY heart 06/16/21 empagliflozin 10 mg tablet (Jardiance) 10 mg PO DAILY 06/16/21 diclofenac sodium 1 % topical gel 4 g topical .QID PRN Musculoskeletal pain #100 grams 05/27/23 tirzepatide 5 mg/0.5 mL subcutaneous pen injector (Mounjaro) 8.5 mg subcut SA 08/17/23 gabapentin 300 mg capsule 300 mg PO TID PRN NEUROPATHY 09/21/23 insulin detemir U-100 100 unit/mL (3 mL) subcutaneous pen (Levemir FlexPen) 25 unit subcut BID DIABETES 09/21/23 metolazone 5 mg tablet 5 mg PO Q6H 7 days #28 tabs 09/22/23 ondansetron HCl 8 mg tablet 8 mg PO Q8H #90 tabs 09/22/23 linaclotide 290 mcg capsule (Linzess) 290 mcg PO DAILY PRN cramps #30 caps 09/27/23 metoclopramide HCl 15 mg/spray nasal spray with pump (Gimoti) 1 spray intranasal TID 10/27/23 acetaminophen 500 mg tablet 1,000 mg (2 x 500 mg) PO Q8 7 days #42 tabs 11/11/23 meloxicam 15 mg tablet 15 mg PO DAILY 30 days #30 tabs 11/11/23 methocarbamol 500 mg tablet 750 mg (1.5 x 500 mg) PO Q8H PRN Pain/spasms 7 days #32 tabs 11/11/23 oxycodone 5 mg tablet 2.5 - 5 mg (0.5 - 1 x 5 mg) PO Q6H PRN pain 7 days #28 tabs 11/11/23 sennosides 8.6 mg-docusate sodium 50 mg tablet (Stool Softener-Stimulant Laxative) 2 tab PO BID PRN constipation 7 days #28 tabs 11/11/23
== END 2023-11-11 14:50 | disposition home or self-care (01) ==
LOC: SDC 11:27 → MS3 11:27
PROVIDERS: Anesthesiology; Admitting Provider Orthopaedic Surgery Orthopaedic Surgery of the Spine; Referring Provider Orthopaedic Surgery Orthopaedic Surgery of the Spine; Visit Provider Orthopaedic Surgery Orthopaedic Surgery of the Spine
PROC: (CPT 22551; principal; 2023-11-10 07:00)
DX: M48.02 Spinal stenosis, cervical region (principal); E11.40 Type 2 diabetes mellitus with diabetic neuropathy, unspecified; E11.43 Type 2 diabetes mellitus with diabetic autonomic (poly)neuropathy; Z79.4 Long term (current) use of insulin; Z79.82 Long term (current) use of aspirin; Z79.84 Long term (current) use of oral hypoglycemic drugs; E78.00 Pure hypercholesterolemia, unspecified; M43.12 Spondylolisthesis, cervical region; I10 Essential (primary) hypertension; Z79.899 Other long term (current) drug therapy; R53.1 Weakness; K31.84 Gastroparesis; Z86.73 Personal history of transient ischemic attack (TIA), and cerebral infarction without residual deficits
CPT/HCPCS: 22551; 22845; 22552 ×2; 20931; 00670; 36415; 72040; 76000; 80048; 80053; 82962; 83036; 83735; 85025; 85610; 86703; 86706; 86708; 86803; 87081; 93005; 94668; 96361; 96365; 96366; 96375; 96376; 97161; 97166; 99221; A4648; C1713; J7120; G0378; J2405; J3475

== ENCOUNTER 2024-02-02 15:30 | Outpatient (RCR) | payer MEDICARE, SELFPAY ==
--- NOTE | 2023-12-08 14:10 | HP.PTEVAL ---
Patient's Visit Information Visit Information Visit Information: LINDA SWAN is a 68 year old M referred to Physical Therapy by Dr. Darius Sutton MD with a diagnosis of Cervical spine fusion 11/06/23. Date of Evaluation: 12/08/23 Physical Therapist: Luis Eduardo Pierre, PT, ATC Visit Plan Frequency: 2-3x /Week Duration: 2-4 Months Plan: Gentle cervical spine ROM, scap stab ex's, UBE, and HEP Subjective Subjective: DOS: 11/06/23. Pt reports he had a cervical fusion performed at that time. Pt reports he had R UE pain and numbness prior to having this surgery which has made a significant difference. Pt reports he has been wearing his neck brace constantly since his date of surgery. Pt reports prior to his surgery, he wasn't able to lift a gallon of milk with his L UE prior to surgery. Pt reports he is to see his doctor in 2 weeks and hopes to be able to lose the brace at that time. Pt reports the only lifting limit he has been given is don't lift anything heavy. Pt reports he was told to move slowly through therapy as he has soft bones in his neck and it is going to take a while to heal. 2/10 pain at rest , and increased to 5/10 at worst. Pt reports occasional sleep difficulty at this time secondary to pain. Pain Neck pain: Pain Intensity (Out of 10): 2 Pain Intensity Range: 5 Objective Objective: Neuro: B UE sensation is WNL to light touch. B bicipital reflex= 1/3 ROM: Pt is moderately limited in all planes MMT: R UE is grossly 4-/5 throughout while L UE is 5/5 throughout Balance/Special Test Scores Oswestry Neck Score: 41 Goals Goal 1:: Decrease neck pain x 50% to aid with sleep Goal Time Frame: 4-6 Weeks Goal 2:: Increase R UE strength x 1 grade to aid with IADL's Goal Time Frame: 4-6 Weeks Goal 3:: Increase cervical spine ROM x 1 grade to aid with being able to drive again without limitation Goal Time Frame: 4-6 Weeks Goal 4:: I with HEP Goal Time Frame: 4-6 Weeks Rehabilitation Potential Physical Therapy Diagnosis: Pt has neck pain, limited ROM, and neck pain secondary to a cervical spine fusion Rehabilitation Potential: Good Anticipated Interventions Patient/Client Instruction: Educate patient on: Condition and Plan of Care For the Purpose of:: To improve self management Therapeutic Exercise to Include: Strength training, Endurance training, Postural training, Flexibilty training and Scapular Strength/Stabilization For the Purpose of:: To decrease pain, To increase ROM and To improve muscle performance and motor function Cryotherapy (ice pack, ice massage): Yes For the Purpose of:: To decrease pain Text: Thank you for the opportunity to evaluate your patient. For Medicare and Medicare HMO plans, please review the plan of care and approve it. It will need to be FAXED BACK to us at [phone] for Medicare purposes. For Medicare only, by signing this I certify the plan of care. Please let me know if there are questions or concerns regarding this plan of care. Physician Signature: Date:
--- NOTE | 2024-02-04 16:01 | HP.PTDCSUM_ITS ---
Discharge Summary D/C summary: It has been my pleasure to treat LINDA SWAN referred by Dr. Darius Sutton MD, with the diagnosis of Cervical spine fusion 11/06/23 for a total of 17 visit(s). Discharge Date: 02/04/24 Please see the following information for a summary of their discharge status. Subjective Subjective: Pt reports he feels ready to be done Pain Neck pain: Pain Intensity (Out of 10): 0 Overall Improvement % Improvement: 100 Objective Objective/Function: Research Methods Instructor strength: B UE's 80 #F MMT: B UE's are 5/5 with exception to R shoulder flex= m4-/5 Pain 0/10 Pt is I with HEP Goals Goal 1:: Decrease neck pain x 50% to aid with sleep Goal Progress: Goal Met Goal 2:: Increase R UE strength x 1 grade to aid with IADL's Goal Progress: Goal Met Goal 3:: Increase cervical spine ROM x 1 grade to aid with being able to drive again without limitation Goal Progress: Goal Met Goal 4:: I with HEP Goal Progress: Goal Met Plan Plan: Discharge to HEP D/C Information d/c sentence: If there are questions or concerns regarding this patient's physical therapy, please feel free to call me at [phone]. Thank you for the referral of this patient. Sincerely, Luis Eduardo Pierre, PT, ATC Balance/Gait/Functional tests Balance/Special Test Scores Oswestry Neck Score: 8 Improvement % Improvement: 100
== END 2024-02-02 19:00 | disposition home or self-care (01) ==
LOC: PT 15:30
PROVIDERS: Referring Provider Orthopaedic Surgery Orthopaedic Surgery of the Spine; Visit Provider Orthopaedic Surgery Orthopaedic Surgery of the Spine
DX: Z98.1 Arthrodesis status (principal)
CPT/HCPCS: 97110; 97140; 97161

== ENCOUNTER → 2024-04-11 | Outpatient (CLI) | payer MEDICARE, SELFPAY ==
--- NOTE | 2024-04-11 07:27 | CT_ITS ---
STUDY: CT ABDOMEN AND PELVIS WITH CONTRAST REASON FOR EXAM: Male, 69 years old. Evaluation for inguinal hernia. History of prior umbilical hernia repair. RADIATION DOSAGE (If Supplied By Facility): CTDIvol = ( 16.38 ) mGy, DLP = ( 1222.19 ) mGycm TECHNIQUE: Transaxial images were obtained from the dome of the diaphragm to the symphysis pubis with oral contrast. Oral and amp; IV Readi-CAT and amp; 100mL Isovue-370 was administered. Sagittal and coronal images were reconstructed. Individualized dose optimization techniques were used for this CT. COMPARISON: Comparison is made with prior study dated May 27, 2022. FINDINGS: The visualized lung bases are unremarkable. Coronary artery calcification. There is decreased attenuation of the liver consistent with steatosis. Normal gallbladder and extrahepatic biliary system. Normal spleen. Normal pancreas. Normal bilateral adrenal glands. Normal right kidney. 1 cm cyst in the posterior upper pole of the left kidney. Normal visualized stomach. Normal small intestine. Normal colon. The appendix is visualized and appears normal. There is atherosclerotic calcification of the abdominal aorta and its major visceral branches, without a demonstrated aneurysm. Normal inferior vena cava. Normal retroperitoneum. Normal urinary bladder. Central prostatic calcification. The prostate measures 3.7 cm x 5.5 cm. Small left inguinal hernia containing fat. There are mild degenerative changes of the visualized lumbar spine. CT/Abdomen/Pelvis WITH Contrast IMPRESSION: Small fat-containing left inguinal hernia. Electronically Signed: Edinson Chambers MD at 14:48 EDT ,
[2024-04-11 07:52] LABS: CREATININE FINGERSTICK < 1.0 mg/dL (0.70-1.30); EGFR FINGERSTICK > 60.0000 mL/min (>60)
== END | disposition home or self-care (01) ==
LOC: CT 07:26
PROVIDERS: Referring Provider Internal Medicine Gastroenterology; Visit Provider Internal Medicine Gastroenterology
DX: K46.9 Unspecified abdominal hernia without obstruction or gangrene (principal)
CPT/HCPCS: 74177; Q9967

== ENCOUNTER → 2024-04-18 | Outpatient (CLI) | payer MEDICARE, SELFPAY ==
--- NOTE | 2024-04-18 08:51 | US_ITS ---
STUDY: ABDOMINAL ULTRASOUND - ELASTOGRAPHY REASON FOR VISIT: Male, 69 years old. Fatty infiltration liver. TECHNIQUE: Liver stiffness measurements were obtained on a [employer] RS 85 ultrasound machine using a CA 1-7 probe following the SRU guidelines. 3 measurements were obtained using a 2-D-SWE method. TheIQR/M was 12% suggesting a quality data set. TECHNICAL QUALITY: Adequate. COMPARISON: FINDINGS: Liver: There is no demonstrated mass lesion. Median liver stiffness measured 5.3 kPa. Abdomen: There is no demonstrated mass lesion. US/ABD Limited w/ Elastography IMPRESSION: Liver stiffness measures 5.3 kPa compatible with F0-F1 Metavir score. Electronically Signed: Dustin Hickman MD at 12:58 EDT ,
== END | disposition home or self-care (01) ==
PROVIDERS: PCP Nurse Practitioner Family; Referring Provider Internal Medicine Gastroenterology; Visit Provider Internal Medicine Gastroenterology
DX: K76.0 Fatty (change of) liver, not elsewhere classified (principal)
CPT/HCPCS: 76705; 76981

== ENCOUNTER 2024-08-31 09:40 | Day surgery (SDC) | payer MEDICARE, SELFPAY ==
[2024-08-28 12:02] LABS: Hematocrit 40.8 % (40-54); Hemoglobin 13.9 g/dL (13.0-16.5); Mean Corp Hgb Conc 34.1 g/dL (32-36); Mean Corpuscular Hgb 32.2 pg (27.0-32.0); Mean Corpuscular Volume 94.4 fL (80-94); Mean Platelet Vol. 9.9 fl (6.2-12.0); Platelet Count 153 K/mm3 (150-450); RBC Distribution Width CV 13.5 % (11.6-14.6); RBC Distribution Width SD 46.5 fl (35.1-43.9); Red Blood Count 4.32 M/mm3 (4.6-6.2); White Blood Count 3.8 K/mm3 (4.4-11.0)
[2024-08-28 12:48] LABS: Hemoglobin A1c 6.7 % (3.8-5.6)
[2024-08-28 13:11] LABS: Anion Gap 9 (5-15); BUN 15 mg/dL (7-18); BUN/Creat Ratio 17.9 RATIO (10-20); Calcium,Total 9.2 mg/dL (8.5-10.1); Chloride 107 mmol/L (98-107); Creatinine, Serum 0.84 mg/dL (0.70-1.30); EST Glomerular Filtration Rate 97 mL/min (>60); Est Glom Filt Rate - Afr Amer 117 mL/min (>60); Glucose 158 mg/dL (74-106); Potassium 3.7 mmol/L (3.5-5.1); Sodium Level 140 mmol/L (136-145)
[2024-08-31] VITALS (8 sets, daily range): BP systolic 107–143; BP diastolic 72–91; PULSE 57–77; RESP 16–18; TEMP 36.1–36.6; O2SAT 97–100; BMI 29.0
--- NOTE | 2024-08-31 10:31 | PCM.PRE.AN2 ---
ASA Classification* ASA Classification ASA Classification: 3 Assessment & Plan Anesthesia* Anesthesia Assessment Anesthesia Assessment: Discussed sedation and/or anesthesia options, risks, benefits, and alternatives with patient/parents/legal guardian/POA. Questions invited. The patient/parents/legal guardian/POA seems to understand and agrees to proceed with anesthesia plan. Reviewed the physical assessment, medical history, allergy history and patient home medications list prior to surgery/procedure/anesthetic and documented any changes. Performed airway and anesthesia risk assessments. Anesthesia Type Anesthesia Type: General Anesthesia Focused Assessment* Temperature: 97.9 F Pulse Rate: 74 Blood Pressure: 107/91 Respiratory Rate: 16 Pulse Ox: 100 Airway Assessment Mouth opens: >3 cm Mallampati Score: II Focused Labs Anesthesia Preop lab: CBC WBC 3.8 K/mm3 (4.4-11.0) L 08/28/24 11:39 RBC 4.32 M/mm3 (4.6-6.2) L 08/28/24 11:39 Hgb 13.9 g/dL (13.0-16.5) 08/28/24 11:39 Hct 40.8 % (40-54) 08/28/24 11:39 Plt Count 153 K/mm3 (150-450) 08/28/24 11:39 CHEMISTRY Potassium 3.7 mmol/L (3.5-5.1) 08/28/24 11:39 Sodium 140 mmol/L (136-145) 08/28/24 11:39 Magnesium 2.0 mg/dL (1.6-2.6) 10/27/23 14:12 BUN 15 mg/dL (7-18) 08/28/24 11:39 Creatinine 0.84 mg/dL (0.70-1.30) 08/28/24 11:39 Glucose 158 mg/dL (74-106) H 08/28/24 11:39 POC Glucose 229 mg/dL (74-106) H 11/10/23 15:37 TSH 1.95 uIU/mL (0.358-3.74) 05/19/21 12:02 COAG PT 12.2 SECONDS (11.7-14.9) 10/27/23 14:14 Pre-Assessment Diagnosis/Proposed Procedure Planned Operative Procedure(s): Lap Robotic left Inguinal Hernia w/mesh poss right Anesthesia History Anesthesia History - internal controls manager: Anesthesia History - internal controls manager Hx Hospitalization No 08/22/24 12:09 Any Problems With Anesthesia No 08/22/24 12:09 Cholinesterase deficiency No 08/22/24 12:09 You/Your Family Experience No 08/22/24 12:09 fever (hyperthermia) with Relationship Recent Exposure to Contagious No 08/31/24 10:15 Disease Does patient have nerve No 08/22/24 12:09 stimulator Patient instructed to have device shut off --Does patient have Pacemaker No 08/31/24 10:15 or ICD? When Was Last Pacemaker Check QUESTION #4 FULL TEXT: You/Your Family Experience fever (hyperthermia) with Anesthesia Last Oral Intake Last Oral intake: Last Oral Intake NPO since 00:00 08/31/24 10:15 Meds taken in AM with sips of No 08/31/24 10:15 water? Meds patient instructed to take am of surgery PONV PONV - internal controls manager: PONV - internal controls manager Female No 08/22/24 12:09 HX of Motion Sickness No 08/22/24 12:09 HX of N/V After Surgery No 08/22/24 12:09 Non-Smoker Yes 08/22/24 12:09 Duration of Surgery greater Yes 08/22/24 12:09 than 60 minutes Number of Risk Factors 2 08/22/24 12:09 PONV Score Moderate Risk 08/22/24 12:09 Height & Weight Height & Weight: Anesthesia: Height & Weight Height 5 ft 9 in 08/31/24 10:15 Weight: 89 kg 08/31/24 10:15 Body Mass Index (BMI) 29.0 08/31/24 10:15 Respiratory Assessment Respiratory Assessment - internal controls manager: Respiratory Tract Infection Hx - internal controls manager Hx Respiratory Tract Infection No 08/22/24 12:09 STOP Sleep Apnea STOP Sleep Apnea - internal controls manager: STOP Sleep Apnea - internal controls manager Hx Hypertension Yes: OFF MEDS FOR 3 YRS 08/22/24 12:09 Hx Sleep Apnea Yes 08/22/24 12:09 CPAP No: NOT USING PRESENTLY 08/22/24 12:09 BIPAP No 08/22/24 12:09 Do you snore loudly (louder than talking or can be heard Do you often feel tired/ fatigued/ sleepy during daytime? Has anyone observed you stop breathing during sleep? STOP Results Positive 08/22/24 12:09 QUESTION #5 FULL TEXT : Do you snore loudly (louder than talking or can be heard through closed doors)? Tobacco Use History Tobacco Use History - internal controls manager: Tobacco Use History - internal controls manager Tobacco Use Smoking Status Never smoker 08/22/24 12:09 Hx Tobacco Use No 08/22/24 12:09 Years Smoking Packs Smoked per Day Smoking Cessation Date was within the last 15 years Hx Smoking Cessation Date Hx Smoking Cessation No 08/22/24 12:09 Counseling Hematologic Medial History Hematologic Hx - internal controls manager: Hematologic Medical Hx - documentation consultant Hx of Blood Transfusion No 08/22/24 12:09 Hx of Transfusion in last 3 No 08/22/24 12:09 Months Date of Last Transfusion (if within last 3 months) Ever experience any problems No 08/22/24 12:09 with transfusion(s)? Specify any problems Hx of Preganancy in last 3 N/A 08/22/24 12:09 Months Nurse Filling Out Transfusion VCHRISTIN 08/22/24 12:09 & Questions: Date: 08/22/24 08/22/24 12:09 Time: 12:10 08/22/24 12:09 Patient unable to answer at this time (ie. confused, unrespo /Reproduction History /Reproductive History - internal controls manager: /Reproductive Hx- internal controls manager Hx Now Gestational Age (in weeks): EDC: Hx Hx Para Hx Section SAB No 08/22/24 12:09 Active Medications Active Medications: Current Medications Generic Name Dose Route Start Last Admin Trade Name Freq PRN Reason Stop Dose Admin Cefazolin Sodium 2 gm/ N/A 20 mls @ 400 mls/hr 08/31/24 11:30 IV 08/31/24 11:32 PREOP ONE Lactated Ringer's 1,000 mls @ 15 mls/hr 08/31/24 10:00 IV 09/05/24 23:19 .Q48H [facility] Protocol PFSH Medical History Gastric reflux Pinched nerve in shoulder Decreased range of knee movement Syncope Dietary restriction History of pain when walking Hx of tilt table evaluation Hypertension Nausea Arthritis Osteoarthritis of right knee Low iron Non-smoker CPAP (continuous positive airway pressure) dependence Anemia Lightheadedness Wears partial dentures Wears glasses High cholesterol Back pain History of echocardiogram Cardiac murmur GERD (gastroesophageal reflux disease) Anxiety Hyperlipidemia Type 2 diabetes mellitus Hypertension Imbalance Aphasia Dysarthria Home Medications ?Medication ?Instructions ?Recorded ?Last Taken ?Type aspirin 81 mg tablet,delayed 81 mg PO DAILY heart 06/16/21 08/28/24 History release empagliflozin 10 mg tablet 10 mg PO DAILY 06/16/21 08/30/24 History (Jardiance) tirzepatide 5 mg/0.5 mL 7.5 mg subcut SA 08/17/23 08/25/24 History subcutaneous pen injector (Mounjaro) insulin detemir U-100 100 unit/mL 25 unit subcut PRN DIABETES 09/21/23 08/30/24 History (3 mL) subcutaneous pen (Levemir FlexPen) vitamin E 268 mg (400 unit) capsule 268 mg PO DAILY 08/22/24 08/30/24 History Allergy/AdvReac Type Severity Reaction Status Date / Time No Known Allergies Allergy Verified 08/31/24 10:12 Family History Mother Breast cancer Diabetes Father Colon cancer Surgical History History of fusion of cervical spine Hx of total knee arthroplasty History of esophagogastroduodenoscopy (EGD) History of umbilical hernia repair History of tonsillectomy History of selective injection of anesthetic agent around lumbar nerve root History of colonoscopy with polypectomy History of excision of mass (~05/2021) Social History Smoking Status: Never smoker Electronic Cigarette Use: not used second hand exposure: No alcohol intake: current alcohol intake frequency: holidays/special occasions only details: occasionally substance use type: does not use what type of physical activity do you participate in: none john/catholic: None seatbelt use: never Review of Systems (Anesthesia) ROS Narrative System reviewed and no additional complaints, except as documented.
[2024-08-31 10:37] LABS: Bedside Glucose 130 mg/dL (74-106)
--- NOTE | 2024-08-31 11:05 | PCM.HP.BLA ---
History and Physical Date of Admission: 08/31/24 Intake Vital Signs 11/10/2412:28 04/14/2410:45 05/02/2409:07 Height 5 ft 9 in 5 ft 9 in 5 ft 9 in Weight: 210 lb BMI 31.0 BP 115/76 Blood Pressure Location Rt brachial Position Sitting Respiration 16 Intake Visit Reasons: INGUINAL HERNIA Chief Complaint: [facility] Senior Agricultural Assistant Required: No Is patient in pain?: No Allergies No Known Allergies Allergy (Verified 05/02/24 09:08) Medications ?Medication ?Instructions ?Recorded ?Confirmed ?Type aspirin 81 mg tablet,delayed 81 mg PO DAILY heart 06/16/21 05/02/24 History release empagliflozin 10 mg tablet 10 mg PO DAILY 06/16/21 05/02/24 History (Jardiance) diclofenac sodium 1 % topical gel 4 g topical .QID PRN 05/27/23 05/02/24 Rx Musculoskeletal pain #100 grams tirzepatide 5 mg/0.5 mL 8.5 mg subcut SA 08/17/23 05/02/24 History subcutaneous pen injector (José Luis) gabapentin 300 mg capsule 300 mg PO TID PRN NEUROPATHY 09/21/23 05/02/24 History insulin detemir U-100 100 unit/mL 25 unit subcut BID DIABETES 09/21/23 05/02/24 History (3 mL) subcutaneous pen (Levemir FlexPen) ondansetron HCl 8 mg tablet 8 mg PO Q8H #90 tabs 09/22/23 05/02/24 Rx linaclotide 290 mcg capsule 290 mcg PO DAILY PRN cramps #30 09/27/23 05/02/24 Rx (Linzess) caps Have you fallen in the past year?: No PFSH Medical History Pinched nerve in shoulder Decreased range of knee movement Syncope Dietary restriction History of pain when walking Hx of tilt table evaluation Hypertension Nausea Arthritis Osteoarthritis of right knee Low iron Non-smoker CPAP (continuous positive airway pressure) dependence Anemia Lightheadedness Wears partial dentures Wears glasses High cholesterol Back pain History of echocardiogram Cardiac murmur GERD (gastroesophageal reflux disease) Anxiety Hyperlipidemia Type 2 diabetes mellitus Hypertension Imbalance Aphasia Dysarthria Surgical History History of fusion of cervical spine Hx of total knee arthroplasty History of esophagogastroduodenoscopy (EGD) History of umbilical hernia repair History of tonsillectomy History of selective injection of anesthetic agent around lumbar nerve root History of colonoscopy with polypectomy History of excision of mass (~05/2021) Family History Mother Breast cancer DiabetesFather Colon cancer Social History Smoking Status: Never smoker Electronic Cigarette Use: not used second hand exposure: No alcohol intake: current alcohol intake frequency: holidays/special occasions only details: occasionally substance use type: does not use what type of physical activity do you participate in: none john/sikhism: None seatbelt use: never HPI HPI HPI: Patient is a 69-year-old male here with left inguinal hernia. He has had 8 umbilical hernia repair in the past. He reports that for the past few months he has been having bulging in the left groin especially when he bears down to have a bowel movement. He says that the bulge goes back in pretty easily. It is causing him pain. ROS General General: Yes weight change and fatigue; No appetite, colon cancer, breast cancer or weakness HEENT HEENT: No difficulty swallowing, eye injury, eye surgery, swollen glands or hoarseness Endo Endocrine: Yes diabetes mellitus; No thyroid disease, thyroid cancer, Hair loss, heat intolerance or cold intolerance Skin Skin: No rash or changing moles Breast Breast: No left breast lump, right breast lump, nipple discharge, breast pain, abnormal mammogram, abnormal US or breast enlargement Musc Musculoskeletal: Yes back problems and arthritis; No rheumatoid arthritis, gout or joint pain Cardio Cardiovascular: Yes murmur; No pacemaker, heart disease, atrial fibrillation, high blood pressure, heart attack, heart stent, palpitations, shortness of breat with exertion or chest pain Psych Psychiatric: Yes anxiety; No depression or hearing voices Resp Respiratory: No shortness of breath, Yes sleep apnea, No cough, No COPD, No asthma, No emphysema and No wheezing Gastro Gastrointestinal: Yes abdominal pain, Yes nausea or vomiting, No diarrhea, No constipation, No blood in stool, Yes acid reflux, No hemorrhoids, No ulcers, No gallbladder problem and No black,tarry stools Nima Hematologic: No blood thinners, No blood disorders, No bleeding, No anemia and No blood clots Neuro Neurologic: No system reviewed and no additional complaints, except as documented, No as per HPI, No abnormal gait, No abnormal hearing, No abnormal movements, No abnormal speech, No behavioral changes, No burning sensations, No confusion, No convulsions, No disequilibrium, No dizziness, No localized weakness, No frequent falls, No headache(s), No lack of coordination, No loss of vision, No memory loss, No numbness, No other visual disturbances, No radicular pain, No restless legs, No sensory deficit, No syncope, No tingling, No tremor(s), No weakness and No other Exam Const General: cooperative Orientation: alert and oriented x3 HENMT Head: normal to inspection Neck Neck: normal visual inspection and full ROM Chest Chest palpation & inspection: normal inspection of the chest Resp Effort & Inspection: normal respiratory effort Auscultation: clear to auscultation bilaterally Cardio Rate: regular rate Rhythm: regular rhythm GI Inspection: non-distended Palpation: soft, hernia indirect inguinal on the left and nontender Skin General: no rashes or lesions noted Neuro General: patient alert and patient oriented x3 Extrem General: full ROM Psych Appearance: grossly normal Mental Status: mental status grossly normal Assessment and Plan Assessment and Plan (1) Left inguinal hernia: Status: Acute Plan: The patient has a left inguinal hernia that is causing him pain. He had a CT scan which showed a fat-containing hernia on the left. I discussed robotic assisted laparoscopic left inguinal hernia repair with mesh with the patient in detail. I discussed the risks including not limited to bleeding, infection, injury other organ such as the bowel, bladder, ureter or blood supply to the testicle. Patient understands the risks and is willing to proceed. Patient would like this done in the fall as he has a strenuous summer job. Patient will hold his Jardiance and Mounjaro and aspirin for the procedure. Ángel Drake MD Pager: [facility] [address] [place] [address], [address] [place] [address] Office: I have examined the patient and the H&P has been reviewed. There are no clinical changes since date of exam.
[2024-08-31] MEDS: Cefazolin 2 GM in Syringe IV (11:34)
[2024-08-31] MEDS: Bupivacaine Mpf 0.5% 30 ML VIAL (11:53)
--- NOTE | 2024-08-31 12:36 | OP.PCM_ITS ---
Operative Report (Standard) Operative Information Surgery/Procedure Performed: Robotic assisted laparoscopic left inguinal hernia repair with mesh Surgeon: Ángel Drake Date of Procedure: 08/31/24 Procedure Start Time: 11:53 Procedure Stop Time: 12:35 Pre-Operative Diagnosis: Left inguinal hernia Post-Operative Diagnosis: Left inguinal hernia Select all DRAINS/GRAFTS/IMPLANTS that apply: None Type of Anesthesia: General/Regional Estimated Blood Loss: 5 Specimen collected: No Description of surgery: Patient was brought back to the operating room and general anesthesia was induced. The abdomen was prepped and draped in usual sterile fashion. Superior to the umbilicus a small midline incision was created and the fascia was grasped and elevated and a Veress needle was placed into the abdomen and a drop test was performed. Next the abdomen was insufflated 15 mmHg and the Veress needle was removed. The port was placed into the abdomen and then the camera was placed into the abdomen. There were no injuries from entry. The patient was placed in Trendelenburg position and the pelvis was examined. The patient had a direct left inguinal hernia with nothing on the right. Next under direct visualization an 8 mm port was placed in the left lateral and right lateral abdomen and then the robot was docked. Using electrocautery scissors the peritoneum was incised in the left lower quadrant and then dissection was carried inferiorly until the hernia sac was identified and it was bluntly dissected free and reduced. There was a large direct defect. This was reapproximated with a running #1 strata fix suture. Once this was closed a full ProGrip mesh was placed over the hernia and unfolded. There was good coverage throughout. The patient did not have any indirect inguinal hernia but had a small cord lipoma that was removed. Next the peritoneum was reapproximated using a running 3 OV lock suture. The peritoneum completely covered the mesh at the end of the case. Patient was awoken and taken to PACU in stable condition and tolerated the procedure well. Scrotum was checked at the end of the case and contain both testicles. Surgical Findings: Left direct inguinal hernia Plaster Whittler signalling and communications engineer: Yes Manager Of Project Management: Isidro Leonard Tasks completed by auction assistant: Opening and Closing Complications Complications: No Admit VTE Documentation VTE Mechan Device Prophylaxis: SCD's
--- NOTE | 2024-08-31 12:42 | DCINST_ITS ---
Discharge Instructions Procedure Hernia Diet Discharge Diet: Light diet - advance as tolerated Activity Discharge Activity: May Not Drive (for 2-3 days or while taking narcotic pain meds.) and May Shower (tomorrow over bandages) Lifting Restrictions: 20 pounds for 4 weeks. Additional Activity Instructions:: Climbing stairs is fine, walking is encouraged. Sitting in bed may be uncomfortable. Sitting up using your lateral muscles (sitting up sideways) is usually more comfortable. Do not drive, work heavy equipment of sign legal documents for 24 hours. If your hernia repair was an inguinal repair, you may have scrotal swelling, an ice pack and/or athletic support can provide more comfort. Pain medications may cause nausea, you should typically eat light foods as you take your pain medications. Pain medications may also cause constipation. If you have difficulty with this, discuss with your doctor. Alternate Tylenol and ibuprofen for pain control, oxycodone for breakthrough pain Dressing / Incision Call your doctor if your incision/area has: Continuous Slow Oozing, Sudden Increased Bleeding, Increased Pain/ Swelling, Increased Redness and Foul Smelling Discharge Call your doctor if you observe: Fever of 101 or Higher Suture Line Care: Avoid Pulling/Pushing and Avoid Pinching/Bending Remove Dressing in: 2 days (Remove clear bandages in 2 days, remove Steri-Strips in 7 to 10 days.) Follow Up Care Please Follow Up With: Ángel Drake MD When: Please call to schedule 2 week follow up appointment. [phone] Test Results: Test results from this visit will be discussed in further detail at your follow- up appointment, if applicable. Discharge Plan Admission Attending Provider: Ángel Drake Primary Care Provider: Svetlana Noyola Instructions Print Language: Romansh Discharge Orders/Prescriptions Prescriptions: No Action Jardiance 10 mg tablet 10 mg PO DAILY aspirin 81 mg tablet,delayed release (DR/EC) 81 mg PO DAILY Patient Comments: HOLD 3 DAYS PRIOR Mounjaro 5 mg/0.5 mL pen injector 7.5 mg subcut SA Patient Comments: HELD 1 WEEK PRIOR TO PROCEDURE LAST DOSE 08/19/2024 Levemir FlexPen 100 unit/mL (3 mL) insulin pen 25 unit SUBCUT PRN vitamin E 268 mg (400 unit) capsule 268 mg PO DAILY Referrals / Follow Up: Dennys,Svetlana VSC, SENIOR RESEARCH EXECUTIVE-C [Primary Care Provider] - Disposition Disposition (needs filled in before D/C Order can be placed): Home, Self Care
--- NOTE | 2024-08-31 12:44 | PCM.POST.ANE ---
Anesthesia: Postop Eval I Current Vital Signs Temperature: 97.2 F Pulse Rate: 77 Blood Pressure: 131/86 Respiratory Rate: 18 Pulse Ox: 98 Assessment Airway patent: Yes Spontaneous unlabored respirations: Yes nausea: No Vomiting: No Anesthesia Complication: No Fluid Hydration Crystalloid volume administer (ml): 1,000 Total IV fluid infused: 1,000 Progress Note Anesthesia document: Postop Eval 1 completed: Yes
[2024-08-31] MEDS: oxyCODONE 5 MG Tablet PO (13:30)
--- NOTE | 2024-08-31 16:49 | POSTOPAN2_ITS ---
Anesthesia Postop Eval I Sum Postop Eval Completion status Anesthesia document: Postop Eval 1 completed: Yes Anesthesia Postop Eval I Summary Anesthesia Postop Eval I Summary: Anesthesia Postop Eval I: Assessment Summary Airway patent Yes 08/31/24 12:44 HEALTH SERVICES INFORMATION SPECIALIST.CSIR Spontaneous unlabored Yes 08/31/24 12:44 HEALTH SERVICES INFORMATION SPECIALIST.CSIR respirations Mental status nausea No 08/31/24 12:44 HEALTH SERVICES INFORMATION SPECIALIST.CSIR Vomiting No 08/31/24 12:44 HEALTH SERVICES INFORMATION SPECIALIST.CSIR Anesthesia Postop Eval I: Fluid Summary Crystalloid volume administer 1,000 08/31/24 12:44 HEALTH SERVICES INFORMATION SPECIALIST.CSIR (ml) Colloids volume administered ( ml) Blood Product volume administered (ml) Total IV fluid infused 1,000 08/31/24 12:44 HEALTH SERVICES INFORMATION SPECIALIST.CSIR Anesthesia Postop Eval I: Summary Notes Anesthesia Complication No 08/31/24 12:44 HEALTH SERVICES INFORMATION SPECIALIST.CSIR Anesthesia Complication Comment: Post-operative progress note Anesthesia: Postop Eval II Evaluation Mental status: Awake Pain Level: 0 nausea: No Vomiting: No
--- NOTE | 2024-08-31 16:49 | PCM.POSTANE2 ---
Anesthesia Postop Eval I Sum Postop Eval Completion status Anesthesia document: Postop Eval 1 completed: Yes Anesthesia Postop Eval I Summary Anesthesia Postop Eval I Summary: Anesthesia Postop Eval I: Assessment Summary Airway patent Yes 08/31/24 12:44 UNDERWRITING ANALYST.CSIR Spontaneous unlabored Yes 08/31/24 12:44 UNDERWRITING ANALYST.CSIR respirations Mental status nausea No 08/31/24 12:44 UNDERWRITING ANALYST.CSIR Vomiting No 08/31/24 12:44 UNDERWRITING ANALYST.CSIR Anesthesia Postop Eval I: Fluid Summary Crystalloid volume administer 1,000 08/31/24 12:44 UNDERWRITING ANALYST.CSIR (ml) Colloids volume administered ( ml) Blood Product volume administered (ml) Total IV fluid infused 1,000 08/31/24 12:44 UNDERWRITING ANALYST.CSIR Anesthesia Postop Eval I: Summary Notes Anesthesia Complication No 08/31/24 12:44 UNDERWRITING ANALYST.CSIR Anesthesia Complication Comment: Post-operative progress note Anesthesia: Postop Eval II Evaluation Mental status: Awake Pain Level: 0 nausea: No Vomiting: No
== END 2024-08-31 14:10 | disposition home or self-care (01) ==
LOC: SDC 09:40 → AC 09:42
PROVIDERS: Anesthesiology; PCP Nurse Practitioner Family; Referring Provider Surgery; Visit Provider Surgery
PROC: 0YQ64ZZ Repair Left Inguinal Region, Percutaneous Endoscopic Approach (ICD-10-PCS; CPT 49650; principal; 2024-08-31 11:10)
DX: K40.90 Unilateral inguinal hernia, without obstruction or gangrene, not specified as recurrent (principal); E11.40 Type 2 diabetes mellitus with diabetic neuropathy, unspecified; Z79.4 Long term (current) use of insulin; E78.00 Pure hypercholesterolemia, unspecified; Z79.84 Long term (current) use of oral hypoglycemic drugs
CPT/HCPCS: 49650; S2900; 00840; 36415; 80048; 82962; 83036; 85027; J7120; J2405

== ENCOUNTER → 2024-09-18 | Outpatient (CLI) | payer MEDICARE, SELFPAY ==
[2024-09-18 10:00] LABS: Mucous, Urine 0 SEEN /hpf (<or=2+); Red Blood Cells-Urine 0 SEEN /hpf (0-5)
[2024-09-18 10:13] LABS: Color, Urine Yellow (Yellow); Glucose, Dipstick 1000 mg/dl (Normal); Ketone-Dipstick Negative (Negative); Leukocyte Esterase-Dipstick Negative /ul (Negative); Nitrite-Dipstick Negative (Negative); Occult Blood-Urine Negative /ul (Negative); Protein-Dipstick 15 mg/dl (Negative); Specific Gravity, Urine 1.015 (1.002-1.030); Urine Bilirubin Dipstick Negative (Negative); Urine Clarity Clear (Clear); Urine Urobilinogen Normal (Normal)
[2024-09-18 10:19] LABS: Bacteria RARE /hpf (None Seen); Squamous Epithelial Cells - UA 0-5 SEEN /hpf (0-5); White Blood Cells 0-5 SEEN /hpf (0-5)
== END | disposition home or self-care (01) ==
LOC: LABSPEC 09:45
PROVIDERS: Physician Assistant; PCP Nurse Practitioner Family; Referring Provider Surgery; Visit Provider Surgery
DX: R39.15 Urgency of urination (principal)
CPT/HCPCS: 81001

== ENCOUNTER → 2025-04-19 | Outpatient (CLI) | payer MEDICARE, SELFPAY ==
[2025-04-19 12:25] LABS: Hematocrit 38.8 % (40-54); Hemoglobin 13.3 g/dL (13.0-16.5); Immature Granulocytes Count 0.050 X10^3/uL (0.0-0.0); Mean Corp Hgb Conc 34.3 g/dL (32-36); Mean Corpuscular Volume 96.5 fL (80-94); Mean Platelet Vol. 10.2 fl (6.2-12.0); NRBC Flagged by Analyzer 0 % (0-5); Platelet Count 136 K/mm3 (150-450); RBC Distribution Width CV 13.9 % (11.6-14.6); RBC Distribution Width SD 49.3 fl (35.1-43.9); Red Blood Count 4.02 M/mm3 (4.6-6.2); White Blood Count 3.2 K/mm3 (4.4-11.0)
[2025-04-19 13:09] LABS: AST(SGOT) 19 U/L (<=37); Alanine Aminotransfer ALT/SGPT 19 U/L (<=46); Albumin, Serum 4.2 g/dL (3.4-4.8); Alkaline Phosphatase 24 U/L (40-129); Anion Gap 13 (5-15); BUN 17 mg/dL (4-19); BUN/Creat Ratio 24.7 RATIO (10-20); Calcium,Total 8.9 mg/dL (7.6-11.0); Carbon Dioxide 21.3 mmol/L (21.0-32.0); Chloride 104 mmol/L (98-108); Cholesterol 203 mg/dL (<=200); Globulin 3.0 g/dL (2.2-4.2); Glucose 163 mg/dL (70-99); Low Density Lipoprotein Calc. 104 mg/dL; Potassium 4.1 mmol/L (3.3-5.1); Triglycerides 278 mg/dL; Very Low Density Lipoprotein 56 mg/dL (5-40); cholesterol:hdl ratio screen 4.67
[2025-04-19 13:10] LABS: PSA,Total - Annual Screen 0.61 ng/mL (0.02-4.00)
== END | disposition home or self-care (01) ==
PROVIDERS: PCP Nurse Practitioner Family
DX: I10 Essential (primary) hypertension (principal); E78.5 Hyperlipidemia, unspecified; Z12.5 Encounter for screening for malignant neoplasm of prostate
CPT/HCPCS: 36415; 80053; 80061; 84153; 84443; 85025; G0103

== ENCOUNTER → 2025-04-24 | Outpatient (CLI) | payer MEDICARE, SELFPAY ==
[2025-04-24 09:27] LABS: Hematocrit 43.5 % (40-54); Hemoglobin 14.7 g/dL (13.0-16.5); Immature Granulocytes Count 0.040 X10^3/uL (0.0-0.0); Mean Corp Hgb Conc 33.8 g/dL (32-36); Mean Corpuscular Volume 97.5 fL (80-94); Mean Platelet Vol. 10.2 fl (6.2-12.0); NRBC Flagged by Analyzer 0 % (0-5); POSITIVE MORPHOLOGY YES; Platelet Count 144 K/mm3 (150-450); RBC Distribution Width CV 14.1 % (11.6-14.6); RBC Distribution Width SD 50.4 fl (35.1-43.9); Red Blood Count 4.46 M/mm3 (4.6-6.2); White Blood Count 3.1 K/mm3 (4.4-11.0)
[2025-04-24 10:00] LABS: Differential Indicated SCAN CRITERIA MET
[2025-04-24 10:17] LABS: Vitamin B12 856 pg/mL (180-914)
[2025-04-24 11:11] LABS: FOLATES,SERUM (FOLIC ACID) 36.20 ng/mL (4.60-34.80)
== END | disposition home or self-care (01) ==
LOC: LAB 08:24
PROVIDERS: PCP Nurse Practitioner Family
DX: D61.818 Other pancytopenia (principal)
CPT/HCPCS: 36415; 82607; 82746; 85025

== ENCOUNTER → 2025-07-12 | Outpatient (CLI) | payer MEDICARE, SELFPAY ==
[2025-07-12 10:50] LABS: Hematocrit 39.8 % (40-54); Hemoglobin 13.9 g/dL (13.0-16.5); Immature Granulocytes Count 0.030 X10^3/uL (0.0-0.0); Mean Corp Hgb Conc 34.9 g/dL (32-36); Mean Corpuscular Volume 95.2 fL (80-94); Mean Platelet Vol. 9.6 fl (6.2-12.0); NRBC Flagged by Analyzer 0 % (0-5); Platelet Count 165 K/mm3 (150-450); RBC Distribution Width CV 13.5 % (11.6-14.6); RBC Distribution Width SD 47.2 fl (35.1-43.9); Red Blood Count 4.18 M/mm3 (4.6-6.2); White Blood Count 2.6 K/mm3 (4.4-11.0)
== END | disposition home or self-care (01) ==
LOC: LAB 10:11
PROVIDERS: PCP Nurse Practitioner Family; Referring Provider Psychiatry & Neurology Neurology; Visit Provider Psychiatry & Neurology Neurology
DX: G62.9 Polyneuropathy, unspecified (principal)
CPT/HCPCS: 36415; 85025